=== PATIENT | female | born 1950 | race Caucasian/White ===

== ENCOUNTER → 2016-06-30 | Outpatient (CLI) | payer MEDICARE ==
[~2016-06-30] MED LIST: /ATOR40TA PO; /NITR4TASL SL; ADVA230A INH; ALBU17IN INH; ALLO10TA PO; ASPI325T PO; ASPI32ECTA PO; BUDE0.5S6 INH; BYST10TA PO; CIPR500T89 PO; COLC1TAB5 PO; DIGO0.12 PO; DILT1CAP46 PO; DRIS1CAP PO; DUONSOL INH; EFFEXOR XR PO; ENAL10TA2 PO; FLOV110A INH; FURO20TA2 PO; FURO40TA2 PO; GABA300C3 PO; HUMA100I SC; INSUH10VL SC; INSULANT SC; IPRASOL4 IN; KLOR10TA5 PO; LIPI80TA PO; NITR4TASL SL; PANT40TA2 PO; PLAVIX PO; POTA10TA16 PO; PREDPOW10 PO; PROA1AER IN; RANE1000 PO; SING5CHW PO; VENL75TA2 PO; VENL75TA3 PO; VITA1CAP2 PO; VITACAP31 PO; [UNRECOGNIZED DRUG - CODE] SC
== END ==
LOC: M LAB 10:20
PROVIDERS: ATTEND Internal Medicine Endocrinology, Diabetes & Metabolism
DX: E11.65 Type 2 diabetes mellitus with hyperglycemia (principal); Z79.4 Long term (current) use of insulin; S84.12XA Injury of peroneal nerve at lower leg level, left leg, initial encounter; G47.33 Obstructive sleep apnea (adult) (pediatric); E55.9 Vitamin D deficiency, unspecified; Z96.41 Presence of insulin pump (external) (internal); I10 Essential (primary) hypertension; X58.XXXA Exposure to other specified factors, initial encounter; Y92.9 Unspecified place or not applicable

== ENCOUNTER → 2016-10-15 | Outpatient (REF) | payer MEDICARE ==
[~2016-10-15] MED LIST changes: +GABA-282 PO; -GABA300C3 PO
[2016-10-16 14:06] LABS: FOLATE 8.9 NG/ML
[2016-10-16 14:22] LABS: PERCENT SATURATION 15.1 % (13.2-37.4)
== END ==
LOC: M LAB REF 13:19
PROVIDERS: ATTEND Internal Medicine
DX: Z51.81 Encounter for therapeutic drug level monitoring (principal); D64.9 Anemia, unspecified; Z79.899 Other long term (current) drug therapy

== ENCOUNTER → 2016-12-10 | Outpatient (CLI) | payer MEDICARE ==
--- NOTE | 2016-12-10 11:15 | REP ---
REASON: Followup pulmonary nodule. COMPARISON: 10/22/2015 which showed a 3 mm sized nodular density in the right middle lobe. The mediastinum and pulmonary glenn are unchanged showing no evidence of a mass or adenopathy. There are no pleural or pericardial effusions. The imaged upper abdomen is within normal limits. The imaged osseous structures are stable and intact. Evaluation of the lung isbell show no change in the tiny right middle lobe nodular density. There are no new abnormal nodules, masses, or opacities. IMPRESSION: Stable CT examination of the chest. According to the revised Fleischner Society criteria, yearly lung screening CT is recommended provided the patient's risk factors remain high. Signed by Hayes Chowdhury DO 12/10/2016 01:45 P
== END ==
LOC: M RAD 08:32
PROVIDERS: ATTEND Internal Medicine Pulmonary Disease
DX: R91.1 Solitary pulmonary nodule (principal)

== ENCOUNTER → 2017-02-10 | Outpatient (CLI) | payer MEDICARE ==
[~2017-02-10] MED LIST changes: +ASPI325T24 PO; -ASPI32ECTA PO; +CIPR-249 PO; -CIPR500T89 PO; +COLC1TAB14 PO; -COLC1TAB5 PO; -PROA1AER IN; +PROAAER10 IN
--- NOTE | 2017-02-10 11:50 | REP ---
LUMBAR SPINE, FIVE VIEWS: HISTORY: Sacroiliitis. COMPARISON: 06/29/2008. There is no acute fracture or subluxation. The intervertebral discs are decreased in height. Vacuum phenomenon is present at the L2-3 level. These findings are consistent with disc degeneration. Osteophytes are present throughout the lumbar spine. There is sclerosis of the end plates of the L2 and L3 vertebral bodies. There is narrowing of the L4-5 and L5-S1 facet joints with associated sclerosis. There is sclerosis adjacent to the left sacroiliac joint. IMPRESSION: Degenerative change as described above. Signed by Bijan Galo MD 02/10/2017 11:52 A
== END ==
LOC: M RAD 11:01
PROVIDERS: ATTEND Nurse Practitioner Family
DX: M46.1 Sacroiliitis, not elsewhere classified (principal); M51.24 Other intervertebral disc displacement, thoracic region; M51.34 Other intervertebral disc degeneration, thoracic region; M79.1 Myalgia; M54.12 Radiculopathy, cervical region; M47.814 Spondylosis without myelopathy or radiculopathy, thoracic region

== ENCOUNTER → 2017-02-16 | Outpatient (CLI) | payer MEDICARE ==
--- NOTE | 2017-02-16 12:39 | REP ---
DIGITAL SCREENING MAMMOGRAPHY WITH CAD: Comparison mammography February 20, 2016, February 14, 2015, and February 13, 2014. MAMMOGRAPHIC FINDINGS: Scattered fibroglandular elements are seen bilaterally. There is a somewhat ill-defined nodular neodensity, 12.5 mm, medially in the right breast at approximately 3-o'clock position, which merits further evaluation. There are scattered benign calcifications. No other soft tissue density is seen. No architectural distortion is observed. No worrisome skin change. Exam is otherwise unremarkable. IMPRESSION: BIRADS category 0 incomplete breast imaging. Nodular neodensity 3-o'clock position right breast merits further evaluation. Diagnostic right breast mammography and focused right breast sonography recommended. BI-RADS/ACR category 0 mammogram, incomplete. Additional imaging and/or prior images are needed before a final assessment can be assigned. This mammogram was interpreted with the aid of an FDA-approved computer-aided detection system. The patient states she/he had a clinical breast exam in December, The patient letter being requested is M0.
== END ==
LOC: M WHC 10:36
PROVIDERS: ATTEND Nurse Practitioner Adult Health
DX: Z12.31 Encounter for screening mammogram for malignant neoplasm of breast (principal); N63 Unspecified lump in breast

== ENCOUNTER → 2017-02-18 | Outpatient (CLI) | payer MEDICARE ==
--- NOTE | 2017-02-18 13:46 | REP ---
DIGITAL DIAGNOSTIC UNILATERAL RIGHT BREAST MAMMOGRAPHY WITH CAD AND FOCUSED RIGHT BREAST SONOGRAPHY: HISTORY: Screening mammography February 16, 2017 was BIRADS category 0 incomplete because of a nodular neodensity seen at the 3 -o'clock position. Right breast imaging was recommended. Comparison is also made with prior mammography from February 20, 2016 and February 14, 2015. MAMMOGRAPHIC FINDINGS: Magnified focal spot compression CC, MLO and true ML views of the right breast are obtained along with a true ML view without magnification. At 3-o'clock position in the right breast, these views confirm the presence of a sharply circumscribed elongate oval-shaped 10 mm lesion relatively low in radiographic attenuation in the middle third of the right breast. This is seen only with difficulty on the MLO and true ML views. There are some benign inspissated ductal secretory calcifications. No other mammographic finding. SONOGRAPHIC FINDINGS: The medial aspect of the right breast was scanned from the 12-o'clock position to the 6-o'clock position. At the 3-o'clock position, there is an elongate oval-shaped 1.3 x 0.4 x 1.2 cm hypoechoic structure without internal vascular flow. It has sharply circumscribed margins. It does not appear to show enhanced through transmission. It does not meet the criteria of a simple cyst. It may be a complex cyst. No other sonographic finding. Fairly homogeneous background echotexture. IMPRESSION: BIRADS category 4 suspicious right breast imaging. Oval-shaped hypoechoic 1.2 cm lesion at the 3-o'clock position in the right breast seen by ultrasound and corresponding to a sharply circumscribed elongate oval-shaped lesion mammographically. Ultrasound-guided aspiration needle biopsy recommended with marker clip placement and post marker clip placement mammogram views. BI-RADS/ACR category 4 mammogram. Suspicious abnormality - biopsy should be considered. Usually requires biopsy. This mammogram was interpreted with the aid of an FDA-approved computer-aided detection system. The patient states she/he had a clinical breast exam in December 2016. The patient letter being requested is M4. Signed by Demetrius Quintana MD 02/18/2017 05:02 P
== END ==
LOC: M RAD 10:32
PROVIDERS: ATTEND Internal Medicine
DX: N63 Unspecified lump in breast (principal)
CPT/HCPCS: 76642; G0206

== ENCOUNTER → 2017-03-11 | Outpatient (CLI) | payer MEDICARE ==
--- NOTE | 2017-03-12 09:29 | DEXA ---
AP SPINE L1 - L4 1.345 1.2 2.8 LT FEMUR TOTAL 0.967 -0.3 1.0 RT FEMUR TOTAL 0.973 -0.3 1.1 TOTAL BODY TOTAL OTHER DUAL FEMUR FRAX* ASSESSMENT Risk factors: Not performed. 10 year probability of fracture Major osteoporotic fracture % Hip fracture % COMMENTS: Normal bone densitometry of the spine and hips. The increased density of the spine does represent a significant change. The decreased density of the left hip does not represent a significant change. The decreased density of the right hip does represent a significant change. The density of the spine has increased 19.4% since the initial exam on 09/2003. The spine density has increased 9.8% since the most recent exam on 08/2012. The density of the left hip has increased 6.0% since the initial exam on 09/2003. The density of the left hip has decreased 1.8% since the most recent exam on 2012. The density of the right hip has increased 5.9% since the initial exam on 2003. The density of the right hip has decreased 6.8% since the most recent exam on 2012. FOLLOW-UP: Recommendation for the next bone density exam: 5 years. GRACIE
== END ==
LOC: M WHC 08:18
PROVIDERS: ATTEND Internal Medicine
DX: M85.88 Other specified disorders of bone density and structure, other site (principal); M85.851 Other specified disorders of bone density and structure, right thigh; M85.852 Other specified disorders of bone density and structure, left thigh

== ENCOUNTER 2017-03-23 07:14 | Outpatient (CLI) | payer MEDICARE ==
[~2017-03-23] VITALS: Ht 149.9 cm; Wt 76.7 kg
[2017-03-23] MEDS ORDERED: NS 1,000 ML IV ONE (07:45)
[2017-03-23] MEDS ORDERED: PROPOFOL 200 MG/20 ML VIAL As Ordered ONE ×3 (08:23→08:29)
[2017-03-23] MEDS ORDERED: LIDOCAINE 2% INJ 100 MG/5 ML SDV (FOR ANES.) As Ordered ONE (08:24)
--- NOTE | 2017-03-23 08:29 | ROOR ---
Patient Name: Aura Garland Procedure Date: 03/23/2017 8:05 AM Date of : 1950 Age: 66 Room: [facility] Gender: Female Note Status: Finalized Procedure: Upper Endoscopy + Biopsies Indications: Heartburn, Exclusion of He's esophagus Providers: Lb Millard MD Referring MD: SAUL PATTERSON JR, MD Requesting Provider: Medicines: Monitored Anesthesia Care Complications: No immediate complications. Procedure: Pre-Anesthesia Assessment: - The heart rate, respiratory rate, oxygen saturations, blood pressure, adequacy of pulmonary ventilation, and response to care were monitored throughout the procedure. The Endoscope was introduced through the mouth, and advanced to the second part of duodenum. The upper GI endoscopy was accomplished without difficulty. The patient tolerated the procedure well. Findings: The Z-line was irregular and was found 40 cm from the incisors. Multiple biopsies were obtained with cold forceps for evaluation to rule out He's Esophagus randomly at the gastroesophageal junction. A small hiatal hernia was present. Diffuse candidiasis was found in the lower third of the esophagus. Biopsies were taken with a cold forceps for histology. No other significant abnormalities were identified in a careful examination of the stomach. The exam of the duodenum was otherwise normal. Impression: - Z-line irregular, 40 cm from the incisors. - Small hiatal hernia. - Monilial esophagitis. Biopsied. - Multiple biopsies were obtained at the gastroesophageal junction. - The examination was otherwise normal. Recommendation: - Await pathology results. - Discharge patient to home. - Follow an antireflux regimen. - Continue present medications. - Await pathology results. - Telephone GI clinic for pathology results in 1 week. - Repeat upper endoscopy for surveillance based on pathology results. - Return to referring physician. - The findings and recommendations were discussed with the patient's family. Lb Millard MD Lb Millard MD 03/23/2017 8:28:54 AM This report has been signed electronically. Number of Addenda: 0 Note Initiated On: 03/23/2017 8:05 AM Estimated Blood Loss: Estimated blood loss: none.
--- NOTE | 2017-03-23 08:48 | ROOR ---
Patient Name: Aura Garland Procedure Date: 03/23/2017 8:05 AM Date of : 1950 Age: 66 Room: [facility] Gender: Female Note Status: Finalized Procedure: Total Colonoscopy to Cecum Indications: Change in bowel habits Providers: Lb Millard MD Referring MD: SAUL PATTERSON JR, MD Requesting Provider: Medicines: Monitored Anesthesia Care Complications: No immediate complications. Procedure: Pre-Anesthesia Assessment: - The heart rate, respiratory rate, oxygen saturations, blood pressure, adequacy of pulmonary ventilation, and response to care were monitored throughout the procedure. The Colonoscope was introduced through the anus and advanced to the cecum, identified by appendiceal orifice and ileocecal valve. The colonoscopy was performed without difficulty. The patient tolerated the procedure well. The quality of the bowel preparation was excellent. Findings: The perianal and digital rectal examinations were normal. Non-bleeding internal hemorrhoids were found during retroflexion. The hemorrhoids were small and Grade I (internal hemorrhoids that do not prolapse). Multiple small and large-mouthed diverticula were found in the recto-sigmoid colon, sigmoid colon and descending colon. The exam was otherwise without abnormality on direct and retroflexion views. Impression: - Non-bleeding internal hemorrhoids. - Diverticulosis in the recto-sigmoid colon, in the sigmoid colon and in the descending colon. - The examination was otherwise normal on direct and retroflexion views. - No specimens collected. - The exam was otherwise normal to the cecum. Recommendation: - Patient has a contact number available for emergencies. The signs and symptoms of potential delayed complications were discussed with the patient. Return to normal activities tomorrow. Written discharge instructions were provided to the patient. - High fiber diet. - Discharge patient to home. - Continue present medications. - Repeat colonoscopy in 10 years for screening purposes. - Return to referring physician. - The findings and recommendations were discussed with the patient's family. Lb Millard MD Lb Millard MD 03/23/2017 8:47:47 AM This report has been signed electronically. Number of Addenda: 0 Note Initiated On: 03/23/2017 8:05 AM Estimated Blood Loss: Estimated blood loss: none.
[2017-03-23 09:10] VITALS: BP 165/87
== END 2017-03-23 09:27 | disposition home or self-care (01) ==
LOC: M OPP 07:14
PROVIDERS: ATTEND Internal Medicine Gastroenterology
DX: R19.4 Change in bowel habit (principal); K64.0 First degree hemorrhoids; K57.30 Diverticulosis of large intestine without perforation or abscess without bleeding; R13.10 Dysphagia, unspecified; R12 Heartburn; K22.8 Other specified diseases of esophagus; K44.9 Diaphragmatic hernia without obstruction or gangrene; B37.81 Candidal esophagitis; I25.119 Atherosclerotic heart disease of native coronary artery with unspecified angina pectoris; I10 Essential (primary) hypertension; Z95.5 Presence of coronary angioplasty implant and graft; Z95.1 Presence of aortocoronary bypass graft; I25.2 Old myocardial infarction; E78.5 Hyperlipidemia, unspecified; E10.9 Type 1 diabetes mellitus without complications; Z96.41 Presence of insulin pump (external) (internal); M10.9 Gout, unspecified; E03.9 Hypothyroidism, unspecified; R23.3 Spontaneous ecchymoses; M19.90 Unspecified osteoarthritis, unspecified site; M54.9 Dorsalgia, unspecified; M25.60 Stiffness of unspecified joint, not elsewhere classified; G62.9 Polyneuropathy, unspecified; J45.909 Unspecified asthma, uncomplicated; G47.30 Sleep apnea, unspecified; Z88.0 Allergy status to penicillin; Z88.2 Allergy status to sulfonamides; Z79.82 Long term (current) use of aspirin; Z79.899 Other long term (current) drug therapy; Z80.1 Family history of malignant neoplasm of trachea, bronchus and lung

== ENCOUNTER → 2017-04-02 | Outpatient (CLI) | payer MEDICARE ==
--- NOTE | 2017-04-02 11:58 | REP ---
MR LUMBAR SPINE WITHOUT CONTRAST: HISTORY: Back pain. Decreased signal intensity on T2-weighted images is present in the T11-12 through L5-S1 intervertebral discs. The discs are decreased in height. These findings as consistent with disc degeneration. A diffuse disc bulge and small central disc extrusion are present at the L1-2 level. There is minimal compression of the thecal sac. There is hypertrophy of the posterior articulating facets. The L1 nerves exit the neural foramina without compression. A diffuse disc bulge is present at the L2-3 level. There is hypertrophy of the ligamenta flava and posterior articulating facets. There are 2 mm of retrolisthesis of L2 on 3. These findings produce minimal central canal stenosis. There is compression of the left L2 nerve in the neural foramen. The right L2 nerve exits the neural foramen without compression. A diffuse disc bulge is present at the L3-4 level. There is hypertrophy of the ligamenta flava and posterior articulating facets. These findings produce minimal central canal stenosis. There is compression of the right L3 nerve in the neural foramen. The left L3 nerve exits the neural foramen without compression. A diffuse disc bulge is present at the L4-5 level. There is hypertrophy of the ligamenta flava and posterior articulating facets. These findings produce mild central canal stenosis. The L4 nerves exit the neural foramina without compression. A diffuse disc bugle is present at the L5-S1 level. There is hypertrophy of the ligamenta flava and the posterior articulating facets. These findings produce minimal central canal stenosis. The L5 nerves exit the neural foramina without compression. The conus medullaris is normal in appearance terminating at the level of the L1-2 intervertebral disc. Increased signal intensity on T2-weighted images is present in the endplates of the L2 and 3 vertebral bodies. This represents degenerative change. IMPRESSION: 1. Diffuse disc bugle and small central disc extrusion at the L1-2 level with minimal thecal sac compression. 2. Minimal central canal stenosis at the L2-3 level secondary to disc bulge, ligamentous and facet hypertrophy and retrolisthesis. There is compression of the left L2 nerve in the neural foramen. 3. Minimal central canal stenosis at the L3-4 and L5-S1 levels secondary to disc bulge, ligamentous, and facet hypertrophy. There is compression of the right L3 nerve in the neural foramen. 4. Mild central canal stenosis at the L4-5 level secondary to disc bulge, ligamentous, and facet hypertrophy. Signed by Bijan Galo MD 04/02/2017 12:05 P
== END ==
LOC: M RAD 10:18
PROVIDERS: ATTEND Nurse Practitioner Family
DX: M51.37 Other intervertebral disc degeneration, lumbosacral region (principal); M47.817 Spondylosis without myelopathy or radiculopathy, lumbosacral region; M46.1 Sacroiliitis, not elsewhere classified; M51.24 Other intervertebral disc displacement, thoracic region; M51.34 Other intervertebral disc degeneration, thoracic region; M79.1 Myalgia; M47.814 Spondylosis without myelopathy or radiculopathy, thoracic region

== ENCOUNTER 2017-08-25 04:50 | Emergency (ER) | payer MEDICARE | END 2017-08-25 07:41 | disposition home or self-care (01) | LOC: M ED 04:50 | DX: T78.3XXA Angioneurotic edema, initial encounter (principal); Z79.4 Long term (current) use of insulin; Z79.51 Long term (current) use of inhaled steroids; Z79.899 Other long term (current) drug therapy; Z79.82 Long term (current) use of aspirin; Z88.0 Allergy status to penicillin; Z88.2 Allergy status to sulfonamides | CPT/HCPCS: 99283 ==

== ENCOUNTER → 2017-11-09 | Outpatient (CLI) | payer MEDICARE ==
[2017-11-09 09:05] LABS: ALT/SGPT 65 U/L (12-78); AST/SGOT 59 U/L (7-37); CHOLESTEROL LEVEL 116 MG/DL (<200); CHOLESTEROL RISK RATIO 2.974 (<5); CPK CREATINE PHOSPHOKINASE 168 U/L (26-192); HDL CHOLESTEROL 39 MG/DL (>40); LDL CHOLESTEROL 37.6 MG/DL (<100); NON-HDL-C 77 MG/DL; TRIGLYCERIDES LEVEL 197 MG/DL (<150)
== END ==
LOC: M LAB 08:07
DX: I25.10 Atherosclerotic heart disease of native coronary artery without angina pectoris (principal)
CPT/HCPCS: 84460

== ENCOUNTER → 2017-11-17 | Outpatient (CLI) | payer MEDICARE ==
[2017-11-17 10:34] LABS: BASO % 0.4 % (0.0-1.0); EOS # 0.2 10^3/uL (0.0-0.50); EOS % 3.8 % (0.0-3.0); HEMATOCRIT 35.3 % (36.0-47.0); HEMOGLOBIN 11.3 g/dl (12.0-15.5); IMMATURE GRANULOCYTE % 0.4 % (0-3.0); LYMPH # 1.6 10^3/uL (1.5-4.5); LYMPH % 35.9 % (24.0-44.0); MEAN CORPUSCULAR HEMOGLOBIN 28.6 pg (27.0-33.0); MEAN CORPUSCULAR VOLUME 89.4 fl (80.0-96.0); MONO # 0.4 10^3/uL (0.0-0.8); MONO % 9.2 % (0.0-5.0); NEUTROPHILS # 2.3 10^3/uL (1.8-7.7); NEUTROPHILS % 50.3 % (36.0-66.0); PLATELET COUNT, AUTOMATED 189 10^3/uL (150-450); RED BLOOD COUNT 3.95 10^6/uL (4.00-5.40); RED CELL DISTRIBUTION WIDTH 14.6 % (11.5-14.5); WHITE BLOOD COUNT 4.5 10^3/uL (4.0-10.0)
[2017-11-17 11:15] LABS: ANION GAP 6 MEQ/L (8-16); BLOOD UREA NITROGEN 19 MG/DL (7-18); CALCIUM LEVEL 8.7 MG/DL (8.8-10.2); CARBON DIOXIDE LEVEL 32 MEQ/L (21-32); CHLORIDE LEVEL 104 MEQ/L (98-107); GLOMERULAR FILTRATION RATE > 60.0 (>45); GLUCOSE, FASTING 304 MG/DL (70-100); POTASSIUM SERUM 3.6 MEQ/L (3.5-5.1); SODIUM LEVEL 142 MEQ/L (136-145)
== END ==
LOC: M LAB 10:00
DX: I25.10 Atherosclerotic heart disease of native coronary artery without angina pectoris (principal); R01.1 Cardiac murmur, unspecified
CPT/HCPCS: 80048

== ENCOUNTER → 2017-12-15 | Outpatient (REF) | payer MEDICARE ==
[2017-12-15 12:50] LABS: URIC ACID 5.8 MG/DL (2.6-6.0)
== END ==
LOC: M LAB REF 11:48
DX: M10.9 Gout, unspecified (principal)
CPT/HCPCS: 84550

== ENCOUNTER → 2018-02-08 | Outpatient (CLI) | payer MEDICARE ==
[2018-02-08 13:42] LABS: ANION GAP 6 MEQ/L (8-16); BLOOD UREA NITROGEN 18 MG/DL (7-18); CALCIUM LEVEL 9.3 MG/DL (8.8-10.2); CARBON DIOXIDE LEVEL 37 MEQ/L (21-32); CHLORIDE LEVEL 102 MEQ/L (98-107); CREATININE FOR GFR 0.66 MG/DL (0.55-1.30); GLOMERULAR FILTRATION RATE > 60.0 (>45); GLUCOSE, FASTING 68 MG/DL (70-100); NT-PRO BNP 250 PG/ML (<125); POTASSIUM SERUM 3.6 MEQ/L (3.5-5.1); SODIUM LEVEL 145 MEQ/L (136-145)
== END ==
LOC: M LAB 11:34
DX: I25.119 Atherosclerotic heart disease of native coronary artery with unspecified angina pectoris (principal); R60.9 Edema, unspecified; I10 Essential (primary) hypertension
CPT/HCPCS: 80048

== ENCOUNTER → 2018-02-23 | Outpatient (CLI) | payer MEDICARE ==
[2018-02-23 10:59] LABS: ANION GAP 6 MEQ/L (8-16); BLOOD UREA NITROGEN 23 MG/DL (7-18); CALCIUM LEVEL 8.6 MG/DL (8.8-10.2); CARBON DIOXIDE LEVEL 32 MEQ/L (21-32); CHLORIDE LEVEL 104 MEQ/L (98-107); CREATININE FOR GFR 0.86 MG/DL (0.55-1.30); GLOMERULAR FILTRATION RATE > 60.0 (>45); GLUCOSE, FASTING 179 MG/DL (70-100); POTASSIUM SERUM 3.5 MEQ/L (3.5-5.1); SODIUM LEVEL 142 MEQ/L (136-145)
== END ==
LOC: M LAB 09:23
DX: I10 Essential (primary) hypertension (principal)
CPT/HCPCS: 80048

== ENCOUNTER → 2018-03-25 | Outpatient (CLI) | payer MEDICARE ==
[2018-03-25 10:59] LABS: ANION GAP 7 MEQ/L (8-16); BLOOD UREA NITROGEN 25 MG/DL (7-18); CARBON DIOXIDE LEVEL 33 MEQ/L (21-32); CHLORIDE LEVEL 102 MEQ/L (98-107); CREATININE FOR GFR 0.83 MG/DL (0.55-1.30); GLOMERULAR FILTRATION RATE > 60.0 (>45); GLUCOSE, FASTING 191 MG/DL (70-100); POTASSIUM SERUM 3.5 MEQ/L (3.5-5.1); SODIUM LEVEL 142 MEQ/L (136-145)
== END ==
LOC: M LAB 10:11
DX: R60.9 Edema, unspecified (principal)
CPT/HCPCS: 80048

== ENCOUNTER → 2018-04-05 | Outpatient (CLI) | payer MEDICARE ==
[2018-04-05 10:57] LABS: ANION GAP 7 MEQ/L (8-16); BLOOD UREA NITROGEN 24 MG/DL (7-18); CALCIUM LEVEL 8.9 MG/DL (8.8-10.2); CARBON DIOXIDE LEVEL 33 MEQ/L (21-32); CHLORIDE LEVEL 101 MEQ/L (98-107); CREATININE FOR GFR 0.91 MG/DL (0.55-1.30); GLOMERULAR FILTRATION RATE > 60.0 (>45); GLUCOSE, FASTING 162 MG/DL (70-100); POTASSIUM SERUM 3.8 MEQ/L (3.5-5.1); SODIUM LEVEL 141 MEQ/L (136-145)
== END ==
LOC: M LAB 09:41
DX: R60.9 Edema, unspecified (principal); I10 Essential (primary) hypertension; I25.10 Atherosclerotic heart disease of native coronary artery without angina pectoris
CPT/HCPCS: 80048

== ENCOUNTER → 2018-04-07 | Outpatient (CLI) | payer MEDICARE ==
[2018-04-07 13:38] LABS: NT-PRO BNP 161 PG/ML (<125)
== END ==
LOC: M LAB 12:38
DX: R60.9 Edema, unspecified (principal)
CPT/HCPCS: 36415

== ENCOUNTER → 2018-05-26 | Outpatient (CLI) | payer MEDICARE ==
[2018-05-26 13:41] LABS: ANION GAP 7 MEQ/L (8-16); BLOOD UREA NITROGEN 24 MG/DL (7-18); CALCIUM LEVEL 9.3 MG/DL (8.8-10.2); CARBON DIOXIDE LEVEL 34 MEQ/L (21-32); CHLORIDE LEVEL 98 MEQ/L (98-107); CREATININE FOR GFR 0.93 MG/DL (0.55-1.30); GLOMERULAR FILTRATION RATE > 60.0 (>45); GLUCOSE, FASTING 252 MG/DL (70-100); NT-PRO BNP 131 PG/ML (<125); POTASSIUM SERUM 3.9 MEQ/L (3.5-5.1); SODIUM LEVEL 139 MEQ/L (136-145)
== END ==
LOC: M SMT 08:59
DX: I25.10 Atherosclerotic heart disease of native coronary artery without angina pectoris (principal); R60.9 Edema, unspecified
CPT/HCPCS: 80048

== ENCOUNTER → 2018-06-09 | Outpatient (CLI) | payer MEDICARE ==
[~2018-06-09] MED LIST changes: -ASPI325T24 PO; +ASPI325T25 PO; -GABA-282 PO; +GABA-843 PO; +IPRA0.00 IN; -IPRASOL4 IN; +PANT40TA3 PO
[2018-06-09 14:06] LABS: BLOOD UREA NITROGEN 16 MG/DL (7-18); CALCIUM LEVEL 8.8 MG/DL (8.8-10.2); CARBON DIOXIDE LEVEL 32 MEQ/L (21-32); CHLORIDE LEVEL 103 MEQ/L (98-107); CREATININE FOR GFR 0.87 MG/DL (0.55-1.30); GLOMERULAR FILTRATION RATE > 60.0 (>45); GLUCOSE, FASTING 222 MG/DL (70-100); POTASSIUM SERUM 4.4 MEQ/L (3.5-5.1); SODIUM LEVEL 142 MEQ/L (136-145)
== END ==
LOC: M SMT 10:06
PROVIDERS: ATTEND Internal Medicine Cardiovascular Disease
DX: I10 Essential (primary) hypertension (principal)

== ENCOUNTER → 2018-06-16 | Outpatient (CLI) | payer MEDICARE ==
[2018-06-16 13:49] LABS: CREATININE FOR GFR 0.98 MG/DL (0.55-1.30); GLOMERULAR FILTRATION RATE 59.9 (>45); POTASSIUM SERUM 4.2 MEQ/L (3.5-5.1)
== END ==
LOC: M SMT 11:15
PROVIDERS: ATTEND Internal Medicine Cardiovascular Disease
DX: I10 Essential (primary) hypertension (principal); I25.10 Atherosclerotic heart disease of native coronary artery without angina pectoris

== ENCOUNTER → 2018-07-19 | Outpatient (CLI) | payer MEDICARE ==
[2018-07-19 13:23] LABS: BLOOD UREA NITROGEN 22 MG/DL (7-18); CALCIUM LEVEL 9.1 MG/DL (8.8-10.2); CARBON DIOXIDE LEVEL 31 MEQ/L (21-32); CHLORIDE LEVEL 98 MEQ/L (98-107); CREATININE FOR GFR 0.93 MG/DL (0.55-1.30); GLOMERULAR FILTRATION RATE > 60.0 (>45); GLUCOSE, FASTING 236 MG/DL (70-100); SODIUM LEVEL 138 MEQ/L (136-145)
== END ==
LOC: M SMT 10:31
PROVIDERS: ATTEND Internal Medicine Cardiovascular Disease
DX: I35.9 Nonrheumatic aortic valve disorder, unspecified (principal); R60.9 Edema, unspecified

== ENCOUNTER 2018-08-03 20:08 | Emergency (ER) | payer MEDICARE ==
[~2018-08-03] VITALS: Ht 152.4 cm; Wt 86.4 kg
[~2018-08-03 20:08] MED LIST changes: -/ATOR40TA PO; -/NITR4TASL SL; +ASPI-255 PO; -ASPI325T25 PO; +LIPI1TAB2 PO; +NITR0.4S SL; +VENL-65 PO; -VENL75TA3 PO; +VITA-183 PO; -VITA1CAP2 PO
[2018-08-03 20:43] LABS: BASO % 0.4 % (0.0-1.0); EOS # 0.3 10^3/uL (0.0-0.50); EOS % 3.1 % (0.0-3.0); HEMATOCRIT 36.7 % (36.0-47.0); HEMOGLOBIN 12.5 g/dl (12.0-15.5); LYMPH # 2.9 10^3/uL (1.5-4.5); LYMPH % 31.2 % (24.0-44.0); MEAN CORPUSCULAR HEMOGLOBIN 30.1 pg (27.0-33.0); MEAN CORPUSCULAR HGB CONC 34.1 g/dl (32.0-36.5); MEAN CORPUSCULAR VOLUME 88.4 fl (80.0-96.0); MONO # 0.7 10^3/uL (0.0-0.8); MONO % 7.2 % (0.0-5.0); NEUTROPHILS # 5.4 10^3/uL (1.8-7.7); NEUTROPHILS % 57.6 % (36.0-66.0); PLATELET COUNT, AUTOMATED 222 10^3/uL (150-450); RED BLOOD COUNT 4.15 10^6/uL (4.00-5.40); WHITE BLOOD COUNT 9.3 10^3/uL (4.0-10.0)
[2018-08-03 20:54] LABS: INR 1.09; PROTHROMBIN TIME 14.2 SECONDS (12.1-14.4)
[2018-08-03 21:16] LABS: ALT/SGPT 33 U/L (12-78); BILIRUBIN,DIRECT < 0.1 MG/DL (0.0-0.2); BILIRUBIN,TOTAL 0.4 MG/DL (0.2-1.0); BLOOD UREA NITROGEN 19 MG/DL (7-18); CALCIUM LEVEL 9.1 MG/DL (8.8-10.2); CARBON DIOXIDE LEVEL 31 MEQ/L (21-32); CHLORIDE LEVEL 100 MEQ/L (98-107); CPK CREATINE PHOSPHOKINASE 184 U/L (26-192); CREATININE FOR GFR 1.08 MG/DL (0.55-1.30); FREE T4 0.69 NG/DL (0.76-1.46); GLOMERULAR FILTRATION RATE 53.5 (>45); GLUCOSE, FASTING 194 MG/DL (70-100); LIPASE 92 U/L (73-393); MB/CK RELATIVE INDEX 1.85 (< OR =4); POTASSIUM SERUM 3.4 MEQ/L (3.5-5.1); SODIUM LEVEL 140 MEQ/L (136-145); TOTAL PROTEIN 7.3 GM/DL (6.4-8.2); TROPONIN I < 0.02 NG/ML (< 0.10)
[2018-08-03] MEDS ORDERED: NITROGLYCERIN 2% OINT 1 GM *U/D* PKT TOP ONE (21:45)
[2018-08-03] MEDS ORDERED: MORPHINE 2 MG/ML 1ML SYRINGE (J2270) IV ONE (21:45)
[2018-08-03] MEDS ORDERED: GI COCKTAIL 50ML BTL(HYOSCYAMINE/MAALOX/LIDOCAINE VISCOUS)(1:3:1) PO ONE (23:00)
[2018-08-03 23:14] LABS: CPK CREATINE PHOSPHOKINASE 178 U/L (26-192); MB/CK RELATIVE INDEX 1.69 (< OR =4); TROPONIN I < 0.02 NG/ML (< 0.10)
[2018-08-03] MEDS ORDERED: ISOVUE-370 76% 100ML VIAL (Q9967) As Ordered ONE (23:21)
[2018-08-03] MEDS ORDERED: hydrALAZINE INJ 20 MG/ML VIAL IV STA (23:45)
[2018-08-03] MEDS ORDERED: HYDR25TA PO (23:58)
[2018-08-04] MEDS ORDERED: **hydrALAZINE HCL** 25 MG TAB PO ONE
[2018-08-04] MEDS ORDERED: NORCO 5/325MG TABLET (BULK FOR ED) PO ONE
[2018-08-04 00:02] VITALS: BP 174/77
[2018-08-04 00:30] VITALS: BP 162/74
--- NOTE | 2018-08-04 00:42 | REPVR ---
EXAM: CT Angiography Chest With Contrast EXAM DATE/TIME: 08/03/2018 11:15 PM CLINICAL HISTORY: 68 years old, female; Pain; Chest pain; Type not specified; Patient HX: Cardiac TECHNIQUE: Axial computed tomographic angiography images of the chest with intravenous contrast using CT angiography protocol. All CT scans at this facility use at least one of these dose optimization techniques: automated exposure control; mA and/or kV adjustment per patient size (includes targeted exams where dose is matched to clinical indication); or iterative reconstruction. Coronal and sagittal reformatted images were created and reviewed. MIP reconstructed images were created and reviewed. CONTRAST: 75 ml of iso administered intravenously. COMPARISON: CT ANGIO CHEST 10/22/2015 1:10 PM FINDINGS: PULMONARY ARTERIES: Enhancement within the pulmonary arteries is preserved bilaterally to the distal segmental levels, without evidence for acute pulmonary embolus. There is slight heterogeneous enhancement noted at a subsegmental origin within the anterior left base, however felt likely to be artifactual. Diameter of the main pulmonary trunk is 3 cm. HEART AND AORTA: There is mild cardiac enlargement. No pericardial effusion. There is extensive coronary artery disease. Evaluation of the proximal aorta is slightly compromised by motion artifact. No thoracic aortic aneurysm or dissection is seen otherwise. The visualized proximal great vessels within the superior mediastinum are preserved. MEDIASTINUM: No mediastinal gas. The visualized thyroid gland is homogeneous. No mediastinal hematoma. No mediastinal or hilar lymphadenopathy by size criteria. No periesophageal gas or fluid. Small hiatal hernia is noted. LUNGS: The lungs are symmetrically expanded. Bibasal atelectasis and/or pulmonary parenchymal scarring noted. No consolidation, pneumothorax or pleural effusion. No suspicious pulmonary parenchymal masses seen. Previously seen pulmonary nodule is not convincingly identified. A 4mm nodular opacity is seen in the right middle lobe (image 101, series 401) however appears planar in appearance on coronal reconstructed images and may represent scarring. No obvious central tracheobronchial abnormality. UPPER ABDOMEN: No free air or free fluid within the visualized uppermost abdomen. Small hiatal hernia. Splenic diameter is 14 cm. MSK AND BODY WALL: No axillary lymphadenopathy by size criteria. Median sternotomy changes are noted. No acute fracture. Degenerative changes of the spine are noted. IMPRESSION: No evidence for acute pulmonary emboli. Mild cardiac enlargement. Coronary artery disease. Mild atelectasis. Other findings discussed above. Electronically signed by: Steffen Sharif On 08/04/2018 00:41:48 AM
--- NOTE | 2018-08-04 07:43 | REP ---
PA and lateral chest: Comparison is 09/26/2013. There is chronic cardiomegaly, unchanged. There are sternotomy wires, unchanged. The discoid atelectasis identified in the left lung previously has resolved. The lung isbell otherwise clear. There are no pleural effusions. Coronary artery endovascular stents are suspected, seen to best advantage on the lateral view. Impression: No acute cardiopulmonary findings. Chronic stable findings as described. Electronically Signed by Cesario Mcmullen MD 08/04/2018 07:34 A
--- NOTE | 2018-08-04 17:09 | ECGEPIP ---
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
== END 2018-08-04 01:01 | disposition home or self-care (01) ==
LOC: M ED 20:08 → EDSEX 20:08 → EDBD 20:08 → M ED 08-04 01:01
DX: R07.89 Other chest pain (principal); G47.33 Obstructive sleep apnea (adult) (pediatric); I10 Essential (primary) hypertension; E78.5 Hyperlipidemia, unspecified; I25.10 Atherosclerotic heart disease of native coronary artery without angina pectoris; E11.9 Type 2 diabetes mellitus without complications
CPT/HCPCS: 71046; 71275; 80048; 80076; 82550; 82553; 83690; 84439; 84443; 84484; 85025; 85610; 85730; 93005; 93041; 94760; 96374; 99285; J2270; Q9967

== ENCOUNTER → 2018-09-07 | Outpatient (CLI) | payer MEDICARE ==
[~2018-09-07] MED LIST changes: +/ATOR40TA PO; +/NITR4TASL SL; -ASPI-255 PO; +ASPI325T25 PO; +HYDR25TA PO; -LIPI1TAB2 PO; -NITR0.4S SL; -VENL-65 PO; +VENL75TA3 PO; -VITA-183 PO; +VITA1CAP2 PO
[2018-09-07 14:15] LABS: FREE T4 0.83 NG/DL (0.76-1.46); THYROID STIMULATING HORMONE 2.3 uIU/ML (0.358-3.740)
== END ==
LOC: M SMT 10:03
PROVIDERS: ATTEND Physician Assistant
DX: R94.6 Abnormal results of thyroid function studies (principal)

== ENCOUNTER → 2018-12-09 | Outpatient (CLI) | payer MEDICARE ==
[~2018-12-09] MED LIST changes: -/ATOR40TA PO; -/NITR4TASL SL; +ASPI-255 PO; -ASPI325T25 PO; +LIPI1TAB2 PO; +NITR0.4S SL; +VENL-65 PO; -VENL75TA3 PO; +VITA-183 PO; -VITA1CAP2 PO
[2018-12-09 13:23] LABS: FREE T4 0.82 NG/DL (0.76-1.46); THYROID STIMULATING HORMONE 2.63 uIU/ML (0.358-3.740)
== END ==
LOC: M SMT 09:55
PROVIDERS: ATTEND Physician Assistant
DX: E03.8 Other specified hypothyroidism (principal); E06.3 Autoimmune thyroiditis

== ENCOUNTER → 2019-08-30 | Outpatient (CLI) | payer MEDICARE ==
[2019-08-30 10:59] LABS: ALBUMIN 4.2 GM/DL (3.2-5.2); ALT/SGPT 29 U/L (12-78); BILIRUBIN,TOTAL 0.4 MG/DL (0.2-1.0); BLOOD UREA NITROGEN 29 MG/DL (7-18); CALCIUM LEVEL 9.4 MG/DL (8.8-10.2); CARBON DIOXIDE LEVEL 35 MEQ/L (21-32); CHLORIDE LEVEL 101 MEQ/L (98-107); CHOLESTEROL LEVEL 147 MG/DL (<200); CREATININE FOR GFR 0.91 MG/DL (0.55-1.30); FREE T4 0.87 NG/DL (0.76-1.46); GLOMERULAR FILTRATION RATE > 60.0 (>39); GLUCOSE, FASTING 79 MG/DL (70-100); HDL CHOLESTEROL 62 MG/DL (>40); LDL CHOLESTEROL 63 MG/DL (<100); NON-HDL-C 85 MG/DL; POTASSIUM SERUM 4.2 MEQ/L (3.5-5.1); SODIUM LEVEL 139 MEQ/L (136-145); TOTAL PROTEIN 7.2 GM/DL (6.4-8.2); TRIGLYCERIDES LEVEL 109 MG/DL (<150)
[2019-08-30 11:00] LABS: TOTAL 25(OH) VITAMIN D 28.2 NG/ML (30.0-100.0)
== END ==
LOC: M PLALAB 07:59
PROVIDERS: ATTEND Physician Assistant
DX: E11.65 Type 2 diabetes mellitus with hyperglycemia (principal); Z79.4 Long term (current) use of insulin

== ENCOUNTER 2020-05-06 11:12 | Emergency (ER) | payer MEDICARE ==
[~2020-05-06] VITALS: Ht 149.9 cm; Wt 86.4 kg
[~2020-05-06 11:12] MED LIST changes: +ENAL-36 PO; +PANT40TA29 PO; -PANT40TA3 PO; +TORSEMIDE 10 MG TABLET PO SCH; +allopurinoL 100 MG TAB PO SCH
[2020-05-06] MEDS ORDERED: TORS20TA2 PO ×2 (11:49)
[2020-05-06 12:01] LABS: BASO % 0.5 % (0.0-1.0); EOS # 0.1 10^3/uL (0.0-0.5); EOS % 1.6 % (0.0-3.0); HEMOGLOBIN 12.1 g/dl (12.0-15.5); LYMPH # 1.8 10^3/uL (1.5-5.0); MEAN CORPUSCULAR HEMOGLOBIN 27.5 pg (27.0-33.0); MEAN CORPUSCULAR VOLUME 88.6 fl (80.0-96.0); MONO # 0.7 10^3/uL (0.0-0.8); MONO % 7.7 % (0.0-5.0); NEUTROPHILS # 6.1 10^3/uL (1.5-8.5); NEUTROPHILS % 69.5 % (36.0-66.0); PLATELET COUNT, AUTOMATED 279 10^3/uL (150-450); WHITE BLOOD COUNT 8.7 10^3/uL (4.0-10.0)
--- NOTE | 2020-05-06 12:10 | REP ---
INDICATION: CHEST PAIN. COMPARISON: 08/03/2018 FINDINGS: The technique utilized in obtaining the radiograph has magnified the cardiac silhouette and accentuated the interstitial markings. Once again, there is cardiomegaly accentuated by technique. Note is again made of previous median sternotomy. The interstitial markings are mildly chronically increased accentuated by technique. No acute patchy parenchymal opacities or pleural effusions have developed. There is no significant change in the osseous structures. IMPRESSION: Stable appearing chronic changes without evidence of acute cardiopulmonary disease. <Electronically signed by Hayes Chowdhury > 05/06/20 [id number]
[2020-05-06] MEDS ORDERED: VENLAFAXINE 37.5 MG TAB PO ONE (12:15)
[2020-05-06] MEDS ORDERED: **hydrALAZINE HCL** 25 MG TAB PO ONE (12:15)
[2020-05-06] MEDS ORDERED: POTASSIUM CHLORIDE 10 MEQ SR TABLET PO ONE (12:15)
[2020-05-06] MEDS ORDERED: GABAPENTIN 300 MG CAP PO ONE (12:15)
[2020-05-06 12:38] LABS: ALBUMIN 3.8 GM/DL (3.2-5.2); BILIRUBIN,DIRECT 0.1 MG/DL (0.0-0.2); BILIRUBIN,TOTAL 0.4 MG/DL (0.2-1.0); THYROID STIMULATING HORMONE 1.63 uIU/ML (0.358-3.740); TOTAL PROTEIN 7.2 GM/DL (6.4-8.2)
[2020-05-06] MEDS ORDERED: VENL75CA2 PO (12:52)
[2020-05-06] MEDS ORDERED: diltiaZEM **CD** 180 MG CAP PO ONE (13:00)
[2020-05-06] MEDS ORDERED: VENLAFAXINE **XR** 75MG CAPSULE PO ONE (13:00)
[2020-05-06 13:32] VITALS: BP 178/86
[2020-05-06 15:12] VITALS: BP 148/80
--- NOTE | 2020-05-07 10:15 | ECGEPIP ---
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
--- NOTE | 2020-05-07 10:17 | ECGEPIP ---
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
== END 2020-05-06 15:40 | disposition home or self-care (01) ==
LOC: M ED 11:12 → EDBD 11:12 → EDUNIT# 11:12 → M ED 15:40
DX: R07.89 Other chest pain (principal); R94.31 Abnormal electrocardiogram [ECG] [EKG]; I25.10 Atherosclerotic heart disease of native coronary artery without angina pectoris; E11.9 Type 2 diabetes mellitus without complications; E78.5 Hyperlipidemia, unspecified; I10 Essential (primary) hypertension; G47.33 Obstructive sleep apnea (adult) (pediatric); Z95.5 Presence of coronary angioplasty implant and graft; Z88.0 Allergy status to penicillin; Z88.2 Allergy status to sulfonamides; Z79.51 Long term (current) use of inhaled steroids; Z79.899 Other long term (current) drug therapy

== ENCOUNTER → 2020-05-09 | Outpatient (CLI) | payer MEDICARE ==
[~2020-05-09] MED LIST changes: +TORS20TA2 PO; -TORSEMIDE 10 MG TABLET PO SCH; +VENL75CA2 PO; -allopurinoL 100 MG TAB PO SCH
== END ==
LOC: M LABSMTC 12:37
PROVIDERS: ATTEND Anesthesiology
DX: Z01.812 Encounter for preprocedural laboratory examination (principal); Z20.828 Contact with and (suspected) exposure to other viral communicable diseases

== ENCOUNTER 2020-05-20 13:13 | Emergency (ER) | payer MEDICARE ==
[~2020-05-20 13:13] MED LIST changes: -ASPI-161 PO; -GABA600T4 PO; -HYDR-3910 PO; -INSUHUMDS SC; -ISOS30TA4 PO; -LEVO25TA5 PO; -SPIR-10 PO; -TIZA4TAB4 PO
[2020-05-20] MEDS ORDERED: ISOS30TA4 PO (13:34)
[2020-05-20 13:50] LABS: BASO # 0.1 10^3/uL (0.0-0.2); BASO % 0.3 % (0.0-1.0); EOS # 0.1 10^3/uL (0.0-0.5); EOS % 0.4 % (0.0-3.0); HEMATOCRIT 37.7 % (36.0-47.0); HEMOGLOBIN 12.1 g/dl (12.0-15.5); LYMPH # 1.3 10^3/uL (1.5-5.0); LYMPH % 9.2 % (24.0-44.0); MEAN CORPUSCULAR HEMOGLOBIN 28.5 pg (27.0-33.0); MEAN CORPUSCULAR HGB CONC 32.1 g/dl (32.0-36.5); MEAN CORPUSCULAR VOLUME 88.9 fl (80.0-96.0); MONO # 1.4 10^3/uL (0.0-0.8); MONO % 9.2 % (0.0-5.0); NEUTROPHILS # 11.8 10^3/uL (1.5-8.5); NEUTROPHILS % 80.5 % (36.0-66.0); PLATELET COUNT, AUTOMATED 262 10^3/uL (150-450); RED BLOOD COUNT 4.24 10^6/uL (4.00-5.40); WHITE BLOOD COUNT 14.6 10^3/uL (4.0-10.0)
--- NOTE | 2020-05-20 14:03 | REP ---
INDICATION: DYSPNEA/COUGH COMPARISON: 05/20/2020 at 12:12 p.m. TECHNIQUE: Portable AP view of the chest FINDINGS: Stable cardiomegaly and diffuse increased interstitial markings are again appreciated as well as right lower lobe opacity. Differential diagnosis again includes elements of CHF/interstitial edema as well as right basilar/right middle lobe infiltrate. IMPRESSION: No change from prior examination. <Electronically signed by Elton Elizalde > 05/20/20 [id number]
[2020-05-20 14:30] LABS: ALBUMIN 3.6 GM/DL (3.2-5.2); ALT/SGPT 19 U/L (12-78); BILIRUBIN,DIRECT 0.2 MG/DL (0.0-0.2); BILIRUBIN,TOTAL 0.9 MG/DL (0.2-1.0); BLOOD UREA NITROGEN 16 MG/DL (7-18); CALCIUM LEVEL 9.4 MG/DL (8.8-10.2); CARBON DIOXIDE LEVEL 29 MEQ/L (21-32); CHLORIDE LEVEL 101 MEQ/L (98-107); CK-MB VALUE MASS 4.2 NG/ML (<3.6); CPK CREATINE PHOSPHOKINASE 171 U/L (26-192); CREATININE FOR GFR 0.91 MG/DL (0.55-1.30); GLOMERULAR FILTRATION RATE > 60.0 (>39); GLUCOSE, FASTING 187 MG/DL (70-100); MB/CK RELATIVE INDEX 2.46 (< OR =4); NT-PRO BNP 1309 PG/ML (<125); POTASSIUM SERUM 4.5 MEQ/L (3.5-5.1); SODIUM LEVEL 135 MEQ/L (136-145); TOTAL PROTEIN 7.2 GM/DL (6.4-8.2); TROPONIN I 0.55 NG/ML (< 0.10)
[2020-05-20] MEDS ORDERED: LevoFLOXacin IV 750 MG in IV 1 EA IV ONE (14:45)
--- NOTE | 2020-05-20 16:00 | REP ---
INDICATION: fever/cough -covid COMPARISON: 08/03/2018 TECHNIQUE: Axial noncontrast images from the thoracic inlet to the upper abdomen with coronal and sagittal reformations. This CT examination was performed using the following dose reduction techniques: Automated exposure control, adjustment of mA and/or kv according to the patient's size, and use of iterative reconstruction technique. FINDINGS: Diffusely increased interstitial markings with pulmonary vascular congestion including significant cephalization as well as bibasilar atelectasis, small right consolidation, small right effusion, and cardiomegaly likely reflect CHF/pulmonary edema. Clinical correlation is recommended. Small scattered nodules cannot be excluded and may warrant short-term follow-up. Reactive mediastinal adenopathy is poorly evaluated due to the lack of contrast. Tracheobronchial tree is patent. Extensive atherosclerotic disease to the thoracic aorta and coronary arteries noted without aortic aneurysm. No pericardial effusion. Evidence for prior sternotomy. No acute osseous abnormality. Limited upper abdomen demonstrates normal bilateral adrenal glands. IMPRESSION: 1. Findings as described above likely represent CHF/pulmonary edema including basilar atelectasis, small right pleural effusion and right consolidation. Differential diagnosis cannot exclude an early infectious process. 2. Small scattered nodules cannot be excluded and short-term follow-up may be warranted. <Electronically signed by Elton Elizalde > 05/20/20 [id number]
[2020-05-20] MEDS ORDERED: IPRATROPIUM 0.5MG/ALBUTEROL 2.5MG INH SOL UD 3ML (DUONEB) NEB ONE (16:30)
[2020-05-20] MEDS ORDERED: ACETAMINOPHEN TAB 650MG DOSE (2X325MG) PO ONE (16:30)
[2020-05-20] MEDS ORDERED: FUROSEMIDE 20MG/2ML VIAL (J1940) IV ONE (16:30)
[2020-05-20] MEDS ORDERED: TIZA4TAB4 PO (17:02)
[2020-05-20] MEDS ORDERED: SPIR-10 PO (17:02)
[2020-05-20] MEDS ORDERED: LEVO25TA5 PO (17:02)
[2020-05-20] MEDS ORDERED: TORS20TA2 PO (17:02)
[2020-05-20] MEDS ORDERED: INSUHUMDS SC (17:02)
[2020-05-20] MEDS ORDERED: GABA600T4 PO (17:02)
[2020-05-20] MEDS ORDERED: HYDR-3910 PO (17:02)
[2020-05-20] MEDS ORDERED: ASPI-161 PO (17:02)
[2020-05-20 18:36] LABS: CK-MB VALUE MASS 3.6 NG/ML (<3.6); MB/CK RELATIVE INDEX 2.48 (< OR =4); TROPONIN I 1.1 NG/ML (< 0.10)
[2020-05-20] MEDS ORDERED: FUROSEMIDE 100MG/10ML VIAL (J1940) IV ONE (19:15)
[2020-05-20] MEDS ORDERED: CLOPIDOGREL 300 MG TAB (PLAVIX) PO STA (19:45)
[2020-05-20] MEDS ORDERED: ASPIRIN 81 MG CHEW TABLET PO ONE (19:45)
[2020-05-20] MEDS ORDERED: HEPARIN DRIP 25,000 UNITS in IV 1 EA IV SCH (19:46)
[2020-05-20] MEDS ORDERED: HEPARIN SOD (PORCINE) 5000UNITS/ML 1ML VIAL/SYRINGE IV ONE (20:00)
[2020-05-20 20:15] VITALS: BP 150/77
[2020-05-20 20:17] LABS: INR 1.29; PROTHROMBIN TIME 16.4 SECONDS (12.5-14.3)
--- NOTE | 2020-05-20 20:43 | ECGEPIP ---
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
[2020-05-20 20:53] LABS: PARTIAL THROMBOPLASTIN TIME > 240.0 SECONDS (24.2-38.5)
== END 2020-05-20 20:31 | disposition short-term general hospital (02) ==
LOC: M ED 13:13 → EDBD 13:13 → M ED 20:31
DX: I50.9 Heart failure, unspecified (principal); J18.9 Pneumonia, unspecified organism; R94.31 Abnormal electrocardiogram [ECG] [EKG]; I51.7 Cardiomegaly; R91.8 Other nonspecific abnormal finding of lung field; J45.901 Unspecified asthma with (acute) exacerbation; J06.9 Acute upper respiratory infection, unspecified; Z20.828 Contact with and (suspected) exposure to other viral communicable diseases; E11.9 Type 2 diabetes mellitus without complications; I25.10 Atherosclerotic heart disease of native coronary artery without angina pectoris; E78.5 Hyperlipidemia, unspecified; G47.33 Obstructive sleep apnea (adult) (pediatric); Z95.5 Presence of coronary angioplasty implant and graft; Z88.0 Allergy status to penicillin; Z88.2 Allergy status to sulfonamides; Z79.51 Long term (current) use of inhaled steroids; Z79.82 Long term (current) use of aspirin; Z79.899 Other long term (current) drug therapy
CPT/HCPCS: 36600; 51702; 71045; 71046; 71250; 80048; 80076; 82550; 82553; 82803; 83605; 83880; 84484; 85025; 85610; 85730; 87040; 87486; 87581; 87633; 87798; 93005; 93041; 94640; 94760; 96365; 96366; 96375; 99285; J1644; J1940; J1956

== ENCOUNTER → 2020-05-20 | Outpatient (CLI) | payer MEDICARE ==
[~2020-05-20] MED LIST changes: +ASPI-161 PO; +GABA600T4 PO; +HYDR-3910 PO; +INSUHUMDS SC; +ISOS30TA4 PO; +LEVO25TA5 PO; -PROAAER10 IN; +PROAAER10 INH; +SPIR-10 PO; +TIZA4TAB4 PO
--- NOTE | 2020-05-20 12:25 | REP ---
INDICATION: ACUTE UPPER RESPIRATORY INFECTION COMPARISON: 05/06/2020 TECHNIQUE: PA and lateral. FINDINGS: Cardiomegaly is again appreciated. Increased pulmonary vascular markings with cephalization, increased interstitial markings and small right pleural effusion suggest CHF/interstitial edema. Superimposed bilateral alveolar infiltrates (right greater than left) suggesting pneumonia cannot be excluded. IMPRESSION: Cardiomegaly with findings to suggest CHF/interstitial edema. Superimposed multifocal pneumonia cannot be excluded. <Electronically signed by Elton Elizalde > 05/20/20 1229
== END ==
LOC: M WUC 11:55
PROVIDERS: ATTEND Physician Assistant
DX: I51.7 Cardiomegaly (principal); R91.8 Other nonspecific abnormal finding of lung field; J45.901 Unspecified asthma with (acute) exacerbation; J06.9 Acute upper respiratory infection, unspecified; Z20.828 Contact with and (suspected) exposure to other viral communicable diseases

== ENCOUNTER → 2020-06-01 | Outpatient (CLI) | payer MEDICARE ==
[~2020-06-01] MED LIST changes: +ASPI-161 PO; +GABA600T4 PO; +HYDR-3910 PO; +INSUHUMDS SC; +ISOS30TA4 PO; +LEVO25TA5 PO; +SPIR-10 PO; +TIZA4TAB4 PO
== END ==
LOC: M LABSMTC 11:06
PROVIDERS: ATTEND Internal Medicine Cardiovascular Disease
DX: Z20.828 Contact with and (suspected) exposure to other viral communicable diseases (principal)

== ENCOUNTER → 2020-06-04 | Outpatient (CLI) | payer MEDICARE ==
[2020-06-04 16:23] LABS: BASO # 0.1 10^3/uL (0.0-0.2); BASO % 0.5 % (0.0-1.0); EOS # 0.2 10^3/uL (0.0-0.5); EOS % 2.1 % (0.0-3.0); HEMATOCRIT 38.1 % (36.0-47.0); LYMPH # 2.9 10^3/uL (1.5-5.0); LYMPH % 29.7 % (24.0-44.0); MEAN CORPUSCULAR HEMOGLOBIN 28.1 pg (27.0-33.0); MEAN CORPUSCULAR HGB CONC 31.5 g/dl (32.0-36.5); MEAN CORPUSCULAR VOLUME 89.2 fl (80.0-96.0); MONO # 0.7 10^3/uL (0.0-0.8); MONO % 7.2 % (0.0-5.0); NEUTROPHILS # 5.9 10^3/uL (1.5-8.5); PLATELET COUNT, AUTOMATED 350 10^3/uL (150-450); RED BLOOD COUNT 4.27 10^6/uL (4.00-5.40); WHITE BLOOD COUNT 9.9 10^3/uL (4.0-10.0)
[2020-06-04 16:37] LABS: CALCIUM LEVEL 9.7 MG/DL (8.8-10.2); CREATININE FOR GFR 1.02 MG/DL (0.55-1.30); GLOMERULAR FILTRATION RATE 56.9 (>39)
== END ==
LOC: M LAB 15:46
PROVIDERS: ATTEND Nurse Practitioner
DX: R06.02 Shortness of breath (principal)

== ENCOUNTER 2020-06-05 23:08 | Emergency (ER) | payer MEDICARE ==
[2020-06-06] MEDS ORDERED: NS 500 ML IV ONE
[2020-06-06 00:12] LABS: VENOUS BASE EXCESS 0.7 (-2.0-2.0); VENOUS HCO3 26.2 MEQ/L (23.0-27.0); VENOUS O2 SATURATION 88.9 % (60.0-80.0); VENOUS PARTIAL PRESSURE CO2 45.6 mmHg (38.0-50.0); VENOUS PARTIAL PRESSURE O2 60.2 mmHg (30.0-50.0); VENOUS PH 7.378 UNITS (7.330-7.430); VENOUS TOTAL CO2 27.6 MEQ/L (24.0-28.0)
[2020-06-06 00:22] LABS: BASO % 0.4 % (0.0-1.0); EOS # 0.1 10^3/uL (0.0-0.5); EOS % 0.8 % (0.0-3.0); HEMATOCRIT 35.6 % (36.0-47.0); HEMOGLOBIN 11.2 g/dl (12.0-15.5); LYMPH # 2.1 10^3/uL (1.5-5.0); LYMPH % 19.9 % (24.0-44.0); MEAN CORPUSCULAR HEMOGLOBIN 27.3 pg (27.0-33.0); MEAN CORPUSCULAR HGB CONC 31.5 g/dl (32.0-36.5); MEAN CORPUSCULAR VOLUME 86.8 fl (80.0-96.0); MONO % 9.1 % (0.0-5.0); NEUTROPHILS # 7.3 10^3/uL (1.5-8.5); NEUTROPHILS % 68.9 % (36.0-66.0); PLATELET COUNT, AUTOMATED 331 10^3/uL (150-450); WHITE BLOOD COUNT 10.5 10^3/uL (4.0-10.0)
[2020-06-06 00:41] LABS: ACETONE/KETONE 0.82 MG/DL (<2.81); CALCIUM LEVEL 9.7 MG/DL (8.8-10.2); CREATININE FOR GFR 1.41 MG/DL (0.55-1.30); GLOMERULAR FILTRATION RATE 39.1 (>39); POTASSIUM SERUM 4.6 MEQ/L (3.5-5.1)
[2020-06-06 01:27] LABS: APPEARANCE, URINE CLEAR (CLEAR); BACTERIA, URINE AUTO NEGATIVE (NEGATIVE); BILIRUBIN, URINE AUTO NEGATIVE (NEGATIVE); BLOOD, URINE BLOOD NEGATIVE (NEGATIVE); COLOR, URINE STRAW (YELLOW); GLUCOSE, URINE (UA) AUTO 3+ mg/dL (NEGATIVE); KETONE, URINE AUTO NEGATIVE (NEGATIVE); LEUKOCYTE ESTERASE, URINE AUTO NEGATIVE (NEGATIVE); NITRITE, URINE AUTO NEGATIVE (NEGATIVE); PROTEIN, URINE AUTO NEGATIVE (NEGATIVE); RBC, URINE AUTO 0 /HPF (0-3); SPECIFIC GRAVITY URINE AUTO 1.005 (1.002-1.035); SQUAMOUS EPITHELIAL CELL UR AU 0 /HPF (0-6); UROBILINOGEN, URINE AUTO 0.2 mg/dL (0.0-2.0); WBC, URINE AUTO 0 /HPF (0-3)
[2020-06-06 01:41] VITALS: BP 172/77
== END 2020-06-06 01:45 | disposition home or self-care (01) ==
LOC: M ED 23:08
DX: E11.65 Type 2 diabetes mellitus with hyperglycemia (principal); Z79.82 Long term (current) use of aspirin; Z79.4 Long term (current) use of insulin; Z79.51 Long term (current) use of inhaled steroids; Z79.899 Other long term (current) drug therapy; Z88.1 Allergy status to other antibiotic agents; Z88.2 Allergy status to sulfonamides

== ENCOUNTER → 2020-06-25 | Outpatient (CLI) | payer MEDICARE | LOC: M LABSMTC 10:36 | PROVIDERS: ATTEND Internal Medicine Cardiovascular Disease | DX: Z20.828 Contact with and (suspected) exposure to other viral communicable diseases (principal) ==

== ENCOUNTER → 2020-07-03 | Outpatient (CLI) | payer MEDICARE ==
[~2020-07-03] MED LIST changes: +GABA-282 PO; -GABA-843 PO
[2020-07-03 15:12] LABS: CREATININE FOR GFR 0.86 MG/DL (0.55-1.30); GLOMERULAR FILTRATION RATE > 60.0 (>39)
== END ==
LOC: M LAB 11:41
PROVIDERS: ATTEND Internal Medicine Cardiovascular Disease
DX: I10 Essential (primary) hypertension (principal)

== ENCOUNTER → 2020-08-03 | Outpatient (REF) | payer MEDICARE ==
[~2020-08-03] MED LIST changes: +ISOS1TAB35 PO; -ISOS30TA4 PO
[2020-08-03 18:12] LABS: APPEARANCE, URINE CLEAR (CLEAR); BACTERIA, URINE AUTO NEGATIVE (NEGATIVE); BILIRUBIN, URINE AUTO NEGATIVE (NEGATIVE); BLOOD, URINE BLOOD NEGATIVE (NEGATIVE); COLOR, URINE STRAW (YELLOW); GLUCOSE, URINE (UA) AUTO NEGATIVE (NEGATIVE); KETONE, URINE AUTO NEGATIVE (NEGATIVE); LEUKOCYTE ESTERASE, URINE AUTO NEGATIVE (NEGATIVE); NITRITE, URINE AUTO NEGATIVE (NEGATIVE); PROTEIN, URINE AUTO NEGATIVE (NEGATIVE); RBC, URINE AUTO 1 /HPF (0-3); SPECIFIC GRAVITY URINE AUTO 1.008 (1.002-1.035); SQUAMOUS EPITHELIAL CELL UR AU 0 /HPF (0-6); UROBILINOGEN, URINE AUTO 0.2 mg/dL (0.0-2.0); WBC, URINE AUTO 0 /HPF (0-3)
== END ==
LOC: M LAB REF 16:19
PROVIDERS: ATTEND Internal Medicine
DX: D64.9 Anemia, unspecified (principal); E11.8 Type 2 diabetes mellitus with unspecified complications

== ENCOUNTER → 2020-08-09 | Outpatient (CLI) | payer MEDICARE ==
[~2020-08-09] MED LIST changes: +BUME1TAB3 PO; +CARV3.12 PO
[2020-08-09 14:04] LABS: CHOLESTEROL RISK RATIO 3.358 (<5)
== END ==
LOC: M LAB 12:15
PROVIDERS: ATTEND Nurse Practitioner
DX: Z01.812 Encounter for preprocedural laboratory examination (principal); Z20.822 Contact with and (suspected) exposure to COVID-19; Z98.61 Coronary angioplasty status; Z79.899 Other long term (current) drug therapy
CPT/HCPCS: 36415; 80061; 82550; 84450; 84460; U0003

== ENCOUNTER → 2020-08-09 | Outpatient (CLI) | payer MEDICARE | LOC: M LABSMTC 11:59 | PROVIDERS: ATTEND Anesthesiology | DX: Z01.812 Encounter for preprocedural laboratory examination (principal); Z20.822 Contact with and (suspected) exposure to COVID-19 ==

== ENCOUNTER 2020-08-14 13:45 | Day surgery (SDC) | payer MEDICARE ==
[~2020-08-14] VITALS: Ht 149.9 cm; Wt 86.8 kg
[~2020-08-14 13:45] MED LIST changes: +CLINDAMYCIN 600 MG in IV 1 EA IV ONE; +LR 1,000 ML IV ONE
--- OUTSIDE RECORDS SUMMARY | 2020-08-14 13:52 | CCD | Continuity of Care Document ---
Author Author Aura Martinez MD Organization Unknown Address [address] [address] Phone [phone] Care Team Providers Care Receiving Lead Name Role Phone [facility] AUT[facility] [phone] Gray Fermin MD AUTM [phone] Acosta Martinez JR, MD AUTM Unavailable Sherry Cai MD AUTM [phone] Meet Patel MD AUTM [phone] Ravi Sahu MD AUTM [phone] Problems Active Problems Provider Date Disorder of eye due to type 2 diabetes mellitus Deb ToddO. Onset: 09/03/1998 Coronary arteriosclerosis Acosta Martinez MD Onset: 02/08 Asthma without status asthmaticus Acosta Martinez MD Onse t: 02/08/2011 Benign essential hypertension Acosta Martinez MD Onset: 0 02/08/2011 Disorder of eye due to type 2 diabetes mellitus Acosta neves MD Onset: 02/08/2011 Nonproliferative retinopathy due to diabetes mellitus Toy ector Martinez MD Onset: 02/08/2011 Pure hypercholesterolemia Acosta Martinez MD Onset: 02/08 Obstructive sleep apnea syndrome Acosta Martinez MD Onset : 02/08/2011 Pure hyperglyceridemia Aocsta Martinez MD Onset: 02/09/20 11 Vitamin D deficiency Acosta Martinez MD Onset: 02/08/2011 Type 2 diabetes mellitus PALOMO Hunter Onset: 10/21/19 14 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 Acosta Martinez MD Onset: 03/16/2015 Essential hypertension Acosta Martinez MD Onset: 03/16/20 15 Atherosclerotic heart disease of [place] coronary arter y without angina pectoris Acosta Martinez MD Onset: 03/16/2015 Social History Type Date Description Comments Sex Unknown ETOH Use Denies alcohol use Tobacco Use Start: Unknown Patient has never smoked Allergies, Adverse Reactions, Alerts Active Allergies Reaction Severity Comments Date Penicillin shock - coma 01/17/2015 Sulfa rash 01/17/2015 Seldane chest pain 01/17/2015 Enalapril Severe angioedema 08/26/2017 Medications Active Medications SIG Qnty Indications Ordering Provide r Date Aspirin 81 Low Dose 81mg Chewtabs 1 by mouth every day Acosta Martinez MD 08/03/2020 Carvedilol 3.125mg Tablets Take 1 Tablet By Mouth Twice Daily 180tabs Acosta Martinez MD 05/23 Bumetanide 1mg Tablets take 1 tablet by mouth two times daily 30tabs Acosta Martinez MD 05/23 Diltiazem HCL ER Coated Beads 360mg Tablets ER 24HR Take 1 Tablet By Mouth Every Day 90tabs Acosta Martinez MD 03/05/2020 Pantoprazole Sodium 40mg Tablets D R Take 1 Tablet By Mouth Daily In The Morning 90tabs Acosta Martinez MD 02/17/2020 Potassium Chloride Nena ER 10Meq Tablets ER Take 1 Tablet By Mouth Once Daily 60tabs Acosta Martinez MD 08/29/2019 Levothyroxine Sodium 25mcg Tablets 1 by mouth every day 90tabs Acosta Martinez MD 08/10/2018 Hydralazine HCL 25mg Tablets Take 1 Tablet By Mouth Twice Daily 180tabs Beth Man DO 08/09/2018 Isosorbide Mononitrate ER 30mg Tablets ER 24HR 1 by mouth every day 90tabs Zaid Thomason 12/16/2017 Gabapentin 600mg Tablets 1 by mouth three a day 270tabs Acosta Martinez MD 03/06/2017 Nystatin [id number]/ML Suspension 5cc swish and swallow five times a day x 10 days 1course Antonio ert J Pickeral JR, PA 11/21/2014 Allopurinol 100mg Tablets Take 2 Tablets By Mouth Daily 180tabs M10.9 Acosta Martinez MD 10/20/2013 Atorvastatin Calcium 80mg Tablets 1 by mouth every day 7tabs Acosta Martinez MD 08/25/2013 Venlafaxine HCL ER 75mg Caps ER 24 HR Take 1 Capsule By Mouth Every Day 90caps Acosta Martinez MD 03/30/2012 Vitamin D 2000Unit Tablets 2 po qd 180tabs Acosta Martinez MD 11/07/2010 Nebulizer Misc use as direct ed 1units Acosta Martinez MD 03/22/2010 Nebulizer Kit Misc us e as directed 1unsavi Martinez MD 03/22/2010 Duoneb Inh Solution Ampules 1 ampule via nebulizer qid 360units Acosta Martinez MD 04/23/2007 Glucagon 1mg Kit inject im p rn 1units AMANDA [place] 12/10/2006 Nova Fine [place] 30 Ga. use qid prn 360unsavi Martinez MD 01/31/2004 Advair HFA 230-21mcg/Act Aerosol 2 puffs bid Unknown Medications Administered in Office Medication SIG Qnty Indications Ordering Provider Date Administration Of Flu Vaccine Inj renetta Martinez MD 03/24/2019 Administration Of Flu Vaccine Inj renetta Martinez MD 04/02/2018 Administration Of Flu Vaccine Inj renetta Martinez MD 03/26/2017 Administration Of Flu Vaccine Inj renetta Martinez MD 03/20/2016 Administration Of Flu Vaccine Inj renetta Martinez MD 03/22/2015 Administration Of Flu Vaccine Inj renetta Martinez MD 04/02/2004 Administration Of Flu Vaccine Inj renetta Martinez MD 04/24/2003 Administration Of Flu Vaccine Inj renetta Martinez MD 05/04/2001 Immunizations CPT Code Status Date Vaccine Lot # 53900 Given 03/24/2019 Influenza Vaccin e Quadrivalent Preser/Antibiotic Free Im Use [id number] U-Flu Given 07/08/2018 Influenza,Unspecified [id number] 13253 Given 07/08/2018 Shingrix Zoster Vaccine (HZV), Recombinant, Subunit, Adjuvanted 61768 Given 04/13/2018 Shingrix Zoster Vaccine (HZV), Recombinant, Subunit, Adjuvanted 90315 Given 04/02/2018 Influenza Virus Vaccine, Quadrivalent (Cciiv4), Derived From Cell [id number] U-DtapHi Given 10/19/2017 DTap,Hib,IPV,Unspecified 84185 Given 03/26/2017 Influenza Vaccin e Quadrivalent Preser/Antibiotic Free Im Use [id number] Q2037 Given 03/20/2016 Fluvirin Virus Vaccine 26224 01 86060 Given 01/23/2016 Pneumovax 23 Q2037 Given 03/22/2015 Fluvirin Virus Vaccine 56864 01 15214 Given 08/02/2014 Prevnar 13 [id number] Q2037 Given 03/27/2014 Fluvirin Virus Vaccine 56421 21 Q2037 Given 04/07/2013 Fluvirin Virus Vaccine 76420 01 Q2037 Given 04/02/2012 Fluvirin Virus Vaccine 03928 01 35130 Given 02/25/2012 Zoster Vaccine Q2037 Given 03/31/2011 Fluvirin Virus Vaccine 85152 Given 03/20/2010 Influenza Virus Vaccine 60107 Given 04/12/2009 Influenza Virus Vaccine 50868 Given 04/03/2008 Influenza Virus Vaccine 10112 Given 03/22/2007 Influenza Virus Vaccine 09788 Given 04/02/2006 Influenza Virus Vaccine 14476 Given 03/25/2005 Influenza Virus Vaccine 20644 Given 04/24/2004 Pneumovax 23 61277 Given 04/02/2004 Influenza Virus Vaccine 39303 Given 04/24/2003 Influenza Virus Vaccine 34155 Given 04/11/2002 Influenza Virus Vaccine 56187 Given 05/04/2001 Influenza Virus Vaccine 77003 Given 06/05/2000 Pneumovax 23 73563 Given 06/05/2000 Influenza Virus Vaccine Vital Signs Date Vital Result Comment 08/03/2020 1:15pm BP Systolic 128 mmHg BP Diastolic 78 mmHg Heart Rate 76 /min Height 59 inches 4'11" Weight 194.00 lb BMI (Body Mass Index) 39.2 kg/m2 2020 11:03am BP Systolic 130 mmHg BP Diastolic 70 mmHg Heart Rate 88 /min Height 59 inches 4'11" Weight 189.00 lb O2 % BldC Oximetry 98 % BMI (Body Mass Index) 38.2 kg/m2 Results Test Acquired Date Facility Test Result H/L Range Note Laboratory test finding 08/03/2020 [facility] [address], [place] [id number] [phone] Vitamin B12 Level 461 pg/mL Normal 247-911 1 Ua Routine 08/03/2020 [facility] nter [address] [place] [address] [phone] Appearance, Urine CLEAR Normal Clear Color, Urine STRAW Normal Yellow PH,Urine 7.0 units Normal 5.0-9.0 Specific [place] Urine Auto 1.008 Normal 1.002-1.035 Protein, Urine Auto NEGATIVE mg/dL Normal Negative Glucose, Urine (Ua) Auto NEGATIVE mg/dL Normal Negative Ketone, Urine Auto NEGATIVE mg/dL Normal Negative Urobilinogen, Urine Auto 0.2 mg/dL Normal 0.0-2.0 Bilirubin, Urine Auto NEGATIVE Normal Negative Nitrite, Urine Auto NEGATIVE Normal Negative Leukocyte Esterase, Urine Auto NEGATIVE Normal Negative Blood, Urine Blood NEGATIVE Normal Negative WBC, Urine Auto 0 /HPF Normal 0-3 RBC, Urine Auto 1 /HPF Normal 0-3 Bacteria, Urine Auto NEGATIVE Normal Negative Squamous Epithelial Cell Ur AU 0 /HPF Normal 0-6 Hyaline Cast, Urine Auto 0 /LPF Normal 0-1 Complete Blood Count 08/03/2020 [facility] Ballet Dancer: [place] [address] [phone] WBC 8.7 x10*3/UL 4.1 - 10.9 RBC 4.27 x10*6/UL 4.20 - 6.30 Hemoglobin 12.4 g/dL 12.0 - 18.0 Hematocrit 36.3 % Low 37.0 - 51.0 MCV 85.0 fL 80.0 - 97.0 MCH 29.1 pg 26.0 - 32.0 MCHC 34.3 g/dL 31.0 - 38.0 RDW 14.4 % High 11.6 - 13.7 PLT 345 x10*3/UL 140 - 440 MPV 7.9 FL 7.8 - 11.0 Lymph % 26.4 % 10.0 - 58.5 Mid % 6.0 % 1.7 - 9.3 Neut % 67.6 % 37.0 - 92.0 Lymph # 2.3 x10*3/UL 0.6 - 4.1 Mid # 0.5 x10*3/UL 0.1 - 0.6 Neut # 5.9 x10*3/UL 2.0 - 7.8 A1c 08/03/2020 [facility] , Ballet Dancer: [place] [address] [phone] Hba1c 8.4 % High <5.7 2 Est Avg Glucose 194 mg/dL High 60 - 110 Comprehensive Chem Profile 08/03/2020 [facility], Ballet Dancer: [place] [address] [phone] Glucose 142 mg/dL High 74 - 99 3 BUN 17 mg/dL 7 - 18 Creatinine 0.8 mg/dL 0.6 - 1.3 Sodium 142 mEq/L 136 - 145 Potassium 4.2 mEq/L 3.5 - 5.1 Chloride 102 mEq/L 98 - 107 Carbon Dioxide 30 mEq/L 21 - 32 Calcium 9.0 mg/dL 8.5 - 10.1 Alk. Phosphatase 119 mg/dL High 46 - 116 Total Bilirubin 0.4 mg/dL 0.2 - 1.0 Ast (Sgot) 14 U/L Low 15 - 37 Alt (SGPT) 20 U/L 12 - 78 Albumin 3.8 g/dL 3.4 - 5.0 Total Protein 7.2 g/dL 6.4 - 8.2 A/G Ratio 1.12 CALC 1.00 - 1.90 GFR >= 60 mL/min >60 GFR >= 60 mL/min >60 4 Lipid Profile 08/03/2020 [facility] , Ballet Dancer: [place] [address] [phone] Cholesterol 130 mg/dL Low 131 - 200 Triglycerides 184 mg/dL High 30 - 150 HDL Cholesterol 45 mg/dL 35 - 60 LDL (Calculated) 48 CALC Low 50 - 159 Laboratory test finding 08/03/2020 [facility], Ballet Dancer: Dr Shane [place] [id number] [phone] Thyroid Stimulating Hormone 1.85 uIU/mL 0.3 6 - 3.74 Microalbumin/Creatinine Urine 08/03/2020 [facility] Ballet Dancer: [place] [address] [phone] Microalbumin Urine 34.9 mg/L High 1.3 - 20.0 Urine Creatinine 21.5 mg/dL Low 30.0 - 125.0 Microalb/Creat Ratio 162.3 ug/mg High 0.0 - 30.0 Laboratory test finding 08/03/2020 [facility] Ballet Dancer: [place] [address] [phone] Vitamin D 25-Hydroxy <pending> Creatinine With GFR 07/03/2020 [facility] nter [address] [place] [address] [phone] Creatinine For GFR 0.86 mg/dL Normal 0.55-1.30 Glomerular Filtration Rate > 60.0 Normal >39 5 CBC With Differential 06/04/2020 [facility] [address] [place] [address] [phone] White Blood Count 9.9 10 Normal 4.0-10.0 Red Blood Count 4.27 10 Normal 4.00-5.40 Hemoglobin 12.0 g/dL Normal 12.0-15.5 Hematocrit 38.1 % Normal 36.0-47.0 Mean Corpuscular Volume 89.2 fl Normal 80.0-96.0 Mean Corpuscular Hemoglobin 28.1 pg Normal 27.0-33.0 Mean Corpuscular HGB Conc 31.5 g/dL Low 32.0-36.5 Red Cell Distribution Width 16.3 % High 11.5-14.5 Platelet Count, Automated 350 10 Normal 150-450 Neutrophils % 60.0 % Normal 36.0-66.0 Lymph % 29.7 % Normal 24.0-44.0 [place] % 7.2 % High 0.0-5.0 Eos % 2.1 % Normal 0.0-3.0 Baso % 0.5 % Normal 0.0-1.0 Immature Granulocyte % 0.5 % Normal 0-3.0 Nucleated Red Blood Cell % 0.0 % Normal 0-0 Neutrophils # 5.9 10 Normal 1.5-8.5 Lymph # 2.9 10 Normal 1.5-5.0 [place] # 0.7 10 Normal 0.0-0.8 Eos # 0.2 10 Normal 0.0-0.5 Baso # 0.1 10 Normal 0.0-0.2 Basic Metabolic Profile 06/04/[address] [id number] [phone] Glucose, Fasting 237 mg/dL High 70-100 Blood Urea Nitrogen 30 mg/dL High 7-18 Creatinine For GFR 1.02 mg/dL Normal 0.55-1.30 Glomerular Filtration Rate 56.9 Normal >39 6 Sodium Level 138 mEq/L Normal 136-145 Potassium Serum 4.0 mEq/L Normal 3.5-5.1 Chloride Level 101 mEq/L Normal 98-107 Carbon Dioxide Level 34 mEq/L High 21-32 Anion Gap 3 mEq/L Low 8-16 Calcium Level 9.7 mg/dL Normal 8.8-10.2 Coronavirus 2019 Nasopharygeal 06/01/[address] [id number] [phone] Coronavirus 2019 Nasopharygeal This nucleic aci <SEE N OTE> 7 Laboratory test finding 05/20/[address] [address] [phone] NT-Pro BNP 1309 pg/mL High <125 Blood Culture No growth after <SEE NOTE> 8 Basic Metabolic Profile 05/20/[address] 2105100 [phone] Glucose, Fasting 187 mg/dL High 70-100 Blood Urea Nitrogen 16 mg/dL Normal 7-18 Creatinine For GFR 0.91 mg/dL Normal 0.55-1.30 Glomerular Filtration Rate > 60.0 Normal >39 9 Sodium Level 135 mEq/L Low 136-145 Potassium Serum 4.5 mEq/L Normal 3.5-5.1 10 Chloride Level 101 mEq/L Normal 98-107 Carbon Dioxide Level 29 mEq/L Normal 21-32 Anion Gap 5 mEq/L Low 8-16 Calcium Level 9.4 mg/dL Normal 8.8-10.2 Liver Profile 05/20/2020 [facility] nter [address] [place] [address] [phone] Ast/Sgot 34 U/L Normal 7-37 Alt/SGPT 19 U/L Normal 12-78 Alkaline Phosphatase 106 U/L Normal 45-117 Bilirubin,Total 0.9 mg/dL Normal 0.2-1.0 Bilirubin,Direct 0.2 mg/dL Normal 0.0-0.2 Total Protein 7.2 GM/DL Normal 6.4-8.2 Albumin 3.6 GM/DL Normal 3.2-5.2 Albumin/Globulin Ratio 1.0 Low 1.2-2.2 Cardiac Marker Panel 05/20/2020 [facility] [address] [place] [address] [phone] CPK Creatine Phosphokinase 171 U/L Normal 26-19 2 CK-MB Value Mass 4.2 NG/ML High <3.6 MB/CK Relative Index 2.46 Normal < Or =4 11 Troponin I 0.55 NG/ML High < 0.10 12 Laboratory test finding 05/20/2020 [facility] [address] [place] [address] [phone] Lactic Acid Sepsis Protocol 1.3 mmol/L Normal 0.4- 2.0 13 CBC With Differential 05/20/2020 [place] [address] [place] [address] [phone] White Blood Count 14.6 10 High 4.0-10.0 Red Blood Count 4.24 10 Normal 4.00-5.40 Hemoglobin 12.1 g/dL Normal 12.0-15.5 Hematocrit 37.7 % Normal 36.0-47.0 Mean Corpuscular Volume 88.9 fl Normal 80.0-96.0 Mean Corpuscular Hemoglobin 28.5 pg Normal 27.0-33.0 Mean Corpuscular HGB Conc 32.1 g/dL Normal 32.0-36.5 Red Cell Distribution Width 16.6 % High 11.5-14.5 Platelet Count, Automated 262 10 Normal 150-450 Neutrophils % 80.5 % High 36.0-66.0 Lymph % 9.2 % Low 24.0-44.0 [place] % 9.2 % High 0.0-5.0 Eos % 0.4 % Normal 0.0-3.0 Baso % 0.3 % Normal 0.0-1.0 Immature Granulocyte % 0.4 % Normal 0-3.0 Nucleated Red Blood Cell % 0.0 % Normal 0-0 Neutrophils # 11.8 10 High 1.5-8.5 Lymph # 1.3 10 Low 1.5-5.0 [place] # 1.4 10 High 0.0-0.8 Eos # 0.1 10 Normal 0.0-0.5 Baso # 0.1 10 Normal 0.0-0.2 Respiratory Panel 05/20/2020 [place] [address] [phone] Respiratory Panel This respiratory <SEE NOTE> 14 Cardiac Marker Panel 05/20/[address] [address] [phone] CPK Creatine Phosphokinase 145 U/L Normal 26-19 2 CK-MB Value Mass 3.6 NG/ML Normal <3.6 MB/CK Relative Index 2.48 Normal < Or =4 15 Troponin I 1.10 NG/ML < 0.10 16 Istat ABG 05/20/2020 [place] [address] [phone] iSTAT pH 7.475 units High 7.350-7.450 iSTAT pCO2 35.2 MMHG Normal 35.0-45.0 iSTAT pO2 82.0 MMHG Normal 80-105 iSTAT Tco2 27.0 mmol/L Normal 23.0-27.0 iSTAT Hco3 25.9 mmol/L Normal 22.0-26.0 iSTAT Base Excess 2.0 mmol/L Normal -2.0-3.0 iSTAT sO2 97 % Normal 95-98 PT & Aptt 05/20/[address] [address] [phone] Prothrombin Time 16.4 seconds High 12.5-14.3 Inr 1.29 Normal 17 Partial Thromboplastin Time > 240.0 seconds Critical high 24.2-38.5 Laboratory test finding 05/06/2020 [facility] [address] [place] [address] [phone] iSTAT Troponin 0.07 NG/ML Normal 0.00-0.08 Istat Chem8+ Panel 05/06/2020 [facility] nter [address] [place] [address] [phone] iSTAT HCT 38.0 % Normal 38.0-51.0 iSTAT Glucose 182 mg/dL High 70-105 iSTAT Sodium 139 mEq/L Normal 136-145 iSTAT Potassium 4.0 mEq/L Normal 3.5-5.1 iSTAT CA++ 4.7 mg/dL Normal 4.5-5.3 iSTAT Chloride 100 mEq/L Normal 98-109 iSTAT Co2 33.0 MM/L High 23.0-27.0 iSTAT BUN 16 mg/dL Normal 8-26 iSTAT Creatinine 0.8 mg/dL Normal 0.6-1.3 Laboratory test finding 05/06/2020 [facility] [address] [place] [address] [phone] iSTAT Troponin 0.02 NG/ML Normal 0.00-0.08 CBC With Differential 05/06/[address] [address] [phone] White Blood Count 8.7 10 Normal 4.0-10.0 Red Blood Count 4.40 10 Normal 4.00-5.40 Hemoglobin 12.1 g/dL Normal 12.0-15.5 Hematocrit 39.0 % Normal 36.0-47.0 Mean Corpuscular Volume 88.6 fl Normal 80.0-96.0 Mean Corpuscular Hemoglobin 27.5 pg Normal 27.0-33.0 Mean Corpuscular HGB Conc 31.0 g/dL Low 32.0-36.5 Red Cell Distribution Width 15.9 % High 11.5-14.5 Platelet Count, Automated 279 10 Normal 150-450 Neutrophils % 69.5 % High 36.0-66.0 Lymph % 20.0 % Low 24.0-44.0 [place] % 7.7 % High 0.0-5.0 Eos % 1.6 % Normal 0.0-3.0 Baso % 0.5 % Normal 0.0-1.0 Immature Granulocyte % 0.7 % Normal 0-3.0 Nucleated Red Blood Cell % 0.0 % Normal 0-0 Neutrophils # 6.1 10 Normal 1.5-8.5 Lymph # 1.8 10 Normal 1.5-5.0 [place] # 0.7 10 Normal 0.0-0.8 Eos # 0.1 10 Normal 0.0-0.5 Baso # 0.0 10 Normal 0.0-0.2 Liver Profile 05/06/2020 [facility] nter [address] [place] [address] [phone] Ast/Sgot 20 U/L Normal 7-37 Alt/SGPT 23 U/L Normal 12-78 Alkaline Phosphatase 127 U/L High 45-117 Bilirubin,Total 0.4 mg/dL Normal 0.2-1.0 Bilirubin,Direct 0.1 mg/dL Normal 0.0-0.2 Total Protein 7.2 GM/DL Normal 6.4-8.2 Albumin 3.8 GM/DL Normal 3.2-5.2 Albumin/Globulin Ratio 1.1 Low 1.2-2.2 Laboratory test finding 05/06/2020 [facility] [address] [place] [address] [phone] NT-Pro BNP 598 pg/mL High <125 Lipase 70 U/L Low 73-393 Thyroid Stimulating Hormone 1.630 uIU/ML Normal 0.358-3.740 1 VITAMIN B12 NORMAL RANGE NORMAL 247 - 911 PG/ML INDETERMINATE 211 - 246 PG/ML DEFICIENT LESS THAN 211 PG/ML 2 Lab Result Notes: Pre-Diabetes 5.7 - 6.4 % Diabetes = or > 6.5% 3 100-125 mg/dL PRE-DIABET ES/FASTING >126 mg/dL DIABETES/FASTING 4 CHRONIC KIDNEY DISEASE STAGI NG PER NKF STAGE I & II GFR >= 60 NORMAL TO MILDLY DECREASED STAGE III GFR 30-59 MODERATELY DECREASED STAGE IV GFR 15-29 SEVERELY DECREASED STAGE V GFR <15 VERY LITTLE GFR LEFT ESRD GFR <15 ON PEDIATRIC DENTAL HYGIENIST 5 Units are mL/min/1.73 m2 Chronic Kidney Disease Staging per NKF: Stage I & II GFR >=60 Normal to Mildly Decreased Stage III GFR 30-59 Moderately Decreased Stage IV GFR 15-29 Severely Decreased Stage V GFR <15 Very Little GFR Left ESRD GFR <15 on PEDIATRIC DENTAL HYGIENIST 6 Units are mL/min/1.73 m2 Chronic Kidney Disease Staging per NKF: Stage I & II GFR >=60 Normal to Mildly Decreased Stage III GFR 30-59 Moderately Decreased Stage IV GFR 15-29 Severely Decreased Stage V GFR <15 Very Little GFR Left ESRD GFR <15 on PEDIATRIC DENTAL HYGIENIST 7 This nucleic acid amplificat ion test was developed and its performance characteristics determined by [employer]. Nucleic acid amplification tests include PCR and TMA. This test has not been FDA cleared or approved. This test has been authorized by FDA under an Emergency Use Authorization (EUA). This test is only authorized for the duration of time the declaration that circumstances exist justifying the authorization of the emergency use of in vitro diagnostic tests for detection of SARS-CoV-2 virus and/or diagnosis of COVID-19 infection under section 564(b)(1) of the Act, 21 U.S.C. 360bbb-3 (b) (1), unless the authorization is terminated or revoked sooner. When diagnostic testing is negative, the possibility of a false negative result should be considered in the context of a patient's recent exposures and the presence of clinical signs and symptoms consistent with COVID-19. An individual without symptoms of COVID-19 and who is not shedding SARS-CoV-2 virus would expect to have a negative (not detected) result in this assay. Performed at: [facility] [address] [facility], [place] [address] [id number] Ballet Dancer: Savannah Borja PhD, Phone: [phone] Not Detected 8 No growth after 72 hours . A ll specimens observed for 5 days. Results final at that time. No growth after 48 hours . All specimens observed for 5 days. Results final at that time. No growth after 24 hours . All specimens observed for 5 days. Results final at that time. NO GROWTH AFTER 5 DAYS 9 Units are mL/min/1.73 m2 Chronic Kidney Disease Staging per NKF: Stage I & II GFR >=60 Normal to Mildly Decreased Stage III GFR 30-59 Moderately Decreased Stage IV GFR 15-29 Severely Decreased Stage V GFR <15 Very Little GFR Left ESRD GFR <15 on PEDIATRIC DENTAL HYGIENIST 10 Testing was performed on a S LIGHTLY hemolyzed specimen. Suggest recollection of specimen for more accurate test results. 11 DIAGNOSIS CRITERIA MMB ng/ml Relative Index (RI) NON-AMI < or = 5 N/A PIRES ZONE > 5 < or = 4 AMI > 5 > 4 12 Troponin I Reference Interva l for [employer]: 99th Percentile= 0.00-0.045 ng/ml Risk Stratification: <= 0.10 ng/ml Decreased Risk for Adverse Clinical Events. 0.10-1.50 ng/ml Increased Risk for Adv erse Clinical Events. Evaluation of additional criterion and/or repeat testing in 2-6 hours is suggested to rule out myocardial damage. >= 1.50 ng/ml Indicative of Myocardial Injury. 13 Y/N query for Sepsis Lactate Rule: Y 14 This respiratory PCR panel d etects Influenza A H1, H3 and 2009 H1 viruses, Influenza B virus, Resp iratory Syncytial Virus, Human metapneumovirus, Parainfluenza virus 1, 2, 3 and 4, Adenovirus, Rhinovirus/Enterovirus, Coronavirus HKU1, NL63, OC43, 229E and SARS-CoV-2 (COVID 19), Bordetella pertussis, Bordetella parapertussis, Mycoplasma pneumoniae and Chlamydia pneumoniae. NEGATIVE by MULTIPLEXED NUCLEIC ACID PCR SARS-CoV-2 (COVID 19) NEGATIVE - SARS-CoV-2 (COVID19) 15 DIAGNOSIS CRITERIA MMB ng/ml Relative Index (RI) NON-AMI < or = 5 N/A PIRES ZONE > 5 < or = 4 AMI > 5 > 4 16 Troponin I Reference Interva l for [employer]: 99th Percentile= 0.00-0.045 ng/ml Risk Stratification: <= 0.10 ng/ml Decreased Risk for Adverse Clinical Events. 0.10-1.50 ng/ml Increased Risk for Adv erse Clinical Events. Evaluation of additional criterion and/or repeat testing in 2-6 hours is suggested to rule out myocardial damage. >= 1.50 ng/ml Indicative of Myocardial Injury. 17 THERAPUTIC HUMAN INR VALUES INDICATIONS NORMAL RANGES PROPHYLAXIS/TREATMENT OF: VENOUS THROMBOSIS 2.0-3.0 PULMONARY EMBOLISM 2.0-3.0 PREVENTION OF SYSTEMIC EMBOLISM FROM: TISSUE HEART VALVES 2.0-3.0 ACUTE MYOCARDIAL INFARCTION 2.0-3.0 VALVULAR HEART DISEASE 2.0-3.0 ATRIAL FIBRILLATION 2.0-3.0 MECHANICAL VALVES(HIGH RISK) 2.5-3.5 RECURRENT MYOCARDIAL INFARCTION 2.5-3.5 Procedures Date Code Description Status 07/03/2020 [id number] Diabetic Retinal Eye Exam Comple [facility] 03/11/2020 [id number] Mammogram Completed 01/10/2020 [id number] Diabetic Retinal Eye Exam Comple [facility] 03/11/2019 [id number] Mammogram Completed 01/04/2019 [id number] Diabetic Retinal Eye Exam Comple [facility] 07/06/2018 [id number] Diabetic Retinal Eye Exam Comple [facility] 01/06/2018 [id number] Diabetic Retinal Eye Exam Comple [facility] 10/20/2017 [id number] Mammogram Completed 05/20/2017 [id number] Diabetic Retinal Eye Exam Comple [facility] 03/23/2017 [id number] Colonoscopy Completed 03/11/2017 [id number] Bone Mineral Density Test Comple [facility] 02/18/2017 [id number] Mammogram Completed 02/16/2017 [id number] Mammogram Completed 10/23/2016 [id number] Diabetic Retinal Eye Exam Comple [facility] 04/22/2016 [id number] Diabetic Retinal Eye Exam Comple [facility] 04/07/2016 [id number] Diabetic Foot Exam Completed 02/20/2016 [id number] Mammogram Completed 04/12/2015 [id number] Diabetic Retinal Eye Exam Comple [facility] 02/14/2015 [id number] Mammogram Completed 04/04/2014 [id number] Diabetic Retinal Eye Exam Comple [facility] 02/13/2014 [id number] Mammogram Completed 01/21/2013 [id number] Mammogram Completed 12/07/2012 [id number] Diabetic Retinal Eye Exam Comple [facility] 01/21/2012 [id number] Colonoscopy Completed 01/19/2012 [id number] Mammogram Completed 02/13/2011 [id number] Diabetic Retinal Eye Exam Comple [facility] 01/13/2011 [id number] Mammogram Completed 01/10/2010 [id number] Mammogram Completed 07/10/2009 [id number] Diabetic Retinal Eye Exam Comple [facility] 06/22/2008 [id number] Diabetic Retinal Eye Exam Comple [facility] 12/18/2005 [id number] Bone Mineral Density Test Comple [facility] 09/01/2003 [id number] Colonoscopy Completed Medical Devices Description No Information Available Encounters Type Date Location Provider Dx Diagnosis Office Visit 2020 11:00a [facility] 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 I35.0 Nonrheumatic aortic (valve) stenosis J45.20 Mild intermittent asthma, un complicated E11.3293 Type 2 diab with mild nonp r tnop without macular edema, bi E11.65 Type 2 diabetes mellitus wit h hyperglycemia E11.42 Type 2 diabetes mellitus wit h diabetic polyneuropathy Z79.4 intermediate frame tender (current) use of i nsulin G47.33 Obstructive sleep apnea (ruchi lt) (pediatric) E03.9 Hypothyroidism, unspecified Assessments Date Code Description Provider 08/03/2020 Z01.810 Encounter for preprocedural card iovascular examination Acosta Martinez MD 08/03/2020 M25.561 Pain in right knee Acosta olivares MD 08/03/2020 I25.10 Atherosclerotic heart disease of [place] coronary artery with Acosta Martinez MD 08/03/2020 Z95.1 Presence of aortocoronary bypass graft Acosta Martinez MD 08/03/2020 I35.0 Nonrheumatic aortic (valve) sten osis Acosta Martinez MD 08/03/2020 J45.20 Mild intermittent asthma, uncomp licated Acosta Martinez MD 08/03/2020 G47.33 Obstructive sleep apnea (adult) (pediatric) Acosta Martinez MD 08/03/2020 E03.9 Hypothyroidism, unspecified Oma kareem Martinez MD 08/03/2020 E78.00 Pure hypercholesterolemia, unspe cified Acosta Martinez MD 2020 Z01.810 Encounter for preprocedural card iovascular examination Acosta Martinez MD 2020 M23.611 Other spontaneous di sruption of anterior cruciate ligament of right knee Acosta Martinez MD 2020 R07.89 Other chest pain Acosta hope MD 2020 I25.10 Atherosclerotic heart disease of [place] coronary artery with Acosta Martinez MD 2020 Z95.1 Presence of aortocoronary bypass graft Acosta Martinez MD 2020 I35.0 Nonrheumatic aortic (valve) sten osis Acosta Martinez MD 2020 J45.20 Mild intermittent asthma, uncomp licated Acosta Martinez MD 2020 E11.3293 Type 2 diabetes danuta itus with mild nonproliferative diabetic Acosta Martinez MD 2020 E11.65 Type 2 diabetes mellitus with hy perglycemia Acosta Martinez MD 2020 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 * 09/18/2020 2:45 pm - Acosta Martinez MD at [facility] 08/03/2020 - Acosta Martinez MD* Z01.810 Encounter for preprocedural cardiovascular examination * M25.561 Pain in right knee * I25.10 Atherosclerotic heart disease of [place] coronary artery with * Z95.1 Presence of aortocoronary bypass graft * I35.0 Nonrheumatic aortic (valve) stenosis * J45.20 Mild intermittent asthma, uncomplicated * G47.33 Obstructive sleep apnea (adult) (pediatric) * E03.9 Hypothyroidism, unspecified * E78.00 Pure hypercholesterolemia, unspecified * All * New Medication:* Aspirin 81 Low Dose 81 mg - 1 by mouth every day Functional Status Description No Information Available Mental Status Description No Information Available Referrals Description No Information Available
--- OUTSIDE RECORDS SUMMARY | 2020-08-14 13:52 | CCD | Continuity of Care Document ---
Author Author Aura [facility] Organization Unknown Address [address] [place] [address] [address] [place] [address] Phone [phone] Care Team Providers Care Automatic Tire Tester Name Role Phone Acosta Martinez MD AUTM [phone] [facility] AUTM [phone] Direct, [facility] AUTM Unavailable Problems Active Problems Provider Date Angina pectoris Treva Steel NP Onset: 10/22/2011 Coronary arteriosclerosis Treva Steel NP Onset: 2011 Pure hypercholesterolemia Treva Steel NP Onset: 2011 Type 2 diabetes mellitus Treva Steel NP Onset: 012 Cardiovascular symptoms Leticia D Onset: 2 Chest pain Micky Onset: 03/15/2013 Patient post percutaneous transluminal coronary angioplasty Micky Onset: 03/15/2013 Atherosclerotic heart disease of [place] coronary arter y without angina pectoris Fabian Whaley MD Onset: 06/12/2015 History of coronary artery bypass grafting Sherry Cai MD Onset: 05/05/2017 Essential hypertension Nav Anaya PA Onset: 12/08/2017 Carotid artery occlusion Nav Anaya PA Onset: 12/09/19 18 Edema Pat Onset: 05/28/2018 Aortic valve disorder Pat Onset: 05/28/2018 Mitral leaflet abnormality Pat Onset: 2017 Heart murmur Nav Anaya PA Onset: 12/07/2018 Mitral valve disorder Leticia D Onset: 02/07/2020 Dyspnea PALOMO Barnes Onset: 05/31/2020 Abnormal results of cardiovascular function studies PALOMO Barnes Onset: 05/31/2020 Arteriosclerosis of coronary artery bypass graft Reese de luna [employer] SYSTEM[employer] A[employer]LYST Onset: 07/13/2020 Mixed hyperlipidemia Reese Baxter, [employer] SYSTEM[employer] ANALYST Onset: 1 Social History Type Date Description Comments Sex Unknown ETOH Use Denies alcohol use Tobacco Use Start: Unknown Patient has never smoked Smoking Status Reviewed: 07/12/20 Patient has never smoked Allergies, Adverse Reactions, Alerts Active Allergies Reaction Severity Comments Date Penicillin 11/22/2009 Sulfadrugs 11/22/2009 Enalapril 12/08/2017 Medications Active Medications SIG Qnty Indications Ordering Provide r Date Diltiazem HCL ER Beads 360mg Caps ER 24HR 1 by mouth every day 90capSherry Rob MD 020 Asa 81mg Tablets 1 by mouth e very day Sherry Cai MD 02/09/2020 Spironolactone 25mg Tablets take 1 tablet by mouth every day 90Sherry Galvan MD 8 Medical Compression Stockings/Female/15- 20MMHG/Knee/LG/Short Misc On in the morning and off in the evening 2units Sherry Cai MD 04/15/2018 Isosorbide Mononitrate ER 30mg Tablets ER 24HR 1 by mouth every day 90Sherry Galvan MD 12/08/2017 Calcium 1200mg Fabian Whaley MD 06/12/2015 Allopurinol 100mg Tablets 2 by mouth every day Fabian Whaley MD 12/09/2013 Klor-Con 10 10Meq Tablets ER 1 tablet by mouth once daily please keep on file, pt does not need refill at this time Please keep on file, Rx is not needed at this time 90Sherry Galvan MD 10/11/2013 Vitamin D-3 1000Unit Tablets 2t po qd Fabian Whaley MD 08/22/2013 Duoneb 0.5-2.5(3)mg/3ML Solution prn Fabian Whaley MD 08/12/2010 Budesonide 0.5mg/2ML Suspension nebulizer bid Fabian Whaley MD 08/12/2010 Effexor XR 75mg Caps ER 24HR 1 po qd Fabian Whaley MD 11/22/[address] 1 po qd 90tabs Fabian Whaley MD 11/22/2009 Nitrostat 0.4mg Tablets Sub 1 tab under tongue, repeat q5 mins x2, as needed for chest pain 25tabs Sherry Cai MD 11/22/2009 Advair HFA 115-21mcg/Act Aerosol 1 puff daily Fabian Whaley MD 11/22/2009 Albuterol Mdi 2 puffs q 4 hrs prn Fabian Whaley MD 11/22/2009 Gabapentin 600mg Tablets 1 by mouth three times a day Unknown Hydralazine HCL 25mg Tablets 2 by mouth every day Unknown Levothyroxine Sodium 25mcg Tablets 1 by mouth every day Unknown Humalog 100Unit/ML Solution Cartri dge as directed for insulin pump Unknown Carvedilol 3.125mg Tablets 1 by mouth twice a day Unknown Bumetanide 1mg Tablets take 2 tablets by mouth every morning Unknown Atorvastatin Calcium 80mg Tablets 1 by mouth every day Unknown History Medications Clopidogrel Bisulfate 75mg Tablets 1 tablet 06/27/20 until day of procedure 3tabs Sherry Cai MD 06/01/2020 - 07/13/2020 Medications Administered in Office Medication SIG Qnty Indications Ordering Provider Date Regadenoson, 0.1 MG Injection Micky 05/28/2020 Regadenoson, 0.1 MG Injection Micky 11/02/2017 Regadenoson, 0.1 MG Injection Micky 03/15/2013 Regadenoson, 0.1 MG Injection Micky 10/14/2011 Immunizations CPT Code Status Date Vaccine Lot # U-[id number] Given 03/22/2020 Influenza,Unspecified U-Flu Given 03/24/2019 Influenza,Unspecified U-Flu Given 03/22/2018 Influenza,Unspecified [id number] Given 06/12/2015 Pneumococcal Immunization Vital Signs Date Vital Result Comment 07/13/2020 1:43pm BP Systolic Right Arm 110 mmHg BP Diastolic Right Arm 60 mmHg Heart Rate 72 /min Weight 191.00 lb Height 59 inches 4'11" BMI (Body Mass Index) 38.6 kg/m2 O2 % BldC Oximetry 97 % BSA (Body Surface Area) 1.81 m2 05/31/2020 1:36pm BP Systolic Left Arm 118 mmHg BP Diastolic Left Arm 60 mmHg Heart Rate 60 /min Weight 189.00 lb Height 59 inches 4'11" BMI (Body Mass Index) 38.2 kg/m2 O2 % BldC Oximetry 95 % BSA (Body Surface Area) 1.80 m2 Results Test Acquired Date Facility Test Result H/L Range Note Lipid Panel 08/09/2020 [facility] Triglycerides Level 204 mg/dL High <150 Cholesterol Level 131 mg/dL Normal <200 HDL Cholesterol 39 mg/dL Low >40 LDL Cholesterol 51 mg/dL Normal <100 Non-HDL-C 92 mg/dL Normal Cholesterol Risk Ratio 3.358 Normal <5 Laboratory test finding 08/09/2020 [facility] Ast/Sgot 12 U/L Normal 7-37 Alt/SGPT 21 U/L Normal 12-78 CPK Creatine Phosphokinase 112 U/L Normal 26-192 Complete Blood Count 08/03/2020 N2N/CCD Import WBC 8.7 x10*3/UL 4.1-10.9 RBC 4.27 x10*6/UL 4.20-6.30 Hemoglobin 12.4 g/dL 12.0-18.0 Hematocrit 36.3 % Low 37.0-51.0 MCV 85.0 fL 80.0-97.0 MCH 29.1 pg 26.0-32.0 MCHC 34.3 g/dL 31.0-38.0 RDW 14.4 % High 11.6-13.7 PLT 345 x10*3/UL 140-440 MPV 7.9 FL 7.8-11.0 Lymph % 26.4 % 10.0-58.5 Mid % 6.0 % 1.7-9.3 Neut % 67.6 % 37.0-92.0 Lymph # 2.3 x10*3/UL 0.6-4.1 Mid # 0.5 x10*3/UL 0.1-0.6 Neut # 5.9 x10*3/UL 2.0-7.8 A1c 08/03/2020 N2N/CCD Import Hba1c 8.4 % High 1 Est Avg Glucose 194 mg/dL High 60-110 Comprehensive Chem Profile 08/03/2020 N2N/CCD Impor t Glucose 142 mg/dL High 74-99 2 BUN 17 mg/dL 7-18 Creatinine 0.8 mg/dL 0.6-1.3 Sodium 142 mEq/L 136-145 Potassium 4.2 mEq/L 3.5-5.1 Chloride 102 mEq/L 98-107 Carbon Dioxide 30 mEq/L 21-32 Calcium 9.0 mg/dL 8.5-10.1 Alk. Phosphatase 119 mg/dL High 46-116 Total Bilirubin 0.4 mg/dL 0.2-1.0 Ast (Sgot) 14 U/L Low 15-37 Alt (SGPT) 20 U/L 12-78 Albumin 3.8 g/dL 3.4-5.0 Total Protein 7.2 g/dL 6.4-8.2 A/G Ratio 1.12 CALC 1.00-1.90 GFR >= 60 mL/min GFR >= 60 mL/min 3 Lipid Profile 08/03/2020 N2N/CCD Import Cholesterol 130 mg/dL Low 131-200 Triglycerides 184 mg/dL High 30-150 HDL Cholesterol 45 mg/dL 35-60 LDL (Calculated) 48 CALC Low 50-159 Laboratory test finding 08/03/2020 N2N/CCD Import Thyroid Stimulating Hormone 1.85 uIU/mL 0.36-3.74 Microalbumin/Creatinine Urine 08/03/2020 N2N/CCD Im port Microalbumin Urine 34.9 mg/L High 1.3-20.0 Urine Creatinine 21.5 mg/dL Low 30.0-125.0 Microalb/Creat Ratio 162.3 ug/mg High 0.0-30.0 Creatinine With GFR 07/03/2020 [facility] Creatinine For GFR 0.86 mg/dL Normal 0.55-1.30 Glomerular Filtration Rate > 60.0 Normal >39 4 Coronavirus 2019 Nasopharygeal 06/25/2020 [facility] Coronavirus 2019 Nasopharygeal This nucleic aci <SEE NOTE> 5 CBC With Differential 06/04/2020 [facility] White Blood Count 9.9 10 Normal 4.0-10.0 [...] 36.0-66.0 Lymph % 29.7 % Normal 24.0-44.0 [place] % 7.2 % High 0.0-5.0 Eos % 2.1 % Normal 0.0-3.0 Baso % 0.5 % Normal 0.0-1.0 Immature Granulocyte % 0.5 % Normal 0-3.0 Nucleated Red Blood Cell % 0.0 % Normal 0-0 Neutrophils # 5.9 10 Normal 1.5-8.5 Lymph # 2.9 10 Normal 1.5-5.0 [place] # 0.7 10 Normal 0.0-0.8 Eos # 0.2 10 Normal 0.0-0.5 Baso # 0.1 10 Normal 0.0-0.2 Basic Metabolic Profile [facility] Glucose, Fasting 237 mg/dL High 70-100 Blood [...] mg/dL Normal 8.8-10.2 Coronavirus 2019 Nasopharygeal 06/01/2020 [facility] Coronavirus 2019 Nasopharygeal This nucleic aci <SEE NOTE> 7 1 Lab Result Notes: Pre-Diabetes 5.7 - 6.4 % Diabetes = or > 6.5% 2 100-125 mg/dL PRE-DIABET ES/FASTING >126 mg/dL DIABETES/FASTING 3 CHRONIC KIDNEY DISEASE STAGI NG PER NKF STAGE I & II GFR >= 60 NORMAL TO MILDLY DECREASED STAGE III GFR 30-59 MODERATELY DECREASED STAGE IV GFR 15-29 SEVERELY DECREASED STAGE V GFR <15 VERY LITTLE GFR LEFT ESRD GFR <15 ON TELEVISION PRODUCTION ASSISTANT 4 Units are mL/min/1.73 m2 Chronic Kidney Disease Staging per NKF: Stage I & II GFR >=60 Normal to Mildly Decreased Stage III GFR 30-59 Moderately Decreased Stage IV GFR 15-29 Severely Decreased Stage V GFR <15 Very Little GFR Left ESRD GFR <15 on TELEVISION PRODUCTION ASSISTANT 5 This nucleic acid amplificat ion test was developed and its performance characteristics determined by [employer]. Nucleic acid amplification tests include PCR and [...] detected) result in this assay. Performed at: [facility] [id number] [facility] [address], [place] [address] [id number] [employer] Lock[employer]ch: Savannah Borja PhD, Phone: [phone] Not Detected 6 Units are mL/min/1.73 m2 Chronic Kidney Disease Staging per NKF: Stage I & II GFR >=60 Normal to Mildly Decreased Stage III GFR 30-59 Moderately Decreased Stage IV GFR 15-29 Severely Decreased Stage V GFR <15 Very Little GFR Left ESRD GFR <15 on TELEVISION PRODUCTION ASSISTANT 7 This nucleic acid amplificat ion test was developed and its performance characteristics determined by [employer]. Nucleic acid amplification tests include PCR and [...] detected) result in this assay. Performed at: [facility] [id number] [facility], [place], [place] [id number] [employer] El[employer] Operator Lockstitch: Savannah Borja PhD, Phone: [phone] Not Detected Procedures Date Code Description Status 06/29/2020 04572 Left Heart Cath W/Wo LV,Coronary & Bypass Grafts SVG And Or Dipti Completed 05/28/2020 04508 Cardiovascular Stress Test W/Int erpretation & Report Completed 05/28/2020 89819 Spect Image, Multiple,W/Ejection Fraction And Wall Motion Completed Medical Devices Description No Information Available Encounters Type Date Location Provider Dx Diagnosis [facility] Atherosclerosis of CABG w/o angina pecto ris I35.0 Nonrheumatic aortic (valve) stenosis I10 Essential (primary) hyperten mary Z95.1 Presence of aortocoronary by pass graft E78.2 Mixed hyperlipidemia Office [facility] R[facility]02 Shortness of breath I35.0 Nonrheumatic aortic (valve) stenosis I10 Essential (primary) hyperten mary Z98.61 Coronary angioplasty status I50.30 Unspecified diastolic (conge stive) heart failure I25.119 Athscl heart disease of [place] cor art w unsp ang pctrs R94.39 Abnormal result of other car diovascular function study Office Visit 02/09/2020 3:00[facility] Sherry Cai MD I35.0 Nonrheumatic aortic (valve) stenosis I25.10 Athscl heart disease of [place] coronary artery w/o ang pctrs I10 Essential (primary) hyperten mary Z98.61 Coronary angioplasty status Assessments Date Code Description Provider 07/13/2020 I25.810 Atherosclerosis of c oronary artery bypass graft(s) without angina pectoris Reese Baxter [facility] 07/13/2020 I35.0 Nonrheumatic aortic (valve) sten osis Reese Baxter, [facility] 07/13/2020 I10 Essential (primary) hypertension Reese Baxter, [facility] 07/13/2020 Z95.1 Presence of aortocoronary bypass graft Reese Baxter [facility] 07/13/2020 E78.2 Mixed hyperlipidemia Reese de luna [facility] 06/29/2020 I25.810 Atherosclerosis of c oronary artery bypass graft(s) without angina pectoris Sherry Cai MD 06/29/2020 R94.39 Abnormal result of other cardiov ascular function study Sherry Cai MD 06/29/2020 R06.02 Shortness of breath Virgie Cai MD 05/31/2020 R06.02 Shortness of breath Reese clayton [facility] 05/31/2020 I35.0 Nonrheumatic aortic (valve) sten osis Reese Baxter, [facility] 05/31/2020 I10 Essential (primary) hypertension Reese Baxter [facility] 05/31/2020 Z98.61 Coronary angioplasty status Mariusz pantoja Joann [facility] 05/31/2020 I50.30 Unspecified diastolic (congestiv e) heart failure Reese Baxter [facility] 05/31/2020 I25.119 Atherosclerotic hear t disease of [place] coronary artery with unspecified angina pectoris Reese Baxter [facility] 05/31/2020 R94.39 Abnormal result of other cardiov ascular function study Reese Baxter [facility] 05/28/2020 R06.02 Shortness of breath Di Pierce MD 05/28/2020 R06.02 Shortness of breath Micky 05/28/2020 I25.10 Atherosclerotic hear t disease of [place] coronary artery without angina pectoris Brenda Pierce MD 05/28/2020 I25.10 Atherosclerotic hear t disease of [place] coronary artery without angina pectoris Micky 02/09/2020 I35.0 Nonrheumatic aortic (valve) sten osis Sherry Cai MD 02/09/2020 I25.10 Atherosclerotic hear t disease of [place] coronary artery without angina pectoris Sherry Cai MD 02/09/2020 I10 Essential (primary) hypertension Sherry Cai MD 02/09/2020 Z98.61 Coronary angioplasty status Sherry Esposito MD Plan of Treatment Future Appointment(s):* 02/05/2021 11:30 am - Leticia Bowers at [facility] * 02/05/2021 2:00 pm - Sherry Cai MD at [facility] Functional Status Description No Information Available Mental Status Description No Information Available Referrals Description No Information Available
--- OUTSIDE RECORDS SUMMARY | 2020-08-14 13:52 | CCD | Continuity of Care Document ---
Author Organization Unknown Address Unknown Phone Unavailable Care Team Providers Care Rotary Furnace Operator Name Role Phone [facility] AUT[facility] [phone] Gray Fermin MD AUTM [phone] Acosta Martinez JR, MD [facility] Unavailable Sherry Cai MD AUTM [phone] Meet Patel MD AUTM [phone] Problems Active Problems Provider Date Disorder of eye due to type 2 diabetes mellitus Violeta Thayer D.O. Onset: 09/03/1998 Coronary arteriosclerosis Acosta Martinez MD Onset: 02/08 Asthma without status asthmaticus Acosta Martinez MD Onse t: 02/08/2011 Benign essential hypertension Acosta Martinez MD Onset: 0 02/08/2011 Disorder of eye due to type 2 diabetes mellitus Acosta neves MD Onset: 02/08/2011 Nonproliferative retinopathy due to diabetes mellitus Oty ector Martinez MD Onset: 02/08/2011 Pure hypercholesterolemia Acosta Martinez MD Onset: 02/08 Obstructive sleep apnea syndrome Acosta Martinez MD Onset : 02/08/2011 Pure hyperglyceridemia Acosta Martinez MD Onset: 02/09/20 11 Vitamin D deficiency Acosta Martinez MD Onset: 02/08/2011 Type 2 diabetes mellitus PALOMO Hunter Onset: 10/21/19 14 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 Acosta Martinez MD Onset: 03/16/2015 Essential hypertension Acosat Martinez MD Onset: 03/16/20 15 Atherosclerotic heart disease of [place] coronary arter y without angina pectoris Acosta [...] day 270tabs Acosta Martinez MD 03/06/2017 Nystatin [id number]/ML Suspension 5cc swish and swallow five times a day x 10 days 1course VINI Gomez JR 11/21/2014 Allopurinol 100mg Tablets Take 2 Tablets [...] 1units Acosta Martinez MD 03/22/2010 Nebulizer Kit Mis us e as directed 1units Acosta Martinez MD 03/22/2010 Duoneb Inh Solution Ampules 1 ampule via nebulizer qid 360units Acosta Martinez MD 04/23/2007 Glucagon 1mg Kit inject im p rn 1units AMANDA [place] 12/10/2006 Nova Fine [place] 30 Ga. use qid prn 360unsavi Martinez [...] CPT Code Status Date Vaccine Lot # [id number] Given 03/24/2019 Influenza Vaccin e Quadrivalent Preser/Antibiotic Free Im Use [id number] U-Flu Given 07/08/2018 Influenza,Unspecified [id number] 72068 Given 07/08/2018 Shingrix Zoster Vaccine (HZV), Recombinant, Subunit, Adjuvanted 15991 Given 04/13/2018 Shingrix Zoster Vaccine (HZV), Recombinant, Subunit, Adjuvanted 97025 Given 04/02/2018 Influenza Virus Vaccine, Quadrivalent (Cciiv4), Derived From Cell 301995 U-DtapHi Given 10/19/2017 DTap,Hib,IPV,Unspecified 39099 Given 03/26/2017 Influenza Vaccin e Quadrivalent Preser/Antibiotic Free Im Use [id number] Q2037 Given 03/20/2016 Fluvirin Virus Vaccine 12328 01 04204 Given 01/23/2016 Pneumovax 23 Q2037 Given 03/22/2015 Fluvirin Virus Vaccine 74929 01 43089 Given 08/02/2014 Prevnar 13 [id number] Q2037 Given 03/27/2014 Fluvirin Virus Vaccine 91798 21 Q2037 Given 04/07/2013 Fluvirin Virus Vaccine 10757 01 Q2037 Given 04/02/2012 Fluvirin Virus Vaccine 14032 01 03751 Given 02/25/2012 Zoster Vaccine Q2037 Given 03/31/2011 Fluvirin Virus Vaccine 23626 Given 03/20/2010 Influenza Virus Vaccine 48573 Given 04/12/2009 Influenza Virus Vaccine 61158 Given 04/03/2008 Influenza Virus Vaccine 31057 Given 03/22/2007 Influenza Virus Vaccine 25989 Given 04/02/2006 Influenza Virus Vaccine 37362 Given 03/25/2005 Influenza Virus Vaccine 38974 Given 04/24/2004 Pneumovax 23 02360 Given 04/02/2004 Influenza Virus Vaccine 25123 Given 04/24/2003 Influenza Virus Vaccine 97557 Given 04/11/2002 Influenza Virus Vaccine 27902 Given 05/04/2001 Influenza Virus Vaccine 67871 Given 06/05/2000 Pneumovax 23 96540 Given 06/05/2000 Influenza Virus Vaccine Vital Signs [...] H/L Range Note Laboratory test finding 08/03/2020 [facility] [address] [place] [address] [phone] Vitamin B12 Level 461 pg/mL Normal 247-911 1 Ua Routine 08/03/2020 [facility]ter [address] [place], [place] [id number] [phone] Appearance, Urine CLEAR Normal Clear Color, Urine STRAW Normal Yellow PH,Urine 7.0 units Normal 5.0-9.0 Specific [place] Urine Auto 1.008 Normal 1.002-1.035 Protein, Urine [...] /LPF Normal 0-1 Complete Blood Count 08/03/2020 [facility] Junior Mechanical Engineer: [place] [address] [phone] WBC 8.7 x10*3/UL 4.1 - 10.9 RBC [...] 5.9 x10*3/UL 2.0 - 7.8 A1c 08/03/2020 [facility] , Junior Mechanical Engineer: [place] [address] [phone] Hba1c 8.4 % High <5.7 2 Est Avg Glucose 194 mg/dL High 60 - 110 Comprehensive Chem Profile 08/03/2020 [facility] Junior Mechanical Engineer: [place] [address] [phone] Glucose 142 mg/dL High 74 - 99 [...] 60 mL/min >60 4 Lipid Profile 08/03/2020 [facility] , Junior Mechanical Engineer: [place] [address] [phone] Cholesterol 130 mg/dL Low 131 - 200 Triglycerides 184 mg/dL High 30 - 150 HDL Cholesterol 45 mg/dL 35 - 60 LDL (Calculated) 48 CALC Low 50 - 159 Laboratory test finding 08/03/2020 [facility], Junior Mechanical Engineer: [place] [address] [phone] Thyroid Stimulating Hormone 1.85 uIU/mL 0.3 6 - 3.74 Microalbumin/Creatinine Urine 08/03/2020 [facility] Junior Mechanical Engineer: [place] [address] [phone] Microalbumin Urine 34.9 mg/L High 1.3 - 20.0 Urine Creatinine 21.5 mg/dL Low 30.0 - 125.0 Microalb/Creat Ratio 162.3 ug/mg High 0.0 - 30.0 Laboratory test finding 08/03/2020 [facility] Junior Mechanical Engineer: [place] [address] [phone] Vitamin D 25-Hydroxy <pending> Creatinine With GFR 07/03/2020 [facility] [address] [place] [address] [phone] Creatinine For GFR 0.86 mg/dL Normal 0.55-1.30 Glomerular Filtration Rate > 60.0 Normal >39 5 CBC With Differential 06/04/2020 [facility] [address] [place] [address] [phone] White Blood Count 9.9 10 Normal 4.0-10.0 [...] 36.0-66.0 Lymph % 29.7 % Normal 24.0-44.0 Dolores % 7.2 % High 0.0-5.0 Eos % 2.1 % Normal 0.0-3.0 Baso % 0.5 % Normal 0.0-1.0 Immature Granulocyte % 0.5 % Normal 0-3.0 Nucleated Red Blood Cell % 0.0 % Normal 0-0 Neutrophils # 5.9 10 Normal 1.5-8.5 Lymph # 2.9 10 Normal 1.5-5.0 Dolores # 0.7 10 Normal 0.0-0.8 Eos # 0.2 10 Normal 0.0-0.5 Baso # 0.1 10 Normal 0.0-0.2 Basic Metabolic Profile 06/04/[address] [address] [phone] Glucose, Fasting 237 mg/dL High 70-100 Blood [...] mg/dL Normal 8.8-10.2 Coronavirus 2019 Nasopharygeal 06/01/[address] [address] [phone] Coronavirus 2019 Nasopharygeal This nucleic aci <SEE N OTE> 7 Laboratory test finding 05/20/[address] [address] [phone] NT-Pro BNP 1309 pg/mL High <125 Blood Culture No growth after <SEE NOTE> 8 Basic Metabolic Profile 05/20/[address] [address] [phone] Glucose, Fasting 187 mg/dL High 70-100 Blood [...] 9.4 mg/dL Normal 8.8-10.2 Liver Profile 05/20/2020 [facility] nter [address] [place] [address] [phone] Ast/Sgot 34 U/L Normal 7-37 Alt/SGPT 19 U/L Normal 12-78 Alkaline Phosphatase 106 U/L Normal 45-117 Bilirubin,Total 0.9 mg/dL Normal 0.2-1.0 Bilirubin,Direct 0.2 mg/dL Normal 0.0-0.2 Total Protein 7.2 GM/DL Normal 6.4-8.2 Albumin 3.6 GM/DL Normal 3.2-5.2 Albumin/Globulin Ratio 1.0 Low 1.2-2.2 Cardiac Marker Panel 05/20/2020 [facility] enter [address] [place] [address] [phone] CPK Creatine Phosphokinase 171 U/L Normal 26-19 2 CK-MB Value Mass 4.2 NG/ML High <3.6 MB/CK Relative Index 2.46 Normal < Or =4 11 Troponin I 0.55 NG/ML High < 0.10 12 Laboratory test finding 05/20/2020 [facility] [address] [place] [address] [phone] Lactic Acid Sepsis Protocol 1.3 mmol/L Normal 0.4- 2.0 13 CBC With Differential 05/20/[address] [address] [phone] White Blood Count 14.6 10 High 4.0-10.0 [...] 36.0-66.0 Lymph % 9.2 % Low 24.0-44.0 Dolores % 9.2 % High 0.0-5.0 Eos % 0.4 % Normal 0.0-3.0 Baso % 0.3 % Normal 0.0-1.0 Immature Granulocyte % 0.4 % Normal 0-3.0 Nucleated Red Blood Cell % 0.0 % Normal 0-0 Neutrophils # 11.8 10 High 1.5-8.5 Lymph # 1.3 10 Low 1.5-5.0 Dolores # 1.4 10 High 0.0-0.8 Eos # 0.1 10 Normal 0.0-0.5 Baso # 0.1 10 Normal 0.0-0.2 Respiratory Panel 05/20/2020 [facility] nter [address] [place] [address] [phone] Respiratory Panel This respiratory <SEE NOTE> 14 Cardiac Marker Panel 05/20/2020 [facility] enter [address] [place] [address] [phone] CPK Creatine Phosphokinase 145 U/L Normal 26-19 2 CK-MB Value Mass 3.6 NG/ML Normal <3.6 MB/CK Relative Index 2.48 Normal < Or =4 15 Troponin I 1.10 NG/ML < 0.10 16 Istat ABG 05/20/2020 [facility] [address] [place] [address] [phone] iSTAT pH 7.475 units High 7.350-7.450 iSTAT pCO2 35.2 MMHG Normal 35.0-45.0 iSTAT pO2 82.0 MMHG Normal 80-105 iSTAT Tco2 27.0 mmol/L Normal 23.0-27.0 iSTAT Hco3 25.9 mmol/L Normal 22.0-26.0 iSTAT Base Excess 2.0 mmol/L Normal -2.0-3.0 iSTAT sO2 97 % Normal 95-98 PT & Aptt 05/20/[address] [address] [phone] Prothrombin Time 16.4 seconds High 12.5-14.3 Inr 1.29 Normal 17 Partial Thromboplastin Time > 240.0 seconds Critical high 24.2-38.5 Laboratory test finding 05/06/2020 [facility] [address] [place] [address] [phone] iSTAT Troponin 0.07 NG/ML Normal 0.00-0.08 Istat Chem8+ Panel 05/06/2020 [facility] n[facility] [address] [place] [address] [phone] iSTAT HCT 38.0 % Normal 38.0-51.0 iSTAT Glucose 182 mg/dL High 70-105 iSTAT Sodium 139 mEq/L Normal 136-145 iSTAT Potassium 4.0 mEq/L Normal 3.5-5.1 iSTAT CA++ 4.7 mg/dL Normal 4.5-5.3 iSTAT Chloride 100 mEq/L Normal 98-109 iSTAT Co2 33.0 MM/L High 23.0-27.0 iSTAT BUN 16 mg/dL Normal 8-26 iSTAT Creatinine 0.8 mg/dL Normal 0.6-1.3 Laboratory test finding 05/06/2020 [place] [address] [place] [address] [phone] iSTAT Troponin 0.02 NG/ML Normal 0.00-0.08 CBC With Differential 05/06/[address] [address] [phone] White Blood Count 8.7 10 Normal 4.0-10.0 [...] 36.0-66.0 Lymph % 20.0 % Low 24.0-44.0 Dolores % 7.7 % High 0.0-5.0 Eos % 1.6 % Normal 0.0-3.0 Baso % 0.5 % Normal 0.0-1.0 Immature Granulocyte % 0.7 % Normal 0-3.0 Nucleated Red Blood Cell % 0.0 % Normal 0-0 Neutrophils # 6.1 10 Normal 1.5-8.5 Lymph # 1.8 10 Normal 1.5-5.0 Dolores # 0.7 10 Normal 0.0-0.8 Eos # 0.1 10 Normal 0.0-0.5 Baso # 0.0 10 Normal 0.0-0.2 Liver Profile 05/06/2020 [facility] n[facility] [address] [place], [place] [address] [phone] Ast/Sgot 20 U/L Normal 7-37 Alt/SGPT 23 U/L Normal 12-78 Alkaline Phosphatase 127 U/L High 45-117 Bilirubin,Total 0.4 mg/dL Normal 0.2-1.0 Bilirubin,Direct 0.1 mg/dL Normal 0.0-0.2 Total Protein 7.2 GM/DL Normal 6.4-8.2 Albumin 3.8 GM/DL Normal 3.2-5.2 Albumin/Globulin Ratio 1.1 Low 1.2-2.2 Laboratory test finding 05/06/2020 [facility] [address] [place] [address] [phone] NT-Pro BNP 598 pg/mL High <125 Lipase [...] LITTLE GFR LEFT ESRD GFR <15 ON SHOE PLANNER 5 Units are mL/min/1.73 m2 Chronic Kidney Disease Staging per NKF: Stage I & II GFR >=60 Normal to Mildly Decreased Stage III GFR 30-59 Moderately Decreased Stage IV GFR 15-29 Severely Decreased Stage V GFR <15 Very Little GFR Left ESRD GFR <15 on SHOE PLANNER 6 Units are mL/min/1.73 m2 Chronic Kidney Disease Staging per NKF: Stage I & II GFR >=60 Normal to Mildly Decreased Stage III GFR 30-59 Moderately Decreased Stage IV GFR 15-29 Severely Decreased Stage V GFR <15 Very Little GFR Left ESRD GFR <15 on SHOE PLANNER 7 This nucleic acid amplificat ion test was developed and its performance characteristics determined by [employer]. Nucleic acid amplification tests include PCR and [...] detected) result in this assay. Performed at: [facility] [address] [facility], [place] [id number] Junior Mechanical Engineer: Savannah Borja PhD, Phone: [phone] Not Detected 8 No growth after 72 [...] Little GFR Left ESRD GFR <15 on SHOE PLANNER 10 Testing was performed on a S LIGHTLY hemolyzed specimen. Suggest recollection of specimen for more accurate test results. 11 DIAGNOSIS CRITERIA MMB ng/ml Relative Index (RI) NON-AMI < or = 5 N/A PIRES ZONE > 5 < or = 4 AMI > 5 > 4 12 Troponin I Reference Interva l for [place]: 99th Percentile= 0.00-0.045 ng/ml Risk Stratification: <= [...] d etects Influenza A H1, H3 and 2008 H1 viruses, Influenza B virus, Resp iratory [...] 16 Troponin I Reference Interva l for [employer]: 99th Percentile= 0.00-0.045 ng/ml Risk Stratification: <= [...] 2.5-3.5 Procedures Date Code Description Status 07/03/2020 [id number] Diabetic Retinal Eye Exam Comple michele 03/11/2020 [id number] Mammogram Completed 01/10/2020 [id number] Diabetic Retinal Eye Exam Comple michele 03/11/2019 [id number] Mammogram Completed 01/04/2019 [id number] Diabetic Retinal Eye Exam Comple michele 07/06/2018 [id number] Diabetic Retinal Eye Exam Comple michele 01/06/2018 [id number] Diabetic Retinal Eye Exam Comple michele 10/20/2017 [id number] Mammogram Completed 05/20/2017 [id number] Diabetic Retinal Eye Exam Comple michele 03/23/2017 [id number] Colonoscopy Completed 03/11/2017 [id number] Bone Mineral Density Test Comple michele 02/18/2017 [id number] Mammogram Completed 02/16/2017 [id number] Mammogram Completed 10/23/2016 [id number] Diabetic Retinal Eye Exam Comple michele 04/22/2016 [id number] Diabetic Retinal [facility] Exam [facility]ple [facility] 04/07/2016 776526174 Diabetic Foot Exam Completed 02/20/2016 [id number] Mammogram Completed 04/12/2015 [id number] Diabetic Retinal Eye Exam Comple michele 02/14/2015 [id number] Mammogram Completed 04/04/2014 [id number] Diabetic Retinal Eye Exam Comple michele 02/13/2014 [id number] Mammogram Completed 01/21/2013 [id number] Mammogram Completed 12/07/2012 [id number] Diabetic Retinal Eye Exam Comple michele 01/21/2012 [id number] Colonoscopy Completed 01/19/2012 [id number] Mammogram Completed 02/13/2011 [id number] Diabetic Retinal Eye Exam Comple michele 01/13/2011 [id number] Mammogram Completed 01/10/2010 [id number] Mammogram Completed 07/10/2009 [id number] Diabetic Retinal Eye Exam Comple michele 06/22/2008 [id number] Diabetic Retinal Eye Exam Comple michele 12/18/2005 761494555 Bone Mineral Density Test Comple michele 09/01/2003 [id number] Colonoscopy Completed Medical Devices Description No Information Available Encounters Type Date Location Provider Dx Diagnosis [facility] Z01.810 Encounter for preprocedural cardiovascul [...] diabetes mellitus wit h diabetic polyneuropathy 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 G47.33 Obstructive sleep apnea (ruchi lt) (pediatric) E03.9 Hypothyroidism, unspecified Assessments Date Code Description Provider 08/03/2020 Z01.810 Encounter for preprocedural card iovascular examination Acosta Martinez MD 08/03/2020 M25.561 Pain in right knee Acosta olivares MD 08/03/2020 I25.10 Atherosclerotic heart disease of [place] coronary artery with Acosta Martinez MD 08/03/2020 [...] MD 2020 I25.10 Atherosclerotic heart disease of [place] coronary artery with Acosta Martinez MD 2020 [...] abetic polyneuropathy Acosta Martinez MD 2020 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 * 09/18/2020 2:45 pm - Acosta Martinez MD at [facility] 08/03/2020 - Acosta Martinez MD* Z01.810 Encounter for preprocedural cardiovascular examination * M25.561 Pain in right knee * I25.10 Atherosclerotic heart disease of [place] coronary artery with * Z95.1 Presence of [...]
--- OUTSIDE RECORDS SUMMARY | 2020-08-14 13:53 | CCD | Continuity of Care Document ---
Author Author Aura BAXTER [facility] Organization Unknown Address [address] [place] [address] [address] [place] [address] Phone [phone] Care Team Providers Care Cordwainer Name Role Phone Acosta Martinez MD AUTM [phone] [facility] AUTM [phone] Direct, [facility] AUTM Unavailable Problems Active Problems Provider Date Angina pectoris Treva Steel NP Onset: 10/22/2011 Coronary arteriosclerosis Treva Steel NP Onset: 2011 Pure hypercholesterolemia Treva Steel NP Onset: 2011 Type 2 diabetes mellitus Treva Steel NP Onset: 012 Cardiovascular symptoms Leticia D Onset: 2 Chest pain Micky Onset: 03/15/2013 Patient post percutaneous transluminal coronary angioplasty Micky Onset: 03/15/2013 Atherosclerotic heart disease of [place] coronary arter y without angina pectoris Fabian [...] valve disorder Leticia D Onset: 02/07/2020 Dyspnea Reese Baxter FNP Onset: 0 Abnormal results of cardiovascular function studies Reese Mckeon FNP Onset: 05/31/2020 Arteriosclerosis of coronary artery bypass graft Reese Baxter FNP Onset: 07/13/2020 Mixed hyperlipidemia Reese Baxter FNP Onset: 07/13/19 Social History Type Date Description Comments Sex [...] ER 24HR 1 by mouth every day 90caps Sherry Cai MD 020 Asa 81mg Tablets 1 by [...] Given 03/24/2019 Influenza,Unspecified U-Flu Given 03/22/2018 Influenza,Unspecified 34116 Given 06/12/2015 Pneumococcal Immunization Vital Signs Date [...] Date Facility Test Result H/L Range Note Creatinine With GFR 07/03/2020 [facility] Creatinine For GFR 0.86 mg/dL Normal 0.55-1.30 Glomerular Filtration Rate > 60.0 Normal >39 1 Coronavirus 2019 Nasopharygeal 06/25/2020 [facility] Coronavirus 2019 Nasopharygeal This nucleic aci <SEE NOTE> 2 CBC With Differential 06/04/2020 [facility] White Blood Count 9.9 10 Normal [...] 36.0-66.0 Lymph % 29.7 % Normal 24.0-44.0 [place] % 7.2 % High 0.0-5.0 Eos % 2.1 % Normal 0.0-3.0 Baso % 0.5 % Normal 0.0-1.0 Immature Granulocyte % 0.5 % Normal 0-3.0 Nucleated Red Blood Cell % 0.0 % Normal 0-0 Neutrophils # 5.9 10 Normal 1.5-8.5 Lymph # 2.9 10 Normal 1.5-5.0 [place] # 0.7 10 Normal 0.0-0.8 Eos # 0.2 10 Normal 0.0-0.5 Baso # 0.1 10 Normal 0.0-0.2 Basic Metabolic Profile 06/04/2020 [facility] Glucose, Fasting 237 mg/dL High 70-100 Blood Urea Nitrogen 30 mg/dL High 7-18 Creatinine For GFR 1.02 mg/dL Normal 0.55-1.30 Glomerular Filtration Rate 56.9 Normal >39 3 Sodium Level 138 mEq/L Normal 136-145 Potassium Serum 4.0 mEq/L Normal 3.5-5.1 Chloride Level 101 mEq/L Normal 98-107 Carbon Dioxide Level 34 mEq/L High 21-32 Anion Gap 3 mEq/L Low 8-16 Calcium Level 9.7 mg/dL Normal 8.8-10.2 Coronavirus 2019 Nasopharygeal 06/01/2020 [facility] Coronavirus 2019 Nasopharygeal This nucleic aci <SEE NOTE> 4 1 Units are mL/min/1.73 m2 Chronic Kidney Disease Staging per NKF: Stage I & II GFR >=60 Normal to Mildly Decreased Stage III GFR 30-59 Moderately Decreased Stage IV GFR 15-29 Severely Decreased Stage V GFR <15 Very Little GFR Left ESRD GFR <15 on SENIOR FINANCIAL REPORTING ANALYST 2 This nucleic acid amplificat ion test was developed and its performance characteristics determined by [employer]. Nucleic acid amplification tests include PCR and [...] detected) result in this assay. Performed at: [facility] [address] [facility], [place] [address] [id number] Efficiency Miner: Savannah Borja PhD, Phone: [phone] Not Detected 3 Units are mL/min/1.73 m2 Chronic Kidney Disease Staging per NKF: Stage I & II GFR >=60 Normal to Mildly Decreased Stage III GFR 30-59 Moderately Decreased Stage IV GFR 15-29 Severely Decreased Stage V GFR <15 Very Little GFR Left ESRD GFR <15 on SENIOR FINANCIAL REPORTING ANALYST 4 This nucleic acid amplificat ion test was developed and its performance characteristics determined by [employer]. Nucleic acid amplification tests include PCR and [...] detected) result in this assay. Performed at: [facility] [address] [facility], [place], [place] [address] [id number] Efficiency Miner: Savannah Borja PhD, Phone: [phone] Not Detected Procedures Date Code Description Status 06/29/2020 36758 Left Heart Cath W/Wo LV,Coronary & Bypass Grafts SVG And Or Dipti Completed 05/28/2020 79994 Cardiovascular Stress Test W/Int erpretation & Report Completed 05/28/2020 32854 Spect Image, Multiple,W/Ejection Fraction And Wall Motion Completed 02/07/2020 87690 Complete ECHO Completed Medical Devices Description No Information Available Encounters Type Date Location Provider Dx Diagnosis Office Visit 07/13/2020 1:30p [facility] Reese Briceno, [place] I25.810 Atherosclerosis of CABG w/o angina pectoris I35.0 Nonrheumatic aortic (valve) stenosis I10 Essential (primary) hyperten mary Z95.1 Presence of aortocoronary by pass graft E78.2 Mixed hyperlipidemia [facility] R06.02 Shortness of breath I35.0 Nonrheumatic aortic (valve) stenosis I10 Essential (primary) hyperten mary Z98.61 Coronary angioplasty status I50.30 Unspecified diastolic (conge stive) heart failure I25.119 Athscl heart disease of evelin ve cor art w unsp ang pctrs R94.39 Abnormal result of other car diovascular function study Office Visit 02/09[facility]2020 [facility] I35.0 Nonrheumatic aortic (valve) stenosis I25.10 Athscl heart disease of evelin ve coronary artery w/o ang pctrs I10 Essential (primary) hyperten mary Z98.61 Coronary angioplasty status Assessments Date Code Description Provider 07/13/2020 I25.810 Atherosclerosis of c oronary artery bypass graft(s) without angina pectoris Reese Baxter [facility] 07/13/2020 I35.0 Nonrheumatic aortic (valve) sten osis Reese Baxter [facility] 07/13/2020 I10 Essential (primary) hypertension Reese Baxter [facility] 07/13/2020 Z95.1 Presence of aortocoronary bypass graft Reese Baxter FNP 07/13/2020 E78.2 Mixed hyperlipidemia Reese Baxter [facility] 06/29/2020 I25.810 Atherosclerosis of c oronary artery bypass graft(s) without angina pectoris Sherry Cai MD 06/29/2020 R94.39 Abnormal result of other cardiov ascular function study Sherry Cai MD 06/29/2020 R06.02 Shortness of breath Virgie Cai MD 05/31/2020 R06.02 Shortness of breath Zaid Baxter [facility] 05/31/2020 I35.0 Nonrheumatic aortic (valve) sten osis Reese Baxter [facility] 05/31/2020 I10 Essential (primary) hypertension Reese Baxter [facility] 05/31/2020 Z98.61 Coronary angioplasty status Reese Briceno [facility] 05/31/2020 I50.30 Unspecified diastolic (congestiv e) heart failure Reese Baxter [facility] 05/31/2020 I25.119 Atherosclerotic hear t disease of [place] coronary artery with unspecified angina pectoris Reese Baxter [facility] 05/31/2020 R94.39 Abnormal result of other cardiov ascular function study Reese Baxter [facility] 05/28/2020 R06.02 Shortness of breath Di Pierce MD 05/28/2020 R06.02 Shortness of breath Micky 05/28/2020 I25.10 Atherosclerotic hear t disease of [place] coronary artery without angina pectoris Brenda Pierce MD 05/28/2020 I25.10 Atherosclerotic hear t disease of [place] coronary artery without angina pectoris Micky 02/09/2020 I35.0 Nonrheumatic aortic (valve) sten osis Sherry Cai MD 02/09/2020 I25.10 Atherosclerotic hear t disease of [place] coronary artery without angina pectoris Sherry Cai MD 02/09/2020 I10 Essential (primary) hypertension Sherry Cai MD 02/09/2020 Z98.61 Coronary angioplasty status Sherry Esposito MD 02/07/2020 I35.0 Nonrheumatic aortic (valve) sten osis Muniraomi, Efrain 02/07/2020 I35.0 Nonrheumatic aortic (valve) sten osis Leticia D 02/07/2020 I34.0 Nonrheumatic mitral (valve) insu fficiency Chinaan-Bethomi, Efrain 02/07/2020 I34.0 Nonrheumatic mitral (valve) insu fficiency Leticia D 02/07/2020 I25.10 Atherosclerotic hear t disease of [place] coronary artery without angina pectoris Natan, Efrain 02/07/2020 I25.10 Atherosclerotic hear t disease of [place] coronary artery without angina pectoris Leticia D Plan of Treatment Future Appointment(s):* 02/05/2021 11:30 am - Leticia Bowers at [facility] * 02/05/2021 2:00 pm - Sherry Cai MD at [facility] Functional Status Description No Information Available Mental Status Description No Information Available Referrals Description No Information Available
--- OUTSIDE RECORDS SUMMARY | 2020-08-14 13:53 | CCD | Continuity of Care Document ---
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 Name Role Phone Acosta Martinez MD AUTM [phone] [facility] AUTM [phone] Direct, [facility] AUTM Unavailable Problems Active Problems Provider Date Angina pectoris Treva Steel NP Onset: 10/22/2011 Coronary arteriosclerosis Treva Steel NP Onset: 2011 Pure hypercholesterolemia Treva Steel NP Onset: 2011 Type 2 diabetes mellitus Treva Steel NP Onset: 012 Cardiovascular symptoms Leticia D Onset: 2 Chest pain Micky Onset: 03/15/2013 Patient post percutaneous transluminal coronary angioplasty Micky Onset: 03/15/2013 Atherosclerotic heart disease of [place] coronary arter y without angina pectoris Fabian [...] disorder Leticia D Onset: 02/07/2020 Dyspnea Reese David FNP Onset: 0 Abnormal results of cardiovascular function studies Reese Mckeon FNP Onset: 05/31/2020 Social History Type Date Description Comments Sex Unknown ETOH Use Denies alcohol use Tobacco Use Start: Unknown Patient has never smoked Smoking Status Reviewed: 05/30/20 Patient has never smoked Allergies, Adverse Reactions, Alerts Active Allergies Reaction Severity Comments Date Penicillin 11/22/2009 Sulfadrugs 11/22/2009 Enalapril 12/08/2017 Medications Active Medications SIG Qnty Indications Ordering Provide r Date Clopidogrel Bisulfate 75mg Tablets 1 tablet 06/27/20 until day of procedure 3tabs Sherry Cai MD 06/01/2020 Diltiazem HCL ER Beads 360mg Caps ER [...] 1 puff daily Fabian Whaley MD 11/22/2009 Lipitor 40mg Tablets 2 po qd 90tabs Fabian Whaley MD 11/22/2009 Albuterol Mdi 2 [...] 2 tablets by mouth every morning Unknown Medications Administered in Office Medication SIG Qnty Indications Ordering Provider Date Regadenoson, 0.1 MG Injection Micky 05/28/2020 Regadenoson, 0.1 MG Injection Micky 11/02/2017 Regadenoson, 0.1 MG Injection Micky 03/15/2013 Regadenoson, 0.1 MG Injection Micky 10/14/2011 Immunizations CPT Code Status Date Vaccine Lot # U-Flu Given 03/22/2020 Influenza,Unspecified U-Flu Given 03/24/2019 Influenza,Unspecified U-Flu Given 03/22/2018 Influenza,Unspecified 21977 Given 06/12/2015 Pneumococcal Immunization Vital Signs Date Vital Result Comment 05/31/2020 1:36pm BP Systolic Left Arm 118 mmHg BP Diastolic Left Arm 60 mmHg Heart Rate 60 /min Weight 189.00 lb Height 59 inches 4'11" BMI (Body Mass Index) 38.2 kg/m2 O2 % BldC Oximetry 95 % BSA (Body Surface Area) 1.80 m2 02/09/2020 2:57pm BP Systolic Left Arm 122 mmHg BP Diastolic Left Arm 60 mmHg Heart Rate 77 /min Weight 194.00 lb Height 59 inches 4'11" BMI (Body Mass Index) 39.2 kg/m2 High Density Lipid 63 Low Density Lipid 54 Triglycerides 114 Total Cholesterol 140 O2 % BldC Oximetry 94 % BSA (Body Surface Area) 1.82 m2 Results Test Acquired Date Facility Test Result H/L Range Note Creatinine With GFR 07/03/2020 [facility] Creatinine For GFR 0.86 mg/dL Normal 0.55-1.30 Glomerular Filtration Rate > 60.0 Normal >39 1 Coronavirus 2019 Nasopharygeal 06/25/2020 [facility] Coronavirus 2019 Nasopharygeal This nucleic aci <SEE NOTE> 2 CBC With Differential 06/04/2020 [facility] White Blood Count 9.9 10 Normal [...] 36.0-66.0 Lymph % 29.7 % Normal 24.0-44.0 [place] % 7.2 % High 0.0-5.0 Eos % 2.1 % Normal 0.0-3.0 Baso % 0.5 % Normal 0.0-1.0 Immature Granulocyte % 0.5 % Normal 0-3.0 Nucleated Red Blood Cell % 0.0 % Normal 0-0 Neutrophils # 5.9 10 Normal 1.5-8.5 Lymph # 2.9 10 Normal 1.5-5.0 [place] # 0.7 10 Normal 0.0-0.8 Eos # 0.2 10 Normal 0.0-0.5 Baso # 0.1 10 Normal 0.0-0.2 Basic Metabolic Profile 06/04/2020 [facility] Glucose, Fasting 237 mg/dL High 70-100 [...] mg/dL Normal 8.8-10.2 Coronavirus 2019 Nasopharygeal 06/01/2020 [facility] Coronavirus 2019 Nasopharygeal This nucleic aci <SEE NOTE> 4 1 Units are mL/min/1.73 m2 Chronic Kidney Disease Staging per NKF: Stage I & II GFR >=60 Normal to Mildly Decreased Stage III GFR 30-59 Moderately Decreased Stage IV GFR 15-29 Severely Decreased Stage V GFR <15 Very Little GFR Left ESRD GFR <15 on LINE ASSIGNER 2 This nucleic acid amplificat ion test was developed and its performance characteristics determined by [employer]. Nucleic acid amplification tests include PCR and [...] detected) result in this assay. Performed at: [facility] [address] [facility], [place], [place] [address] [id number] Nurses' Aide: Savannah Borja PhD, Phone: [phone] Not Detected 3 Units are mL/min/1.73 m2 Chronic Kidney Disease Staging per NKF: Stage I & II GFR >=60 Normal to Mildly Decreased Stage III GFR 30-59 Moderately Decreased Stage IV GFR 15-29 Severely Decreased Stage V GFR <15 Very Little GFR Left ESRD GFR <15 on LINE ASSIGNER 4 This nucleic acid amplificat ion test was developed and its performance characteristics determined by [employer]. Nucleic acid amplification tests include PCR and [...] detected) result in this assay. Performed at: [facility] [address] [facility], [place] [address] [id number] Nurses' Aide: Savannah Borja PhD, Phone: [phone] Not Detected Procedures Date Code Description Status 05/28/2020 45466 Cardiovascular Stress Test W/Int erpretation & Report Completed 05/28/2020 16467 Spect Image, Multiple,W/Ejection Fraction And Wall Motion Completed 02/07/2020 20900 Complete ECHO Completed Medical Devices Description No Information Available Encounters Type Date Location Provider Dx Diagnosis Office Visit 05/31/2020 1:30p [facility] Reese Briceno FNP R06.02 Shortness of breath I35.0 Nonrheumatic aortic (valve) stenosis I10 Essential (primary) hyperten mary Z98.61 Coronary angioplasty status I50.30 Unspecified diastolic (conge stive) heart failure I25.119 Athscl heart disease of evelin ve cor art w unsp ang pctrs R94.39 Abnormal result of other car diovascular function study Office Visit 02/09/2020 3:00p [facility] Sherry Cai MD I35.0 Nonrheumatic aortic (valve) stenosis I25.10 Athscl heart disease of evelin ve coronary artery w/o ang pctrs I10 Essential (primary) hyperten mary Z98.61 Coronary angioplasty status Assessments Date Code Description Provider 05/31/2020 R06.02 Shortness of breath Zaid David [facility] 05/31/2020 I35.0 Nonrheumatic aortic (valve) sten osis Reese David [facility] 05/31/2020 I10 Essential (primary) hypertension Reese David [facility] 05/31/2020 Z98.61 Coronary angioplasty status Reese Briceno [facility] 05/31/2020 I50.30 Unspecified diastolic (congestiv e) heart failure Reese David [facility] 05/31/2020 I25.119 Atherosclerotic hear t disease of [place] coronary artery with unspecified angina pectoris Reese David [facility] 05/31/2020 R94.39 Abnormal result of other cardiov ascular function study Reese David [facility] 05/28/2020 R06.02 Shortness of breath Di Pierce MD 05/28/2020 R06.02 Shortness of breath Micky 05/28/2020 I25.10 Atherosclerotic hear t disease of [place] coronary artery without angina pectoris Brenda Pierce MD 05/28/2020 I25.10 Atherosclerotic hear t disease of [place] coronary artery without angina pectoris Micky 02/09/2020 I35.0 Nonrheumatic aortic (valve) sten nareshis Sherry Cai MD 02/09/2020 I25.10 Atherosclerotic hear t disease of [place] coronary artery without angina pectoris Sherry Cai MD 02/09/2020 I10 Essential (primary) hypertension Sherry Cai MD 02/09/2020 Z98.61 Coronary angioplasty status Sherry Esposito MD 02/07/2020 I35.0 Nonrheumatic aortic (valve) sten nareshis Efrain Gama 02/07/2020 I35.0 Nonrheumatic aortic (valve) sten osis Leticia D 02/07/2020 I34.0 Nonrheumatic mitral (valve) insu fficiency Efrain Gama 02/07/2020 I34.0 Nonrheumatic mitral (valve) insu fficiency Leitcia D 02/07/2020 I25.10 Atherosclerotic hear t disease of [place] coronary artery without angina pectoris Efrain Gama 02/07/2020 I25.10 Atherosclerotic hear t disease of [place] coronary artery without angina pectoris Leticia D Plan of Treatment Future Appointment(s):* 07/13/2020 1:30 pm - Reese David FNP at [facility] * 02/05/2021 2:00 pm - Sherry Cai MD at [facility] * 02/04/2021 10:00 am - Leticia Bowers at [facility] Functional Status Description No Information Available Mental Status Description No Information Available Referrals Description No Information Available
--- OUTSIDE RECORDS SUMMARY | 2020-08-14 13:53 | CCD | Continuity of Care Document ---
Author Author Aura Martinez MD Organization Unknown Address [address] [address] Phone [phone] Care Team Providers Care Automatic Winder Operator Name Role Phone [facility] AUTM [phone] Gray Fermin MD AUTM [phone] Acosta Martinez JR, MD AUTM Unavailable Sherry Cai MD AUTM [phone] Meet Patel MD AUTM [phone] Problems Active Problems Provider Date Disorder of [...] Onset: 03/16/20 15 Atherosclerotic heart disease of [place] coronary arter y without angina pectoris Acosta [...] day 270tabs Acosta Martinez MD 03/06/2017 Nystatin [id number] Suspension 5cc swish and swallow five times [...] Nebulizer Kit Misc us e as directed 1units Acosta Martinez MD 03/22/2010 Duoneb Inh Solution Ampules 1 ampule via nebulizer qid 360units Acosta Martinez MD 04/23/2007 Glucagon 1mg Kit inject im p rn 1units AMANDA [place] 12/10/2006 Nova Fine [place] 30 Ga. use qid prn 360unsavi Martinez [...] CPT Code Status Date Vaccine Lot # 11228 Given 03/24/2019 Influenza Vaccin e Quadrivalent Preser/Antibiotic Free Im Use [id number] U-Flu Given 07/08/2018 Influenza,Unspecified [id number] 76886 Given 07/08/2018 Shingrix Zoster Vaccine (HZV), Recombinant, Subunit, Adjuvanted 08080 Given 04/13/2018 Shingrix Zoster Vaccine (HZV), Recombinant, Subunit, Adjuvanted 76402 Given 04/02/2018 Influenza Virus Vaccine, Quadrivalent (Cciiv4), Derived From Cell [id number] U-DtapHi Given 10/19/2017 DTap,Hib,IPV,Unspecified 05457 Given 03/26/2017 Influenza Vaccin e Quadrivalent Preser/Antibiotic Free Im Use 327166 Q2037 Given 03/20/2016 Fluvirin Virus Vaccine 41928 01 66883 Given 01/23/2016 Pneumovax 23 Q2037 Given 03/22/2015 Fluvirin Virus Vaccine 89505 01 79880 Given 08/02/2014 Prevnar 13 [id number] Q2037 Given 03/27/2014 Fluvirin Virus Vaccine 42461 21 Q2037 Given 04/07/2013 Fluvirin Virus Vaccine 79883 01 Q2037 Given 04/02/2012 Fluvirin Virus Vaccine 80153 01 81031 Given 02/25/2012 Zoster Vaccine Q2037 Given 03/31/2011 Fluvirin Virus Vaccine 08081 Given 03/20/2010 Influenza Virus Vaccine 32408 Given 04/12/2009 Influenza Virus Vaccine 00928 Given 04/03/2008 Influenza Virus Vaccine 26642 Given 03/22/2007 Influenza Virus Vaccine 28944 Given 04/02/2006 Influenza Virus Vaccine 87305 Given 03/25/2005 Influenza Virus Vaccine 65544 Given 04/24/2004 Pneumovax 23 88693 Given 04/02/2004 Influenza Virus Vaccine 09288 Given 04/24/2003 Influenza Virus Vaccine 62540 Given 04/11/2002 Influenza Virus Vaccine 04260 Given 05/04/2001 Influenza Virus Vaccine 66094 Given 06/05/2000 Pneumovax 23 77858 Given 06/05/2000 Influenza Virus Vaccine Vital Signs [...] H/L Range Note Laboratory test finding 08/03/2020 [facility] [address] [place] [address] [phone] Vitamin B12 Level 461 pg/mL Normal 247-911 1 Ua Routine 08/03/2020 [facility] [address] [place] [address] [phone] Appearance, Urine CLEAR Normal Clear Color, Urine STRAW Normal Yellow PH,Urine 7.0 units Normal 5.0-9.0 Specific [place] Urine Auto 1.008 Normal 1.002-1.035 Protein, Urine [...] /LPF Normal 0-1 Complete Blood Count 08/03/2020 [facility] Clinical Informaticist: [place] [address] [phone] WBC 8.7 x10*3/UL 4.1 - 10.9 RBC [...] 5.9 x10*3/UL 2.0 - 7.8 A1c 08/03/2020 [facility] , Clinical Informaticist: [place] [address] [phone] Hba1c 8.4 % High <5.7 2 Est Avg Glucose 194 mg/dL High 60 - 110 Comprehensive Chem Profile 08/03/2020 [facility], Clinical Informaticist: [place] [address] [phone] Glucose 142 mg/dL High 74 - 99 [...] 60 mL/min >60 4 Lipid Profile 08/03/2020 [facility] , Clinical Informaticist: [place] [address] [phone] Cholesterol 130 mg/dL Low 131 - 200 Triglycerides 184 mg/dL High 30 - 150 HDL Cholesterol 45 mg/dL 35 - 60 LDL (Calculated) 48 CALC Low 50 - 159 Laboratory test finding 08/03/2020 [facility], Clinical Informaticist: [place] [address] [phone] Thyroid Stimulating Hormone 1.85 uIU/mL 0.3 6 - 3.74 Microalbumin/Creatinine Urine 08/03/2020 [facility] Clinical Informaticist: [place] [address] [phone] Microalbumin Urine 34.9 mg/L High 1.3 - 20.0 Urine Creatinine 21.5 mg/dL Low 30.0 - 125.0 Microalb/Creat Ratio 162.3 ug/mg High 0.0 - 30.0 Laboratory test finding 08/03/2020 [facility] Clinical Informaticist: [place] [address] [phone] Vitamin D 25-Hydroxy <pending> Creatinine With GFR 07/03/2020 [facility] [address] [place] [address] [phone] Creatinine For GFR 0.86 mg/dL Normal 0.55-1.30 Glomerular Filtration Rate > 60.0 Normal >39 5 CBC With Differential 06/04/2020 [facility] [address] [place] [address] [phone] White Blood Count 9.9 10 Normal 4.0-10.0 [...] 36.0-66.0 Lymph % 29.7 % Normal 24.0-44.0 Perkins % 7.2 % High 0.0-5.0 Eos % 2.1 % Normal 0.0-3.0 Baso % 0.5 % Normal 0.0-1.0 Immature Granulocyte % 0.5 % Normal 0-3.0 Nucleated Red Blood Cell % 0.0 % Normal 0-0 Neutrophils # 5.9 10 Normal 1.5-8.5 Lymph # 2.9 10 Normal 1.5-5.0 Perkins # 0.7 10 Normal 0.0-0.8 Eos # 0.2 10 Normal 0.0-0.5 Baso # 0.1 10 Normal 0.0-0.2 Basic Metabolic Profile 06/04/[address] [address] [phone] Glucose, Fasting 237 mg/dL High 70-100 Blood [...] mg/dL Normal 8.8-10.2 Coronavirus 2019 Nasopharygeal 06/01/[address] [id number] [phone] Coronavirus 2019 Nasopharygeal This nucleic aci <SEE N OTE> 7 Laboratory test finding 05/20/[address] [address] [phone] NT-Pro BNP 1309 pg/mL High <125 Blood Culture No growth after <SEE NOTE> 8 Basic Metabolic Profile 05/20/[address] [address] [phone] Glucose, Fasting 187 mg/dL High 70-100 Blood [...] 9.4 mg/dL Normal 8.8-10.2 Liver Profile 05/20/2020 [facility] [address] [place] [address] [phone] Ast/Sgot 34 U/L Normal 7-37 Alt/SGPT 19 U/L Normal 12-78 Alkaline Phosphatase 106 U/L Normal 45-117 Bilirubin,Total 0.9 mg/dL Normal 0.2-1.0 Bilirubin,Direct 0.2 mg/dL Normal 0.0-0.2 Total Protein 7.2 GM/DL Normal 6.4-8.2 Albumin 3.6 GM/DL Normal 3.2-5.2 Albumin/Globulin Ratio 1.0 Low 1.2-2.2 Cardiac Marker Panel 05/20/2020 [facility] [address] [place] [address] [phone] CPK Creatine Phosphokinase 171 U/L Normal 26-19 2 CK-MB Value Mass 4.2 NG/ML High <3.6 MB/CK Relative Index 2.46 Normal < Or =4 11 Troponin I 0.55 NG/ML High < 0.10 12 Laboratory test finding 05/20/2020 [facility] [address] [place] [address] [phone] Lactic Acid Sepsis Protocol 1.3 mmol/L Normal 0.4- 2.0 13 CBC With Differential 05/20/2020 [place] [address] [place] [address] [phone] White Blood Count 14.6 10 High 4.0-10.0 [...] 36.0-66.0 Lymph % 9.2 % Low 24.0-44.0 Perkins % 9.2 % High 0.0-5.0 Eos % 0.4 % Normal 0.0-3.0 Baso % 0.3 % Normal 0.0-1.0 Immature Granulocyte % 0.4 % Normal 0-3.0 Nucleated Red Blood Cell % 0.0 % Normal 0-0 Neutrophils # 11.8 10 High 1.5-8.5 Lymph # 1.3 10 Low 1.5-5.0 Perkins # 1.4 10 High 0.0-0.8 Eos # 0.1 10 Normal 0.0-0.5 Baso # 0.1 10 Normal 0.0-0.2 Respiratory Panel 05/20/2020 [facility] n[facility] [address] [place] [address] [phone] Respiratory Panel This respiratory <SEE NOTE> 14 Cardiac Marker Panel 05/20/2020 [facility] enter [address] [place] [address] [phone] CPK Creatine Phosphokinase 145 U/L Normal 26-19 2 CK-MB Value Mass 3.6 NG/ML Normal <3.6 MB/CK Relative Index 2.48 Normal < Or =4 15 Troponin I 1.10 NG/ML < 0.10 16 Istat ABG 05/20/[address] [address] [phone] iSTAT pH 7.475 units High 7.350-7.450 iSTAT pCO2 35.2 MMHG Normal 35.0-45.0 iSTAT pO2 82.0 MMHG Normal 80-105 iSTAT Tco2 27.0 mmol/L Normal 23.0-27.0 iSTAT Hco3 25.9 mmol/L Normal 22.0-26.0 iSTAT Base Excess 2.0 mmol/L Normal -2.0-3.0 iSTAT sO2 97 % Normal 95-98 PT & Aptt [facility]20[facility] [address] [place] [address] [phone] Prothrombin Time 16.4 seconds High 12.5-14.3 Inr 1.29 Normal 17 Partial Thromboplastin Time > 240.0 seconds Critical high 24.2-38.5 Laboratory test finding 05/06/2020 [facility] [address] [place] [address] [phone] iSTAT Troponin 0.07 NG/ML Normal 0.00-0.08 Istat Chem8+ Panel 05/06/2020 [facility] [address] [place], [place] [address] [phone] iSTAT HCT 38.0 % Normal 38.0-51.0 iSTAT Glucose 182 mg/dL High 70-105 iSTAT Sodium 139 mEq/L Normal 136-145 iSTAT Potassium 4.0 mEq/L Normal 3.5-5.1 iSTAT CA++ 4.7 mg/dL Normal 4.5-5.3 iSTAT Chloride 100 mEq/L Normal 98-109 iSTAT Co2 33.0 MM/L High 23.0-27.0 iSTAT BUN 16 mg/dL Normal 8-26 iSTAT Creatinine 0.8 mg/dL Normal 0.6-1.3 Laboratory test finding 05/06/2020 [facility] [address] [place] [address] [phone] iSTAT Troponin 0.02 NG/ML Normal 0.00-0.08 CBC With Differential 05/06/[address] [address] [phone] White Blood Count 8.7 10 Normal 4.0-10.0 [...] 36.0-66.0 Lymph % 20.0 % Low 24.0-44.0 Perkins % 7.7 % High 0.0-5.0 Eos % 1.6 % Normal 0.0-3.0 Baso % 0.5 % Normal 0.0-1.0 Immature Granulocyte % 0.7 % Normal 0-3.0 Nucleated Red Blood Cell % 0.0 % Normal 0-0 Neutrophils # 6.1 10 Normal 1.5-8.5 Lymph # 1.8 10 Normal 1.5-5.0 Perkins # 0.7 10 Normal 0.0-0.8 Eos # 0.1 10 Normal 0.0-0.5 Baso # 0.0 10 Normal 0.0-0.2 Liver Profile 05/06/2020 [facility] [address] [place] [address] [phone] Ast/Sgot 20 U/L Normal 7-37 Alt/SGPT 23 U/L Normal 12-78 Alkaline Phosphatase 127 U/L High 45-117 Bilirubin,Total 0.4 mg/dL Normal 0.2-1.0 Bilirubin,Direct 0.1 mg/dL Normal 0.0-0.2 Total Protein 7.2 GM/DL Normal 6.4-8.2 Albumin 3.8 GM/DL Normal 3.2-5.2 Albumin/Globulin Ratio 1.1 Low 1.2-2.2 Laboratory test finding 05/06/2020 [facility] [address] [place] [address] [phone] NT-Pro BNP 598 pg/mL High <125 Lipase [...] LITTLE GFR LEFT ESRD GFR <15 ON ASSISTANT PURCHASING MANAGER 5 Units are mL/min/1.73 m2 Chronic Kidney Disease Staging per NKF: Stage I & II GFR >=60 Normal to Mildly Decreased Stage III GFR 30-59 Moderately Decreased Stage IV GFR 15-29 Severely Decreased Stage V GFR <15 Very Little GFR Left ESRD GFR <15 on ASSISTANT PURCHASING MANAGER 6 Units are mL/min/1.73 m2 Chronic Kidney Disease Staging per NKF: Stage I & II GFR >=60 Normal to Mildly Decreased Stage III GFR 30-59 Moderately Decreased Stage IV GFR 15-29 Severely Decreased Stage V GFR <15 Very Little GFR Left ESRD GFR <15 on ASSISTANT PURCHASING MANAGER 7 This nucleic acid amplificat ion test was developed and its performance characteristics determined by [employer]. Nucleic acid amplification tests include PCR and [...] detected) result in this assay. Performed at: [facility] [address] [facility], [place], [place] [id number] Clinical Informaticist: Savannah Borja PhD, Phone: [phone] Not Detected 8 No growth after 72 [...] Little GFR Left ESRD GFR <15 on ASSISTANT PURCHASING MANAGER 10 Testing was performed on a S LIGHTLY hemolyzed specimen. Suggest recollection of specimen for more accurate test results. 11 DIAGNOSIS CRITERIA MMB ng/ml Relative Index (RI) NON-AMI < or = 5 N/A PIRES ZONE > 5 < or = 4 AMI > 5 > 4 12 Troponin I Reference Interva l for [place]: 99th Percentile= 0.00-0.045 ng/ml Risk Stratification: <= [...] 16 Troponin I Reference Interva l for [place]: 99th Percentile= 0.00-0.045 ng/ml Risk Stratification: <= [...] 2.5-3.5 Procedures Date Code Description Status 07/03/2020 [id number] Diabetic Retinal Eye Exam Comple [facility] 03/11/2020 [id number] Mammogram Completed 01/10/2020 [id number] Diabetic Retinal Eye Exam Comple [facility] 03/11/2019 [id number] Mammogram Completed 01/04/2019 [id number] Diabetic Retinal Eye Exam Comple [facility] 07/06/2018 [id number] Diabetic Retinal Eye Exam Comple [facility] 01/06/2018 [id number] Diabetic Retinal Eye Exam Comple [facility] 10/20/2017 [id number] Mammogram Completed 05/20/2017 [id number] Diabetic Retinal Eye Exam Comple [facility] 03/23/2017 [id number] Colonoscopy Completed 03/11/2017 [id number] Bone Mineral Density Test Comple [facility] 02/18/2017 [id number] Mammogram Completed 02/16/2017 [id number] Mammogram Completed 10/23/2016 [id number] Diabetic Retinal Eye Exam Comple [facility] 04/22/2016 [id number] Diabetic Retinal Eye Exam Comple [facility] 04/07/2016 [id number] Diabetic Foot Exam Completed 02/20/2016 [id number] Mammogram Completed 04/12/2015 [id number] Diabetic Retinal Eye Exam Comple [facility] 02/14/2015 [id number] Mammogram Completed 04/04/2014 [id number] Diabetic Retinal Eye Exam Comple [facility] 02/13/2014 [id number] Mammogram Completed 01/21/2013 [id number] Mammogram Completed 12/07/2012 [id number] Diabetic Retinal Eye Exam Comple [facility] 01/21/2012 [id number] Colonoscopy Completed 01/19/2012 [id number] Mammogram Completed 02/13/2011 [id number] Diabetic Retinal Eye Exam Comple [facility] 01/13/2011 [id number] Mammogram Completed 01/10/2010 [id number] Mammogram Completed 07/10/2009 [id number] Diabetic Retinal Eye Exam Comple [facility] 06/22/2008 [id number] Diabetic Retinal Eye Exam Comple [facility] 12/18/2005 [id number] Bone Mineral Density Test Comple [facility] 09/01/2003 [id number] Colonoscopy Completed Medical Devices Description No Information Available Encounters Type Date Location Provider Dx Diagnosis Office Visit 2020 11:00a [facility] PJared Martinez MD Z01.810 Encounter for preprocedural cardiovascul [...] diabetes mellitus wit h diabetic polyneuropathy Z79.4 USP (current) use of i nsulin G47.33 Obstructive sleep apnea (ruchi lt) (pediatric) E03.9 Hypothyroidism, unspecified Assessments Date Code Description Provider 08/03/2020 Z01.810 Encounter for preprocedural card iovascular examination Acosta Martinez MD 08/03/2020 M25.561 Pain in right knee Acosta olivares MD 08/03/2020 I25.10 Atherosclerotic heart disease of [place] coronary artery with Acosta Martinez MD 08/03/2020 [...] MD 2020 I25.10 Atherosclerotic heart disease of [place] coronary artery with Acosta Martinez MD 2020 [...] abetic polyneuropathy Acosta Martinez MD 2020 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 * 09/18/2020 2:45 pm - Acosta Martinez MD at [facility] 08/03/2020 - Acosta Martinez MD* Z01.810 Encounter for preprocedural cardiovascular examination * M25.561 Pain in right knee * I25.10 Atherosclerotic heart disease of [place] coronary artery with * Z95.1 Presence of [...]
--- OUTSIDE RECORDS SUMMARY | 2020-08-14 13:53 | CCD | Summary of Care ---
Author Author [facility] Address Unknown Phone Unavailable Care Team Providers Care Foil Spinner Name Role Phone Acosta Martinez MD PCP Reason for Visit * Reason Comments Follow-up Encounter Details Care Team Description Date Type Department Arina Mosher MD [address], [place] [id number] Vitamin D deficiency (Primary Dx); Insulin pump status; Insulin long-term use; Diabetes mellitus type 2, uncontrolled, with complications; Type 2 diabetes mellitus with hyperglycemia, with long-term current use of insulin; S/P CABG x 3 07/24/2020 Telemedicine [facility] DIABET[facility] [address] [place] [address] Allergies Comments Active Allergy Reactions Severity Noted Date Tongue swelling Enalapril Swelling 09/18/2017 Exenatide Nausea And High 06/03/2012 Vomiting Penicillins Heart attack symptoms Terfenadine Other (See High 06/03/2012 Comments) Sulfa Drugs Cross Reactors Pramlintide Acetate Nausea And High 06/03/2012 Vomiting documented as of this encounter (statuses as of 07/24/2020) Medications End Date Status Medication Sig Dispensed Refills Start Date Active aspirin EC 325 MG EC Take 325 mg 0 tablet by mouth daily. Active ALBUTEROL IN Inhale 17 g 0 into the lungs as needed. Active fluticasone-salmeterol Inhale 2 0 (ADVAIR HFA) 230-21 puffs into MCG/ACT inhaler the lungs 2 (two) times daily. Active budesonide (PULMICORT) Take 0.5 mg 0 0.5 MG/2ML nebulizer by solution nebulization as needed Active pantoprazole (PROTONIX) Take 40 mg by 0 40 MG tablet mouth daily. Active venlafaxine (EFFEXOR-XR) Take 75 mg by 0 75 MG 24 hr capsule mouth daily. Active potassium chloride SA Take 10 mEq 0 (K-DUR,KLOR-CON) 10 MEQ by mouth tablet daily Active gabapentin (NEURONTIN) Take 600 mg 0 300 MG capsule by mouth Three times daily. Active ALLOPURINOL PO Take 200 mg 0 by mouth daily Active diltiazem (DILTIAZEM HCL Take 360 mg 0 CD) 360 MG 24 hr capsule by mouth daily. Active insulin glargine (LANTUS) Inject up to 150 mL 1 100 UNIT/ML 80 units 4 injectionIndications: DM every morning type 2 (diabetes and 80 units mellitus, type 2) every evening. Total daily dose 160 units Active acetone, urine, test Use as 25 each 07/20 strip directed as 5 needed up to 10 times a day. DX 250.00 Active atorvastatin (LIPITOR) 80 Take 80 mg by 0 MG tablet mouth daily. Active nitroGLYCERIN (NITROSTAT) Place 0.4 mg 0 0.4 MG SL tablet under the tongue every 5 (five) minutes as needed for Chest pain. Active Insulin Infusion Pump Use as 50 each 3 10/20 Supplies (JUAN J INFUSION directed. 8 SET 32" 6MM) [facility] Change site every 2 days. DX E11.65 Active isosorbide mononitrate Take 30 mg by 0 (IMDUR) 30 MG 24 hr mouth daily tablet Active spironolactone Take 25 mg by 0 (ALDACTONE) 25 MG tablet mouth daily Active ipratropium (ATROVENT) Take 0.5 mg 0 0.02 % nebulizer solution by nebulization Four times daily Active Hwhexax-Fioeszfsx-Hkhedbg Take by mouth 0 D (CALCIUM 1200+D3 PO) daily Active hydrALAZINE (APRESOLINE) Take 25 mg by 0 25 MG tablet mouth Three times daily Active glucagon (GLUCAGON Use as 1 each 3 EMERGENCY) 1 MG injection directed as 9 needed to treat severe low blood sugar. DX 250.00 Active MICROLET LANCETS Use as 700 each MISCIndications: directed. Use 9 Uncontrolled type 2 7 per day. diabetes mellitus with DX E11.65 hyperglycemia, with long-term current use of insulin Active Insulin Infusion Pump 1 each by 90 each 3 Supplies (MINIMED Does not 9 RESERVOIR 3ML) apply route MISCIndications: daily Change Uncontrolled type 2 reservoir diabetes mellitus with every day due hyperglycemia, with to daily long-term current use of insulin insulin requirements. DX E11.65 Active Ketoconazole 2 % External ketoconazole 0 Cream (NIZORAL) 2 % topical cream Active Nystatin 260910 UNIT/ML SWISH 1 0 Mouth/Throat Suspension TEASPOONFUL 0 (MYCOSTATIN) 5 ML IN MOUTH THE SWALLOW FIVE TIMES DAILY FOR 10 DAYS Active tiZANidine HCl 4 MG Oral Take 4 mg by 0 06/16 Tablet (ZANAFLEX) mouth nightly 9 Active Insulin Syringe 31G X Use as 50 each 3 01/20" 1 MLIndications: directed. Use 0 Type 2 diabetes mellitus as directed 4 with hyperglycemia, with per day in long-term current use of event of pump insulin failure. DX E11.65 Active AutoSoft XC Infusion Set by Does not 0 apply route Change every day. 2021 Active Levothyroxine Sodium 25 Take 1 tablet 90 tablet 1 MCG Oral Tablet by mouth 0 (SYNTHROID)Indications: Daily Abnormal thyroid function test Active Insulin Lispro 100 Subq 150 mL 1 02 UNIT/ML Subcutaneous continual 0 Solution infusion via (HumaLOG)Indications: insulin pump. 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 Insulin Pump Record (Advanced) Aura Garland : 1950 06/05/2020 VINI Carroll Insulin Type: Humalog Insulin Pump Model: TSlim with BIQ Bolus Increment: 0.05 Infusion Set: A utosoft XC Time of Day: Insulin to Carbohydrate Ra nancy Sensitivity Factor (Correction) Blood Glucose Target Activ e Insulin #1 Midnight 1:4 1:18 Mn- 150 4 hours #2 1400 1:3 0600-120 #3 1700 1:2.9 #4 2030 1:3.6 2030-150 #5 #6 Basal Increment for Pump Model: 0.025 Unit/hr Basal Insulin Basal Rate Starting Time Basal Rate S tarting Time Basal #1 4.9 unit/hr 12mn Basal #6 unit/hr Basal #2 4.50 unit/hr 0200 Basal #7 unit/hr Basal #3 4.60 unit/hr 0830 Basal #8 unit/hr Basal #4 5.1 unit/hr 1730 Basal #9 unit/hr Basal #5 unit/hr Basal #10 unit/hr S/P cataract surgery 11/15/2014 Overview: Both eyes 2015 Type 2 diabetes mellitus with hyperglycemia, with rolan g-term current use of 04/26/2014 insulin Overview: Numb on bottom of feet Neuropathy 09/07/2013 S/P CABG x 3 06/24/2013 Overview: Stress test positive per pt 2019,then h ad cath 06/2020 and was ok- [facility] display card writer Dr Crystal clark Carotid artery bruit 03/09/2013 Overview: I heard in 2010, pt had doppler done by Dr Whaley in the past, left side L ast Assessment & Plan: Had doppler in past- not sure when, no symptoms- will talk with Dr Whaley about when she needs another and ask hi m to send me the report. Takes an aspirin daily Obstructive sleep apnea 08/24/2012 Overview: Using cpap nightly since 2009 L ast Assessment & Plan: Wears mask all night Asthma 08/24/2012 Type 2 diabetes mellitus with diabetic nephropathy 0 08/24/2012 Overview: On PENNY inh, urine microalb normal 2012, creat nl 2012, 11/2013 Dr Martinez normal urine microalb:creat L ast Assessment & Plan: On vasotec Coronary heart disease 06/22/2003 Overview: 2020 stress test , had procedure done n o blockage, heart is fine per pt Stents 2004 Stents every year until 2009 Dr Perea and Patti Stress test 2012 per pt ok CABG x3 2014 L ast Assessment & Plan: Stable- follows with Dr Whaley Vitamin D deficiency Last Assessment & Plan: Taking 2000 units a day also takes 5000 0 units weekly of ergocalciferol from Dr Martinez., last level 02/2012 was 23.7, will follow with Dr Martinez for the vitamin d replacement so it is easier for the patient. 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 Overview: Dr Patel- NPDR, pump 07/2014 medtronic s tarted L ast Assessment & Plan: Increase lantus from 80 bid to 90 bid aspart scale pre meals 10-48 am 10 -40 lunch 24-70 supper Hyperlipidemia Last Assessment & Plan: Per patient levels were good with Dr Bar olivares in 06/02 documented as of this encounter (statuses as of 07/24/2020) Resolved Problems Problem Noted Date Resolved Date Diabetes mellitus type 2, uncontrolled, with complications 06/22/1992 07/24/2020 Overview: 1992, Found out she had diabetes when s he had a skin infection, is very insulin resistant, took U500 for a few years, Seen mail teller, seen cde Knows what she needs to do,, does much better when she doesn't bake L ast Assessment & Plan: Formatting of this note might be differ ent from the original. Insulin Pump Record (Advanced) Aura Garland Insulin Type: Novolog Insulin Pump Model: MiniMed 723 Bolus Increment: 0.05 Infusion Set: M io Time of Day: Carbohydrate to Insulin Ra nancy Sensitivity Factor Blood Glucose Target Active Insulin If blood glucose is below target goal t hen, subtract unit(s) of insulin, required for a meal or snack #1 Breakfast 4:1 20:1 120 4 hours #2 Mid- Morning snack #3 Lunch 4:1 20:1 120 #4 Afternoon snack #5 Supper 6:30 3:1 20:1 120 #6 Evening snack (8:30) 4:1 150 (10 PM ) Basal Increment for Pump Model: 0.05 U nit/hr Basal Insulin Basal Rate Starting Time Basal Rate S tarting Time Basal #1 3.9 unit/hr 12mn Basal #6 uni t/hr Basal #2 3.3 unit/hr 8 am Basal #7 uni t/hr Basal #3 3.8 unit/hr 5 pm Basal #8 uni t/hr Basal #4 3.9 unit/hr 10 pm Basal #9 u nit/hr Basal #5 unit/hr Basal #10 unit/hr Orders per Dr. Mosher Limit carb to 60 grams per meal documented as of this encounter (statuses as of 07/24/2020) Social History Date Tobacco Use Types Packs/Day Years Used Never Smoker Smokeless Tobacco: Never Used Drinks/Week oz/Week Comments Alcohol Use 0 Standard drinks or equivalent 0.0 No Sex Assigned at Date Recorded Not on file documented as of this encounter Last Filed Vital Signs Not on filedocumented in this encounter Progress Notes * Arina Mosher MD - 07/24/2020 1:00 PM EST [facility] Endocrinology, Diabetes and Metabolism [address] [place] [address] This is a tele-medical visit. The patient was informed of the risks including se curity breach, technological failure, inability to perform a comprehensive physi ramez exam which could delay or prevent an accurate diagnosis, and potential compl ications from treatment decisions rendered over a telemedical platform. The rancho ent understands and consented to the use of tele-health services. The service was provided by means of an audio/video telecommunication. Aura Garland is a 70 y.o. female seen today for evaluation and management of type 2 diabetes mellitus diagnosed in 1992, pump 2014 Using tandem and dexcom and doing well. Concerns today: supplies and hypoglycemia DIABETES RELATED REVIEW OF SYSTEMS: Acute diabetes complications over the past 12 months:no Symptoms of hypoglycemia no times/week Neuropathic symptoms no change in feet Macrovascular disease symptoms: Chest pain /shortness of breath: had cardiac cath, then went to [facility] or possible stents but per pt did not need anything done, will call for records Intermittent claudication: no TIA: no Glucose meter downloaded and values reviewed. See in media section Testing dexcom times daily Mean glucose value: 224 mg/dL +/- 81 mg/dL Diet: reviewed. Physical activity: home in pandemic Need for diabetes education assessed. Sick day management reviewed. 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 Pertinent conditions are indicated above. Physical Exam: There were no vitals taken for this visit. BP Readings from Last 3 Encounters: 02/03/20 120/80 08/05/19 130/76 01/27/19 120/68 Wt Readings from Last 3 Encounters: 02/03/20 86.2 kg (190 lb) 08/05/19 86.5 kg (190 lb 9.6 oz) 01/27/19 89.9 kg (198 lb 3.2 oz) WDWN on video screen , in no acute distress Normocephalic, atraumatic Eyes: anicteric Neck/thyroid: thyroid no obvious goiter when swallows Insulin injection sites:- acceptable Psychiatric: affect normal Neuro: no tremor ASSESSMENT and PLAN 1. Vitamin D deficiency Vitamin B12 Daysi D 25 Hydroxy Total Urinalysis with microscopic TSH T4, free Microalbumin, Urine Lipid panel CBC Comprehensive Metabolic Panel Hemoglobin A1c 2. Insulin pump status Vitamin B12 Daysi D 25 Hydroxy Total Urinalysis with microscopic TSH T4, free Microalbumin, Urine Lipid panel CBC Comprehensive Metabolic Panel Hemoglobin A1c 3. Insulin long-term use Vitamin B12 Daysi D 25 Hydroxy Total Urinalysis with microscopic TSH T4, free Microalbumin, Urine Lipid panel CBC Comprehensive Metabolic Panel Hemoglobin A1c 4. Diabetes mellitus type 2, uncontrolled, with complications Vitamin B12 Daysi D 25 Hydroxy Total Urinalysis with microscopic TSH T4, free Microalbumin, Urine Lipid panel CBC Comprehensive Metabolic Panel Hemoglobin A1c 5. Type 2 diabetes mellitus with hyperglycemia, with long-term current use of in sulin 6. S/P CABG x 3 - Doing really well with tandem and dexcom Some fluctuation in readings and average is high, she said she has alarms at ni t that she is hypoglycemic and has juice Not sure why that is happening- will ask CDE to see if she can go Into control IQ mode where it might make her overnight more stable Said she saw eye doctor and was told her retina look great Said her feet numbness is unchanged and that the neurontin helps Sees PCP regularly and said he is very thorough and will order her labs, I will send lab orders to her to bring to her PCP appt Changes cartridge daily, using 111 units basal, 49 units bolus, Eating differently since last year, said she is stable and t rying to stay strong Said has issues with [employer] not sending enough supplies and she might run out- will ask cde to try to help pt with orders Other diabetes-related issues discussed today: 1. Lifestyle issues, including diet, weight management and physical activity dis cussed. Self-management issues reviewed in detail, including ways of avoiding hy poglycemia and hyperglycemia. 2. Recommend self monitoring of blood glucose levels as per glucose sensor 3. Proper administration of medications reviewed. 4. Recommend annual dilated eye examinations. Return in about 3 months (around 10/21/2020). Per [facility] policy AMB J-19, the Hailey RN story analyst CDE may provide my patient with insulin adjustments and all diabetes management guidelines per approved policies AMB J-01 through AMB J-18. My patient may receive diabetes self-management edu cation for any nursing, nutrition, or physical therapy needs which arise and req uire the expertise of a Hailey educator. I have spent a total of 40 minutes on the day of this visit with a combination o f both patient medical chart review and time with patient Arina Mosher MD black off worker * Stephanie Miller, TELECOM COORDINATOR - 07/24/2020 1:00 PM EST Patient reported below information. Verified Pharmacy: yes (yes/no) Meds reviewed: yes (yes/no) Refills: no (yes/no) Allergies reviewed:yes (yes/no) Recent Falls:no (yes/no) Any outside Blood work:no (yes/no.. Date of labs drawn) BP:unable to provide Site:n/a (Left/Right Arm) Position:n/a(Standing, Sitting, L aying) Height:4; 10.86" Weight:190 lbs Pain:0 (0-10) BG log/device download in chart: yes (yes/no) Type of telemed visit today:webex (phone/video) documented in this encounter Plan of Treatment Care Team Description Date Type Specialty Arina Mosher MD [address] [place] [address] [phone] 11/07/2020 Telemedicine Endocrinology Order Schedule Name Type Priority Associated Diag noses 1 Occurrences starting 07/24/2020 until 01/21/2021 Vitamin B12 Lab Routine Vitamin D defic iency Insulin pump status Insulin long-term use Diabetes mellitus type 2, uncontrolled, with complications 1 Occurrences starting 07/24/2020 until 01/21/2021 Daysi D 25 Hydroxy Total Lab Routine Vitami n D deficiency Insulin pump status Insulin long-term use Diabetes mellitus type 2, uncontrolled, with complications 1 Occurrences starting 07/24/2020 until 01/21/2021 Urinalysis with Lab Routine Vitamin D defi ciency microscopic Insulin pump status Insulin long-term use Diabetes mellitus type 2, uncontrolled, with complications 1 Occurrences starting 07/24/2020 until 01/21/2021 TSH Lab Routine Vitamin D defic iency Insulin pump status Insulin long-term use Diabetes mellitus type 2, uncontrolled, with complications 1 Occurrences starting 07/24/2020 until 01/21/2021 T4, free Lab Routine Vitamin D defic iency Insulin pump status Insulin long-term use Diabetes mellitus type 2, uncontrolled, with complications 1 Occurrences starting 07/24/2020 until 01/21/2021 Microalbumin, Urine Lab Routine Vitamin D deficiency Insulin pump status Insulin long-term use Diabetes mellitus type 2, uncontrolled, with complications 1 Occurrences starting 07/24/2020 until 01/21/2021 Lipid panel Lab Routine Vitamin D defic iency Insulin pump status Insulin long-term use Diabetes mellitus type 2, uncontrolled, with complications 1 Occurrences starting 07/24/2020 until 01/21/2021 CBC Lab Routine Vitamin D defic iency Insulin pump status Insulin long-term use Diabetes mellitus type 2, uncontrolled, with complications 1 Occurrences starting 07/24/2020 until 01/21/2021 Comprehensive Metabolic Lab Routine Vitami n D deficiency Panel Insulin pump status Insulin long-term use Diabetes mellitus type 2, uncontrolled, with complications 1 Occurrences starting 07/24/2020 until 01/21/2021 Hemoglobin A1c Lab Routine Vitamin D defic iency Insulin pump status Insulin long-term use Diabetes mellitus type 2, uncontrolled, with complications Health Maintenance Due Date Last Done Comments Hepatitis C Screening (B. 1950 [id number]) MMR Vaccines (1 of 1 - 1951 Standard series) Dilated Retinal Exam 1967 Hepatitis B Vaccines (1 1968 of 3 - Risk 3-dose series) Breast Cancer Screening 2 1999 years Colon Cancer Screening 10 1999 yrs Osteoporosis Screening 2 2014 yr Pneumococcal Vaccine: 65+ 2014 Years (1 of 1 - PPSV23) DTaP,Tdap,and Td Vaccines 11/16/2017 10/19/2017 (2 - Tdap) Varicella Vaccines (1 of 09/02/2018 07/08/2018, 2 - 2-dose childhood 04/13/2018 series) Lipid Disorder Screening 10/22/2019 10/21/2018, 10/21/2018, 08/03/2018, Additional history exists Hemoglobin A1c 02/03/2020 08/05/2019, 01/27/2019, 10/21/2018, Additional history exists Influenza Vaccine 03/22/2020 03/24/2019, 07/08/2018, 04/02/2018, Additional history exists Diabetic Foot Exam 08/05/2020 08/05/2019 Urine Microalbumin 08/05/2020 08/05/2019, 08/03/2018, 11/13/2015, Additional history exists HIB Vaccines Aged Out 10/19/2017 No longer eligi ble based on patient's age to complete this topic IPV Vaccines Aged Out 10/19/2017 No longer eligi ble based on patient's age to complete this topic Zoster Vaccines Completed 07/08/2018, 04/13/2018 Hepatitis A Vaccines Aged Out No longer eligibl e based on patient's age to complete this topic Pneumococcal Vaccine: Aged Out No longer eligib le based on patient's age to Pediatrics (0 to 5 Years) complete this topic and At-Risk Patients (6 to 64 Years) documented as of this encounter Goals Goal Patient Associated Recent Progress Patient-Stat Aut hor Goal Type Problems ed? Blood Pressure < 130/80 Blood 120/80 (02/03/2020 No Celsastein, Pressure 10:55 AM EDT) MD Arina HEMOGLOBIN A1C < 7.8 Result 7.6 (08/05/2019 No F euerstein, Component 10:51 AM EST) MD Arina LDL CALC,LDL Result 57 (08/03/2018 11:10 No Abhilash rstein, CHOLESTEROL,LDLCHOLESTEROL,LDL Component AM EST) MD Arina DIRECT,LDLCHOLESTEROL,DIRECT < 100 documented as of this encounter Results Not on filedocumented in this encounter Visit Diagnoses Diagnosis Vitamin D deficiency - Primary Unspecified vitamin D deficiency Insulin pump status Insulin long-term use Encounter for long-term (current) use o f insulin Diabetes mellitus type 2, uncontrolled, with complications Type 2 diabetes mellitus with hyperglyc emia, with long-term current use of insulin S/P CABG x 3 Postsurgical aortocoronary bypass statu s documented in this encounter
--- OUTSIDE RECORDS SUMMARY | 2020-08-14 13:53 | CCD | Continuity of Care Document ---
Author Author Aura Martinez MD Organization Unknown Address [address] [address] Phone [phone] Care Team Providers Care Photoengraving Proofer Name Role Phone [facility] AUT[facility] [phone] Gray Fermin MD AUTM [phone] Acosta Martinez JR, MD AUTM Unavailable Sherry Cai MD AUTM [phone] Meet Patel MD AUTM [phone] Problems Active Problems Provider Date Disorder of [...] Onset: 03/16/20 15 Atherosclerotic heart disease of [place] coronary arter y without angina pectoris Acosta [...] SIG Qnty Indications Ordering Provide r Date Carvedilol 3.125mg Tablets Take 1 Tablet By [...] Tablets ER Take 1 Tablet By Mouth Two Times Daily 60tabs C anmol Martinez MD 08/29/2019 Levothyroxine Sodium 25mcg Tablets [...] day 270tabs Acosta Martinez MD 03/06/2017 Nystatin 923016Hhrb/ML Suspension 5cc swish and swallow five times a day x 10 days 1course VINI Gomez JR 11/21/2014 Aspirin 325mg Tablets 1 by mouth every day 100tabs Acosta Martinez MD 09/26/2014 Allopurinol 100mg Tablets Take 2 Tablets By [...] rn 1units AMANDA North 12/10/2006 Nova Fine [place] 30 Ga. use qid prn 360unsavi Martinez [...] CPT Code Status Date Vaccine Lot # 62049 Given 03/24/2019 Influenza Vaccin e Quadrivalent Preser/Antibiotic Free Im Use [id number] U-Flu Given 07/08/2018 Influenza,Unspecified [id number] 11030 Given 07/08/2018 Shingrix Zoster Vaccine (HZV), Recombinant, Subunit, Adjuvanted 42480 Given 04/13/2018 Shingrix Zoster Vaccine (HZV), Recombinant, Subunit, Adjuvanted 69727 Given 04/02/2018 Influenza Virus Vaccine, Quadrivalent (Cciiv4), Derived From Cell [id number] U-DtapHi Given 10/19/2017 DTap,Hib,IPV,Unspecified 91374 Given 03/26/2017 Influenza Vaccin e Quadrivalent Preser/Antibiotic Free Im Use 384362 Q2037 Given 03/20/2016 Fluvirin Virus Vaccine 43051 01 44451 Given 01/23/2016 Pneumovax 23 Q2037 Given 03/22/2015 Fluvirin Virus Vaccine 80929 01 88179 Given 08/02/2014 Prevnar 13 [id number] Q2037 Given 03/27/2014 Fluvirin Virus Vaccine 44288 21 Q2037 Given 04/07/2013 Fluvirin Virus Vaccine 35548 01 Q2037 Given 04/02/2012 Fluvirin Virus Vaccine 20351 01 34569 Given 02/25/2012 Zoster Vaccine Q2037 Given 03/31/2011 Fluvirin Virus Vaccine 20243 Given 03/20/2010 Influenza Virus Vaccine 07669 Given 04/12/2009 Influenza Virus Vaccine 93586 Given 04/03/2008 Influenza Virus Vaccine 83333 Given 03/22/2007 Influenza Virus Vaccine 17461 Given 04/02/2006 Influenza Virus Vaccine 45943 Given 03/25/2005 Influenza Virus Vaccine 11091 Given 04/24/2004 Pneumovax 23 08759 Given 04/02/2004 Influenza Virus Vaccine 19688 Given 04/24/2003 Influenza Virus Vaccine 66693 Given 04/11/2002 Influenza Virus Vaccine 18343 Given 05/04/2001 Influenza Virus Vaccine 56037 Given 06/05/2000 Pneumovax 23 30489 Given 06/05/2000 Influenza Virus Vaccine Vital Signs [...] H/L Range Note Creatinine With GFR 07/03/2020 [facility] [address]ter [address] [place] [address] [phone] Creatinine For GFR 0.86 mg/dL Normal 0.55-1.30 Glomerular Filtration Rate > 60.0 Normal >39 1 CBC With Differential 06/04/2020 [place] [address] [place] [address] [phone] White Blood Count 9.9 10 Normal 4.0-10.0 [...] 36.0-66.0 Lymph % 29.7 % Normal 24.0-44.0 Gates % 7.2 % High 0.0-5.0 Eos % 2.1 % Normal 0.0-3.0 Baso % 0.5 % Normal 0.0-1.0 Immature Granulocyte % 0.5 % Normal 0-3.0 Nucleated Red Blood Cell % 0.0 % Normal 0-0 Neutrophils # 5.9 10 Normal 1.5-8.5 Lymph # 2.9 10 Normal 1.5-5.0 Gates # 0.7 10 Normal 0.0-0.8 Eos # 0.2 10 Normal 0.0-0.5 Baso # 0.1 10 Normal 0.0-0.2 Basic Metabolic Profile 06/04/2020 [facility] [address] [place] [address] [phone] Glucose, Fasting 237 mg/dL High 70-100 Blood Urea Nitrogen 30 mg/dL High 7-18 Creatinine For GFR 1.02 mg/dL Normal 0.55-1.30 Glomerular Filtration Rate 56.9 Normal >39 2 Sodium Level 138 mEq/L Normal 136-145 Potassium Serum 4.0 mEq/L Normal 3.5-5.1 Chloride Level 101 mEq/L Normal 98-107 Carbon Dioxide Level 34 mEq/L High 21-32 Anion Gap 3 mEq/L Low 8-16 Calcium Level 9.7 mg/dL Normal 8.8-10.2 Coronavirus 2019 Nasopharygeal 06/01/2020 [place] [id number] [phone] Coronavirus 2019 Nasopharygeal This nucleic aci <SEE N OTE> 3 Laboratory test finding 05/20/[address] [address] [phone] NT-Pro BNP 1309 pg/mL High <125 Blood Culture No growth after <SEE NOTE> 4 Basic Metabolic Profile 05/20/[address] [address] [phone] Glucose, Fasting 187 mg/dL High 70-100 Blood Urea Nitrogen 16 mg/dL Normal 7-18 Creatinine For GFR 0.91 mg/dL Normal 0.55-1.30 Glomerular Filtration Rate > 60.0 Normal >39 5 Sodium Level 135 mEq/L Low 136-145 Potassium Serum 4.5 mEq/L Normal 3.5-5.1 6 Chloride Level 101 mEq/L Normal 98-107 Carbon Dioxide Level 29 mEq/L Normal 21-32 Anion Gap 5 mEq/L Low 8-16 Calcium Level 9.4 mg/dL Normal 8.8-10.2 Liver Profile 05/20/2020 [facility] nter [address] [place] [address] [phone] Ast/Sgot 34 U/L Normal 7-37 Alt/SGPT 19 U/L Normal 12-78 Alkaline Phosphatase 106 U/L Normal 45-117 Bilirubin,Total 0.9 mg/dL Normal 0.2-1.0 Bilirubin,Direct 0.2 mg/dL Normal 0.0-0.2 Total Protein 7.2 GM/DL Normal 6.4-8.2 Albumin 3.6 GM/DL Normal 3.2-5.2 Albumin/Globulin Ratio 1.0 Low 1.2-2.2 Cardiac Marker Panel 05/20/2020 [facility] C enter [address] [place] [address] [phone] CPK Creatine Phosphokinase 171 U/L Normal 26-19 2 CK-MB Value Mass 4.2 NG/ML High <3.6 MB/CK Relative Index 2.46 Normal < Or =4 7 Troponin I 0.55 NG/ML High < 0.10 8 Laboratory test finding 05/20/2020 [facility] [address] [place] [address] [phone] Lactic Acid Sepsis Protocol 1.3 mmol/L Normal 0.4- 2.0 9 CBC With Differential 05/20/2020 [facility] [address] [place] [address] [phone] White Blood Count 14.6 10 High 4.0-10.0 [...] 36.0-66.0 Lymph % 9.2 % Low 24.0-44.0 Gates % 9.2 % High 0.0-5.0 Eos % 0.4 % Normal 0.0-3.0 Baso % 0.3 % Normal 0.0-1.0 Immature Granulocyte % 0.4 % Normal 0-3.0 Nucleated Red Blood Cell % 0.0 % Normal 0-0 Neutrophils # 11.8 10 High 1.5-8.5 Lymph # 1.3 10 Low 1.5-5.0 Gates # 1.4 10 High 0.0-0.8 Eos # 0.1 10 Normal 0.0-0.5 Baso # 0.1 10 Normal 0.0-0.2 Respiratory Panel 05/20/2020 [facility] nter [address] [place] [address] [phone] Respiratory Panel This respiratory <SEE NOTE> 10 Cardiac Marker Panel 05/20/2020 [facility] C enter [address] [place] [address] [phone] CPK Creatine Phosphokinase 145 U/L Normal 26-19 2 CK-MB Value Mass 3.6 NG/ML Normal <3.6 MB/CK Relative Index 2.48 Normal < Or =4 11 Troponin I 1.10 NG/ML < 0.10 12 Istat ABG 05/20/2020 [facility] [address] [place] [address] [phone] iSTAT pH 7.475 units High 7.350-7.450 iSTAT pCO2 35.2 MMHG Normal 35.0-45.0 iSTAT pO2 82.0 MMHG Normal 80-105 iSTAT Tco2 27.0 mmol/L Normal 23.0-27.0 iSTAT Hco3 25.9 mmol/L Normal 22.0-26.0 iSTAT Base Excess 2.0 mmol/L Normal -2.0-3.0 iSTAT sO2 97 % Normal 95-98 PT & Aptt 05/20/2020 [facility] [address] [place] [address] [phone] Prothrombin Time 16.4 seconds High 12.5-14.3 Inr 1.29 Normal 13 Partial Thromboplastin Time > 240.0 seconds Critical high 24.2-38.5 Laboratory test finding 05/06/2020 [facility] [address] [place] [address] [phone] iSTAT Troponin 0.07 NG/ML Normal 0.00-0.08 Istat Chem8+ Panel 05/06/2020 [facility] [address] [place] [address] [phone] iSTAT HCT 38.0 % Normal 38.0-51.0 iSTAT Glucose 182 mg/dL High 70-105 iSTAT Sodium 139 mEq/L Normal 136-145 iSTAT Potassium 4.0 mEq/L Normal 3.5-5.1 iSTAT CA++ 4.7 mg/dL Normal 4.5-5.3 iSTAT Chloride 100 mEq/L Normal 98-109 iSTAT Co2 33.0 MM/L High 23.0-27.0 iSTAT BUN 16 mg/dL Normal 8-26 iSTAT Creatinine 0.8 mg/dL Normal 0.6-1.3 Laboratory test finding 05/06/2020 [place] [address] [place] [address] [phone] iSTAT Troponin 0.02 NG/ML Normal 0.00-0.08 CBC With Differential 05/06/[address] [address] [phone] White Blood Count 8.7 10 Normal 4.0-10.0 [...] 36.0-66.0 Lymph % 20.0 % Low 24.0-44.0 Gates % 7.7 % High 0.0-5.0 Eos % 1.6 % Normal 0.0-3.0 Baso % 0.5 % Normal 0.0-1.0 Immature Granulocyte % 0.7 % Normal 0-3.0 Nucleated Red Blood Cell % 0.0 % Normal 0-0 Neutrophils # 6.1 10 Normal 1.5-8.5 Lymph # 1.8 10 Normal 1.5-5.0 Gates # 0.7 10 Normal 0.0-0.8 Eos # 0.1 10 Normal 0.0-0.5 Baso # 0.0 10 Normal 0.0-0.2 Liver Profile 05/06/2020 [facility] [address] [address] [place] [address] [phone] Ast/Sgot 20 U/L Normal 7-37 Alt/SGPT 23 U/L Normal 12-78 Alkaline Phosphatase 127 U/L High 45-117 Bilirubin,Total 0.4 mg/dL Normal 0.2-1.0 Bilirubin,Direct 0.1 mg/dL Normal 0.0-0.2 Total Protein 7.2 GM/DL Normal 6.4-8.2 Albumin 3.8 GM/DL Normal 3.2-5.2 Albumin/Globulin Ratio 1.1 Low 1.2-2.2 Laboratory test finding 05/06/2020 [facility] [address] [place], [place] [address] [phone] NT-Pro BNP 598 pg/mL High <125 Lipase 70 U/L Low 73-393 Thyroid Stimulating Hormone 1.630 uIU/ML Normal 0.358-3.740 1 Units are mL/min/1.73 m2 Chronic Kidney Disease Staging per NKF: Stage I & II GFR >=60 Normal to Mildly Decreased Stage III GFR 30-59 Moderately Decreased Stage IV GFR 15-29 Severely Decreased Stage V GFR <15 Very Little GFR Left ESRD GFR <15 on MARKETING PERFORMANCE ANALYST 2 Units are mL/min/1.73 m2 Chronic Kidney Disease Staging per NKF: Stage I & II GFR >=60 Normal to Mildly Decreased Stage III GFR 30-59 Moderately Decreased Stage IV GFR 15-29 Severely Decreased Stage V GFR <15 Very Little GFR Left ESRD GFR <15 on MARKETING PERFORMANCE ANALYST 3 This nucleic acid amplificat ion test was developed and its performance characteristics determined by [facility]. Nucleic acid amplification tests include PCR and [...] detected) result in this assay. Performed at: [facility] [address], [place], [place] [id number] Extermination Inspector: Savannah Borja PhD, Phone: [phone] Not Detected 4 No growth after 72 hours . A ll specimens observed for 5 days. Results final at that time. No growth after 48 hours . All specimens observed for 5 days. Results final at that time. No growth after 24 hours . All specimens observed for 5 days. Results final at that time. NO GROWTH AFTER 5 DAYS 5 Units are mL/min/1.73 m2 Chronic Kidney Disease Staging per NKF: Stage I & II GFR >=60 Normal to Mildly Decreased Stage III GFR 30-59 Moderately Decreased Stage IV GFR 15-29 Severely Decreased Stage V GFR <15 Very Little GFR Left ESRD GFR <15 on MARKETING PERFORMANCE ANALYST 6 Testing was performed on a S LIGHTLY hemolyzed specimen. Suggest recollection of specimen for more accurate test results. 7 DIAGNOSIS CRITERIA MMB ng/ml Relative Index (RI) NON-AMI < or = 5 N/A PIRES ZONE > 5 < or = 4 AMI > 5 > 4 8 Troponin I Reference Interva l for [employer] [place] LOCI: 99th Percentile= 0.00-0.045 ng/ml Risk Stratification: <= 0.10 ng/ml Decreased Risk for Adverse Clinical Events. 0.10-1.50 ng/ml Increased Risk for Adv erse Clinical Events. Evaluation of additional criterion and/or repeat testing in 2-6 hours is suggested to rule out myocardial damage. >= 1.50 ng/ml Indicative of Myocardial Injury. 9 Y/N query for Sepsis Lactate Rule: Y 10 This respiratory PCR panel d etects Influenza A H1, H3 and 2009 H1 viruses, Influenza B virus, Resp iratory Syncytial Virus, Human metapneumovirus, Parainfluenza virus 1, 2, 3 and 4, Adenovirus, Rhinovirus/Enterovirus, Coronavirus HKU1, NL63, OC43, 229E and SARS-CoV-2 (COVID 19), Bordetella pertussis, Bordetella parapertussis, Mycoplasma pneumoniae and Chlamydia pneumoniae. NEGATIVE by MULTIPLEXED NUCLEIC ACID PCR SARS-CoV-2 (COVID 19) NEGATIVE - SARS-CoV-2 (COVID19) 11 DIAGNOSIS CRITERIA MMB ng/ml Relative Index (RI) NON-AMI < or = 5 N/A PIRES ZONE > 5 < or = 4 AMI > 5 > 4 12 Troponin I Reference Interva l for [employer] [place] LOCI: 99th Percentile= 0.00-0.045 ng/ml Risk Stratification: <= 0.10 ng/ml Decreased Risk for Adverse Clinical Events. 0.10-1.50 ng/ml Increased Risk for Adv erse Clinical Events. Evaluation of additional criterion and/or repeat testing in 2-6 hours is suggested to rule out myocardial damage. >= 1.50 ng/ml Indicative of Myocardial Injury. 13 THERAPUTIC HUMAN INR VALUES INDICATIONS NORMAL RANGES PROPHYLAXIS/TREATMENT OF: VENOUS THROMBOSIS 2.0-3.0 PULMONARY EMBOLISM 2.0-3.0 PREVENTION OF SYSTEMIC EMBOLISM FROM: TISSUE HEART VALVES 2.0-3.0 ACUTE MYOCARDIAL INFARCTION 2.0-3.0 VALVULAR HEART DISEASE 2.0-3.0 ATRIAL FIBRILLATION 2.0-3.0 MECHANICAL VALVES(HIGH RISK) 2.5-3.5 RECURRENT MYOCARDIAL INFARCTION 2.5-3.5 Procedures Date Code Description Status 07/03/2020 [id number] Diabetic Retinal Eye Exam Comple michele 03/11/2020 [id number] Mammogram Completed 01/10/2020 [id number] Diabetic Retinal Eye Exam Comple michele 03/11/2019 [id number] Mammogram Completed 01/04/2019 [id number] Diabetic Retinal Eye Exam Comple michele 07/06/2018 [id number] Diabetic Retinal Eye Exam Comple michele 01/06/2018 [id number] Diabetic Retinal Eye Exam Comple [facility] 10/20/2017 [id number] Mammogram Completed 05/20/2017 [id number] Diabetic Retinal Eye Exam Comple [facility] 03/23/2017 [id number] Colonoscopy Completed 03/11/2017 [id number] Bone Mineral Density Test Comple michele 02/18/2017 [id number] Mammogram Completed 02/16/2017 [id number] Mammogram Completed 10/23/2016 [id number] Diabetic Retinal Eye Exam Comple [facility] 04/22/2016 [id number] Diabetic Retinal Eye Exam Comple [facility] 04/07/2016 [id number] Diabetic Foot Exam Completed 02/20/2016 [id number] Mammogram Completed 04/12/2015 [id number] Diabetic Retinal Eye Exam Comple michele 02/14/2015 [id number] Mammogram Completed 04/04/2014 [id number] Diabetic Retinal Eye Exam Comple michele 02/13/2014 [id number] Mammogram Completed 01/21/2013 [id number] Mammogram Completed 12/07/2012 [id number] Diabetic Retinal Eye Exam Comple michele 01/21/2012 [id number] Colonoscopy Completed 01/19/2012 [id number] Mammogram Completed 02/13/2011 [id number] Diabetic Retinal Eye Exam Comple michele 01/13/2011 [id number] Mammogram Completed 01/10/2010 [id number] Mammogram Completed 07/10/2009 [id number] Diabetic Retinal Eye Exam Comple michele 06/22/2008 718977020 Diabetic Retinal Eye Exam Comple michele 12/18/2005 [id number] Bone Mineral Density Test Comple michele 09/01/2003 [id number] Colonoscopy Completed Medical Devices Description No Information Available Encounters Type Date Location Provider Dx Diagnosis Office Visit 2020 11:00a [facility] Acosta Martinez MD Z01.810 Encounter [...] diabetes mellitus wit h diabetic polyneuropathy Z79.4 assisted (current) use of i nsulin G47.33 Obstructive sleep apnea (ruchi lt) (pediatric) E03.9 Hypothyroidism, unspecified Assessments Date Code Description Provider 2020 Z01.810 Encounter for preprocedural card iovascular examination Acosta Martinez MD 2020 M23.611 Other spontaneous di sruption of anterior cruciate ligament of right knee Acosta Martinez MD 2020 R07.89 Other chest pain Acosta hope MD 2020 I25.10 Atherosclerotic heart disease of [place] coronary artery with Acosta Martinez MD 2020 Z95.1 Presence of aortocoronary bypass graft Acosta Martinez MD 2020 I35.0 Nonrheumatic aortic (valve) sten osis Acosta Martienz MD 2020 J45.20 Mild intermittent asthma, uncomp licated Acosta Martinez MD 2020 E11.3293 Type 2 diabetes danuta itus with mild nonproliferative diabetic Acosta Martinez MD 2020 E11.65 Type 2 diabetes mellitus with hy perglycemia Acosta Martinez MD 2020 E11.42 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 * 09/18/2020 2:45 pm - Acosta Martinez MD at [facility] Functional Status Description No Information Available Mental Status Description No Information Available Referrals Description No Information Available
--- OUTSIDE RECORDS SUMMARY | 2020-08-14 13:56 | CCD ---
Author Author [facility] Organization [facility] Address Unknown Phone Unavailable Care Team Providers Care Car Tester Name Role Phone Zaid JOSEPH Unavailable Unavailable Zaid Stover Unavailable Unavailable Zaid Stover PA Unavailable Unavailable Zaid Stover PA Unavailable Unavailable Zaid Stover PA Unavailable Unavailable Zaid Stover PA Unavailable Unavailable Zaid Stover PA Unavailable Unavailable Zaid Stover PA Unavailable Unavailable Zaid Stover PA Unavailable Unavailable Zaid Stover PA Unavailable Unavailable Zaid Stover PA Unavailable Unavailable Zaid Stover PA Unavailable Unavailable Zaid Stover PA Unavailable Unavailable Zaid Stover PA Unavailable Unavailable Zaid Stover PA Unavailable Unavailable Zaid Stover PA Unavailable Unavailable Zaid Stover PA Unavailable Unavailable Zaid Stover PA Unavailable Unavailable Zaid Stover PA Unavailable Unavailable Zaid Stover PA Unavailable Unavailable Zaid Stover PA Unavailable Unavailable Zaid Stover PA Unavailable Unavailable Zaid Stover PA Unavailable Unavailable Zaid Stover PA Unavailable Unavailable Zaid Stover PA Unavailable Unavailable Zaid Stover PA Unavailable Unavailable Zaid Stover Unavailable Unavailable Zaid Stover Unavailable Unavailable Grazyna Martinez MD Unavailable Unavailable DilleGrazyna MD Unavailable Unavailable MichelleGrazyna MD Unavailable Unavailable MichelleGrazyna MD Unavailable Unavailable MichelleGrazyna MD Unavailable Unavailable MichelleGrazyna MD Unavailable Unavailable MichelleGrazyna MD Unavailable Unavailable DilleGrazyna MD Unavailable Unavailable DilleGrazyna MD Unavailable Unavailable DilleGrazyna MD Unavailable Unavailable MichelleGrazyna MD Unavailable Unavailable MichelleGrazyna MD Unavailable Unavailable MichelleGrazyna MD Unavailable Unavailable DilleGrazyna MD Unavailable Unavailable MichelleGrazyna MD Unavailable Unavailable MichelleGrazyna MD Unavailable Unavailable DilleGrazyna MD Unavailable Unavailable MichelleGrazyna MD Unavailable Unavailable DilleGrazyna MD Unavailable Unavailable MichelleGrazyna MD Unavailable Unavailable MichelleGrazyna MD Unavailable Unavailable MichelleGrazyna MD Unavailable Unavailable DilleGrazyna MD Unavailable Unavailable MichelleGrazyna MD Unavailable Unavailable DilleGrazyna MD Unavailable Unavailable MichelleGrazyna MD Unavailable Unavailable MichelleGrazyna MD Unavailable Unavailable MichelleGrazyna MD Unavailable Unavailable MichelleGrazyna MD Unavailable Unavailable DilleGrazyna MD Unavailable Unavailable DilleGrazyna MD Unavailable Unavailable MichelleGrazyna MD Unavailable Unavailable MichelleGrazyna MD Unavailable Unavailable DilleGrazyna MD Unavailable Unavailable DilleGrazyna MD Unavailable Unavailable DilleGrazyna MD Unavailable Unavailable DilleGrazyna meek MD Unavailable Unavailable MichelleGrazyna MD Unavailable Unavailable DilleGrazyna MD Unavailable Unavailable DilleGrazyna MD Unavailable Unavailable MichelleGrazyna MD Unavailable Unavailable DilleGrazyna MD Unavailable Unavailable MichelleGrazyna MD Unavailable Unavailable DilleGrazyna MD Unavailable Unavailable MichelleGrazyna MD Unavailable Unavailable MichelleGrazyna MD Unavailable Unavailable MichelleGrazyna MD Unavailable Unavailable MichelleGrazyna MD Unavailable Unavailable DilleGrazyna MD Unavailable Unavailable DilleGrazyna MD Unavailable Unavailable MichelleGrazyna MD Unavailable Unavailable MichelleGrazyna MD Unavailable Unavailable MichelleGrazyna MD Unavailable Unavailable DilleGrazyna MD Unavailable Unavailable DilleGrazyna MD Unavailable Unavailable MichelleGrazyna MD Unavailable Unavailable MichelleGrazyna MD Unavailable Unavailable MichelleGrazyna meek MD Unavailable Unavailable DilleGrazyna meek MD Unavailable Unavailable DilleGrazyna meek MD Unavailable Unavailable DilleGrazyna meek MD Unavailable Unavailable MichelleGrazyna meek MD Unavailable Unavailable MichelleGrazyna meek MD Unavailable Unavailable MichelleGrazyna meek MD Unavailable Unavailable DilleGrazyna meek MD Unavailable Unavailable DilleGrazyna meek MD Unavailable Unavailable MichelleGrazyna meek MD Unavailable Unavailable DilleGrazyna meek MD Unavailable Unavailable DilleGrazyna meek MD Unavailable Unavailable DilleGrazyna meek MD Unavailable Unavailable MichelleGrazyna MD Unavailable Unavailable DilleGrazyna meek MD Unavailable Unavailable MichelleGrazyna meek MD Unavailable Unavailable MichelleGrazyna meek MD Unavailable Unavailable MichelleGrazyna meek MD Unavailable Unavailable DilleGrazyna meek MD Unavailable Unavailable MichelleGrazyna meek MD Unavailable Unavailable DilleGrazyna meek MD Unavailable Unavailable MichelleGrazyna meek MD Unavailable Unavailable MichelleGrazyna meek MD Unavailable Unavailable DilleGrazyna meek MD Unavailable Unavailable DilleGrazyna meek MD Unavailable Unavailable MichelleGrazyna meek MD Unavailable Unavailable MichelleGrazyna meek MD Unavailable Unavailable DilleGrazyna meek MD Unavailable Unavailable DilleGrazyna meek MD Unavailable Unavailable DilleGrazyna MD Unavailable Unavailable Metter, Yessi PA Unavailable Unavailable Micheline, Yessi PA Unavailable Unavailable Micheline, Yessi PA Unavailable Unavailable Metter, Yessi PA Unavailable Unavailable Micheline, Yessi PA Unavailable Unavailable Micheline, Yessi PA Unavailable Unavailable Micheline, Yessi PA Unavailable Unavailable Metter, Yessi PA Unavailable Unavailable Micheline, Yessi PA Unavailable Unavailable Metter, Yessi PA Unavailable Unavailable Metter, Yessi PA Unavailable Unavailable Metter, Yessi PA Unavailable Unavailable Micheline, Yessi PA Unavailable Unavailable Metter, Yessi PA Unavailable Unavailable Micheline, Yessi PA Unavailable Unavailable Metter, Yessi PA Unavailable Unavailable Metter, Yessi PA Unavailable Unavailable Micheline, Yessi PA Unavailable Unavailable Micheline, Yessi PA Unavailable Unavailable Micheline, Yessi PA Unavailable Unavailable Metter, Yessi PA Unavailable Unavailable Metter, Yessi PA Unavailable Unavailable Metter, Yessi PA Unavailable Unavailable Micheline, Yessi PA Unavailable Unavailable Micheline, Yessi PA Unavailable Unavailable Micheline, Yessi PA Unavailable Unavailable Metter, Yessi PA Unavailable Unavailable Micheline, Yessi PA Unavailable Unavailable Micheline, Yessi PA Unavailable Unavailable Micheline, Yessi PA Unavailable Unavailable Micheline, Yessi PA Unavailable Unavailable Micheline, Yessi PA Unavailable Unavailable Micheline, Yessi PA Unavailable Unavailable Micheline, Yessi PA Unavailable Unavailable Robinson Sahu MD Unavailable Unavailable Vaneensarah bethamRobinson MD Unavailable Unavailable VanRobinson murray MD Unavailable Unavailable VanRobinson murray MD Unavailable Unavailable VanRobinson murray MD Unavailable Unavailable VanRobinson murray MD Unavailable Unavailable VanRobinson murray MD Unavailable Unavailable Robinson Sahu MD Unavailable Unavailable Robinson Sahu MD Unavailable Unavailable Robinson Sahu MD Unavailable Unavailable Robinson Sahu MD Unavailable Unavailable Robinson Shau MD Unavailable Unavailable Robinson Sahu MD Unavailable Unavailable Robinson Sahu MD Unavailable Unavailable Robinson Sahu MD Unavailable Unavailable Robinson Sahu MD Unavailable Unavailable Robinson Sahu MD Unavailable Unavailable Robinson Sahu MD Unavailable Unavailable Robinson Sahu MD Unavailable Unavailable Robinson Sahu MD Unavailable Unavailable Robinson Sahu MD Unavailable Unavailable Robinson Sahu MD Unavailable Unavailable Robinson Sahu MD Unavailable Unavailable Robinson Sahu MD Unavailable Unavailable Robinson Sahu MD Unavailable Unavailable Robinson Sahu MD Unavailable Unavailable Robinson Sahu MD Unavailable Unavailable Robinson Sahu MD Unavailable Unavailable Robinson Sahu MD Unavailable Unavailable Robinson Sahu MD Unavailable Unavailable Robinson Sahu MD Unavailable Unavailable Robinson Sahu MD Unavailable Unavailable Robinson Sahu MD Unavailable Unavailable Robinson Sahu MD Unavailable Unavailable Robinson Sahu MD Unavailable Unavailable Robinson Sahu MD Unavailable Unavailable Robinson Sahu MD Unavailable Unavailable VanRobinson murray MD Unavailable Unavailable VanRobinson murray MD Unavailable Unavailable Robinson Sahu MD Unavailable Unavailable Robinson Sahu MD Unavailable Unavailable Robinson Sahu MD Unavailable Unavailable KAUSHIK S SHERRY MD Unavailable Unavailable KAUSHIK S AYLANNY MD Unavailable Unavailable KAUSHIK, S AYMAN MD Unavailable Unavailable KAUSHIK, S AYMAN MD Unavailable Unavailable KAUSHIK, S AYMAN MD Unavailable Unavailable KAUSHIK, S AYMAN MD Unavailable Unavailable KAUSHIK, S AYMAN MD Unavailable Unavailable KAUSHIK, S AYMAN MD Unavailable Unavailable KAUSHIK, S AYMAN MD Unavailable Unavailable KAUSHIK, S AYMAN MD Unavailable Unavailable KAUSHIK, S AYMAN MD Unavailable Unavailable KAUSHIK, S AYMAN MD Unavailable Unavailable KAUSHIK, S AYMAN MD Unavailable Unavailable KAUSHIK, S AYMAN MD Unavailable Unavailable KAUSHIK, S AYMAN MD Unavailable Unavailable KAUSHIK, S AYMAN MD Unavailable Unavailable KAUSHIK, S AYLANNY MD Unavailable Unavailable KAUSHIK, S AYMAN MD Unavailable Unavailable KAUSHIK, S AYMAN MD Unavailable Unavailable KAUSHIK, S AYMAN MD Unavailable Unavailable KAUSHIK, S AYMAN MD Unavailable Unavailable KAUSHIK, S AYLANNY MD Unavailable Unavailable KAUSHIK S AYLANNY MD Unavailable Unavailable KAUSHIK S AYLANNY MD Unavailable Unavailable KAUSHIK S AYMAN MD Unavailable Unavailable KAUSHIK, S AYMAN MD Unavailable Unavailable KAUSHIK, S AYMAN MD Unavailable Unavailable KAUSHIK S AYLANNY MD Unavailable Unavailable KAUSHIK S AYLANNY MD Unavailable Unavailable KAUSHIK S AYLANNY MD Unavailable Unavailable KAUSHIK S AYMAN MD Unavailable Unavailable KAUSHIK, S AYMAN MD Unavailable Unavailable KAUSHIK, S AYMAN MD Unavailable Unavailable KAUSHIK S AYMAN MD Unavailable Unavailable KAUSHIK S AYMAN MD Unavailable Unavailable KAUSHIK S AYMAN MD Unavailable Unavailable KAUSHIK, S AYMAN MD Unavailable Unavailable KAUSHIK, S AYMAN MD Unavailable Unavailable KAUSHIK, S AYMAN MD Unavailable Unavailable KAUSHIK, S AYMAN MD Unavailable Unavailable KAUSHIK S AYMAN MD Unavailable Unavailable KAUSHIK, S AYMAN MD Unavailable Unavailable KAUSHIK, S AYMAN MD Unavailable Unavailable KAUSHIK, S AYMAN MD Unavailable Unavailable KAUSHIK, S AYMAN MD Unavailable Unavailable KAUSHIK S AYMAN MD Unavailable Unavailable KAUSHIK, S AYMAN MD Unavailable Unavailable KAUSHIK, S AYMAN MD Unavailable Unavailable KAUSHIK, S AYMAN MD Unavailable Unavailable KAUSHIK, S AYMAN MD Unavailable Unavailable KAUSHIK, S AYMAN MD Unavailable Unavailable KAUSHIK, S AYMAN MD Unavailable Unavailable KAUSHIK, S AYMAN MD Unavailable Unavailable KAUSHIK, S AYMAN MD Unavailable Unavailable KAUSHIK, S AYMAN MD Unavailable Unavailable KAUSHIK, S AYMAN MD Unavailable Unavailable KAUSHIK, S AYMAN MD Unavailable Unavailable KAUSHIK, S AYMAN MD Unavailable Unavailable KAUSHIK, S AYMAN MD Unavailable Unavailable KAUSHIK S AYMAN MD Unavailable Unavailable KAUSHIK, S AYMAN MD Unavailable Unavailable KAUSHIK, S AYMAN MD Unavailable Unavailable KAUSHIK, S AYMAN MD Unavailable Unavailable KAUSHIK, S AYMAN MD Unavailable Unavailable KAUSHIK S AYMAN MD Unavailable Unavailable KAUSHIK S AYMAN MD Unavailable Unavailable KAUSHIK S AYMAN MD Unavailable Unavailable KAUSHIK, S AYMAN MD Unavailable Unavailable KAUSHIK S AYMAN MD Unavailable Unavailable KAUSHIK S AYMAN MD Unavailable Unavailable KAUSHIK S AYMAN MD Unavailable Unavailable KAUSHIK S AYMAN MD Unavailable Unavailable KAUSHIK, S AYMAN MD Unavailable Unavailable KAUSHIK, S AYMAN MD Unavailable Unavailable KAUSHIK, S AYMAN MD Unavailable Unavailable KAUSHIK S AYMAN MD Unavailable Unavailable KAUSHIK S AYMAN MD Unavailable Unavailable KAUSHIK S AYMAN MD Unavailable Unavailable KAUSHIK, S AYMAN MD Unavailable Unavailable KAUSHIK, S AYMAN MD Unavailable Unavailable KAUSHIK, S AYMAN MD Unavailable Unavailable KAUSHIK, S AYMAN MD Unavailable Unavailable Elan MADISON Unavailable Unavailable LETTIERE, A DEEPAK PA Unavailable Unavailable LETTIERE, A DEEPAK PA Unavailable Unavailable LETTIERE, A DEEPAK PA Unavailable Unavailable LETTIERE, A DEEPAK PA Unavailable Unavailable LETTIERE, A DEEPAK PA Unavailable Unavailable LETTIERE, A DEEPAK PA Unavailable Unavailable LETTIERE, A DEEPAK PA Unavailable Unavailable LETTIERE, A DEEPAK PA Unavailable Unavailable LETTIERE, A DEEPAK PA Unavailable Unavailable LETTIERE, A DEEPAK PA Unavailable Unavailable LETTIERE, A DEEPAK PA Unavailable Unavailable LETTIERE, A DEEPAK PA Unavailable Unavailable LETTIERE, A DEEPAK PA Unavailable Unavailable LETTIERE, A DEEPAK PA Unavailable Unavailable LETTIERE, A DEEPAK PA Unavailable Unavailable LETTIERE, A DEEPAK PA Unavailable Unavailable LETTIERE, A DEEPAK PA Unavailable Unavailable LETTIERE, A DEEPAK PA Unavailable Unavailable LETTIERE, A DEEPAK PA Unavailable Unavailable LETTIERE, A DEEPAK PA Unavailable Unavailable LETTIERE, A DEEPAK PA Unavailable Unavailable LETTIERE, A DEEPAK PA Unavailable Unavailable LETTIERE, A DEEPAK PA Unavailable Unavailable LETTIERE, A DEEPAK PA Unavailable Unavailable LETTIERE, A DEEPAK PA Unavailable Unavailable LETTIERE, A DEEPAK PA Unavailable Unavailable LETTIERE, A DEEPAK PA Unavailable Unavailable LETTIERE, A DEEPAK PA Unavailable Unavailable LETTIERE, A DEEPAK PA Unavailable Unavailable DilleGrazyna meek MD Unavailable Unavailable MichelleGrazyna MD Unavailable Unavailable MichelleGrazyna MD Unavailable Unavailable DilleGrazyna MD Unavailable Unavailable DilleGrazyna MD Unavailable Unavailable DilleGrazyna MD Unavailable Unavailable DilleGrazyna MD Unavailable Unavailable MichelleGrazyna MD Unavailable Unavailable MichelleGrazyna MD Unavailable Unavailable DilleGrazyna MD Unavailable Unavailable MichelleGrazyna MD Unavailable Unavailable MichelleGrazyna meek MD Unavailable Unavailable DilleGrazyna meek MD Unavailable Unavailable MichelleGrazyna MD Unavailable Unavailable DilleGrazyna MD Unavailable Unavailable MichelleGrazyna meek MD Unavailable Unavailable MichelleGrazyna MD Unavailable Unavailable MichelleGrazyna MD Unavailable Unavailable DilleGrazyna MD Unavailable Unavailable DilleGrazyna MD Unavailable Unavailable MichelleGrazyna MD Unavailable Unavailable DilleGrazyna MD Unavailable Unavailable DilleGrazyna MD Unavailable Unavailable DilleGrazyna MD Unavailable Unavailable DilleGrazyna MD Unavailable Unavailable MichelleGrazyna MD Unavailable Unavailable DilleGrazyna MD Unavailable Unavailable MichelleGrazyna MD Unavailable Unavailable DilleGrazyna MD Unavailable Unavailable MichelleGrazyna MD Unavailable Unavailable DilleGrazyna MD Unavailable Unavailable MichelleGrazyna MD Unavailable Unavailable MichelleGrazyna MD Unavailable Unavailable DilleGrazyna MD Unavailable Unavailable MichelleGrazyna MD Unavailable Unavailable MichelleGrazyna MD Unavailable Unavailable MichelleGrazyna MD Unavailable Unavailable MichelleGrazyna MD Unavailable Unavailable MichelleGrazyna MD Unavailable Unavailable MichelleGrazyna MD Unavailable Unavailable DilleGrazyna MD Unavailable Unavailable MichelleGrazyna MD Unavailable Unavailable DilleGrazyna MD Unavailable Unavailable MichelleGrazyna MD Unavailable Unavailable DilleGrazyna MD Unavailable Unavailable MichelleGrazyna MD Unavailable Unavailable DilleGrazyna MD Unavailable Unavailable MichelleGrazyna MD Unavailable Unavailable DilleGrazyna MD Unavailable Unavailable MichelleGrazyna MD Unavailable Unavailable DilleGrazyna MD Unavailable Unavailable MichelleGrazyna MD Unavailable Unavailable MichelleGrazyna MD Unavailable Unavailable DilleGrazyna MD Unavailable Unavailable DilleGrazyna MD Unavailable Unavailable MichelleGrazyna MD Unavailable Unavailable MichelleGrazyna MD Unavailable Unavailable DilleGrazyna MD Unavailable Unavailable DilleGrazyna MD Unavailable Unavailable MichelleGrazyna MD Unavailable Unavailable DilleGrazyna MD Unavailable Unavailable DilleGrazyna MD Unavailable Unavailable DilleGrazyna MD Unavailable Unavailable DilleGrazyna MD Unavailable Unavailable MichelleGrazyna MD Unavailable Unavailable MichelleGrazyna MD Unavailable Unavailable DilleGrazyna MD Unavailable Unavailable MichelleGrazyna meek MD Unavailable Unavailable DilleGrazyna meek MD Unavailable Unavailable MichelleGrazyna MD Unavailable Unavailable MichelleGrazyna meek MD Unavailable Unavailable MichelleGrazyna MD Unavailable Unavailable MichelleGrazyna MD Unavailable Unavailable MichelleGrazyna meek MD Unavailable Unavailable MichelleGrazyna meek MD Unavailable Unavailable DilleGrazyna meek MD Unavailable Unavailable DilleGrazyna MD Unavailable Unavailable MichelleGrazyna MD Unavailable Unavailable MichelleGrazyna MD Unavailable Unavailable DilleGrazyna MD Unavailable Unavailable DilleGrazyna MD Unavailable Unavailable MichelleGrazyna MD Unavailable Unavailable DilleGrazyna MD Unavailable Unavailable MichelleGrazyna MD Unavailable Unavailable MichelleGrazyna MD Unavailable Unavailable MichelleGrazyna MD Unavailable Unavailable MichelleGrazyna MD Unavailable Unavailable Jumalon, M Lala SALES COACH Unavailable Unavailable Jumalon, M Lala SALES COACH Unavailable Unavailable Jumalon, M Lala SALES COACH Unavailable Unavailable Jumalon, M Lala SALES COACH Unavailable Unavailable Jumalon, M Lala SALES COACH Unavailable Unavailable Jumalon, M Lala SALES COACH Unavailable Unavailable Jumalon, M Lala SALES COACH Unavailable Unavailable Jumalon, M Lala SALES COACH Unavailable Unavailable Jumalon, M Lala SALES COACH Unavailable Unavailable Jumalon, M Lala SALES COACH Unavailable Unavailable Jumalon, M Lala SALES COACH Unavailable Unavailable Jumalon, M Lala SALES COACH Unavailable Unavailable Jumalon, M Lala SALES COACH Unavailable Unavailable Jumalon, M Lala SALES COACH Unavailable Unavailable Jumalon, M Lala SALES COACH Unavailable Unavailable Jumalon, M Lala SALES COACH Unavailable Unavailable Jumalon, M Lala SALES COACH Unavailable Unavailable Jumalon, M Lala SALES COACH Unavailable Unavailable Jumalon, M Lala SALES COACH Unavailable Unavailable Jumalon, M Lala SALES COACH Unavailable Unavailable Jumalon, M Lala SALES COACH Unavailable Unavailable Jumalon, M Lala SALES COACH Unavailable Unavailable Jumalon, M Lala SALES COACH Unavailable Unavailable Jumalon, M Lala SALES COACH Unavailable Unavailable Jumalon, M Lala SALES COACH Unavailable Unavailable Jumalon, M Lala SALES COACH Unavailable Unavailable Jumalon, M Lala SALES COACH Unavailable Unavailable Jumalon, M Lala SALES COACH Unavailable Unavailable Crystal CAI MD Unavailable Unavailable Crystal CAI MD Unavailable Unavailable Crystal CAI MD Unavailable Unavailable Crystal CAI MD Unavailable Unavailable Crystal CAI MD Unavailable Unavailable Crystal CAI MD Unavailable Unavailable Crystal CAI MD Unavailable Unavailable Crystal CAI MD Unavailable Unavailable Crystal CAI MD Unavailable Unavailable Crystal CAI MD Unavailable Unavailable Crystal CAI MD Unavailable Unavailable Crystal CAI MD Unavailable Unavailable Crystal CAI MD Unavailable Unavailable Crystal CAI MD Unavailable Unavailable Crystal CAI MD Unavailable Unavailable KAUSHIK, S AYMAN MD Unavailable Unavailable KAUSHIK, S AYMAN MD Unavailable Unavailable KAUSHIK, S AYMAN MD Unavailable Unavailable KAUSHIK, S AYMAN MD Unavailable Unavailable KAUSHIK, S AYMAN MD Unavailable Unavailable KAUSHIK, S AYMAN MD Unavailable Unavailable KAUSHIK, S AYMAN MD Unavailable Unavailable KAUSHIK, S AYMAN MD Unavailable Unavailable KAUSHIK, S AYMAN MD Unavailable Unavailable KAUSHIK, S AYMAN MD Unavailable Unavailable KAUSHIK, S AYMAN MD Unavailable Unavailable KAUSHIK, S AYMAN MD Unavailable Unavailable KAUSHIK, S AYMAN MD Unavailable Unavailable KAUSHIK, S AYMAN MD Unavailable Unavailable KAUSHIK, S AYMAN MD Unavailable Unavailable KAUSHIK, S AYMAN MD Unavailable Unavailable KAUSHIK, S AYMAN MD Unavailable Unavailable KAUSHIK, S AYMAN MD Unavailable Unavailable KAUSHIK, S AYMAN MD Unavailable Unavailable KAUSHIK, S AYMAN MD Unavailable Unavailable KAUSHIK, S AYMAN MD Unavailable Unavailable KAUSHIK, S AYMAN MD Unavailable Unavailable KAUSHIK, S AYMAN MD Unavailable Unavailable KAUSHIK, S AYMAN MD Unavailable Unavailable KAUSHIK, S AYMAN MD Unavailable Unavailable KAUSHIK, S AYMAN MD Unavailable Unavailable KAUSHIK, S AYMAN MD Unavailable Unavailable KAUSHIK, S AYMAN MD Unavailable Unavailable KAUSHIK, S AYMAN MD Unavailable Unavailable KAUSHIK, S AYMAN MD Unavailable Unavailable KAUSHIK, S AYMAN MD Unavailable Unavailable KAUSHIK, S AYMAN MD Unavailable Unavailable KAUSHIK, S AYMAN MD Unavailable Unavailable KAUSHIK, S AYMAN MD Unavailable Unavailable KAUSHIK, S AYMAN MD Unavailable Unavailable KAUSHIK, S AYMAN MD Unavailable Unavailable KAUSHIK, S AYMAN MD Unavailable Unavailable KAUSHIK, S AYMAN MD Unavailable Unavailable KAUSHIK, S AYMAN MD Unavailable Unavailable KAUSHIK, S AYMAN MD Unavailable Unavailable KAUSHIK, S AYMAN MD Unavailable Unavailable KAUSHIK, S AYMAN MD Unavailable Unavailable KAUSHIK, S AYMAN MD Unavailable Unavailable KAUSHIK, S AYMAN MD Unavailable Unavailable KAUSHIK, S AYMAN MD Unavailable Unavailable KAUSHIK, S AYMAN MD Unavailable Unavailable KAUSHIK, S AYMAN MD Unavailable Unavailable Crystal CAI MD Unavailable Unavailable Crystal CAI MD Unavailable Unavailable Crystal CAI MD Unavailable Unavailable Crystal CAI MD Unavailable Unavailable Crystal CAI MD Unavailable Unavailable Crystal CAI MD Unavailable Unavailable Crystal CAI MD Unavailable Unavailable Crystal CAI MD Unavailable Unavailable Crystal CAI MD Unavailable Unavailable Crystal CAI MD Unavailable Unavailable Crystal CAI MD Unavailable Unavailable Crystal CAI MD Unavailable Unavailable Crystal CAI MD Unavailable Unavailable Crystal CAI MD Unavailable Unavailable Crystal CAI MD Unavailable Unavailable Crystal CAI MD Unavailable Unavailable Crystal CAI MD Unavailable Unavailable Crystal CAI MD Unavailable Unavailable Crystal CAI MD Unavailable Unavailable Crystal CAI MD Unavailable Unavailable MichelleGrazyna meek MD Unavailable Unavailable MichelleGrazyna meek MD Unavailable Unavailable MichelleGrazyna meek MD Unavailable Unavailable MichelleGrazyna meek MD Unavailable Unavailable MichelleGrazyna meek MD Unavailable Unavailable MichelleGrazyna meek MD Unavailable Unavailable MichelleGrazyna meek MD Unavailable Unavailable DilleGrazyna meek MD Unavailable Unavailable DilleGrazyna meek MD Unavailable Unavailable MichelleGrazyna meek MD Unavailable Unavailable DilleGrazyna meek MD Unavailable Unavailable DilleGrazyna meek MD Unavailable Unavailable DilleGrazyna meek MD Unavailable Unavailable DilleGrazyna meek MD Unavailable Unavailable DilleGrazyna meek MD Unavailable Unavailable MichelleGrazyna meek MD Unavailable Unavailable MichelleGrazyna meek MD Unavailable Unavailable DilleGrazyna meek MD Unavailable Unavailable MichelleGrazyna meek MD Unavailable Unavailable MichelleGrazyna MD Unavailable Unavailable DilleGrazyna MD Unavailable Unavailable MichelleGrazyna MD Unavailable Unavailable MichelleGrazyna MD Unavailable Unavailable DilleGrazyna meek MD Unavailable Unavailable MichelleGrazyna MD Unavailable Unavailable DilleGrazyna meek MD Unavailable Unavailable DilleGrazyna MD Unavailable Unavailable DilleGrazyna meek MD Unavailable Unavailable MichelleGrazyna MD Unavailable Unavailable DilleGrazyna MD Unavailable Unavailable MichelleGrazyna MD Unavailable Unavailable MichelleGrazyna MD Unavailable Unavailable DilleGrazyna MD Unavailable Unavailable DilleGrazyna MD Unavailable Unavailable MichelleGrazyna MD Unavailable Unavailable MichelleGrazyna MD Unavailable Unavailable DilleGrazyna MD Unavailable Unavailable DilleGrazyna MD Unavailable Unavailable DilleGrazyna MD Unavailable Unavailable MichelleGrazyna MD Unavailable Unavailable DilleGrazyna MD Unavailable Unavailable MichelleGrazyna MD Unavailable Unavailable MichelleGrazyna MD Unavailable Unavailable DilleGrazyna MD Unavailable Unavailable MichelleGrazyna MD Unavailable Unavailable MichelleGrazyna MD Unavailable Unavailable DilleGrazyna MD Unavailable Unavailable MichelleGrazyna MD Unavailable Unavailable DilleGrazyna MD Unavailable Unavailable DilleGrazyna MD Unavailable Unavailable MichelleGrazyna MD Unavailable Unavailable MichelleGrazyna MD Unavailable Unavailable DilleGrazyna MD Unavailable Unavailable MichelleGrazyna MD Unavailable Unavailable DilleGrazyna MD Unavailable Unavailable MichelleGrazyna MD Unavailable Unavailable DilleGrazyna MD Unavailable Unavailable DilleGrazyna MD Unavailable Unavailable MichelleGrazyna MD Unavailable Unavailable DilleGrazyna MD Unavailable Unavailable DilleGrazyna MD Unavailable Unavailable DilleGrazyna MD Unavailable Unavailable MichelleGrazyna MD Unavailable Unavailable DilleGrazyna MD Unavailable Unavailable DilleGrazyna MD Unavailable Unavailable DilleGrazyna MD Unavailable Unavailable DilleGrazyna MD Unavailable Unavailable DilleGrazyna MD Unavailable Unavailable DilleGrazyna MD Unavailable Unavailable MichelleGrazyna MD Unavailable Unavailable DilleGrazyna MD Unavailable Unavailable MichelleGrazyna MD Unavailable Unavailable DilleGrazyna MD Unavailable Unavailable MichelleGrazyna MD Unavailable Unavailable DilleGrazyna MD Unavailable Unavailable DilleGrazyna MD Unavailable Unavailable MichelleGrazyna MD Unavailable Unavailable DilleGrazyna MD Unavailable Unavailable DilleGrazyna MD Unavailable Unavailable MichelleGrazyna MD Unavailable Unavailable DilleGrazyna MD Unavailable Unavailable DilleGrazyna MD Unavailable Unavailable DilleGrazyna MD Unavailable Unavailable DilleGrazyna MD Unavailable Unavailable DilleGrazyna MD Unavailable Unavailable DilleGrazyna MD Unavailable Unavailable Dille, F Shane MD Unavailable Unavailable SCIARRINO, DEEPAK SALES COACH Unavailable Unavailable SCIARRINO, DEEPAK SALES COACH Unavailable Unavailable SCIARRINO, DEEPAK SALES COACH Unavailable Unavailable SCIARRINO, DEEPAK SALES COACH Unavailable Unavailable SCIARRINO, DEEPAK SALES COACH Unavailable Unavailable SCIARRINO, DEEPAK SALES COACH Unavailable Unavailable SCIARRINO, DEEPAK SALES COACH Unavailable Unavailable SCIARRINO, DEEPAK SALES COACH Unavailable Unavailable SCIARRINO, DEEPAK SALES COACH Unavailable Unavailable SCIARRINO, DEEPAK SALES COACH Unavailable Unavailable SCIARRINO, DEEPAK SALES COACH Unavailable Unavailable SCIARRINO, DEEPAK SALES COACH Unavailable Unavailable SCIARRINO, DEEPAK SALES COACH Unavailable Unavailable SCIARRINO, DEEPAK SALES COACH Unavailable Unavailable SCIARRINO, DEEPAK SALES COACH Unavailable Unavailable SCIARRINO, DEEPAK SALES COACH Unavailable Unavailable SCIARRINO, DEEPAK SALES COACH Unavailable Unavailable SCIARRINO, DEEPAK SALES COACH Unavailable Unavailable SCIARRINO, DEEPAK SALES COACH Unavailable Unavailable SCIARRINO, DEEPAK SALES COACH Unavailable Unavailable SCIARRINO, DEEPAK SALES COACH Unavailable Unavailable SCIARRINO, DEEPAK SALES COACH Unavailable Unavailable FEUERSTEIN, William GOMEZ MD Unavailable Unavailable FEUERSTEIN, William GOMEZ MD Unavailable Unavailable FEUERSTEIN, William GOMEZ MD Unavailable Unavailable FEUERSTEIN, William GOMEZ MD Unavailable Unavailable FEUERSTEIN, William GOMEZ MD Unavailable Unavailable FEUERSTEIN, William GOMEZ MD Unavailable Unavailable FEUERSTEIN, William GOMEZ MD Unavailable Unavailable FEUERSTEIN, William GOMEZ MD Unavailable Unavailable FEUERSTEIN, William GOMEZ MD Unavailable Unavailable FEUERSTEIN, William GOMEZ MD Unavailable Unavailable FEUERSTEIN, William GOMEZ MD Unavailable Unavailable FEUERSTEIN, William GOMEZ MD Unavailable Unavailable FEUERSTEIN, William GOMEZ MD Unavailable Unavailable FEUERSTEINWilliam MD Unavailable Unavailable FEUERSTEINWilliam MD Unavailable Unavailable FEUERSTEINWilliam MD Unavailable Unavailable FEUERSTEINWilliam MD Unavailable Unavailable FEUERSTEINWilliam MD Unavailable Unavailable FEUERSTEINWilliam MD Unavailable Unavailable FEUERSTEINWilliam MD Unavailable Unavailable FEUERSTEINWilliam MD Unavailable Unavailable FEUERSTEIN, William GOMEZ MD Unavailable Unavailable FEUERSTEINWilliam MD Unavailable Unavailable FEUERSTEINWillaim MD Unavailable Unavailable FEUERSTEINWilliam MD Unavailable Unavailable FEUERSTEINWilliam MD Unavailable Unavailable FEUERSTEIN, William GOMEZ MD Unavailable Unavailable FEUERSTEINWilliam MD Unavailable Unavailable FEUERSTEIN, William GOMEZ MD Unavailable Unavailable FEUERSTEIN, William GOMEZ MD Unavailable Unavailable FEUERSTEIN, William GOMEZ MD Unavailable Unavailable FEUERSTEIN, William GOMEZ MD Unavailable Unavailable FEUERSTEIN, William GOMEZ MD Unavailable Unavailable FEUERSTEIN, William GOMEZ MD Unavailable Unavailable FEUERSTEIN, William GOMEZ MD Unavailable Unavailable FEUERSTEIN, William GOMEZ MD Unavailable Unavailable FEUERSTEIN, William GOMEZ MD Unavailable Unavailable FEUERSTEIN, William GOMEZ MD Unavailable Unavailable FEUERSTEIN, William GOMEZ MD Unavailable Unavailable FEUERSTEIN, William GOMEZ MD Unavailable Unavailable FEUERSTEIN, William GOMEZ MD Unavailable Unavailable FEUERSTEIN, William GOMEZ MD Unavailable Unavailable FEUERSTEIN, William GOMEZ MD Unavailable Unavailable FEUERSTEIN, William GOMEZ MD Unavailable Unavailable FEUERSTEIN, William GOMEZ MD Unavailable Unavailable FEUERSTEIN, William GOMEZ MD Unavailable Unavailable FEUERSTEIN, William GOMEZ MD Unavailable Unavailable FEUERSTEIN, William GOMEZ MD Unavailable Unavailable FEUERSTEIN, William GOMEZ MD Unavailable Unavailable FEUERSTEIN, William GOMEZ MD Unavailable Unavailable FEUERSTEIN, William GOMEZ MD Unavailable Unavailable FEUERSTEIN, William GOMEZ MD Unavailable Unavailable FEUERSTEIN, William GOMEZ MD Unavailable Unavailable FEUERSTEIN, William GOMEZ MD Unavailable Unavailable FEUERSTEIN, William GOMEZ MD Unavailable Unavailable FEUERSTEIN, William GOMEZ MD Unavailable Unavailable FEUERSTEIN, William GOMEZ MD Unavailable Unavailable FEUERSTEIN, William GOMEZ MD Unavailable Unavailable FEUERSTEIN, William GOMEZ MD Unavailable Unavailable FEUERSTEIN, William GOMEZ MD Unavailable Unavailable FEUERSTEIN, William GOMEZ MD Unavailable Unavailable FEUERSTEIN, William GOMEZ MD Unavailable Unavailable FEUERSTEIN, William GOMEZ MD Unavailable Unavailable FEUERSTEIN, William GOMEZ MD Unavailable Unavailable FEUERSTEIN, William GOMEZ MD Unavailable Unavailable FEUERSTEIN, William GOMEZ MD Unavailable Unavailable FEUERSTEIN, William GOMEZ MD Unavailable Unavailable FEUERSTEIN, William GOMEZ MD Unavailable Unavailable FEUERSTEIN, William GOMEZ MD Unavailable Unavailable FEUERSTEIN, William GOMEZ MD Unavailable Unavailable FEUERSTEIN, L PATRICIA MARROQUIN Unavailable Unavailable FEUERSTEIN, L PATRICIA MARROQUIN Unavailable Unavailable De La Torre, D Mine MILITARY ANALYST Unavailable Unavailable De La Torre, D Mine MILITARY ANALYST Unavailable Unavailable De La Torre, D Mine MILITARY ANALYST Unavailable Unavailable De La Torre, D Mine MILITARY ANALYST Unavailable Unavailable De La Torre, D Mine MILITARY ANALYST Unavailable Unavailable De La Torre, D Mine MILITARY ANALYST Unavailable Unavailable De La Torre, D Mine MILITARY ANALYST Unavailable Unavailable De La Torre, D Mine MILITARY ANALYST Unavailable Unavailable De La Torre, D Mine MILITARY ANALYST Unavailable Unavailable De La Torre, D Mine MILITARY ANALYST Unavailable Unavailable De La Torre, D Mine MILITARY ANALYST Unavailable Unavailable De La Torre, D Mine MILITARY ANALYST Unavailable Unavailable De La Torre, D Mine MILITARY ANALYST Unavailable Unavailable De La Torre, D Mine MILITARY ANALYST Unavailable Unavailable De La Torre, D Mine MILITARY ANALYST Unavailable Unavailable De La Torre, D Mine MILITARY ANALYST Unavailable Unavailable De La Torre, D Mine MILITARY ANALYST Unavailable Unavailable De La Torre, D Mine MILITARY ANALYST Unavailable Unavailable De La Torre, D Mine MILITARY ANALYST Unavailable Unavailable De La Torre, D Mine MILITARY ANALYST Unavailable Unavailable De La Torre, D Mine MILITARY ANALYST Unavailable Unavailable De La Torre, D Mine MILITARY ANALYST Unavailable Unavailable De La Torre, D Mine MILITARY ANALYST Unavailable Unavailable De La Torre, D Mine MILITARY ANALYST Unavailable Unavailable De La Torre, D Mine MILITARY ANALYST Unavailable Unavailable De La Torre, D Mine MILITARY ANALYST Unavailable Unavailable De La Torre, D Mine MILITARY ANALYST Unavailable Unavailable De La Torre, D Mine MILITARY ANALYST Unavailable Unavailable De La Torre, D Mine MILITARY ANALYST Unavailable Unavailable De La Torre, D Mine MILITARY ANALYST Unavailable Unavailable De La Torre, D Mine MILITARY ANALYST Unavailable Unavailable De La Torre, D Mine MILITARY ANALYST Unavailable Unavailable De La Torre, D Mine MILITARY ANALYST Unavailable Unavailable De La Torre, D Mine MILITARY ANALYST Unavailable Unavailable De La Torre, D Mine MILITARY ANALYST Unavailable Unavailable De La Torre, D Mine MILITARY ANALYST Unavailable Unavailable De La Torre, D Mine MILITARY ANALYST Unavailable Unavailable De La Torre, D Mine MILITARY ANALYST Unavailable Unavailable De La Torre, D Mine MILITARY ANALYST Unavailable Unavailable De La Torre, D Mine MILITARY ANALYST Unavailable Unavailable De La Torre, D Mine MILITARY ANALYST Unavailable Unavailable De La Torre, D Mine MILITARY ANALYST Unavailable Unavailable De La Torre, D Mine MILITARY ANALYST Unavailable Unavailable De La Torre, D Mine MILITARY ANALYST Unavailable Unavailable De La Torre, D Mine MILITARY ANALYST Unavailable Unavailable De La Torre, D Mine MILITARY ANALYST Unavailable Unavailable De La Torre, D Mine MILITARY ANALYST Unavailable Unavailable De La Torre, D Mine MILITARY ANALYST Unavailable Unavailable De La Torre, D Mine MILITARY ANALYST Unavailable Unavailable De La Torre, D Mine MILITARY ANALYST Unavailable Unavailable De La Torre, D Mine MILITARY ANALYST Unavailable Unavailable Héctor, W Ross PA Unavailable Unavailable Héctor, W Ross PA Unavailable Unavailable Héctor, W Ross PA Unavailable Unavailable Héctor, W Ross PA Unavailable Unavailable Héctor, W Ross PA Unavailable Unavailable Héctor, W Ross PA Unavailable Unavailable Héctor, W Ross PA Unavailable Unavailable Héctor, W Ross PA Unavailable Unavailable Héctor, W Ross PA Unavailable Unavailable Héctor, W Ross PA Unavailable Unavailable Héctor, W Ross PA Unavailable Unavailable Héctor, W Ross PA Unavailable Unavailable Héctor, W Ross PA Unavailable Unavailable Héctor, W Ross PA Unavailable Unavailable Héctor, W Ross PA Unavailable Unavailable Héctor, W Ross PA Unavailable Unavailable Héctor, W Ross PA Unavailable Unavailable Héctor, W Ross PA Unavailable Unavailable Héctor, W Ross PA Unavailable Unavailable Héctor, W Ross PA Unavailable Unavailable Héctor, W Ross PA Unavailable Unavailable Héctor, W Ross PA Unavailable Unavailable Héctor, W Ross PA Unavailable Unavailable Héctor, W Ross PA Unavailable Unavailable Héctor, W Ross PA Unavailable Unavailable Héctor, W Ross PA Unavailable Unavailable Héctor, W Ross PA Unavailable Unavailable Héctor, W Ross PA Unavailable Unavailable Héctor, W Ross PA Unavailable Unavailable Héctor, W Ross PA Unavailable Unavailable Héctor, W Ross PA Unavailable Unavailable Héctor, W Ross PA Unavailable Unavailable Héctor, W Ross PA Unavailable Unavailable Héctor, W Ross PA Unavailable Unavailable Héctor, W Ross PA Unavailable Unavailable Héctor, W Ross PA Unavailable Unavailable Héctor, W Ross PA Unavailable Unavailable Héctor, W Ross PA Unavailable Unavailable Héctor, W Ross PA Unavailable Unavailable Héctor, W Ross PA Unavailable Unavailable Héctor, W Ross PA Unavailable Unavailable Héctor, W Ross PA Unavailable Unavailable Héctor, W Ross PA Unavailable Unavailable Héctor, W Ross PA Unavailable Unavailable Héctor, W Ross PA Unavailable Unavailable Héctor, W Ross PA Unavailable Unavailable BolCrystal ugarte MD Unavailable Unavailable Boltorito, S Jimy MD Unavailable Unavailable BolCrystal ugarteJimy MD Unavailable Unavailable BolCrystal ugarteJimy MD Unavailable Unavailable BolCrystal ugarte MD Unavailable Unavailable BollaCrystalJimy MD Unavailable Unavailable BolCrystal ugarteJimy MD Unavailable Unavailable Boltorito S Jimy MD Unavailable Unavailable BolCrystal ugarte MD Unavailable Unavailable Boltorito S Jimy MD Unavailable Unavailable Boltorito S Jimy MD Unavailable Unavailable Bolla S Jimy MD Unavailable Unavailable Bolla S Jimy MD Unavailable Unavailable Bolla S Jimy MD Unavailable Unavailable Bolla S Jimy MD Unavailable Unavailable Boltorito S Jimy MD Unavailable Unavailable Bolla S Jimy MD Unavailable Unavailable Bolla S Jimy MD Unavailable Unavailable Bolla S Jimy MD Unavailable Unavailable Bolla, S Jimy MD Unavailable Unavailable Bolla, S Jimy MD Unavailable Unavailable Bolla, S Jimy MD Unavailable Unavailable Bolla S Jimy MD Unavailable Unavailable Bolla, S Jimy MD Unavailable Unavailable Bolla, S Jimy MD Unavailable Unavailable BolCrystal ugarte MD Unavailable Unavailable BolCrystal ugarte MD Unavailable Unavailable BolCrystal ugarte MD Unavailable Unavailable Bolla, Crystal Ahn MD Unavailable Unavailable Boltorito, Crystal Ahn MD Unavailable Unavailable Bolla, Crystal Ahn MD Unavailable Unavailable BolCrystal ugarte MD Unavailable Unavailable Boltorito, Crystal Ahn MD Unavailable Unavailable BollaCrystal MD Unavailable Unavailable Bolla, Crystal Ahn MD Unavailable Unavailable Bolla, Crystal Ahn MD Unavailable Unavailable Bolla, Crystal Ahn MD Unavailable Unavailable BollaCrystal MD Unavailable Unavailable Bolla, Crystal Ahn MD Unavailable Unavailable Bolla, Crystal Ahn MD Unavailable Unavailable Boltorito, Crystal Ahn MD Unavailable Unavailable Bolla, Crystal Ahn MD Unavailable Unavailable Boltorito, Crystal Ahn MD Unavailable Unavailable BolCrystal ugarte MD Unavailable Unavailable Crystal Daugherty MD Unavailable Unavailable BolCrystal ugarte MD Unavailable Unavailable Crystal Daugherty MD Unavailable Unavailable BolCrystal ugarte MD Unavailable Unavailable BolCrystal ugarte MD Unavailable Unavailable Ariel Fermin MD Unavailable Unavailable Ariel Fermin MD Unavailable Unavailable Ariel Fermin MD Unavailable Unavailable Ariel Fermin MD Unavailable Unavailable Ariel Fermin MD Unavailable Unavailable Ariel Fermin MD Unavailable Unavailable Ariel Fermin MD Unavailable Unavailable Ariel Fermin MD Unavailable Unavailable Ariel Fermin MD Unavailable Unavailable Ariel Fermin MD Unavailable Unavailable Ariel Fermin MD Unavailable Unavailable Ariel Fermin MD Unavailable Unavailable Ariel Fermin MD Unavailable Unavailable Ariel Fermin MD Unavailable Unavailable Ariel Fermin MD Unavailable Unavailable Ariel Fermin MD Unavailable Unavailable Ariel Fermin MD Unavailable Unavailable Ariel Fermin MD Unavailable Unavailable Ariel Fermin MD Unavailable Unavailable Ariel Fermin MD Unavailable Unavailable Ariel Fermin MD Unavailable Unavailable Ariel Fermin MD Unavailable Unavailable Ariel Fermin MD Unavailable Unavailable Ariel Fermin MD Unavailable Unavailable Ariel Fermin MD Unavailable Unavailable Ariel Fermin MD Unavailable Unavailable Ariel Fermin MD Unavailable Unavailable Ariel Fermin MD Unavailable Unavailable Ariel Fermin MD Unavailable Unavailable Ariel Fermin MD Unavailable Unavailable Ariel Fermin MD Unavailable Unavailable Ariel Fermin MD Unavailable Unavailable Ariel Fermin MD Unavailable Unavailable Ariel Fermin MD Unavailable Unavailable Ariel Fermin MD Unavailable Unavailable Ariel Fermin MD Unavailable Unavailable Ariel Fermin MD Unavailable Unavailable Ariel Fermin MD Unavailable Unavailable Ariel Fermin MD Unavailable Unavailable Ariel Fermin MD Unavailable Unavailable Ariel Fermin MD Unavailable Unavailable Ariel Fermin MD Unavailable Unavailable Ariel Fermin MD Unavailable Unavailable Ariel Fermin MD Unavailable Unavailable Ariel Fermin MD Unavailable Unavailable Zander, Ariel Castellano MD Unavailable Unavailable Ariel Fermin MD Unavailable Unavailable Ariel Fermin MD Unavailable Unavailable Zander, Ariel Castellano MD Unavailable Unavailable Ariel Fermin MD Unavailable Unavailable Fermin, Ariel Castellano MD Unavailable Unavailable Reyes, Kasia Janina PA Unavailable Unavailable Reyes, Kasia Janina PA Unavailable Unavailable Reyes, Kasia Janina PA Unavailable Unavailable Reyes, Kasia Janina PA Unavailable Unavailable Reyes, Kasai Janina PA Unavailable Unavailable Reyes, Kasia Janina PA Unavailable Unavailable Reyes, Kasia Janina PA Unavailable Unavailable Reyes, Kasia Janina PA Unavailable Unavailable Reyes, Kasia Janina PA Unavailable Unavailable Reyes, Kasia Janina PA Unavailable Unavailable De La Torre, D Mine MILITARY ANALYST Unavailable Unavailable De La Torre, D Mine MILITARY ANALYST Unavailable Unavailable De La Torre, D Mine MILITARY ANALYST Unavailable Unavailable De La Torre, D Mine MILITARY ANALYST Unavailable Unavailable De La Torre, D Mine MILITARY ANALYST Unavailable Unavailable De La Torre, D Mine MILITARY ANALYST Unavailable Unavailable De La Torre, D Mine MILITARY ANALYST Unavailable Unavailable De La Torre, D Mine MILITARY ANALYST Unavailable Unavailable De La Torre, D Mine MILITARY ANALYST Unavailable Unavailable De La Torre, D Mine MILITARY ANALYST Unavailable Unavailable De La Torre, D Mine MILITARY ANALYST Unavailable Unavailable De La Torre, D Mine MILITARY ANALYST Unavailable Unavailable De La Torre, D Mine MILITARY ANALYST Unavailable Unavailable De La Torre, D Mine MILITARY ANALYST Unavailable Unavailable De La Torre, D Mine MILITARY ANALYST Unavailable Unavailable De La Torre, D Mine MILITARY ANALYST Unavailable Unavailable De La Torre, D Mine MILITARY ANALYST Unavailable Unavailable Ed La Torre, D Mine MILITARY ANALYST Unavailable Unavailable De La Torre, D Mine MILITARY ANALYST Unavailable Unavailable De La Torre, D Mine MILITARY ANALYST Unavailable Unavailable De La Torre, D Mine MILITARY ANALYST Unavailable Unavailable De La Torre, D Mine MILITARY ANALYST Unavailable Unavailable De La Torre, D Mine MILITARY ANALYST Unavailable Unavailable De La Torre, D Mine MILITARY ANALYST Unavailable Unavailable De La Torre, D Mine MILITARY ANALYST Unavailable Unavailable De La Torre, D Mine MILITARY ANALYST Unavailable Unavailable De La Torre, D Mine MILITARY ANALYST Unavailable Unavailable De La Torre, D Mine MILITARY ANALYST Unavailable Unavailable De La Torre, D Mine MILITARY ANALYST Unavailable Unavailable De La Torre, D Mine MILITARY ANALYST Unavailable Unavailable De La Torre, D Mine MILITARY ANALYST Unavailable Unavailable De La Torre, D Mine MILITARY ANALYST Unavailable Unavailable De La Torre, D Mine MILITARY ANALYST Unavailable Unavailable De La Torre, D Mine MILITARY ANALYST Unavailable Unavailable De La Torre, D Mine MILITARY ANALYST Unavailable Unavailable De La Torre, D Mine MILITARY ANALYST Unavailable Unavailable De La Torre, D Mine MILITARY ANALYST Unavailable Unavailable De La Torre, D Mine MILITARY ANALYST Unavailable Unavailable De La Torre, D Mine MILITARY ANALYST Unavailable Unavailable De La Torre, D Mine MILITARY ANALYST Unavailable Unavailable De La Torre, D Mine MILITARY ANALYST Unavailable Unavailable De La Torre, D Mine MILITARY ANALYST Unavailable Unavailable De La Torre, D Mine MILITARY ANALYST Unavailable Unavailable De La Torre, D Mine MILITARY ANALYST Unavailable Unavailable De La Torre, D Mine MILITARY ANALYST Unavailable Unavailable De La Torre, D Mine MILITARY ANALYST Unavailable Unavailable De La Torre, D Mine MILITARY ANALYST Unavailable Unavailable De La Torre, D Mine MILITARY ANALYST Unavailable Unavailable De La Torre, D Mine MILITARY ANALYST Unavailable Unavailable De La Torre, D Mine MILITARY ANALYST Unavailable Unavailable De La Torre, D Mine MILITARY ANALYST Unavailable Unavailable Re-disclosure Warning The records that you are about to access may contain information from federally-assisted alcohol or drug abuse programs. If such information is present, then the following federally mandated warning applies: This information has been disclosed to you from records protected by federal confidentiality rules (42 CFR part 2). The federal rules prohibit you from making any further disclosure of this information unless further disclosure is expressly permitted by the written consent of the person to whom it pertains or as otherwise permitted by 42 CFR part 2. A general authorization for the release of medical or other information is NOT sufficient for this purpose. The Federal rules restrict any use of the information to criminally investigate or prosecute any alcohol or drug abuse patient.The records that you are about to access may contain highly sensitive health information, the redisclosure of which is protected by Article 27-F of the [facility] Public Health law. If you continue you may have access to information: Regarding HIV / AIDS; Provided by facilities licensed or operated by the [facility] Office of Mental Health; or Provided by the [facility] Office for People With Developmental Disabilities. If such information is present, then the following [facility] mandated warning applies: This information has been disclosed to you from confidential records which are protected by state law. State law prohibits you from making any further disclosure of this information without the specific written consent of the person to whom it pertains, or as otherwise permitted by law. Any unauthorized further disclosure in violation of state law may result in a fine or longterm sentence or both. A general authorization for the release of medical or other information is NOT sufficient authorization for further disc losure. Family History Family Member Name Family Member Gender Family Member Status Date o f Status Description Data Source(s) Unknown Unknown Problem [facility] ([facility]) Unknown Male Problem [facility] ([facility] () Unknown Male Problem MEDENT ([facility]) Unknown Female Problem MED[facility] ([facility] ) Encounters Encounter Providers Location Date Indications Data Source(s ) Outpatient Attender: PATRICIA BOLAND MD 02/07/2021 12:0 0:00 AM [facility] Outpatient Attender: PATRICIA BOLAND MD 11/07/2020 12:0 0:00 AM [facility] Outpatient 10/29/2020 12:00:00 AM [facility] Outpatient 10/29/2020 12:00:00 AM [facility] Outpatient 10/29/2020 12:00:00 AM [facility] Outpatient Attender: PATRICIA BOLAND MD [id number] 07/24/2020 12:00:00 AM EST - 07/24/2020 02:14:14 PM EST Vitamin D deficiency, unspecified [facility] Vitamin D deficiency, unspecified Outpatient Attender: DEEPAK BAXTER SALES COACH [facility] Cardiology A ociates 07/13/2020 12:30:00 PM EST [facility] ([facility]) Outpatient Attender: SHERRY CAI MDAdmitter: SHERRY SAHU MD [id number] 06/29/2020 10:18:00 AM EST - 06/29/2020 04:45:00 PM EST [facility] Patient discharged. Outpatient Attender: DEEPAK CULVER [facility] Cardiology A ssociates 05/31/2020 12:30:00 PM EST [facility] ([facility] Outpatient [id number] 05/20/2020 07:18:00 PM EST [facility] NSTEDE Outpatient Attender: Janina cook 05/20/2020 08:35:00 AM EST [facility] ([facility]) Outpatient Attender: Acosta Beck 1 07/10/2019 10:00:00 AM EST [facility] ([facility] ) Outpatient Attender: MATT JOSEPHReferrer: FAUSTO BOLAND MD [id number]/30/2020 12:00:00 AM EST - 04/30/2020 01:17:24 PM [facility] Outpatient Attender: Robinson Sahu MD Physical Therap y 04/16/2020 10:30:00 AM EDT [facility] ([facility]) Outpatient Referrer: Mine De La Torre NP 03/13/2020 10:56:09 AM EDT [facility] Outpatient Attender: Mine De La Torre NP [id number] 03/13 09:10:16 AM EDT - 03/13/2020 10:57:25 AM EDT [facility] Lala Correa, MILITARY ANALYST: [id number], [address], [place] [address], Ph. Attender: Lala Correa [facility] - [facility] - Main Office 02/21/2020 12:00:00 AM EDT ATHCesar NA ([facility]) Outpatient Attender: SHERRY CAI MD [facility] 02/09/2020 03:00:00 PM EDT MEDENT ([facility]) Outpatient Attender: MELANIE MADISONReferrer: PATRICIA BOLAND MD XXEGELVIRA02/08/2020 12:00:00 AM EDT - 02/08/2020 04:53:22 PM EDT Education [facility] Education Outpatient Attender: Yessi MARTINI XXEGELVIRA 12:00:00 AM EDT [facility] Outpatient Attender: Kimberly MARTINI Physical Therapy 03:45:00 PM EDT MEDENT ([facility]) Outpatient Attender: Robinson Sahu MD Physical Therap y 12/21/2019 09:00:00 AM EDT MEDENT ([facility]) Lala Correa, MILITARY ANALYST: [address], [address], [place] [address], Ph. Attender: Lala Correa [facility] - [facility] 12/21/2019 12:00:00 AM EDT PIYUSH BRAXTON ([facility]) Lala Correa, MILITARY ANALYST: [address], [address], [place] [address], Ph. Attender: Lala Correa [facility] - [facility] 12/21/2019 12:00:00 AM EDT ATHCesar NA ([facility]) Jimy Daugherty MD: [address], [place] [address], Ph. Attender: Jimy Daugherty [place] - [facility] 12/07/2019 12:00:00 AM EDT TABITHA ([facility]) Jimy Daugherty MD: [address], [place] [address], Ph. Attender: Jimy ONOFRE - [facility] 12/07/2019 12:00:00 AM EDT TABITHA ([facility]) Jimy Daugherty MD: [address], [address], [place] [address], Ph. Attender: Jimy Daugherty MD [place] - [facility] 12/07/2019 12:00:00 AM EDT TABITHA ([facility]) Jimy Daugherty MD: [address], [place] [address], Ph. [phone] Attender: Jimy Daugherty MD [place] - [facility] 12/05/2019 12:00:00 AM EDT TABITHA ([facility]) Jimy Daugherty MD: [address], [place] [address], Ph. [phone] Attender: Jimy Daugherty MD [place] - [facility] Office 12/05/2019 12:00:00 AM EDT TABITHA ([facility]) Jimy Daugherty MD: [address], [address], [place] [address], Ph. [phone] Attender: Jimy Daugherty MD [place] - [facility] Office 12/05/2019 12:00:00 AM EDT TABITHA ([facility]) Jimy Daugherty MD: [address], [place] [address], Ph. [phone] Attender: Jimy Daugherty MD [place] - [facility] Office 12/05/2019 12:00:00 AM EDT TABITHA ([facility]) Outpatient Attender: Robinson Sahu MD Physical Therap y 11/16/2019 08:45:00 AM EDT MEDENT ([facility]) Outpatient Attender: Acosta Beck 0 11/09/2019 10:20:00 AM EDT MEDJULIAN ([facility] ) Outpatient Attender: MATT JOSEPH [id number] 11/06 12:00:00 AM EDT - 11/07/2019 07:49:25 AM EDT [facility] Outpatient Referrer: Acosta Martinez MD 10/03/2019 10:26:0 0 AM EDT [facility] Jimy Daugherty MD: [address], [place] [address], Ph. Attender: Jimy ONOFRE - [facility] Office 08/26/2019 12:00:00 AM EST TABITHA ([facility]) Jimy Daugherty MD: [address], [address], [place] [address], Ph. Attender: Jimy Daugherty MD [place] - [facility] 08/26/2019 12:00:00 AM EST TABITHA ([facility]) Jimy Daugherty MD: [address], [address], [place] [address], Ph. Attender: Jimy Daugherty MD [place] - [facility] 08/26/2019 12:00:00 AM EST TABITHA ([facility]) Jimy Daugherty MD: [address], [address], [place] [address], Ph. Attender: Jimy Daugherty MD [place] - [facility] 08/26/2019 12:00:00 AM EST TABITHA ([facility]) Jimy Daugherty MD: [address], [address], [place] [address], Ph. Attender: Jimy Daugherty MD [place] - [facility] 08/26/2019 12:00:00 AM EST TABITHA ([facility]) Outpatient Attender: aNv MARTINI [facility] Business [employer] Manager s 08/23/2019 08:00:00 AM EST MEDENT ([facility]) Outpatient Attender: DEEPAK cook 08/16/2019 11:15:00 AM EST MEDENT ([facility] Jimy Daugherty MD: [address], [address], [place] [address], Ph. Attender: Jimy Daugherty MD [place] - [facility] 08/12/2019 12:00:00 AM EST TABITHA ([facility]) Jimy Daugherty MD: [address], [address], [place] [address], Ph. Attender: Jimy Daugherty MD [place] - [facility] Office 08/12/2019 12:00:00 AM EST TABITHA ([facility]) Jimy Daugherty MD: [address], [place] [address], Ph. Attender: Jimy Daugherty MD [place] - [facility] Office 08/12/2019 12:00:00 AM EST TABITHA ([facility]) Jimy Daugherty MD: [address], [place] [address], Ph. Attender: Jimy Daugherty MD [place] - [facility] 08/12/2019 12:00:00 AM EST TABITHA ([facility]) Jimy Daugherty MD: [address], [address] [place], [place] [address], Ph. Attender: Jimy Daugherty MD [place] - [facility] 08/12/2019 12:00:00 AM EST TABITHA ([facility]) Jimy Daugherty MD: [address], [place] [address], Ph. Attender: Jimy Daugherty MD [place] - [facility] Office 08/12/2019 12:00:00 AM EST TABITHA ([facility]) Outpatient Attender: PATRICIA BOLAND MD 08/11/2019 12:0 0:00 AM [facility] Outpatient Attender: Yessi Allener: Keenan Martinez MD [id number] 08/05/2019 12:00:00 AM EST - 08/05/2019 12:35:01 PM ES T Type 2 diabetes mellitus with hyperglycemia [facility] Type 2 diabetes mellitus with hyperglyce isis Outpatient Attender: Robinson Sahu MD Physical Therap y 08/03/2019 08:00:00 AM EST MEDENT ([facility]) Outpatient Attender: Gray Guerra/Phillip/Atul/Yumiko cordova 07/20/2019 08:30:00 AM EST MEDENT ([facility]) OFFICE OUTPATIENT NEW 30 MINUTES Attender: Robinson Mehta am, MD Physical Therapy 07/01/2019 02:15:00 PM EST MEDENT ([facility]) Outpatient Referrer: Mine De La Torre NP 03/11/2019 10:44:15 AM EDT [facility] Immunizations Vaccine Date Status Description Data Source(s) This CVX code allows reporting of a vacc ination when formulation is unknown (for example, when recording a Influenza vaccination when noted on a vaccination card) 03/22/2020 01:35:00 PM EDT completed MEDEN T ([facility]) Medications Medication Brand Name Start Date Product Form Dose Route Admi nistrative Instructions Pharmacy Instructions Status Indications Reaction Description Data Source(s) 0.4 mg 08/10/2020 12:00:00 AM EST tablet, sublingual 25 PLACE ONE TABLET UNDER THE TONGUE REPEAT EVERY 5 MINUTES FOR UP TO 2 TIMES NEEDED FOR CHEST PAIN PLACE ONE TABLET UNDER THE TONGUE REPEAT EVERY 5 MINUTES FOR UP TO 2 TIMES NEEDED FOR CHEST PAIN SOLD: 08/10/2020 [facility] 50 mcg (2,000 unit) 08/09/2020 12:00:00 AM EST tablet 90 TAKE ONE TABLET BY MOUTH EVERY DAY TAKE ONE TABLET BY MOUTH EVERY DAY SOLD: 08/09/2020 [facility] Aspirin 81 MG Chewable Tablet Aspirin 81 Low Dose 08/03/2020 12:00: 00 AM EST ORAL active MEDENT ([facility]) sodium chloride 0.9% (NS) infusion 2089-9946-64 06/29/2020 02:00:00 PM EST 75 mL/h Intravenous active at 75 mL /hr, 75 mL/hr, Intravenous, Continuous, Starting Thu06/29/20 at 1400, For 4 hours, Post-op [facility] Medication administered onsite normal saline flush 0.9 % injection 3 mL 69705-733-88 06/29/2020 02:00:00 PM EST 3 mL Intravenous active 3 mL , Intravenous, Every 8 hours (scheduled), First dose on Thu06/29/20 at 1400, Pre-op
Rapid push positive pressure flushing shall be performed with a 10 cc normal saline syringe to check the PATENCY of a PIV site prior to any infusion therapy initiation unless resistance is met.
[facility] Medication administered onsite normal saline flush 0.9 % injection 3 mL 88867-357-88 06/29/2020 02:00:00 PM EST 3 mL Intravenous active 3 mL , Intravenous, PROTOCOL, First dose on Thu06/29/20 at 1400, Pre-op
flush per protocol, D/C Main IV fluid if appropriate
[facility] Medication administered onsite iopamidol (ISOVUE-370) 76 % [id number] 06/29/2020 12:26:26 PM EST active As needed, Starting Thu06/29/20 at 1226, Intra-Procedur e [facility] Medication administered onsite heparin (porcine) injection 35815-493-55 06/29/2020 12:11:19 PM EST active As needed, Starting Thu06/29/20 a t 1211, Intra-Procedure [facility] Medication administered onsite lidocaine 1 % injection 2601-6462-05 06/29/2020 11:52:50 AM EST active As needed, Starting Thu06/29/20 a t 1152, Intra-Procedure [facility] Medication administered onsite fentaNYL Citrate (PF) (SUBLIMAZE) injection 6711-8817-35 06/29/2020 11:50:58 AM EST active As neede d, Starting Thu06/29/20 at 1150, Intra-Procedure [facility] Medication administered onsite 2 ML Midazolam 1 MG/ML Injection midazolam (VERSED) in jection midazolam (VERSED) injection 06/29/2020 11:50:37 AM EST active As needed, Starting Thu06/29/20 at 1150, Intra-Procedure [facility] Medication administered onsite sodium chloride 0.9% (NS) infusion 0336-8750-68 06/29/2020 11:00:00 AM EST 100 mL/h Intravenous active at 100 m L/hr, 100 mL/hr, Intravenous, Continuous, Starting Thu06/29/20 at 1100, Pre-op
Start two hours prior to scheduled start time
[facility] Medication administered onsite Acetaminophen 325 MG Oral Tablet acetaminophen (TYLENO L) 325 MG tablet 650 mg acetaminophen (TYLENOL) 325 MG tablet 650 mg 06/29/2020 10:34:12 AM EST 650 mg Oral active 650 mg, Or al, Every 4 hours PRN, headaches, and non cardiac pain, Starting Thu06/29/20 at 1034, Pre-op
"Maximum dose of acetaminophen is 4,000 mg from all sources in 24 hours."
[facility] Medication administered onsite Bumetanide 1 MG Oral Tablet Bumetanide 1 MG Oral Table t (BUMEX) Bumetanide 1 MG Oral Tablet (BUMEX) 06/24/2020 12:00:00 AM EST 1 mg Oral active Take 1 mg by mouth Two Times Daily [facility] carvedilol 3.125 MG Oral Tablet Carvedilol 3.125 MG Or al Tablet (COREG) Carvedilol 3.125 MG Oral Tablet (COREG) 06/24/2020 12:00:00 AM EST 3.125 mg Oral active Take 3.125 mg by karla th Two Times Daily [facility] 75 mg 06/20/2020 12:00:00 AM EST tablet 3 TAKE 1 TABLET BY MOUTH ON 06/27/2020 AND DAILY UNTIL DAY OF PROCEDURE TAKE 1 TABLET BY MOUTH ON 06/27/2020 AND D AILY UNTIL DAY OF PROCEDURE SOLD: 06/21/2020 [facility] 80 mg 06/11/2020 12:00:00 AM EST tablet 7 TAKE ONE TABLET BY MOUTH EVERY DAY TAKE ONE TABLET BY MOUTH EVERY DAY SOLD: 06/11/2020 [facility] carvedilol 3.125 MG Oral Tablet Carvedilol 06/11/2020 12:00:00 AM EST active [facility] Bumetanide 1 MG Oral Tablet Bumetanide 06/11/2020 12:00:00 AM EST ORAL active [facility] clopidogrel 75 MG Oral Tablet Clopidogrel Bisulfate 06/01/2020 1 2:00:00 AM EST completed MEDENT ([facility]) 75 mg 06/01/2020 12:00:00 AM EST tablet 5 TAKE 2 TABLETS BY MOUTH ON 06/04/2020 FOLLOWED BY 1 TABLET BY MOUTH EVERY MORNING UNTIL PROCEDURE TAKE 2 TABLETS BY MOUTH ON 06/04/2020 FOLLOWED BY 1 TABLET BY MOUTH EVERY MORNING UNTIL PROCEDURE SOLD: 06/02/2020 [facility] Insulin Lispro 100 UNT/ML Injectable Mulu ution Insulin Lispro 100 UNIT/ML Subcutaneous Solution (HumaLOG) Insulin Lispro 100 UNIT/ML Subcutaneous Solution (HumaLOG) 05/31/2020 12:00:00 AM EST act kendrick Uncontrolled type 2 diabetes mellitus with hyperglycemia, with long-term current use of insulin Subq continual infusion via insulin pump. MDD 165 units with priming and titration [facility] Uncontrolled type 2 diabetes mellitus wi th hyperglycemia, with long-term current use of insulin Regadenoson, 0.1 MG 05/28/2020 12:00:00 AM EST completed MEDENT ([facility]) Medication administered onsite 25 mcg 05/12/2020 12:00:00 AM EST tablet 90 TAKE ONE TABLET BY MOUTH EVERY DAY TAKE ONE TABLET BY MOUTH EVERY DAY SOLD: 05/12/2020 [facility] Levothyroxine Sodium 0.025 MG Oral Table t Levothyroxine Sodium 25 MCG Oral Tablet (SYNTHROID) Levothyroxine Sodium 25 MCG Oral Tablet (SYNTHROID) 05/11/2020 12:00:00 AM EST 25 ug Oral act kendrick Abnormal thyroid function test Take 1 tablet by mouth Daily [facility] Abnormal thyroid function test 2 % 03/28/2020 12:00:00 AM EDT cream 60 APPLY TO UNDER BREASTS AND ABDOMINAL FOLD SPARINGLY TWO TIMES A DAY APPLY TO UNDER BREASTS AND ABDOMINAL FOL D SPARINGLY TWO TIMES A DAY SOLD: 03/30/2020 [facility] 24 HR Diltiazem Hydrochloride 360 MG Extended Release Oral Tablet Diltiazem HCL ER Coated Beads 03/05/2020 12:00:00 AM EDT active MEDENT ([facility]) Insulin Lispro 100 UNT/ML Injectable Mulu ution Insulin Lispro 100 UNIT/ML Subcutaneous Solution (HumaLOG) Insulin Lispro 100 UNIT/ML Subcutaneous Solution (HumaLOG) 02/29/2020 12:00:00 AM EDT abo rted Uncontrolled type 2 diabetes mellitus with hyperglycemia, with long-term current use of insulin Use as directed via insulin pump. Maximum daily dose 250 units. Dx E11.65 [facility] Uncontrolled type 2 diabetes mellitus wi th hyperglycemia, with long-term current use of insulin 4 mg 02/21/2020 12:00:00 AM EDT tablet 90 TAKE ONE TABLET BY MOUTH AT BEDTIME NEEDED TAKE ONE TABLET BY MOUTH AT BEDTIME NEEDED SOLD: [facility] pantoprazole 40 MG Delayed Release Oral Tablet Pantoprazole Sodium 02/17/2020 12:00:00 AM EDT active M EDENT ([facility]) 100,000 unit/mL 02/16/2020 12:00:00 AM EDT suspension 250 SWISH AND SWALLOW 5 MLS BY MOUTH FIVE TIMES A DAY FOR 10 DAYS SWISH AND SWALLOW 5 MLS BY MOUTH FIVE TIMES A DAY FOR 10 DAYS SOLD: 02/17/2020 [facility] Asa 02/09/2020 12:00:00 AM EDT ORAL active MEDENT ([facility]) 24 HR Diltiazem Hydrochloride 360 MG Extended Release Oral Capsule Diltiazem HCL ER Beads 02/09/2020 12:00:00 AM EDT ORAL active MEDENT ([facility]) 1 mL 31 gauge x 5/16 02/03/2020 12:00:00 AM EDT syringe 50 USE FOUR TIMES A DAY DIRECTED IN EVENT OF PUMP FAILURE USE FOUR TIMES A DAY DIRECTED IN EVENT OF PUMP FAILURE SOLD: 02/03/2020 [facility] Insulin Syringe 31G X 5/16" 1 [place] [id number] 02/01/2020 12:00:00 AM EDT active Type 2 diabetes mellitus wit h hyperglycemia, with long-term current use of insulin Use as directed. Use as dire cted 4 per day in event of pump failure. DX E11.65 [facility] Type 2 diabetes mellitus with hyperglyce isis, with long-term current use of insulin 4 mg 11/17/2019 12:00:00 AM EDT tablet 90 TAKE ONE TABLET BY MOUTH AT BEDTIME NEEDED TAKE ONE TABLET BY MOUTH AT BEDTIME NEEDED SOLD: [facility] 600 mg 09/28/2019 12:00:00 AM EDT tablet 90 TAKE ONE TABLET BY MOUTH THREE TIMES A DAY TAKE ONE TABLET BY MOUTH THREE TIMES A DAY SOLD: 12/02/2019 [facility] 600 mg 09/28/2019 12:00:00 AM EDT tablet 9 TAKE ONE TABLET BY MOUTH THREE TIMES A DAY TAKE ONE TABLET BY MOUTH THREE TIMES A DAY SOLD: 09/28/2019 [facility] Potassium Chloride 10 MEQ Extended Release Oral Tablet Potassium Chloride Nena ER 08/29/2019 12:00:00 AM EDT active MEDENT ([facility]) 2 ML Sodium Hyaluronate 10 MG/ML Prefilled Syringe [Euflexxa ] Euflexxa 08/17/2019 12:00:00 AM EST active MEDENT ([facility]) 25 mcg 08/05/2019 12:00:00 AM EST tablet 90 TAKE ONE TABLET BY MOUTH EVERY DAY TAKE ONE TABLET BY MOUTH EVERY DAY SOLD: 11/30/2019 [facility] Levothyroxine Sodium 0.025 MG Oral Table t Levothyroxine Sodium 25 MCG Oral Tablet (SYNTHROID, LEVOTHROID) Levothyroxine Sodium 25 MCG Oral Tablet (SYNTHROID, LEVOTHROID) 08/05/2019 12:00:00 AM EST 25 ug Oral aborted Abnormal thyroid function test Take 1 tablet by mouth Daily [facility] Abnormal thyroid function test 25 mcg 08/05/2019 12:00:00 AM EST tablet 90 TAKE ONE TABLET BY MOUTH EVERY DAY TAKE ONE TABLET BY MOUTH EVERY DAY SOLD: 08/06/2019 [facility] 500 mg 07/20/2019 12:00:00 AM EST tablet 7 TAKE ONE TABLET BY MOUTH EVERY DAY FOR 7 DAYS TAKE ONE TABLET BY MOUTH EVERY DAY FOR 7 DAYS SOLD: 07/20/2019 [facility] Levofloxacin 500 MG Oral Tablet [Levaquin] Levaquin 07/20 12:00:00 AM EST ORAL completed MEDENT ([facility]) 100,000 unit/mL 07/18/2019 12:00:00 AM EST suspension 250 SWISH 1 TEASPOONFUL (5 ML) IN MOUTH THE SWALLOW FIVE TIMES DAILY FOR 10 DAYS SWISH 1 TEASPOONFUL (5 ML) IN MOUTH THE SWALLOW FIVE TIMES DAILY FOR 10 DAYS SOLD: 07/19/2019 [facility] Nystatin 265088 UNT/ML Oral Suspension N ystatin 713028 UNIT/ML Mouth/Throat Suspension (MYCOSTATIN) Nystatin 706456 UNIT/ML Mouth/Throat Kallie pension (MYCOSTATIN) 07/18/2019 12:00:00 AM EST activ e SWISH 1 TEASPOONFUL 5 ML IN MOUTH THE SWALLOW FIVE TIMES DAILY FOR 10 DAYS [facility] gabapentin 600 MG Oral Tablet Gabapentin 600 MG Oral T ablet (NEURONTIN) Gabapentin 600 MG Oral Tablet (NEURONTIN) 06/29/2019 12:00:00 AM EST aborted [facility] 4 mg 06/16/2019 12:00:00 AM EST tablet 90 TAKE ONE TABLET BY MOUTH AT BEDTIME TAKE ONE TABLET BY MOUTH AT BEDTIME SOLD: 06/17/2019 [facility] 4 mg 06/16/2019 12:00:00 AM EST tablet 90 TAKE ONE TABLET BY MOUTH AT BEDTIME TAKE ONE TABLET BY MOUTH AT BEDTIME SOLD: 09/18/2019 [facility] tizanidine 4 MG Oral Tablet tiZANidine HCl 4 MG Oral T ablet (ZANAFLEX) tiZANidine HCl 4 MG Oral Tablet (ZANAFLEX) 06/16/2019 12:00:00 AM EST 4 mg Oral active Take 4 mg by mouth n ightly [facility] Glucose Blood In Vitro Strip (CONTOUR NEXT TEST) [id number] 05/31/2019 12:00:00 AM EST completed Type 2 lizzie betes mellitus with hyperglycemia, with long- term current use of insulin Use as instructed 7 times per da y. DX E11.65 [facility] Type 2 diabetes mellitus with hyperglyce isis, with long-term current use of insulin 0.4 mg 05/30/2019 12:00:00 AM EST tablet, sublingual 25 PLACE ONE TABLET UNDER THE TONGUE EVERY 5 MINUTES FOR UP TO 3 DOSES NEEDED FOR CHEST PAIN. IF CHEST PAIN STILL PERSISTS CONTACT [address] ONE TABLET UNDER THE TONGUE EVERY 5 MINUTES FOR UP TO 3 DOSES NEEDED FOR CHEST PAIN. IF CHEST PAIN STILL PERSISTS CONTACT 911 SOLD: 05/03/2020 [facility] 0.4 mg 05/30/2019 12:00:00 AM EST tablet, sublingual 25 [address]ACE ONE TABLET UNDER THE TONGUE EVERY 5 MINUTES FOR UP TO 3 DOSES NEEDED FOR CHEST PAIN. IF CHEST PAIN STILL PERSISTS CONTACT [address] ONE TABLET UNDER THE TONGUE EVERY 5 MINUTES FOR UP TO 3 DOSES NEEDED FOR CHEST PAIN. IF CHEST PAIN STILL PERSISTS CONTACT 911 SOLD: 02/21/2020 [facility] 0.4 mg 05/30/2019 12:00:00 AM EST tablet, sublingual 25 [address]ACE ONE TABLET UNDER THE TONGUE EVERY 5 MINUTES FOR UP TO 3 DOSES NEEDED FOR CHEST PAIN. IF CHEST PAIN STILL PERSISTS CONTACT [address] ONE TABLET UNDER THE TONGUE EVERY 5 MINUTES FOR UP TO 3 DOSES NEEDED FOR CHEST PAIN. IF CHEST PAIN STILL PERSISTS CONTACT 911 SOLD: 12/08/2019 [facility] Insulin Lispro 100 UNT/ML Injectable Mulu ution insulin lispro (HUMALOG) 100 UNIT/ML vial insulin lispro (HUMALOG) 100 UNIT/ML vial 03/30/2019 1 2:00:00 AM EDT active Uncontroll ed type 2 diabetes mellitus with hyperglycemia, with long-term current use of insulin Use as directed via insulin pump. Maximum daily dose 250 units. Dx E11.65 [facility] Uncontrolled type 2 diabetes mellitus wi th hyperglycemia, with long-term current use of insulin Levothyroxine Sodium 0.025 MG Oral Table t levothyroxine (SYNTHROID, LEVOTHROID) 25 MCG tablet levothyroxine (SYNTHROID, LEVOTHROID) 25 MCG tablet 12:00:00 AM EDT 25 ug Oral aborted Take 1 tablet by mouth Daily [facility] Insulin, Aspart, Human 100 UNT/ML Inject able Solution insulin aspart (NOVOLOG FLEXPEN) 100 UNIT/ML vial insulin aspart (NOVOLOG FLEXPEN) 100 UNIT/ML vial 01/27/2019 12:00:00 AM EDT aborted Use as directed up to 4 times daily, mdd 192 units inclusive of priming. Incase of pump failure [facility] Insulin, Aspart, Human 100 UNT/ML Inject able Solution insulin aspart (NOVOLOG) 100 UNIT/ML vial insulin aspart (NOVOLOG) 100 UNIT/ML vial 11/08/2018 1 2:00:00 AM EDT aborted Uncontroll ed type 2 diabetes mellitus with complication, with long-term current use of insulin Torres bq continual infusion via insulin pump. Maximum Daily Dose 250 units. Diagnosis code: E11.65 [facility] Uncontrolled type 2 diabetes mellitus wi th complication, with long-term current use of insulin Insulin Pen Needle (NOVOFINE) 30G X 8 MM [facility] [address] 12:00:00 AM EDT aborted Use as directed. Use 4 per day as directed. (In event of pump failure) DX E11.65 [facility] torsemide 100 MG Oral Tablet torsemide (DEMADEX) 100 M G tablet torsemide (DEMADEX) 100 MG tablet 100 mg Oral aborted Take 100 mg by mouth daily [facility] Digoxin 0.125 MG Oral Tablet digoxin (LANOXIN) 0.125 M G tablet digoxin (LANOXIN) 0.125 MG tablet 125 ug Oral aborted Take 1 25 mcg by mouth daily. [facility] Insurance Providers Payer name Policy type / Coverage type Policy ID Covered alliance party ID Covered alliance party's relationship to olguin Policy Olguin Plan Information MEDICARE [id number] SP [id number] [facility] HEALTH CARE OPTIONS [id number] SP [id number] MEDICARE A [id number] Self [id number] [id number] AAR U [id number] Self [id number] [facility] [id number] MEDICARE [id number] MEDICARE [id number] Avril [id number] J42 [facility] [id number] Avril [id number] MEDICARE C [id number] S [id number] [id number] AAR O [id number] S [id number] Aar Medigap Part B [id number] Self [id number] [place] Medicare Primary [id number] Self [id number] [facility] Medigap Part B [id number] Family Dependent [id number] [facility] Organization (HMO) [id number] Self [id number] [facility] Healthcare Opt Medigap Part B [id number] Self [id number] Medicare Natl Govt Servic Medicare Primary [id number] Self [id number] [place] [employer] Medigap Part B [id number] Family Depen dent [id number] [facility] Trad/[place] Medigap Part B [id number] Self [id number] [facility] Healthcare Opt Medigap Part B [id number] 12 Self [id number] 12 Medicare [place] Govt Servic Medicare Primary [id number] Self [id number] [facility] Healthcare Opt Medigap Part B [id number] 12 Self [id number] Medicare [place] Govt Serv[employer] Medicare Primary [id number] Self [id number] [employer] Medigap Part B [id number] Self 02 [id number] [place] Primary [id number] Self [id number] MEDICARE [id number] SP [id number] A [facility] Options Medigap Part B [id number] Self [id number] Medicare [place] Gov't Servi Medicare Primary [id number] Self [id number] MEDICARE [id number] Avril [id number] A MEDICARE A [id number] Self [id number] A [facility] Medigap Part B [id number] Self [id number] [place] Primary [id number] Self [id number] MEDICARE PI PI [facility] PI PI [facility] Opt Medigap Part B [id number] 12 Self [id number] 12 Medicare [place] Govt Servic Medicare Primary [id number] Self [id number] [facility] Opt Medigap Part B [id number] 12 Self [id number] 12 Medicare [place] Govt Servic Medicare Primary [id number] Self [id number] [facility] Medigap Part B [id number] Self [id number] Medicare [place] Gov't Servi Medicare Primary [id number] Self [id number] [facility] Opt Medigap Part B [id number] 12 Self [id number] 12 Medicare [place] Govt Servic Medicare Primary [id number] Self [id number] [facility] OPTIONS [id number] SP [id number] [facility] Opt Medigap Part B [id number] 12 Self [id number] 12 Medicare [place] Govt Servic Medicare Primary [id number] Self [id number] [facility] Opt Medigap Part B [id number] 12 Self [id number] 12 Medicare [place] Govt Servic Medicare Primary [id number] Self [id number] [facility] Options Medigap Part B [id number] Self [id number] Medicare - NGS Medicare Primary [id number] Self [id number] United Healthcare Medigap Part B [id number] Family Dependent [id number] BCBS Ppo Commercial [id number] Self [id number] [facility] Opt Medigap Part B [id number] 12 Self [id number] 12 Medicare [place] Govt Servic Medicare Primary [id number] Self [id number] [facility] Opt Medigap Part B [id number] 12 Self [id number] 12 Medicare [place] Govt Servic Medicare Primary [id number] Self [id number] [facility] Medigap Part B [id number] Self [id number] Medicare [place] Gov't Servi Medicare Primary [id number] Self [id number] [facility] OPTIONS [id number] SP [id number] [facility] OPTIONS [id number] SP [id number] [facility] Medigap Part B [id number] Self [id number] [place] Primary [id number] Self [id number] [facility] Opt Medigap Part B [id number] 12 Self [id number] 12 Medicare [place] Govt Servic Medicare Primary [id number] Self [id number] [facility] Opt Medigap Part B [id number] 12 Self [id number] 12 Medicare [place] Govt Servic Medicare Primary [id number] Self [id number] [facility] Medigap Part B Self Medicare [place] Gov't Servi Medicare Primary Self [facility] OPTIONS [id number] SP [id number] MEDICARE [id number] SP [id number] A United Hcare/Multiplan Medigap Part B Family Depen dent BS [place] Trad/MX Commercial Self [facility] Opt Medigap Part B Plan F Self Plan F Medicare [place]l Govt Servic Medicare Primary Self EXCELLUS BCBS B [id number] S [id number] MEDICARE C [id number] S [id number] A [facility] Options Medigap Part B Self [place] Primary Self Medicare Dme Supplies Medigap Part B Self BS [place] Medigap Part B Family Dependent BS [place] Medigap Part B Family Dependent [facility] C[facility] OPTIONS [id number] SP [id number] [facility] Options Medigap Part B Self [place] Primary Self EXCELLUS C [id number] Self [id number] [place] 121/621 UNAVAILABLE SP UNAVAILABLE [place] 121/621 [id number] SP [id number] BCBS GENERIC C [id number] Self [id number] BC [place] O [id number] S [id number] BLUE CARD 1 [id number] SELF PAY 2 UNAVAILABLE 1 UNAVAILA BLE BC EXC PLANS 1 [id number] [facility] 2 [id number] 2 [id number] Problems, Conditions, and Diagnoses Code Display Name Description Problem Type Effective Dates Data Source(s) 648075560 Mixed hyperlipidemia Mixed hyperlipidemia Problem 07/13/2020 12:00:00 AM EST MED[facility] ([facility]) [id number] Arteriosclerosis of coronary artery bypa ss 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 Problem 07/13/2020 12:00:00 AM EST MEDE NT ([facility]) [id number] Abnormal results of cardiovascular funct ion studies Abnormal results of cardiovascular function studies Problem 05/31/2020 12:00:00 AM ES T MED[facility] ([facility]) [id number] Dyspnea Dyspnea Problem 05/31/2020 12:00:00 AM ES T [facility] ([facility]) [id number] Mitral valve disorder Mitral valve disorder Problem 02/07/2020 12:00:00 AM EDT [facility] ([facility] Cardiac Catheterization [facility]) Z95.1 Presence of aortocoronary bypass graft P resence of aortocoronary bypass graft Diagnosis 07/24/2020 01:41:59 PM [facility] E11.65 Type 2 diabetes mellitus with hyperglyce isis Type 2 diabetes mellitus with hyperglycemia Diagnosis 07/24/2020 01:40:53 PM [facility] E11.8 Type 2 diabetes mellitus with unspecifie d complications Type 2 diabetes mellitus with unspecified complications Diagnosis 07/24/2020 01:40:53 PM [facility] R06.02 Shortness of breath Shortness of breath Diagnosis 0 06/29/2020 10:18:00 AM [facility] I35.0 Nonrheumatic aortic (valve) stenosis Nonrheumati c aortic (valve) stenosis Diagnosis 06/29/2020 10:18:00 AM [facility] R94.39 Abnormal result of other cardiovascular function study Abnormal result of other cardiovascular Diagnosis 06/29/2020 10:18:00 AM EST [facility] NSTEMI NSTEMI Diagnosis 05/20/2020 07:18:00 PM ES 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 E03.9 Hypothyroidism, unspecified Hypothyroidism, unspecifie d Diagnosis 08/05/2019 12:48:40 PM [facility] R94.6 Abnormal results of thyroid function ese dies Abnormal results of thyroid function studies Diagnosis 08/05/2019 10:30:38 AM [facility] Surgeries/Procedures Procedure Description Date Indications Data Source(s) Diabetic Retinal Eye Exam 07/03/2020 12:00:00 AM EST [facility] ([facility]) CARDIAC CATHETERIZATION CARDIAC CATHETERIZATION Routine 06/29/2020 12:28 PM EST Abnormal result of other cardiovascular function study Aortic stenosis Shortness of breath 06/29/2020 05:28:09 PM EST Shortness of breathAortic stenosisAbnormal result of other cardiovascular function study [facility] Shortness of breath Aortic stenosis Abnormal result of other cardiovascular function study GLUC BLD GLUC MNTR DEV CLEARED FDA SPEC HOME USE POCT GLUCOSE Routine 06/29/2020 11:17 AM EST 06/29/2020 04:17:00 PM EST [facility] ECG ROUTINE ECG W/LEAST 12 LDS TRCG ONLY W/O I&R ECG 12-LEAD Routine 06/29/2020 10:40 AM EST 06/29/2020 03:40:39 PM EST [facility] Left Heart Cath W/Wo LV,Coronary & Bypass Grafts SVG And Or Dipti 06/29/2020 12:00:00 AM EST [facility] ([facility]) Spect Image, Multiple,W/Ejection Fraction And Wall Motion 05/28/2020 12:00:00 AM EST [facility] ([facility]) Cardiovascular Stress Test W/Interpretation & Report 05/28/2020 12:00:00 AM EST [facility] ([facility]) ARTHROCENTESIS ASPIR&/INJECTION MAJOR JT/BURSA 12:00:00 AM EDT [facility] ([facility] ) Mammogram 03/11/2020 12:00:00 AM EDT M EDENT ([facility]) Complete ECHO 02/07/2020 12:00:00 AM EDT [facility] ([facility]) Diabetic Retinal Eye Exam 01/10/2020 12:00:00 AM EDT [facility] ([facility]) RADIOLOGIC EXAMINATION KNEE 3 VIEWS 01/05/2020 12:00:0 0 AM EDT [facility] ([facility] ) RADEX FOOT COMPLETE MINIMUM 3 VIEWS 01/05/2020 12:00:0 0 AM EDT [facility] ([facility] ) RADIOLOGIC EXAM KNEE COMPLETE 4/MORE VIEWS 12/29/2019 12:00:00 AM EDT [facility] ([facility] ) FX Patella W/O Manipulation 12/29/2019 12:00:00 AM EDT [facility] ([facility]) ARTHROCENTESIS ASPIR&/INJECTION MAJOR JT/BURSA 12:00:00 AM EDT [facility] ([facility]) Electrocardiogram Complete 08/23/2019 12:00:00 AM EST [facility] ([facility]) ARTHROCENTESIS ASPIR&/INJECTION MAJOR JT/BURSA 12:00:00 AM EST [facility] ([facility] ) ARTHROCENTESIS ASPIR&/INJECTION MAJOR JT/BURSA 12:00:00 AM EST [facility] ([facility] ) MRI Lower Extremity Any Joint 08/10/2019 12:00:[address] [facility] ([facility] ) MRI Lower Extremity Any Joint 08/10/2019 12:00:[address] [facility] ([facility] ) POCT GLUCOSE, DOCKED POCT GLUCOSE, DOCKED Routine 08/05/2019 11:02 AM EST 08/05/2019 04:02:00 PM EST [facility] POCT HEMOGLOBIN A1C, DOCKED POCT HEMOGLOBIN A1C, DOCKED Routine 08/05/2019 10:51 AM EST 08/05/2019 03:51:00 PM EST [facility] ARTHROCENTESIS ASPIR&/INJECTION MAJOR JT/BURSA 020 12:00:00 AM EST [facility] ([facility]) Spirometry 07/20/2019 12:00:00 AM EST Zaid DANIELSONENT ([facility] ) ARTHROCENTESIS ASPIR&/INJECTION MAJOR JT/BURSA 020 12:00:00 AM EST [facility] ([facility]) RADIOLOGIC EXAMINATION KNEE 3 VIEWS 07/01/2019 12:00:0 0 AM EST [facility] ([facility]) Results ID Date Data Source [id number] 08/09/2020 12:35:00 PM EST [facility] ([facility]) Name Value Range Interpretation Code Description Data Lilliana rce(s) Supporting Document(s) Alanine aminotransferase [Enzymatic activity/volume] in Seru m or Plasma 21 U/L 12-78 Normal (applies to non-numeric results) [facility] ([facility]) Aspartate aminotransferase [Enzymatic activity/volume] in Serum or Plasma 12 U/L 7-37 Normal (applies to non-numeric results) [facility] ([facility]) Creatine kinase [Enzymatic activity/volume] in Serum or Plasma 1 12 U/L 26-192 Normal (applies to non-numeric results) [facility] ([facility]) ID Date Data Source [id number] 08/09/2020 12:35:00 PM EST [facility] ([facility]) Name Value Range Interpretation Code Description Data Lilliana rce(s) Supporting Document(s) Triglycerides Level 204 mg/dL Above high normal [facility] HDL Cholesterol 39 mg/dL Below low normal [facility] ([facility]) Cholesterol Level 131 mg/dL Normal (applies to non-numeri c results) [facility] ([facility]) LDL Cholesterol 51 mg/dL Normal (applies to non-numeric results) [facility] ([facility]) Cholesterol Risk Ratio 3.358 Normal (applies to non-n umeric results) [facility] ([facility]) Non-HDL-C 92 mg/dL Normal (applies to non-numeric resul ts) [facility] ([facility]) ID Date Data Source [id number] 08/09/2020 11:00:00 AM EST [facility] Name Value Range Interpretation Code Description Data Lilliana rce(s) Supporting Document(s) SARS coronavirus [address] [facility] This lab was ordered by [facility] and reported by [facility]. ID Date Data Source [id number] 08/03/2020 02:00:00 PM EST [facility] ([facility]) Name Value Range Interpretation Code Description Data Lilliana rce(s) Supporting Document(s) Appearance, Urine Laboratory test result [facility] ([facility]) Color, Urine Laboratory test result MEDE NT ([facility]) PH,Urine 7.0 units 5.0-9.0 [facility]) Specific [place] Urine Auto 1.008 1.002-1.035 [facility] ([facility]) Ketone, Urine Auto Laboratory test result [facility] ([facility]) Protein, Urine Auto Laboratory test result [facility] ([facility]) Glucose, Urine (Ua) Auto Laboratory test result [facility] ([facility]) Bilirubin, Urine Auto Laboratory test result [facility] Urobilinogen, Urine Auto 0.2 mg/dL 0.0-2.0 MEDEN T ([facility]) Nitrite, Urine Auto Laboratory test result [facility] ([facility]) Leukocyte Esterase, Urine Auto Laboratory test result [facility] ([facility]) RBC, Urine Auto 1 /HPF 0-3 [facility] ([facility]) WBC, Urine Auto 0 /HPF 0-3 [facility] ([facility]) Blood, Urine Blood Laboratory test result [facility] ([facility]) Bacteria, Urine Auto Laboratory test result [facility] ([facility]) Squamous Epithelial Cell Ur AU 0 /HPF 0-6 [facility] ([facility]) Hyaline Cast, Urine Auto 0 /LPF 0-1 MEDEN T ([facility]) ID Date Data Source [id number] 08/03/2020 02:00:00 PM EST [facility] ([facility]) Name Value Range Interpretation Code Description Data Lilliana rce(s) Supporting Document(s) Cobalamin (Vitamin B12) [Mass/volume] in Serum or Plasma 461 pg/mL 2 47-911 [facility] ([facility]) VITAMIN B12 NORMAL RANGE NORMAL 247 - 911 PG/ML INDETERMINATE 211 - 246 PG/ML DEFICIENT LESS THAN 211 PG/ML ID Date Data Source [id number] 08/03/2020 01:58:00 PM EST [facility] ([facility]) Name Value Range Interpretation Code Description Data Lilliana rce(s) Supporting Document(s) Laboratory test finding (navigational concept) 34.9 mg/L 1 .3-20.0 Above high normal [facility] ([facility]) Laboratory test finding (navigational concept) 162.3 ug/mg 0 .0-30.0 Above high normal [facility] ([facility]) Urine Creatinine 21.5 mg/dL 30.0-125.0 Below low normal [facility] ([facility]) ID Date Data Source [id number] 08/03/2020 01:58:00 PM EST [facility] ([facility]) Name Value Range Interpretation Code Description Data Lilliana rce(s) Supporting Document(s) Thyrotropin [Units/volume] in Serum or Plasma by Detec tion limit <= 0.05 mIU/L 1.85 uIU/mL 0.36-3.74 [facility] ([facility]) ID Date Data Source [id number] 08/03/2020 01:58:00 PM EST [facility] ([facility]) Name Value Range Interpretation Code Description Data Lilliana rce(s) Supporting Document(s) Triglyceride [Mass/volume] in Serum or Plasma 184 mg/dL 30 -150 Above high normal [facility] ([facility]) Cholesterol [Mass/volume] in Serum or Plasma 130 mg/dL 131-200 Below low normal [facility] ([facility]) Cholesterol in HDL [Mass/volume] in Serum or Plasma 45 mg/dL 35-60 [facility] ([facility]) Cholesterol in LDL [Mass/volume] in Serum or Plasma by calcu lation 48 CALC 50-159 Below low normal [facility] ([facility]) ID Date Data Source [id number] 08/03/2020 01:58:00 PM EST [facility] ([facility]) Name Value Range Interpretation Code Description Data Lilliana rce(s) Supporting Document(s) Glucose [Mass/volume] in Serum or Plasma 142 mg/dL 74-99 Above high normal [facility] ([facility]) 100-125 mg/dL PRE-DIABETES/FASTING >126 mg/dL DIABETES/FASTING Potassium [Moles/volume] in Serum or Plasma 4.2 meq/L 3.5-5.1 [facility] ([facility]) Urea nitrogen [Mass/volume] in Serum or Plasma 17 mg/dL 7-18 [facility] ([facility]) Sodium [Moles/volume] in Serum or Plasma 142 meq/L 136-145 [facility] ([facility]) Creatinine [Mass/volume] in Serum or Plasma 0.8 mg/dL 0.6-1.3 [facility] ([facility]) Calcium [Mass/volume] in Serum or Plasma 9.0 mg/dL 8.5-10.1 [facility] ([facility]) Chloride [Moles/volume] in Serum or Plasma 102 meq/L 98-107 [facility] ([facility]) Carbon dioxide, total [Moles/volume] in Serum or Plasma 30 meq/L 21 -32 [facility] ([facility]) Aspartate aminotransferase [Enzymatic activity/volume] in Serum or Plasma 14 U/L 15-37 Below low normal [facility] ([facility]) Alkaline phosphatase isoenzyme [Units/volume] in Serum or Pl asma 119 mg/dL 46-116 Above high normal [facility] ([facility]) Total Bilirubin 0.4 mg/dL 0.2-1.0 [facility] ([facility]) Proteinase 3 Ab [Units/volume] in Serum 7.2 g/dL 6.4-8.2 [facility] ([facility]) Albumin [Mass/volume] in Serum or Plasma 3.8 g/dL 3.4-5.0 [facility] ([facility]) Alanine aminotransferase [Enzymatic activity/volume] in Seru m or Plasma 20 U/L 12-78 [facility] ([facility]) Albumin/Globulin [Mass Ratio] in Serum or Plasma 1.12 CALC 1.00-1.90 [facility] ([facility]) Glomerular filtration rate/1.73 sq M pre dicted among non-blacks [Volume Rate/Area] in Serum or Plasma by Creatinine-based formula (MDRD) Laboratory test result [facility] ([facility]) Glomerular filtration rate/1.73 sq M pre dicted among blacks [Volume Rate/Area] in Serum or Plasma by Creatinine-based formula (MDRD) Laboratory test result [facility] ([facility]) <content>CHRONIC KIDNEY DISEASE STAGING PER NKF</content>
<content></content>
<content>STAGE I & II GFR >= 60 NORMAL TO MILDLY DECREASED</content>
<content>STAGE III GFR 30-59 MODERATELY DECREASED</content>
<content>STAGE IV GFR 15-29 SEVERELY DECREASED</content>
<content>STAGE V GFR <15 VERY LITTLE GFR LEFT</content>
<content>ESRD GFR <15 ON ANNEALING OPERATOR</content>
<content></content>
<content></content> ID Date Data Source [id number] 08/03/2020 01:58:00 PM EST [facility] ([facility] Name Value Range Interpretation Code Description Data Lilliana rce(s) Supporting Document(s) Hemoglobin A1c/Hemoglobin.total in Blood 8.4 % Above high normal [facility] ([facility]) Lab Result Notes: Pre-Diabetes 5.7 - 6.4 % Diabetes = or > 6.5% Glucose mean value [Mass/volume] in Blood Estimated fr om glycated hemoglobin 194 mg/dL 60-110 Above high normal [facility] ([facility]) ID Date Data Source [id number] 08/03/2020 01:58:00 PM EST [facility] ([facility] Name Value Range Interpretation Code Description Data Lilliana rce(s) Supporting Document(s) Leukocytes [#/volume] in Blood by Automated count 8.7 x10*3/UL 4.1-10 .9 [facility] ([facility]) Hemoglobin [Mass/volume] in Blood 12.4 g/dL 12.0-18.0 [facility] ([facility]) Hematocrit [Volume Fraction] of Blood by Automated count 36.3 % 37.0-51.0 Below low normal [facility] ([facility]) Erythrocytes [#/volume] in Blood by Automated count 4.27 x10*6/UL 4.2 0-6.30 [facility] ([facility] Cardiac [facility]athe[facility]) MCHC 34.3 g/dL 31.0-38.0 [facility] ([facility] Cardiac [facility]) MCH 29.1 pg 26.0-32.0 [facility] ([facility]) MCV 85.0 fL 80.0-97.0 [facility] ([facility]) Platelets [#/volume] in Blood by Automated count 345 x10*3/UL 140-440 [facility] ([facility] Catheterization [facility]) Erythrocyte distribution width [Ratio] by Automated count 14.4 % 11.6-13.7 Above high normal [facility] ([facility] Cardiac Catheterization [facility]) Platelet mean volume [Entitic volume] in Blood by Ga-Blaze 7.9 FL 7.8-11.0 [facility] ([facility] Cardiac Catheter[facility]) Lymphocytes/100 leukocytes in Blood by Automated count 26.4 % 10. 0-58.5 [facility] ([facility]) Laboratory test finding (navigational concept) 6.0 % 1.7-9.3 [facility] ([facility]) Neut % 67.6 % 37.0-92.0 [facility] ([facility]) Lymph # 2.3 x10*3/UL 0.6-4.1 [facility] ([facility]) Laboratory test finding (navigational concept) 0.5 x10*3/UL 0.1-0.6 [facility] ([facility]) Neutrophils [#/volume] in [place] by Manual count 5.9 x10*3/UL 2.0-7.8 [facility] ([facility]atheter[facility]) ID Date Data Source [id number] 08/03/2020 01:58:00 PM EST [facility] ([facility]) Name Value Range Interpretation Code Description Data Lilliana rce(s) Supporting Document(s) Calcidiol [Mass/volume] in Serum or Plasma Laboratory test result [facility] ([facility]) ID Date Data Source [id number] 08/03/2020 01:58:00 PM EST [facility] ([facility]) Name Value Range Interpretation Code Description Data Lilliana rce(s) Supporting Document(s) Microalb/Creat Ratio 162.3 ug/mg 0.0-30.0 [facility] ([facility]) Microalbumin Urine 34.9 mg/L 1.3-20.0 [facility] ([facility]) Urine Creatinine 21.5 mg/dL 30.0-125.0 [facility] ([facility]) ID Date Data Source [id number] 08/03/2020 01:58:00 PM EST [facility] ([facility]) Name Value Range Interpretation Code Description Data Lilliana rce(s) Supporting Document(s) Thyrotropin [Units/volume] in Serum or Plasma by Detec tion limit <= 0.05 mIU/L 1.85 uIU/mL 0.36-3.74 [facility] ID Date Data Source [id number] 08/03/2020 01:58:00 PM EST [facility] ([facility] [facility]) Name Value Range Interpretation Code Description Data Lilliana rce(s) Supporting Document(s) Cholesterol [Mass/volume] in Serum or Plasma 130 mg/dL 131-200 [facility] ([facility]) Triglyceride [Mass/volume] in Serum or Plasma 184 mg/dL 30-150 [facility] ([facility]) Cholesterol in HDL [Mass/volume] in Serum or Plasma 45 mg/dL 35-60 [facility] ([facility]) Cholesterol in LDL [Mass/volume] in Serum or Plasma by calcu lation 48 CALC 50-159 [facility] ([facility]) ID Date Data Source [id number] 08/03/2020 01:58:00 PM EST [facility] ([facility]) Name Value Range Interpretation Code Description Data Lilliana rce(s) Supporting Document(s) Urea nitrogen [Mass/volume] in Serum or Plasma 17 mg/dL 7-18 [facility] ([facility]) Glucose [Mass/volume] in Serum or Plasma 142 mg/dL 74-99 [facility] ([facility]) 100-125 mg/dL PRE-DIABETES/FASTING >126 mg/dL DIABETES/FASTING Creatinine 0.8 mg/dL 0.6-1.3 [facility] ([facility]) Sodium [Moles/volume] in Serum or Plasma 142 meq/L 136-145 [facility] ([facility]) Potassium [Moles/volume] in Serum or Plasma 4.2 meq/L 3.5-5.1 [facility] ([facility]) Chloride [Moles/volume] in Serum or Plasma 102 meq/L 98-107 [facility] ([facility]) Calcium [Mass/volume] in Serum or Plasma 9.0 mg/dL 8.5-10.1 [facility] ([facility]) Carbon dioxide, total [Moles/volume] in Serum or Plasma 30 meq/L 21 -32 [facility] ([facility]) Alkaline phosphatase isoenzyme [Units/volume] in Serum or Pl asma 119 mg/dL 46-116 [facility] ([facility]) Aspartate aminotransferase [Enzymatic activity/volume] in Serum or Plasma 14 U/L 15-37 [facility] ([facility] ) Total Bilirubin 0.4 mg/dL 0.2-1.0 [facility] ([facility]) Albumin [Mass/volume] in Serum or Plasma 3.8 g/dL 3.4-5.0 [facility] ([facility]) Alanine aminotransferase [Enzymatic activity/volume] in Seru m or Plasma 20 U/L 12-78 [facility] ([facility]) Proteinase 3 Ab [Units/volume] in Serum 7.2 g/dL 6.4-8.2 [facility] ([facility]) Glomerular filtration rate/1.73 sq M pre dicted among non-blacks [Volume Rate/Area] in Serum or Plasma by Creatinine-based formula (MDRD) Laboratory test result [facility] ([facility] ) A/G Ratio 1.12 CALC 1.00-1.90 [facility] ([facility]) Glomerular filtration rate/1.73 sq M pre dicted among blacks [Volume Rate/Area] in Serum or Plasma by Creatinine-based formula (MDRD) Laboratory test result [facility] ([facility]) <content>CHRONIC KIDNEY DISEASE STAGING PER NKF</content>
<content></content>
<content>STAGE I & II GFR >= 60 NORMAL TO MILDLY DECREASED</content>
<content>STAGE III GFR 30-59 MODERATELY DECREASED</content>
<content>STAGE IV GFR 15-29 SEVERELY DECREASED</content>
<content>STAGE V GFR <15 VERY LITTLE GFR LEFT</content>
<content>ESRD GFR <15 ON ANNEALING OPERATOR</content>
<content></content> ID Date Data Source [id number] 08/03/2020 01:58:00 PM EST [facility] ([facility]) Name Value Range Interpretation Code Description Data Lilliana rce(s) Supporting Document(s) Hemoglobin A1c/Hemoglobin.total in Blood 8.4 % [facility] ([facility]) Lab Result Notes: Pre-Diabetes 5.7 - 6.4 % Diabetes = or > 6.5% Glucose mean value [Mass/volume] in Blood Estimated fr om glycated hemoglobin 194 mg/dL 60-110 [facility] ([facility] ) ID Date Data Source [id number] 08/03/2020 01:58:00 PM EST [facility] ([facility]) Name Value Range Interpretation Code Description Data Lilliana rce(s) Supporting Document(s) Leukocytes [#/volume] in Blood by Automated count 8.7 x10*3/UL 4.1-10 .9 [facility] Erythrocytes [#/volume] in Blood by Automated count 4.27 x10*6/UL 4.2 0-6.30 [facility]) Hemoglobin [Mass/volume] in Blood 12.4 g/dL 12.0-18.0 [facility] ([facility]) MCV 85.0 fL 80.0-97.0 [facility] Hematocrit [Volume Fraction] of Blood by Automated count 36.3 % 3 7.0-51.0 [facility] ([facility]) MCH 29.1 pg 26.0-32.0 [facility] [facility] Erythrocyte distribution width [Ratio] by Automated count 14.4 % 11.6-13.7 [facility] ([facility]) MCHC 34.3 g/dL 31.0-38.0 [facility]) Platelets [#/volume] in Blood by Automated count 345 x10*3/UL 140-440 [facility] ([facility]) MPV 7.9 FL 7.8-11.0 [facility] Neut % 67.6 % 37.0-92.0 [facility] Lymph % 26.4 % 10.0-58.5 [facility]) Mid % 6.0 % 1.7-9.3 [facility]) Mid # 0.5 x10*3/UL 0.1-0.6 [facility] ([facility]) Lymph # 2.3 x10*3/UL 0.6-4.1 [facility] ([facility]) Neut # 5.9 x10*3/UL 2.0-7.8 [facility] ([facility]) ID Date Data Source [id number] 07/24/2020 05:30:06 PM [facility] Name Value Range Interpretation Code Description Data Lilliana rce(s) Supporting Document(s) Progress Note [facility] KPPYHr7tKmNBGkUr65/MVEufUPZgf8YiRSrtLJf1DRgbYKWcY8RuSCX9lD2eKYP4JWbBOuBbEpYrLqSq lbm [file] AgICAgICAgICAgICAgICAgICAgICAgICAgICAgICAg ICAgICAgICAgICAgICAgICAgICANCiAgICAgICAgICAgICAgICAgICAgICAgICAgICAgICAgICAgICAg ICAgICAgICAgICAgICAgICAgICAgICAgICAgICAgICAgICAgICAgICAgICAgICAgICAgICAgICAgICAg ICANCiAgICAgICAgICAgICAgICAgICAgICAgICAgIC AgICAgICAgICAgICAgICAgICAgICAgICAgICAgICAgICAgICAgICAgICAgICAgICAgICAgICAgICAgIC AgICAgICAgICAgICANCiAgICAgICAgICAgICAgICAgICAgICAgICAgICAgICAgICAgICAgICAgICAgIC AgICAgICAgICAgICAgICAgICAgICAgICAgICAgICAg ICAgICAgICAgICAgICAgICAgICAgICANCiAgICAgICAgICAgICAgICAgICAgICAgICAgICAgICAgICAg ICAgICAgICAgICAgICAgICAgICAgICAgICAgICAgICAgICAgICAgICAgICAgICAgICAgICAgICAgICAg ICAgICANCiAgICAgICAgICAgICAgICAgICAgICAgIC AgICAgICAgICAgICAgICAgICAgICAgICAgICAgICAgICAgICAgICAgICAgICAgICAgICAgICAgICAgIC AgICAgICAgICAgICAgICANCiAgICAgICAgICAgICAgICAgICAgICAgICAgICAgICAgICAgICAgICAgIC AgICAgICAgICAgICAgICAgICAgICAgICAgICAgICAg ICAgICAgICAgICAgICAgICAgICAgICAgICANCiAgICAgICAgICAgICAgICAgICAgICAgICAgICAgICAg ICAgICAgICAgICAgICAgICAgICAgICAgICAgICAgICAgICAgICAgICAgICAgICAgICAgICAgICAgICAg ICAgICAgICANCiAgICAgICAgICAgICAgICAgICAgIC AgICAgICAgICAgICAgICAgICAgICAgICAgICAgICAgICAgICAgICAgICAgICAgICAgICAgICAgICAgIC AgICAgICAgICAgICAgICAgICANCiAgICAgICAgICAgICAgICAgICAgICAgICAgICAgICAgICAgICAgIC AgICAgICAgICAgICAgICAgICAgICAgICAgICAgICAg ICAgICAgICAgICAgICAgICAgICAgICAgICAgICANCjw/eCAlB9llsVTbwpT4C2csHx7KVm0YOP7hl4Qf LBEpMBriacZmVzwBQsZnBYGgFptUTku2WMygFA9IvGEyO3ZhC1KcATggOK8MEZXaASLoyNHdDYFwXIUz DnJ8GHIgWUmjCO9MtIYuQJymOYJzPGFyJyJlYXUyQR LuZJMzKPLxPQAPJL4CExScC5OybY01MQUDNa3+WDbnboNxVljHLpX5NEHwv2TcOOr4ZM9PXRZqAeeer6 ImWxnzRNIDEHgiBC7WVGZ6WSE1MWCvRh6YSMUvK333pvTwIA2VVu9KQxBoZB8nyg8HTtjwFFVwTpwVAu v0NUudTK6YdOPtSPkRts1ohxEtwiRBh6EygaWjnNSR QLAyCGRhRYBwfRMvn8PsqO3eJS9NBCY1QCDsWh5cWKMlEEOePyAmULQOYV8YTULxXBUkyWPwZGGvXGBS FP5PNYshGJI7LCMipiNyoJMdDLuoKQ1MOBXsviRmJkxjMBZPJZa+Hi9SVN7qe3FnFHgaCDWiPH5cww9I FPmKLqMxK8L1sGXyO6X9WHxoJl0TTFLdNBKmImIfKA UXTPfwLU8ODD5datT0UG7NoPBdKEYpVSKnuZLgAOr7U96ksTCdDHwcUG8BCVG+Renee+Qj9LWFZkNPVeVV WfMiBuEILERwRjU8LhO8CLh4AsQ5WeAT45fJbqboDtVExiVQ7NSI1eFCRoQSSPQF9RdJDfzP8rlqSzTO HgWPVJMiLnY68laVZwGBMnVCV8DUAeRi1RRWSqK5No qhJimJgrieAeVPCuLDHVZC6OXBwlubLvpONtoMbePT37hQdjHO4UAk7SKgMzGU4hae6AhTXmYo3SSBVz EP0FFLHkTAViAYUyCJC1JCNaSkIgUChhVCRvYCKwWNR9AEWxSHHtRR7XOwTxPPTlQjilNvKdRHQpYSPc jc9NCMQoBZBnPYj8GHFjVFCjKNUeDJtoWUKaTYFvTA U4DRZhUTVgNI9DSbErDEZdESIeGhRfIQBeCRJgdj5KIAJqCPEfHmGkRNCpSJShCZJuLRagXKGtVCD3PB XeOGHpPRLnJZ1OCbWeFJKpULQfQeBkZHGuSAKncx5WJIRvDDHlENL7VMRlPLIyDKDvKChlYTYkEBV4WL g2KMMwZYKnLT7YNgSlFMBqIHT8LsjzSZAuPFRata6G JTSgSQRwSJa0VnAyBXJfCTWrWSynGUTlVAQcQzYjJCObZWUgHF2FWtPbMAMwQYU1GIKuBWViEMEalu6H JOMxUXZdJcC3YeDiWCBwNLXdBTcjTTZhDUXgDXLdIIHxQJCbWT3RRsGjOGMkDKVtHCNsKRIqFKHqum6E CDAeQQEeYhIhJeJqZCLoVYYvICivLMTnSRC7KWFzMA TgGOPsYY5NFrQlXIZaDsFsPFxhLFAdZFCyup2RTEWkXWEvNPO7TkLmQRXaGGRkCDpkFRYrYQS7FyG6NT MtTZThQF5FIdTuSCRjIhS0STVzPHGaVMNith7ALGJbWVPxGmjpHSTkPAWcRNGbNGlpSWZjGQP3QTDpZL NpAHMcLR1MMnJnPKFhEbcwIVDoNVVrSUAtcg6QDBLd AEVkEbQfAWUqEXXmZHQgBLloGJFeHBL8BLw0XFGzNNKeGW5GGgUtVBTkUywiFLLiZMAeWMBksb6JREGm QWSgVYN9VNAiLUDrYDEkZZv6adEnbQEiRBs8KG3ZD8QakxVrZoDTQc7La867DVBrOYLdYe9XZ3jnCl1r IIXiYFREFc2YCIg8COAgWYHkGuMwGtF5HWF4OzR3WI XuEHV6JVyzUHToFVF+CXgdGXJ5KDOuQYPmMPCqNadsUdMbYOR3KcPdV3F2VRKrXU1kMXYDAs6+DQpzdG AqzJytFXSZWbO2WJXxHKxmBFJXHb3D ID Date Data Source [id number] 07/24/2020 05:29:56 PM [facility] Name Value Range Interpretation Code Description Data Lilliana rce(s) Supporting Document(s) Progress Note [facility] BXPAEq1sGkBSRwKv49/ZXTsuFQFnv3YiQTagATl1YBurGOZyN6EdKYK4pL0bTJL2CJrGLjOgYqSuHzQl lbm [file] ID Date Data Source [id number] 07/03/2020 12:39:00 PM EST [facility] ([facility] Name Value Range Interpretation Code Description Data Lilliana rce(s) Supporting Document(s) Creatinine For GFR 0.86 mg/dL 0.55-1.30 Normal (applies to non -numeric results) [facility] ([facility] Glomerular Filtration Rate Laboratory test result Normal (applies to non- numeric results) [facility] ([facility]) <content>Units are mL/min/1.73 m2</content>
<content></content>
<content>Chronic Kidney Disease Staging per NKF:</content>
<content></content>
<content>Stage I & II GFR >=60 Normal to Mildly Decreased</content>
<content>Stage III GFR 30- 59 Moderately Decreased</content>
<content>Stage IV GFR 15-29 Severely Decreased</content>
<content>Stage V GFR <15 Very Little GFR Left</content>
<content>ESRD GFR <15 on ANNEALING OPERATOR</content>
<content></content> ID Date Data Source [id number] 07/03/2020 12:39:00 PM EST [facility] ([facility]) Name Value Range Interpretation Code Description Data Lilliana rce(s) Supporting Document(s) Glomerular Filtration Rate Laboratory test result [facility] ([facility]) <content>Units are mL/min/1.73 m2</content>
<content></content>
<content>Chronic Kidney Disease Staging per NKF:</content>
<content></content>
<content>Stage I & II GFR >=60 Normal to Mildly Decreased</content>
<content>Stage III GFR 30- 59 Moderately Decreased</content>
<content>Stage IV GFR 15-29 Severely Decreased</content>
<content>Stage V GFR <15 Very Little GFR Left</content>
<content>ESRD GFR <15 on ANNEALING OPERATOR</content>
<content></content> Creatinine For GFR 0.86 mg/dL 0.55-1.30 [facility] ([facility]) ID Date Data Source [id number] 06/29/2020 12:44:01 PM EST [facility] Name Value Range Interpretation Code Description Data Lilliana rce(s) Supporting Document(s) &PDF [facility] KDCBOf1kTgRIJaQm97/OJHexOVJyw3HqGUxpECf9QAbwESDqC5QkuFueRNPDY2VLRT2jI8QTGY3gIYGm oRX [file] YFG4oPQ/5xsqQm6QIhQ/s44g365Es59vv2h4c7081B maria alejandra/aDKS8TuQX6yOaw5119bJc6pb/seuOXGvwee8yUTCJCtm6NfJEh+MkPeE5feLQ+tyLvBuAxnX56RT [file] oYZHj5w4Xd4KpRG6noYVLpYGGsVr4LcI1nev4h9PI9ea3ZwTfu2NifGmsCsSN4iWxSUGzNt0T6jA+[employer] v1zzn4bOP1cPM8zzMHB2xtfhO/qbrNNG7Uy/Wzwwx15DtkFE8o75Cv8VaioYyuSDTPnZlyRmn5fMGFG9 fOrbsF4vI7Sc/Lara+78x71r3qRsIqIREt9A1eG4ofj [file] ogICAgICAgICAgICAgICAgICAgICAgICAgICAgICAgICAgICAgICAgICAgICAgICAgICAgICAgICAgIC AgICAgICAgICAgICAgICAgICAgICAgICAgICAgICAg ICAgICAgICAgDQogICAgICAgICAgICAgICAgICAgICAgICAgICAgICAgICAgICAgICAgICAgICAgICAg ICAgICAgICAgICAgICAgICAgICAgICAgICAgICAgICAgICAgICAgICAgICAgICAgICAgDQogICAgICAg ICAgICAgICAgICAgICAgICAgICAgICAgICAgICAgIC AgICAgICAgICAgICAgICAgICAgICAgICAgICAgICAgICAgICAgICAgICAgICAgICAgICAgICAgICAgIC AgDQogICAgICAgICAgICAgICAgICAgICAgICAgICAgICAgICAgICAgICAgICAgICAgICAgICAgICAgIC AgICAgICAgICAgICAgICAgICAgICAgICAgICAgICAg ICAgICAgICAgICAgDQogICAgICAgICAgICAgICAgICAgICAgICAgICAgICAgICAgICAgICAgICAgICAg ICAgICAgICAgICAgICAgICAgICAgICAgICAgICAgICAgICAgICAgICAgICAgICAgICAgICAgDQogICAg ICAgICAgICAgICAgICAgICAgICAgICAgICAgICAgIC AgICAgICAgICAgICAgICAgICAgICAgICAgICAgICAgICAgICAgICAgICAgICAgICAgICAgICAgICAgIC AgICAgDQogICAgICAgICAgICAgICAgICAgICAgICAgICAgICAgICAgICAgICAgICAgICAgICAgICAgIC AgICAgICAgICAgICAgICAgICAgICAgICAgICAgICAg ICAgICAgICAgICAgICAgDQogICAgICAgICAgICAgICAgICAgICAgICAgICAgICAgICAgICAgICAgICAg ICAgICAgICAgICAgICAgICAgICAgICAgICAgICAgICAgICAgICAgICAgICAgICAgICAgICAgICAgDQog ICAgICAgICAgICAgICAgICAgICAgICAgICAgICAgIC AgICAgICAgICAgICAgICAgICAgICAgICAgICAgICAgICAgICAgICAgICAgICAgICAgICAgICAgICAgIC AgICAgICAgDQogICAgICAgICAgICAgICAgICAgICAgICAgICAgICAgICAgICAgICAgICAgICAgICAgIC AgICAgICAgICAgICAgICAgICAgICAgICAgICAgICAg LPCcLWEoENLcCASsCHIbFQIiJZw3V3siDCYzVTMfWW4bSZx6Kz0+XFwYZbOlJOF3lgXxqK4XJC2xw4Ca RMoqOWGzr6FmDWs5EU3SBWRtBYddAX8YPQseln8RSHOxPVPhyKWVl9ilKfWoAAP2WGBzEbaqSW2DBVWn A8opfaEyKSQhQAXTQLckXEGBAWhaJZBADQZwHCNrMk DgBdPaIONjAF2JTMJhZ413exEyRJ3ZIo8DNoWmJX2cuv1DPwNyNEGgCunNWus9IQekLM1SzLWpjMHmHT HdUPAUGfQyC1ebk4KcVbSxABOTZNfaGD2Ay6LitBXxLRh+Nd8CZP2el9PeHBdoGQSjRR4hrg0SVHxQDe TbE0QjzBrcHNttkTvbceMsNR4EIEDfQVOpgRDwRVsp XOKWGK2DLEzcJXO8BvWoyoNipWIrEQucGS7CZAVmrgIzDcBeCBFKYBo+Ig5YUR2jw0JwDCmaHPNiLK2h rn7KFKzAKlJzD3P5cMCvW6E0ICszKn3VSJUjXEMlIpFjVNDSNMroNG4TAU9qmbN0PO9FtYJgKHIkZNAc dWPeRYo7C99ewMFyPSepHY5ZBRP+Renee+Bv4ADSBaFT FoQLLgXcGcJHWPUfYtI9QaM4VVi0XmE9QaMY82tMjzatLcRIpwOF7TAY1zVWNzFQUVMQ1PuHIhzI8wow JkFeRpTIEDFeCzQ16ujYIsAKOwMPRgOFWkRo5FCYBuC9OsefJgsMttjnNxKEQpJSZLLG2CAQictlBlkC DnuHonAK99gZqvJH0HNq2HDsAfIY8hsh7LfRJpVj7A ONYwXc5SSPPsYDPbLMSqZCH5RBXaZfFjFUoqBRRjLAOhSSO9HWIzVSYnDJ4WCqWfPBXsLxifYPBzCYUi WHRejr0IOLNcEME5CKn6HuUfDBJxJCMsOGwqTXXlDHZkHYevBUGxXDReGV5UCaHgSQJsNINvPvGrNVWk RIWsop6BZBZuOKUzBhB1OcRmMZZePFJpJYjrCFBpZQ K3KldnHLYiWQTfJO4RKpHfKMKvHII3IBMdTILfYBDcpn3ZHDAmFXAhCwD7RCLcWZXcIVSgDPnoWFHwUE P4KwRsGCEzBYUeWX5HHdLxYOKlFVupRQMoEPLjEEExcj2ZLUCrBWXmLEL2YnJhJTTxHHLvIRlnFUWrKM DoHcT1EPReYWNyXW5RCzKeBRXpUQZ1MOLzHDBsELAc yb9ZLCEfZNAcBKhgBVRhIUDfJYOaSOmpCSTaYDCtUCQ9HPPhXDHmDM5PMwZjJYTkWBIgVKWmBNUkJZTy ev0VWWOdPRTtCnO2KWMmWJCaDYZkGJsrPEAwOOHqRCPwPHQrFKYdTP5IElVrTQKmPIE3SgidCEDsQCGx mc7QAUKnTXDvFAV6RESzQUHqRMVcVClxSWUzAVF0CM WtFYFbKLHmWA6BWeIhXTBhQRruXjZsHFAeQKVvdx5OWUQoPMJqMBB8IGZiRHZrFDUmJSbzYJVhGMD5AV RoBIOpTKLjIS9PQeMzGRBmVwBvCTGlNPXbKDLzoh3RPMKkQEUsXFFpADLhPZXvRKFhAEobEVHuQFDsKH Z8PNJnSJGjVH3KFoGrQYInHoPiACktHZZrONSovk3J JWXtFSH0ILR7LcHsDUHwXJQxSNrrCELpBLu3MWCuJWLrNAGnPV8PCjYpLZRkWjb4KlBsDYXcGEXxjn8G QRBdUCT2MNW2YuKwGFVkPQWeXQmeXXHmDSgwNKM1NXBfRNJwFF0MQlXlAPNuUILbCHcnRCSxCAFkod4F iOHpaNajox5DBDiWEh1FvVuzSER2WDcpAc0kbTPtBP CtYBUBXf3IhpAkJAQjZGJQUScjCHKuHXzoWMIcSVZgWOHiJ4LpSrEfFVw9T1H8ANLcRQAmIQNiDsX5MY S9D6OgASAdVTUkA6G9CMZbEIV3OZn5RyL5NKSjHDQ+DV3rNPr+Tl7Ps5FwgfG3mjKwBGh3UADpWJ5VMM JKD9IOPe== ID Date Data Source [id number] 06/29/2020 11:25:42 AM EST [facility] Name Value Range Interpretation Code Description Data Lilliana rce(s) Supporting Document(s) POC NOVA GLU 261 mg/dL (70-99) H [facility] CLINICAL STAFF ID Date Data Source [id number] 06/29/2020 11:05:53 AM EST [facility]FORMATION[facility] Name Date of Age Gend*PT [id number] Aura Garcia 1950 70 years F HOPPT Location Admission Date/Time Visit ID Attending [id number] 06/29/20 1018 --- Sherry Cai MD([id number]) EPI ID CSN Admitting Provider [id number] Sherry Cai MD([id number])Updated H&PPlease see the scanned/dictated outpatient note.I have reviewed the note, clinical history and physical exam findings. Therehave been no significant changes.Plan as outlined in the outpatient note.Risk/benifit/alternative of cardiac catheterization was discussed withpatient/family. Risks included, but not limited to; DE, CVA, , renalimpairment, vascular complication, and need for emergency surgery were discussedand accepted by patient.Sherry Cai MD, [facility] ADAAIInterventional Attorney General Name Value Range Interpretation Code Description Data Lilliana rce(s) Supporting Document(s) ID Date Data Source [id number] 06/29/2020 11:02:42 AM EST [facility] Name Value Range Interpretation Code Description Data Lilliana rce(s) Supporting Document(s) EKG [facility] ISTJSo7nLkDIXrJzw5TvYwQmGGTjXE4ubek5E8F9qTBcH9ShoYGyh4yzJ4SwB3YmIBRgGKMOPV0ImVBx jb2 [file] track sweeper/FHoQ+9hLe0DFhHLR2wGS49hE+XjfdgBkwSo0DXKx0eq+58GR6lGMQUvNkLFHCtcgDUV261Iu4sX5w [file] MDAwMDAgbiAKMDAwMDAwMTczNCAwMDAwMCBuIAowMD RbFFWkSCV5PRTsEVSeZN2bWsOwFSLwVPTxLLCbEnS5DsKkTyGZkVNsmFdtaqz8UFkoI1k2PTWnPUehYG 2wffHbPYOtAsfjIu9jnWA8GHBdJhlRFo3Xe3PkczO9iyGaJpB7EJjjRaXqUP7W ID Date Data Source [id number] 06/25/2020 10:30:00 AM EST [facility] ([facility] Name Value Range Interpretation Code Description Data Lilliana rce(s) Supporting Document(s) Laboratory test finding (navigational concept) Laboratory test result [facility] ([facility]) This nucleic acid amplification test was developed and its performance characteristics determined by [employer]. Nucleic acid amplification tests include PCR and [...] detected) result in this assay. Performed at: [address], [place], [place] [id number] [employer] Grade Teacher: Savannah Borja PhD, Phone: [phone] Not Detected ID Date Data Source [id number] 06/25/2020 10:30:00 AM EST [facility] Name Value Range Interpretation Code Description Data Lilliana rce(s) Supporting Document(s) SARS coronavirus [address] [facility] This lab was ordered by [facility] and reported by [facility]. ID Date Data Source [id number] 06/08/2020 09:15:[address] [facility] Name Value Range Interpretation Code Description Data Lilliana rce(s) Supporting Document(s) Progress Note [facility] VTSYAm8zOxLJTjDf06/QOYdjWNVju3AkISlzPPs4NEtpDFToA9OtRZT2vF5oPSC9HHaLRcNkInOvRdP0 [facility] [file] GoOgNYs4AyS+LE3wUCx+Dn9Xb1UucfF9egKhTJf4TPR1AV5GBIXSA9OUDs== ID Date Data Source [id number] 06/04/2020 04:00:00 PM EST [facility] ([facility] Name Value Range Interpretation Code Description Data Lilliana rce(s) Supporting Document(s) Glucose, Fasting 237 mg/dL 70-100 Above high normal [facility] ([facility]) Blood Urea Nitrogen 30 mg/dL 7-18 Above high normal [facility] ([facility]) Glomerular Filtration Rate 56.9 Normal (applies to n on-numeric results) [facility] ([facility]) <content>Units are mL/min/1.73 m2</content>
<content></content>
<content>Chronic Kidney Disease Staging per NKF:</content>
<content></content>
<content>Stage I & II GFR >=60 Normal to Mildly Decreased</content>
<content>Stage III GFR 30- 59 Moderately Decreased</content>
<content>Stage IV GFR 15-29 Severely Decreased</content>
<content>Stage V GFR <15 Very Little GFR Left</content>
<content>ESRD GFR <15 on ANNEALING OPERATOR</content>
<content></content> Creatinine For GFR 1.02 mg/dL 0.55-1.30 Normal (applies to non -numeric results) [facility] ([facility]) Sodium Level 138 meq/L 136-145 Normal (applies to non-numeric res ults) [facility] ([facility]) Potassium Serum 4.0 meq/L 3.5-5.1 Normal (applies to non-numeric results) [facility] ([facility]) Carbon Dioxide Level 34 meq/L 21-32 Above high normal [facility]) Chloride Level 101 meq/L 98-107 Normal (applies to non-numeric r esults) [facility] ([facility]) Anion Gap 3 meq/L 8-16 Below low normal [facility]) Calcium Level 9.7 mg/dL 8.8-10.2 Normal (applies to non-numeric re sults) [facility] ([facility]) ID Date Data Source [id number] 06/04/2020 04:00:00 PM EST [facility] ([facility]) Name Value Range Interpretation Code Description Data Lilliana rce(s) Supporting Document(s) White Blood Count 9.9 10 4.0-10.0 Normal (applies to non-numeri c results) [facility] ([facility]) Hemoglobin 12.0 g/dL 12.0-15.5 Normal (applies to non-numeric resul ts) [facility] ([facility]) Hematocrit 38.1 % 36.0-47.0 Normal (applies to non-numeric resul ts) [facility] ([facility]) Red Blood Count 4.27 10 4.00-5.40 Normal (applies to non-numeric results) [facility] ([facility]) Mean Corpuscular Volume 89.2 fl 80.0-96.0 Normal ( applies to non-numeric results) [facility] Mean Corpuscular HGB Conc 31.5 g/dL 32.0-36.5 Below low normal [facility] ([facility]) Mean Corpuscular Hemoglobin 28.1 pg 27.0-33.0 Norm al (applies to non-numeric results) [facility] ([facility] Neutrophils % 60.0 % 36.0-66.0 Normal (applies to non-numeric re sults) [facility] ([facility]) Red Cell Distribution Width 16.3 % 11.5-14.5 Above high normal [facility] ([facility]) Platelet Count, Automated 350 10 150-450 Normal (applies to non-numeric results) [facility] ([facility] Eos % 2.1 % 0.0-3.0 Normal (applies to non-numeric resul ts) [facility] ([facility]) [place] % 7.2 % 0.0-5.0 Above high normal [facility] ([facility]) Lymph % 29.7 % 24.0-44.0 Normal (applies to non-numeric resul ts) [facility] ([facility]) Baso % 0.5 % 0.0-1.0 Normal (applies to non-numeric resul ts) [facility] ([facility]) Immature Granulocyte % 0.5 % 0-3.0 Normal (applies to non-n umeric results) [facility] ([facility]) Neutrophils # 5.9 10 1.5-8.5 Normal (applies to non-numeric re sults) [facility] ([facility]) Lymph # 2.9 10 1.5-5.0 Normal (applies to non-numeric resul ts) [facility] ([facility]) Nucleated Red Blood Cell % 0.0 % 0-0 Normal (applies to n on-numeric results) [facility] ([facility]) Eos # 0.2 10 0.0-0.5 Normal (applies to non-numeric resul ts) [facility] ([facility]) Baso # 0.1 10 0.0-0.2 Normal (applies to non-numeric resul ts) [facility] ([facility]) [place] # 0.7 10 0.0-0.8 Normal (applies to non-numeric resul ts) [facility] ([facility]) ID Date Data Source [id number] 06/04/2020 04:00:00 PM EST [facility] ([facility]) Name Value Range Interpretation Code Description Data Lilliana rce(s) Supporting Document(s) Blood Urea Nitrogen 30 mg/dL 7-18 [facility] ([facility]) Glucose, Fasting 237 mg/dL 70-100 [facility] ([facility]) Sodium Level 138 meq/L 136-145 [facility] ([facility]) Glomerular Filtration Rate 56.9 [facility] ([facility]) <content>Units are mL/min/1.73 m2</content>
<content></content>
<content>Chronic Kidney Disease Staging per NKF:</content>
<content></content>
<content>Stage I & II GFR >=60 Normal to Mildly Decreased</content>
<content>Stage III GFR 30- 59 Moderately Decreased</content>
<content>Stage IV GFR 15-29 Severely Decreased</content>
<content>Stage V GFR <15 Very Little GFR Left</content>
<content>ESRD GFR <15 on ANNEALING OPERATOR</content>
<content></content> Creatinine For GFR 1.02 mg/dL 0.55-1.30 [facility] ([facility]) Carbon Dioxide Level 34 meq/L 21-32 [facility] ([facility] Potassium Serum 4.0 meq/L 3.5-5.1 [facility] ([facility]) Chloride Level 101 meq/L 98-107 [facility] ([facility]) Calcium Level 9.7 mg/dL 8.8-10.2 [facility] ([facility]) Anion Gap 3 meq/L 8-16 [facility] ([facility]) ID Date Data Source [id number] 06/04/2020 04:00:00 PM EST [facility] ([facility]) Name Value Range Interpretation Code Description Data Lilliana rce(s) Supporting Document(s) Hemoglobin 12.0 g/dL 12.0-15.5 [facility] ([facility]) White Blood Count 9.9 10 4.0-10.0 [facility] ([facility]) Red Blood Count 4.27 10 4.00-5.40 [facility] ([facility]) Hematocrit 38.1 % 36.0-47.0 [facility] ([place] [facility]) Mean Corpuscular Volume 89.2 fl 80.0-96.0 [facility] ([facility]) Mean Corpuscular Hemoglobin 28.1 pg 27.0-33.0 [facility] ([facility]) Red Cell Distribution Width 16.3 % 11.5-14.5 [facility] ([facility]) Platelet Count, Automated 350 10 150-450 [facility] NT ([facility]) Mean Corpuscular HGB Conc 31.5 g/dL 32.0-36.5 [facility] NT ([facility]) Neutrophils % 60.0 % 36.0-66.0 [facility] ([facility]) Lymph % 29.7 % 24.0-44.0 [facility] ([place] [facility]) Baso % 0.5 % 0.0-1.0 [facility] ([place] [facility]) Eos % 2.1 % 0.0-3.0 [facility] ([place] [facility]) [place] % 7.2 % 0.0-5.0 [facility] ([place] [facility]) Nucleated Red Blood Cell % 0.0 % 0-0 [facility] ([facility]) Neutrophils # 5.9 10 1.5-8.5 [facility] ([facility]) Immature Granulocyte % 0.5 % 0-3.0 [facility] ([facility]) [place] # 0.7 10 0.0-0.8 [facility] ([place] [facility]) Eos # 0.2 10 0.0-0.5 [facility] ([facility] [facility]) Lymph # 2.9 10 1.5-5.0 [facility] ([facility] [facility]) Baso # 0.1 10 0.0-0.2 [facility] ([place] [facility]) ID Date Data Source [id number] 06/01/2020 09:50:00 AM EST [facility] ([facility]) Name Value Range Interpretation Code Description Data Lilliana rce(s) Supporting Document(s) Laboratory test finding (navigational concept) Laboratory test result [facility] ([facility]) This nucleic acid amplification test was developed and its performance characteristics determined by [employer]. Nucleic acid amplification tests include PCR and [...] detected) result in this assay. Performed at: [facility] [address] [place], [place] [id number] [employer] Grade Teacher: Savannah Borja PhD, Phone: [phone] Not Detected ID Date Data Source [id number] 06/01/2020 09:50:00 AM EST [facility] ([facility]) Name Value Range Interpretation Code Description Data Lilliana rce(s) Supporting Document(s) Coronavirus 2019 Nasopharygeal Laboratory test result [facility] ([facility]) This nucleic acid amplification test was developed and its performance characteristics determined by [facility]. Nucleic acid amplification tests include PCR and [...] detected) result in this assay. Performed at: [facility] [address], [place], [place] [id number] Fourth Grade Teacher: Savannah Borja PhD, Phone: [phone] Not Detected ID Date Data Source [id number] 06/01/2020 09:50:00 AM EST [facility] Name Value Range Interpretation Code Description Data Lilliana rce(s) Supporting Document(s) SARS coronavirus 2 RNA [facility] This lab was ordered by [facility] and reported by [facility]. ID Date Data Source [id number] 05/21/2020 04:05:00 PM EST [facility] Name Value Range Interpretation Code Description Data Lilliana rce(s) Supporting Document(s) Microorganism or agent identified in Unspecified specimen [facility] This lab was ordered by [facility] and reported by Department of Pathology and Laboratory Medicine at [facility]. ID Date Data Source [id number] 05/20/2020 08:25:40 PM [facility] Name Value Range Interpretation Code Description Data Lilliana rce(s) Supporting Document(s) Progress Note [facility] [id number] [facility] [file] AgICAgICAgICAgICAgICAgICAgICAgICAgICAgICAg ESYdAZIcFIHeMQEmMUAzIJCxBAGeSKUdZIOyDZTuGGCqIUKvIZPiRWEzTREpBWYqMGEeLLOzUK7MCRIl ICAgICAgICAgICAgICAgICAgICAgICAgICAgICAgICAgICAgICAgICAgICAgICAgICAgICAgICAgICAg ICAgICAgICAgICAgICAgICAgICAgICAgICAgICAgIC TnSCErYD1HIFVeKEIhVKGoPUJbNMFgNRSkXWBbSTHtJKFcAIDfBEVgSYCgNFOqRNRrCHTxCTBaDWKhFC WvYIErKKLiZTXxUUVoINKsYROaPPKmBIViBJOhNXDbGUFkREMuNQYxUDXpGBFrPO1GEMHrURJjDLVwCM AgICAgICAgICAgICAgICAgICAgICAgICAgICAgICAg NVNeDSFbKLHvVZSrIVRvOBVtLWJqTUSzMTBiOEEuODAiGLJoKWClYZLnBRTjRVUkMYBdBZPuAHZiFY0I ICAgICAgICAgICAgICAgICAgICAgICAgICAgICAgICAgICAgICAgICAgICAgICAgICAgICAgICAgICAg ICAgICAgICAgICAgICAgICAgICAgICAgICAgICAgIC GcZBXnDMZeUQ1JXXRaVJUfTTYaDGHyIDOzPGPeJHWsZCQlVDMdFNLrHMDrUJRrDZSdLOIxZCJxBNNmVY EgNWIgELJsDZRgCJDrTTCrLGQxIYArGANeUZLjEICeRVMtZMDvGIPiESFiDNQrXKCjKD1LNSZqITVuBK AgICAgICAgICAgICAgICAgICAgICAgICAgICAgICAg ICAgICAgICAgICAgICAgICAgICAgICAgICAgICAgICAgICAgICAgICAgICAgICAgICAgICAgICAgICAg MO1EFNMsEKEaYJZaYTNmUYTiPYFlRUXeBKAvOZLoWBYzUEPzYERhLYGyXYYgSRZlVPMlKLDxILChTXVp ICAgICAgICAgICAgICAgICAgICAgICAgICAgICAgIC SgSXFwVVFmFTWbZR2LNSDuOOKoCWWvWIHoJRYzEPCzLKTaVUTvCXTyGVYdRAMpKODgVLOyOGYiPLJmQM PjDDHvSWIzHNRdURDhTEMaNQSsDYUzXSSaGNImTPCbNWHyACUwRKCyFCGgREZoJPGtQNNjCR5UDJ89vQ Lvq1X5IVKwYR2fvpl/Mb1QTPvkkmNpuMWsWW5INcLt SO0ask9LGgDqAB9kew8XEVsMWpDjD9G7zXSiJAZsLKJXBpNuT42vDXrmKe60WAjdBTKlJfKcEBc8Vr2N JvTbR6veVMWhBdD0OHCfUpEdVSwuQF2Hq0XwoPQiSVe+Ai2AFE3of0PaYVnfADXnKQ4mjl6MNGmLTjHg Z6VkzjS1MMX3FRDkIg1MHFPaCPCqgIJiKSIlRVXLEa CwC6CysY17AQOMGy2+EFkpwzKuAoyOMnW9ZIKuk1HdGXe2AP1AIUWoKQa7fENvOEJzY1Czj0SrFv50TD TuEtqgLEMxH3vzZrCsL7OsnQbvQYSAKnDatGCjFJ4iDZ4bVIYwKAB0YiJ6ABXMAU5KLVQrUPWpzHIwNW NdBSQYHZ5KSYlsPMU0NZLpygExdCGlXBfbVR1BDOUs bnQgMTQgMCBSDQo+Ta1WPG0vj3NsPMjoVdJvJV7vfk8LXFgVLjLaM2A8zDYiR9K7KYhpSj0ZJMHdXXFq WZXjPTHIAPtpHN8OUA1azeU2BL5FsFLbEMBnLOYazMXrUXx3P58qxZLbRNmkLY6GDOB+Renee+Rj6PGWCj YUPuRUNeGoUuPNOCHtTxA2LbL9YVr4XbC2HuXO32vM mvvfFvKXnrED4CJF8tLHGaXFGMSF9MrHWmzC9zvaCsDUPgWFWAXpUoZ40wmNMbNYKwHPSnZFSlLx0OAV OdW9DowlBtnDuzjgDtJGXrIYEEFD6GSNlmaiFwtWZctHymXL86rXtyTL6GAx5KLuScWI7obp0GgXPeDv 3LFACmOp4BBXVoYRAaPGWhSJG8JPMbLrXbWQvlTIJz UVToZOE9MAGgNGKdHX1GRwPdXKTyMKH2DHpvSCSzUFIbbe3DMSUhVPCdHoV2FTPdIQVqBTLbZEdhUOYf YZChWZJ4LYUjFBYzLI5UVbLuKSQqUPD2NjscOUGdSQVqda5RPWKpIBNeUJl2JyWmVKRqOOMoSRgjJRTw TVFaLZGcJXCzIPFsMV1RWbLbFILbFXSqOIofUKNrCU Sqtb6IWKJsKFRdGtN5SPPtDILdMDQmTOxgIPFbSGK1UlO2AFFqLTJqHC5IJrPqRNQdJPB9VnvoLJZjEQ Eoni5DDHAuTGUzPVQvAXBjOLPrGNXzAYmiMULqLLX1MVB7LJMvMWOhVA1RZbXmGZRsIQY9LbvkPMYoLI Ppae9DOXIiNPCzQhApJOIhFUAqVORnJCojDHLkEUW4 Yfe9MQZlSATcSZ5CWtFxVNhxLOYAXvj3DUuxP4v7SDPhDs7FE4Lym2VtKTZzOTLGCPluYV4wblXaUNFt Jn8NS7tRCgl6EWCmEBLyHWC7TsVlSVXjRgIpFRWuCUDmS8RhR8Y4KB5cMDtfEXNrGRI6GJctVmA0SYYt MXZoXSY4GgFtAIApIWF8HdAvKF5WHz5PEqD1ZQC2gUKtWn6GTdndXz2YTGTFW3XVHa== ID Date Data Source [id number] 05/20/2020 08:02:00 PM EST [facility] ([facility]) Name Value Range Interpretation Code Description Data Lilliana rce(s) Supporting Document(s) Partial Thromboplastin Time Laboratory test result 24.2-38.5 Above upper panic limits [facility] ([facility]) Prothrombin Time 16.4 s 12.5-14.3 [facility] ([facility]) Inr 1.29 [facility] ([place] [facility] THERAPUTIC HUMAN INR VALUES INDICATIONS NORMAL RANGES PROPHYLAXIS/TREATMENT OF: VENOUS THROMBOSIS 2.0-3.0 PULMONARY EMBOLISM 2.0-3.0 PREVENTION OF SYSTEMIC EMBOLISM FROM: TISSUE HEART VALVES 2.0-3.0 ACUTE MYOCARDIAL INFARCTION 2.0-3.0 VALVULAR HEART DISEASE 2.0-3.0 ATRIAL FIBRILLATION 2.0-3.0 MECHANICAL VALVES(HIGH RISK) 2.5-3.5 RECURRENT MYOCARDIAL INFARCTION 2.5-3.5 ID Date Data Source [id number] 05/20/2020 06:01:00 PM EST [facility] ([facility]) Name Value Range Interpretation Code Description Data Lilliana rce(s) Supporting Document(s) Laboratory test finding (navigational concept) 7.475 units 7.350-7.45 0 [facility] ([facility]) Laboratory test finding (navigational concept) 82.0 MMHG 80-105 [facility] ([facility]) Laboratory test finding (navigational concept) 35.2 MMHG 35.0-45.0 [facility] ([facility]) Laboratory test finding (navigational concept) 27.0 mmol/L 23.0-27.0 [facility] ([facility]) Laboratory test finding (navigational concept) 25.9 mmol/L 22.0-26.0 [facility] ([facility]) Laboratory test finding (navigational concept) 97 % 95-98 [facility] ([facility]) Laboratory test finding (navigational concept) 2.0 mmol/L [facility] ([facility]) ID Date Data Source [id number] 05/20/2020 05:48:00 PM EST [facility] ([facility]) Name Value Range Interpretation Code Description Data Lilliana rce(s) Supporting Document(s) CPK Creatine Phosphokinase 145 U/L 26-192 [facility] ([facility]) CK-MB Value Mass 3.6 ng/mL [facility] ([facility]) MB/CK Relative Index 2.48 [facility] ([facility]) <content>DIAGNOSIS CRITERIA</content>
<content>MMB ng/ml Relative Index (RI)</content>
<content>NON-AMI < or = 5 N/A</content>
<content>PIRES ZONE > 5 < or = 4</content>
<content>AMI > 5 > 4</content>
<content></content> Troponin I 1.10 ng/mL [facility] <content>Troponin I Reference Interval f or Siemens Idabel LOCI:</content>
<content></content>
<content>99th Percentile= 0.00-0.045 ng/ml</content>
<content></content>
<content>Risk Stratification:</content>
<content><= 0.10 ng/ml Decreased Risk for Adverse Clinical</content>
<content>Events.</content>
<content>0.10-1.50 ng/ml Increased Risk for Adverse Clinical</content>
<content>Events. Evaluation of additional</content>
<content>criterion and/or repeat testing in 2-6</content>
<content>hours is suggested to rule out myocardial</content>
<content>damage.</content>
<content>>= 1.50 ng/ml Indicative of Myocardial Injury.</content>
<content></content> ID Date Data Source [id number] 05/20/2020 02:34:00 PM EST [facility] ([facility]) Name Value Range Interpretation Code Description Data Lilliana rce(s) Supporting Document(s) Respiratory Panel Laboratory test result [facility] This respiratory PCR panel detects Influ conrado A H1, H3 and 2009 H1 viruses, Influenza B virus, Resp iratory Syncytial Virus, Human metapneumovirus, Parainfluenza virus 1, 2, 3 and 4, Adenovirus, Rhinovirus/Enterovirus, Coronavirus HKU1, NL63, OC43, 229E and SARS-CoV-2 (COVID 19), Bordetella pertussis, Bordetella parapertussis, Mycoplasma pneumoniae and Chlamydia pneumoniae. NEGATIVE by MULTIPLEXED NUCLEIC ACID PCR SARS-CoV-2 (COVID 19) NEGATIVE - SARS-CoV-2 (COVID19) ID Date Data Source [id number] 05/20/2020 02:34:00 PM EST [facility] Name Value Range Interpretation Code Description Data Lilliana rce(s) Supporting Document(s) SARS-CoV-2 (COVID 19) [facility] This lab was ordered by [facility] a nd reported by [facility]. ID Date Data Source [id number] 05/20/2020 01:39:00 PM EST [facility] ([facility]) Name Value Range Interpretation Code Description Data Lilliana rce(s) Supporting Document(s) White Blood Count 14.6 10 4.0-10.0 [facility] ([facility]) Red Blood Count 4.24 10 4.00-5.40 [facility] ([facility]) Hemoglobin 12.1 g/dL 12.0-15.5 [facility] ([facility]) Mean Corpuscular Hemoglobin 28.5 pg 27.0-33.0 [facility] ([facility]) Hematocrit 37.7 % 36.0-47.0 [facility] ([facility]) Mean Corpuscular Volume 88.9 fl 80.0-96.0 [facility] ([facility]) Red Cell Distribution Width 16.6 % 11.5-14.5 [facility] ([facility]) Mean Corpuscular HGB Conc 32.1 g/dL 32.0-36.5 [facility] ([facility]) Platelet Count, Automated 262 10 150-450 [facility] ([facility]) Lymph % 9.2 % 24.0-44.0 [facility] ([facility] [facility]) [place] % 9.2 % 0.0-5.0 [facility] ([facility] [facility]) Neutrophils % 80.5 % 36.0-66.0 [facility] ([facility]) Eos % 0.4 % 0.0-3.0 [facility] ([place] [facility]) Immature Granulocyte % 0.4 % 0-3.0 [facility] ([facility]) Baso % 0.3 % 0.0-1.0 [facility] [facility] Nucleated Red Blood Cell % 0.0 % 0-0 [facility] ([facility]) Lymph # 1.3 10 1.5-5.0 [facility] ([place] [facility] Neutrophils # 11.8 10 1.5-8.5 [facility] ([facility]) Eos # 0.1 10 0.0-0.5 [facility] ([place] [facility] Baso # 0.1 10 0.0-0.2 [facility] ([place] [facility]) [place] # 1.4 10 0.0-0.8 [facility] ([place] [facility]) ID Date Data Source [id number] 05/20/2020 01:39:00 PM EST [facility] ([facility]) Name Value Range Interpretation Code Description Data Lilliana rce(s) Supporting Document(s) Lactate [Mass/volume] in Serum or Plasma 1.3 mmol/L 0.4-2.0 [facility] ([facility]) Y/N query for Sepsis Lactate Rule: Y ID Date Data Source [id number] 05/20/2020 01:39:00 PM EST [facility] ([facility]) Name Value Range Interpretation Code Description Data Lilliana rce(s) Supporting Document(s) CPK Creatine Phosphokinase 171 U/L 26-192 [facility] ([facility]) MB/CK Relative Index 2.46 [facility] ([facility]) <content>DIAGNOSIS CRITERIA</content>
<content>MMB ng/ml Relative Index (RI)</content>
<content>NON-AMI < or = 5 N/A</content>
<content>PIRES ZONE > 5 < or = 4</content>
<content>AMI > 5 > 4</content>
<content></content> CK-MB Value Mass 4.2 ng/mL [facility] ([facility]) Troponin I 0.55 ng/mL [facility] ([facility]) <content>Troponin I Reference Interval f or Siemens Idabel LOCI:</content>
<content></content>
<content>99th Percentile= 0.00-0.045 ng/ml</content>
<content></content>
<content>Risk Stratification:</content>
<content><= 0.10 ng/ml Decreased Risk for Adverse Clinical</content>
<content>Events.</content>
<content>0.10-1.50 ng/ml Increased Risk for Adverse Clinical</content>
<content>Events. Evaluation of additional</content>
<content>criterion and/or repeat testing in 2-6</content>
<content>hours is suggested to rule out myocardial</content>
<content>damage.</content>
<content>>= 1.50 ng/ml Indicative of Myocardial Injury.</content>
<content></content> ID Date Data Source [id number] 05/20/2020 01:39:00 PM EST [facility] ([facility]) Name Value Range Interpretation Code Description Data Lilliana rce(s) Supporting Document(s) Ast/Sgot 34 U/L 7-37 [facility] ([facility]) Alkaline Phosphatase 106 U/L 45-117 [facility] ([facility]) Alt/SGPT 19 U/L 12-78 [facility] ([facility]) Bilirubin,Direct 0.2 mg/dL 0.0-0.2 [facility] ([facility]) Bilirubin,Total 0.9 mg/dL 0.2-1.0 [facility] ([facility]) Albumin/Globulin Ratio 1.0 1.2-2.2 [facility] ([facility]) Albumin 3.6 GM/DL 3.2-5.2 [facility] ([facility]) Total Protein 7.2 GM/DL 6.4-8.2 [facility] ([facility]) ID Date Data Source [id number] 05/20/2020 01:39:00 PM EST [facility] ([facility]) Name Value Range Interpretation Code Description Data Lilliana rce(s) Supporting Document(s) Glucose, Fasting 187 mg/dL 70-100 [facility] ([facility]) Creatinine For GFR 0.91 mg/dL 0.55-1.30 [facility] ([facility]) Blood Urea Nitrogen 16 mg/dL 7-18 [facility] ([facility]) Glomerular Filtration Rate [facility]) <content>Units are mL/min/1.73 m2</content>
<content></content>
<content>Chronic Kidney Disease Staging per NKF:</content>
<content></content>
<content>Stage I & II GFR >=60 Normal to Mildly Decreased</content>
<content>Stage III GFR 30- 59 Moderately Decreased</content>
<content>Stage IV GFR 15-29 Severely Decreased</content>
<content>Stage V GFR <15 Very Little GFR Left</content>
<content>ESRD GFR <15 on ANNEALING OPERATOR</content>
<content></content> Sodium Level 135 meq/L 136-145 [facility] ([facility]) Potassium Serum 4.5 meq/L 3.5-5.1 [facility] ([facility]) Testing was performed on a SLIGHTLY hemo lyzed specimen. Suggest recollection of specimen for more accurate test results. Chloride Level 101 meq/L 98-107 [facility] ([facility]) Carbon Dioxide Level 29 meq/L 21-32 [facility] ([facility]) Calcium Level 9.4 mg/dL 8.8-10.2 [facility] ([facility]) Anion Gap 5 meq/L 8-16 [facility] ([place] [facility]) ID Date Data Source [id number] 05/20/2020 01:39:00 PM EST [facility] ([facility]) Name Value Range Interpretation Code Description Data Lilliana rce(s) Supporting Document(s) Bacteria identified in Blood by Culture Laboratory test result [facility] ([facility]) No growth after 72 hours . All specimens observed for 5 days. Results final at that time. No growth after 48 hours . All specimens observed for 5 days. Results final at that time. No growth after 24 hours . All specimens observed for 5 days. Results final at that time. NO GROWTH AFTER 5 DAYS Natriuretic peptide.B prohormone N-Terminal [Mass/volu me] in Serum or Plasma 1309 pg/mL [facility] ([facility] ) ID Date Data Source [id number] 05/20/2020 12:00:00 AM EST [facility] Name Value Range Interpretation Code Description Data Lilliana rce(s) Supporting Document(s) SARS coronavirus 2 Ag [facility] This lab was ordered by [facility] and reported by [facility]. ID Date Data Source [id number] 05/09/2020 01:10:00 PM EST [facility] Name Value Range Interpretation Code Description Data Lilliana rce(s) Supporting Document(s) SARS coronavirus 2 RNA [facility] This lab was ordered by [facility] and reported by [facility]. ID Date Data Source [id number] 05/06/2020 02:36:00 PM EST [facility] ([facility] Name Value Range Interpretation Code Description Data Lilliana rce(s) Supporting Document(s) Laboratory test finding (navigational concept) 0.07 ng/mL 0.00-0.08 [facility]) ID Date Data Source [id number] 05/06/2020 11:53:00 AM EST [facility] ([facility] Name Value Range Interpretation Code Description Data Lilliana rce(s) Supporting Document(s) Laboratory test finding (navigational concept) 38.0 % 38.0-51.0 [facility] ([facility]) Laboratory test finding (navigational concept) 139 meq/L 136-145 [facility] ([facility]) Laboratory test finding (navigational concept) 4.0 meq/L 3.5-5.1 [facility] ([facility]) Laboratory test finding (navigational concept) 182 mg/dL 70-105 [facility] ([facility]) Laboratory test finding (navigational concept) 33.0 MM/L 23.0-27.0 [facility] ([facility]) Laboratory test finding (navigational concept) 4.7 mg/dL 4.5-5.3 [facility] ([facility]) Laboratory test finding (navigational concept) 100 meq/L 98-109 [facility] ([facility]) Laboratory test finding (navigational concept) 0.8 mg/dL 0.6-1.3 [facility] ([facility]) Laboratory test finding (navigational concept) 16 mg/dL 8-26 [facility] ([facility]) ID Date Data Source [id number] 05/06/2020 11:52:00 AM EST [facility] ([facility] Name Value Range Interpretation Code Description Data Lilliana rce(s) Supporting Document(s) Laboratory test finding (navigational concept) 0.02 ng/mL 0.00-0.08 [facility] ([facility] ID Date Data Source [id number] 05/06/2020 11:47:00 AM EST [facility] ([facility] Name Value Range Interpretation Code Description Data Lilliana rce(s) Supporting Document(s) Lipoprotein lipase [Enzymatic activity/volume] in Serum or Plasm a 70 U/L 73-393 [facility] ([facility]) Natriuretic peptide.B prohormone N-Terminal [Mass/volu me] in Serum or Plasma 598 pg/mL [facility] ([facility] ) Thyrotropin [Units/volume] in Serum or Plasma by Detec tion limit <= 0.05 mIU/L 1.630 uIU/ML 0.358-3.740 [facility] ([facility] ID Date Data Source [id number] 05/06/2020 11:47:00 AM EST [facility] ([facility] Name Value Range Interpretation Code Description Data Lilliana rce(s) Supporting Document(s) Ast/Sgot 20 U/L 7-37 [facility] ([place] [facility]) Alt/SGPT 23 U/L 12-78 [facility] ([place] [facility]) Alkaline Phosphatase 127 U/L 45-117 [facility] Bilirubin,Total 0.4 mg/dL 0.2-1.0 [facility] ([facility]) Albumin 3.8 GM/DL 3.2-5.2 [facility] ([place] [facility]) Bilirubin,Direct 0.1 mg/dL 0.0-0.2 [facility] ([facility]) Total Protein 7.2 GM/DL 6.4-8.2 [facility] ([facility]) Albumin/Globulin Ratio 1.1 1.2-2.2 [facility] ([facility]) ID Date Data Source [id number] 05/06/2020 11:47:00 AM EST [facility] ([facility]) Name Value Range Interpretation Code Description Data Lilliana rce(s) Supporting Document(s) White Blood Count 8.7 10 4.0-10.0 [facility] ([facility]) Red Blood Count 4.40 10 4.00-5.40 [facility] ([facility]) Hemoglobin 12.1 g/dL 12.0-15.5 [facility] Hematocrit 39.0 % 36.0-47.0 [facility] ([facility]) Mean Corpuscular HGB Conc 31.0 g/dL 32.0-36.5 MEDE NT ([facility]) Mean Corpuscular Volume 88.6 fl 80.0-96.0 [facility] ([facility]) Mean Corpuscular Hemoglobin 27.5 pg 27.0-33.0 ME DENT ([facility]) Neutrophils % 69.5 % 36.0-66.0 [facility] ([facility]) Red Cell Distribution Width 15.9 % 11.5-14.5 ME [facility] ([facility]) Platelet Count, Automated 279 10 150-450 MEDE NT ([facility]) [place] % 7.7 % 0.0-5.0 [facility] [facility] [facility]) Lymph % 20.0 % 24.0-44.0 [facility] ([facility]) Eos % 1.6 % 0.0-3.0 [facility] ([facility]) Immature Granulocyte % 0.7 % 0-3.0 [facility] ([facility]) Baso % 0.5 % 0.0-1.0 [facility] ([facility]) Nucleated Red Blood Cell % 0.0 % 0-0 [facility] ([facility]) Neutrophils # 6.1 10 1.5-8.5 [facility] ([facility]) Lymph # 1.8 10 1.5-5.0 [facility] ([facility]) [place] # 0.7 10 0.0-0.8 [facility] ([facility]) Eos # 0.1 10 0.0-0.5 [facility] ([facility]) Baso # 0.0 10 0.0-0.2 [facility] ([facility]) ID Date Data Source [id number] 04/17/2020 01:22:00 PM EDT [facility] ([facility]) Name Value Range Interpretation Code Description Data Lilliana rce(s) Supporting Document(s) Laboratory test finding (navigational concept) Laboratory test result [facility] ([facility]) ID Date Data Source [id number] 03/13/2020 10:56:21 AM EDT [facility] Name Date of Age Gend*PT [id number] Aura Garcia 1950 69 years F ---PT Location Admission Date/Time Visit ID Attending Provider --- --- --- --- EPI ID CSN Admitting Provider [id number] ---03/13/20 Aura Garcia [id number] female 69 yearsAura Garcia was first seen here in 03/08 for abnormal imaging. She had anodular density in the right breast 3:00 position measuring 1.2cm for whichbiopsy was recommended. However, the biopsy was not done as they could only seea hematoma. When I saw her back in October 2017, the hematoma resolved. She wantsto continue to follow up with us. She denies any prior breast surgeries or biopsies. She has no family history ofbreast cancer. She is para 3 the age of of h er first child is 19. She was11 at age of menarche and [age] with menopause. She denies any HRT. She deniesany masses, nipple discharge, dimpling or nipple retractions. Today's bilateral mammogram results are benign.Current Meds:Current Outpatient Medications: albuterol (PROVENTIL HFA;VENTOLIN HFA) 108 (90 BASE) MCG/ACT inhaler, Inhale2 puffs every 4 (four) hours as needed for wheezing, Disp: , Rfl: allopurinol (ZYLOPRIM) 100 MG tablet, Take 100 mg by mouth daily 2 tabs qd,Disp: , Rfl: aspirin EC 325 MG EC tablet, Take 325 mg by mouth daily , Disp: , Rfl: atorvastatin (LIPITOR) 80 MG tablet, Take 80 mg by mouth, Disp: , Rfl: Calcium Carbonate-Vitamin D (CALCIUM-D PO), Take 1 tablet by mouth 2 (two)times a day , Disp: , Rfl: clopidogrel (PLAVIX) 75 MG tablet, Take 75 mg by mouth daily Took 2 tabs on11/20/2017 and then 1 thereafter pre-procedure, Disp: , Rfl: colchicine 0.6 MG tablet, Take 0.6 mg by mouth daily , Disp: , Rfl: digoxin (LANOXIN) 125 MCG tablet, Take 125 mcg by mouth daily, Disp: , Rfl: diltiazem (CARDIZEM LA) 360 MG 24 hr tablet, Take 360 mg by mouth daily ,Disp: , Rfl: fluticasone-salmeterol (ADVAIR HFA) 230-21 MCG/ACT inhaler, Inhale 2 puffsnightly , Disp: , Rfl: gabapentin (NEURONTIN) 600 MG tablet, 3 (three) times a day , Disp: , Rfl: IPRATROPIUM BROMIDE IN, Inhale, Disp: , Rfl: Ipratropium-Albuterol (DUONEB IN), Inhale 0.5 mg as needed 4 times daily prn, Disp: , Rfl: nitroglycerin (NITROSTAT) 0.4 MG SL tablet, Place 0.4 mg under the tongue,Disp: , Rfl: NOVOLOG 100 UNIT/ML injection, U 270 UNITS MAX VIA INSULIN PUMP D UTD, Disp:, Rfl: 3 pantoprazole (PROTONIX) 40 MG tablet, Take 40 mg by mouth daily , Disp: ,Rfl: potassium chloride SA (K-DUR,KLOR-CON) 10 MEQ tablet, Take 10 mEq by mouth 2(two) times a day, Disp: , Rfl: spironolactone (ALDACTONE) 25 MG tablet, spironolactone 25 mg tablet onetablet by mouth once daily, Disp: , Rfl: torsemide (DEMADEX) 100 MG tablet, torsemide 100 mg tablet one tablet bymouth once daily, Disp: , Rfl: venlafaxine (EFFEXOR-XR) 75 MG 24 hr capsule, Take 75 mg by mouth daily ,Disp: , Rfl:Allergies:AllergiesAllergen Reactions Enalapril Swelling Tongue swelling Penicillins coma Sulfa Antibiotics Reaction: RASH Comment: RASHPast Medical History:Diagnosi s Date Asthma Coronary artery disease Diabetes Heart disease Hyperlipidemia Sleep apneaFamily HistoryProblem Relation Age of Onset Lung cancer Father 54 Pancreatic cancer Paternal Grandmother 72 Heart disease Mother Lung disease Mother Aneurysm Sister brainSocial HistorySocioeconomic History Marital status: Spouse name: Not on file Number of children: Not on file Years of education: Not on file Highest education level: Not on fileOccupational History Not on fileSocial Needs Financial resource strain: Not on file Food insecurity: Worry: Not on file Inability: Not on file Transportation needs: Medical: Not on file Non-medical: Not on fileTobacco Use Smoking status: Never Smoker Smokeless tobacco: Never UsedSubstance and Sexual Activity Alcohol use: No Drug use: No Sexual activity: Not on fileLifestyle Physical activity: Days per week: Not on file Minutes per session: Not on file Stress: Not on fileRelationships Social connections: Talks on phone: Not on file Gets together: Not on file Attends cheondoism service: Not on file Active member of club or organization: Not on file Attends meetings of clubs or organizations: Not on file Relationship status: Not on file Intimate partner violence: Fear of current or ex partner: Not on file Emotionally abused: Not on file Physically abused: Not on file Forced sexual activity: Not on fileOther Topics Concern Not on fileSocial History Narrative Not on filePast Surgical History:Procedure Laterality Date CARDIAC CATHETERIZATION N/A 11/23/2017 Procedure: Cardiac catheterization; Surgeon: Sherry Cai MD; Laterality:N/A; CARDIAC CATHETERIZATION N/A 11/23/2017 Procedure: Angioplasty-coronary; Surgeon: Sherry Cai MD; Laterality:N/A; CARDIAC CATHETERIZATION N/A 11/23/2017 Procedure: Ptca; Surgeon: Sherry Cai MD; Laterality: N/A; COLONOSCOPY 2012 HYSTERECTOMY triple bypassReview of SystemsReview of SystemsConstitutional: Negative.HENT: Negative.Eyes: Negative.Respiratory: Negative.Cardiovascular: Negative.Gastrointestinal: Negative.Endocrine: Negative.Genitourinary: Negative.Musculoskeletal: Negative.Skin: Negative.Allergic/Immunologic: Negative.Neurological: Negative.Hematological: Negative.Psychiatric/Behavioral: Negative.There were no vitals filed for this visit.Exam:Const: Appears pleasant. No signs of apparent distress present. Alert andoriented. Patient is a good historian.Head/Face: Atraumatic, normocephalic and no lesions or masses.Eyes: Conjunctivae pink. No icterus of the sclerae bilaterally.ENMT: Oral mucosa: pink and moist with no lesions.Neck: Supple. Palpation reveals no lymphadenopathy, swelling or tenderness.Trachea midline.Resp: Respirations are regular. Lungs are clear bilaterally.CV: Rate is regular. Rhythm is regular. Extremities: No club axel, cyanosis oredema.Breasts: Breast exam was performed while patient was in a supine position and yolanda sitting position. Breasts are medium size and symmetrical. No dimpling of thebreasts bilaterally. Breasts are normal and no dominant mass on both breasts.Bilateral infraclavicular nodes are non-palpable. Nipples: No discharge orinversion of the nipples bilaterally. Axillae: Axillae are normal to palpationbilaterally, but no lymphadenopathy of the axillae.Musculo: Walks with a normal gait for age. Upper Extremities: Full ROMbilaterally. Lower Extremities: Full ROM bilaterally.Skin: No jaundice, lesi on or rash.Neuro: Neuro reveals no focal deficits.Assessment: The patient has a stable bilateral mammogram and a benign breastexam.Plan: The patient will follow up in 1 year for reexamination with a repeatbilateral mammogram. She was instructed to continue self breast exams. In themeantime, patient will call with any problems, questions, or concerns. Name Value Range Interpretation Code Description Data Lilliana rce(s) Supporting Document(s) ID Date Data Source [id number] 03/13/2020 09:55:00 AM EDT [facility] NAY[facility] MAMMOGRAM SCREEN BL W CAD W TOMOSYNTHESISCLINICAL HISTORY: Screening mammogram. Last Clinical Breast Exam: One year ago. Tyrer-Cuzick Model 10-year risk: 2.3% (Average: 3.5%) Tyrer- Cuzick Model lifetime risk: 3.6% (Average: 5.5%).COMPARISON: Priors dating back to 02/13/2014.TECHNIQUE: Digital Mammogram with Breast Tomosynthesis of each breast were obtained with CAD.FINDINGS: There are scattered areas of fibroglandular density.No developing masses or suspicious calcifications are seen. Benign-appearing calcifications are noted.IMPRESSION: No mammographic features of malignancy.A follow up mammogram is recommended in one year as per the [employer].CLASSIFICATION: BI-RADS 2 - BENIGN FINDINGS.ACR Breast Density: B- Scattered fibroglandular densityResultCode: BR 2 BDISCLAIMER: According to The [place] and the [place] [employer], any patient with a lifetime risk assessment greater than 20% or patients with dense breasts (heterogeneously or extremely dense), may benefit from additional screening tests for breast cancer. Further screening tests for patients with dense breasts (heterogeneously or extremely dense) should be based upon the patient's breast cancer risk status. All patients, having their mammogram with [facility], with a lifetime risk assessment greater than 20% or with dense breasts, will be given the opportunity to meet with our certified breast health navigator to discuss their risk and further imaging options.Further screening test includes Ultrasound and MR (Magnetic Resonance) imaging.Dictated by: SILVINO CRANDALL M.D. on 03/13/2020 Transcribed by: deepak on <<TranscriptionDateTime1>>CDS G code: , ,CDS Modifier: , ,cc: Name Value Range Interpretation Code Description Data Lilliana rce(s) Supporting Document(s) ID Date Data Source [id number] 02/16/2020 10:37:[address] [facility] Name Value Range Interpretation Code Description Data [facility] rce(s) Supporting Document(s) Progress Note [facility] PTLAFg1dBcESRxFq45/ISAcxGLZpt1NwLSdaTKy2SDswAPKsK2OdUTZ2cC3pFXV8UArAVoMwMuCpRAG8 lbm [file] AwMjYwNiAwMDAwMCBuDQowMDAwMDAyODAyIDAwMDAw FM5TYvCsSXNmGJB5PRAoIVAbMABvim3RTMTfZCZsCgi0HLLcLVElELXmTPzjLEEgNXF5IWEjVBTiSWLc RK7FQzSuFVQsQFAdYvttWRZkRGVjjs4KWYDiSJCxHTX6LXUvQXWrSUOjOKkyCKLqQUF3KSUrJFAqSJWn OI5FCqVjGAWgKPXiNLumAHArJJSwic9IKLSwSVHkYo M0DGMlOUJbENNaQBptHEMwVCN8RQv4WFLyYVSjWB6ODmQwPOUbJCA3UZQiCPJtAQEfad3PEHKaMARxRU TgWqIkZRTjLFFwTHxrJGYjIWG2NEM5FCLkGAXsEQ4NXsAtEBRgVIx0XVlkWSPyXAWlrb5ShJZrgSllhc 1EZXvTUg0QyZleGOYsIYyhAf6ecJBlFEHuENTZCt7U duSgCQKoJNSNMVdvBQJhJQSuXSAdCBNkYQTyBGKnAcz5Azn4JAOdThWhBUbfUwrcWqU7JFFyORO2SBZe RUKeMHNdZifoDmr5F7UoSHF0Q9UtWDV+SW1kIWu+Ot7Fz4JideN4zpAhJPoiDEeiJH7YKAGHD1YGXy== ID Date Data Source [id number] 02/16/2020 08:40:[address] [facility] Name Value Range Interpretation Code Description Data Lilliana rce(s) Supporting Document(s) Progress Note [facility] UDKRFa9gXgCOPiJr76/IHFxbWROcp9DvGWeuAUd6WBpsPOByF4AmOYR0gS4fYGV6NFzFFnOvReJbIKV2 lbm [file] ICAgICAgICAgICAgICAgICAgICAgICAgICAgICAgIC AgICAgICAgICAgICAgICAgICAgICAgICAgICAgICAgICAgICAgICAgICAgICAgICAgICAgICAgICAgIC AgICAgICANCiAgICAgICAgICAgICAgICAgICAgICAgICAgICAgICAgICAgICAgICAgICAgICAgICAgIC AgICAgICAgICAgICAgICAgICAgICAgICAgICAgICAg ICAgICAgICAgICAgICAgICANCiAgICAgICAgICAgICAgICAgICAgICAgICAgICAgICAgICAgICAgICAg ICAgICAgICAgICAgICAgICAgICAgICAgICAgICAgICAgICAgICAgICAgICAgICAgICAgICAgICAgICAN CiAgICAgICAgICAgICAgICAgICAgICAgICAgICAgIC AgICAgICAgICAgICAgICAgICAgICAgICAgICAgICAgICAgICAgICAgICAgICAgICAgICAgICAgICAgIC AgICAgICAgICANCiAgICAgICAgICAgICAgICAgICAgICAgICAgICAgICAgICAgICAgICAgICAgICAgIC AgICAgICAgICAgICAgICAgICAgICAgICAgICAgICAg ICAgICAgICAgICAgICAgICAgICANCiAgICAgICAgICAgICAgICAgICAgICAgICAgICAgICAgICAgICAg ICAgICAgICAgICAgICAgICAgICAgICAgICAgICAgICAgICAgICAgICAgICAgICAgICAgICAgICAgICAg ICANCiAgICAgICAgICAgICAgICAgICAgICAgICAgIC AgICAgICAgICAgICAgICAgICAgICAgICAgICAgICAgICAgICAgICAgICAgICAgICAgICAgICAgICAgIC AgICAgICAgICAgICANCiAgICAgICAgICAgICAgICAgICAgICAgICAgICAgICAgICAgICAgICAgICAgIC AgICAgICAgICAgICAgICAgICAgICAgICAgICAgICAg ICAgICAgICAgICAgICAgICAgICAgICANCiAgICAgICAgICAgICAgICAgICAgICAgICAgICAgICAgICAg ICAgICAgICAgICAgICAgICAgICAgICAgICAgICAgICAgICAgICAgICAgICAgICAgICAgICAgICAgICAg ICAgICANCiAgICAgICAgICAgICAgICAgICAgICAgIC AgICAgICAgICAgICAgICAgICAgICAgICAgICAgICAgICAgICAgICAgICAgICAgICAgICAgICAgICAgIC AgICAgICAgICAgICAgICANCjw/uEXdX5cfcACewwI2P1lxQn3PPg9TGJ4oi9MgBFZiDSgvwxFcGyyJNl SpKADrOfqQUah8MJzcKR4YrMIoN7OjL8IdYIkoWN6R FTZaVIZucAWtOKNwCIDlIzX4SFOaUQcaRO9HbMUeAWoeKIKqXKLdLJ7SDIUkQ823mvSkET1WJr0EGuLy HH6kqo7LJUzcPCXhYodWCdj3RRcdKO7SrJWnyLBoVNSjFFGUDyZcX5roz2LfYwXcJPBCSJleDY1Cv0Xo dCAxDQo+Yy9MNT9dx5OgVFzjVYCiCV6oud3BRZlNUs YfU9TklPzbKHIib5enCQRsHN4kvACsUHI5BEOsjfSzTwVQZKVlvaagVb8rWSOaSS1tMK5cOCSnBIFoGs QlXTNUKA2HETZrHRNpdMIkQMVnAJDYTO7GVIreHEU3BIAgerVweLMqOQfuND1OUXDesaVdCSadCGHBXV o+Nw1SOT8mt9RhHXzzLDLzAX3sbh3KAApRKcTqV9K9 nVWgW1N0RWxwLr5RJIKpFHZkEBsmYHENNEmmEF5SVB1bdkC6QT2MrCUiECHbOHBygWHnJVo1J94svVXu GOxpDK6RVSK+Renee+Sw7HUJQaRNCmBMEhGvWsNPNJFaOpY0SeK0POf9WjN3FiON59mZipxrJbEZsnUH9D XO5yLEYlKVDIHS1RdETfbA6hzxKmSNRwMOVUIuSwG0 3juRDdSIDaZXW4OGMiLi1DDHTbI0DsksAukQwroaXtOQHfJBPTPV8NJDnnvtDziCYhfQewOJ04pDizYX 3QJa5RPfQoNC2xeh4YpBPfAf9IPFXgHa1LKCOoLSQiNEJaSAV1JFPrYoJuZOopVJIsBBRoYQS9UDZkZD QqSX4CNyVwCAXpBDh7MJYuQKZuFSJmrf0ZISAjYARk LSH3DaRnMYAwWFRlDCbiTWHgSRSqGEB2SZYgYOOmWO7JJqPvNNKdPDX3KaLyJWEvCBMidg7GKPXaLZTa Ivv2PQLgOVQwPNVfLEzhPVZgDVJoNNP7XIAuGKTbZX9YLjOrQVYqATBjNvQcOPIiLYPawa1KYXDvCTRk FICvHHNqJYAtHQJeXEaePEYjQUQ3LoU1MODxYLTpGW 7XJaBoIMEgAVO2ZrYxOYOzVIJwji5MESNtTNRwVSZ7EbBuIYKzFLHlZIhpUGQdELO6TKIuLUGxRZWkGP 2IZqTsKQMoGVhqPuboZDAnJHDbpy9EFUCmCOFwBrMzGkGyHPUkIARkECrqOZRqBJO7Jam5BZTlETYkNN 6EZlWiWXJrGAf8XtNwSCVrJIVspf1QOAUgZHFiDAVr WiEsQPEzBMFoZJpqJRUtXKN4YgQmDDKaEBKqNQ2FRsDnXMAgUHs3LgTtQUWhVBOwws5GLRRpNLUrIXx8 ECMwPMCtRSTyNPy2bxVnpSFwQOd7UQ3EM8EwlfGzDdBWHt8Rb420CMBrTOAuZc8CN4coAu9vSBSdTHOB Wh3VBNx5KvhjTqNyJALxZNA3DJKjCHU5KER3GjH5Oi BjKgScC0O+FZzyN1UxFqA3J2P4UPR5FGZoUaSwORZ0HPR6CMRlDTO3NW6sSOZSEi3+DQpzdGFydHhyZW TNIfFwQbOwWLaaDIXBIp9R ID Date Data Source [id number] 02/12/2020 08:11:[address] [facility] Name Value Range Interpretation Code Description Data Lilliana rce(s) Supporting Document(s) Progress Note [facility] CMLHJe5lPsDUNjQg47/RLMlkKERjn7GrJYsiIJr1IKcxQFRjQ2HiGHL0qE4xPYS5XGjJRcDgPwPhUINa lbm [file] LOS9kBTpQf2JBEk1ByTORtXmEA4JHTg= ID Date Data Source [id number] 02/12/2020 08:09:26 PM EDT [facility] Name Value Range Interpretation Code Description Data Lilliana rce(s) Supporting Document(s) Progress Note [facility] MKCYLf0jStRXKoVb38/IXVwkWYXem7GaQGroXEf3YEgfYBPjZ0MgKXU9hA7nMKX4CMiMOhHuZdNlVQPc lbm [file] bmR4jfCnEUxxDMw9JT6BDZOFY4AHSj== ID Date Data Source [id number] 02/03/2020 12:55:10 PM EDT [facility] Name Value Range Interpretation Code Description Data Lilliana rce(s) Supporting Document(s) Progress Note [facility] CLDQJk2rUhUPQbIn57/WDWuhQNOqj6ZsMVpqGIb4RBefWIUnH9ViRVE2sC5xITN1BKoUReFiDjAoAFD3 lbm [file] RfmucYjfRjln09f2W5oirEgBq//Eg5aiEiTtV [file] ID Date Data Source [id number] 01/09/2020 12:00:00 AM EDT [facility] Patient Name: CHANDRA GARCIA [facility] Date of : 1950 [facility] Date of Exam: 01/09/2020JEMIMA Jameson [id number]#: Fax: [id number] EXAM: MRI KNEE RIGHT WITHOUT CONTRASTCLINICAL INFORMATION: History of patellar fracture.No plain films to review. Prior right knee MRI 08/16/2003 reviewed.3T multiplanar MRI imaging of the right knee was obtained using varioussequences.The anterior and posterior horns of the lateral meniscus are within normallimits. There is marked truncation and Grade III signal change seen in theposterior horn of the medial meniscus. Grade III signal change is alsoseen within a truncated anterior horn. The anterior and posterior cruciateligaments are intact. The quadriceps and patellar tendons are intact. Themedial and lateral collateral ligaments are intact. The medial and lateralpatellar retinacula are intact. There is tricompartmental cartilaginousthinning and irregularity. The marrow signal is within normal limits.There is a tiny Bazan's cyst. In the prepatellar bursa, there is a 6.4 x1.3 x 3.8 cm sized mixed signal complex structure. There is no evidence ofa patellar osseous or chondral fracture.IMPRESSION:1. There is evidence of a bucket handle tear of the medial meniscus whichis likely chronic but needs to be correlated clinically.2. There is a large complex structure in the prepatellar bursa. Exactetiology uncertain, however, it likely represents chronic possibly subacutechanges with proteinaceous debris and old hemorrhage. There is no bloomingartifact so the exact age of this cannot be determined. Small amounts offree fluid are also likely within the prepatellar bursa.3. There is no evidence of a patellar fracture, osseous or otherwise.4. Tricompartmental chondromalacia.5. Other findings as described above.Accredited by the [place] [employer] in MR.ZE Espino/Manjit fritz for referring AURA GARCIA to our office. Electronically Signed - KASIA HERNANDEZ DO 12/21 16:31 Name Value Range Interpretation Code Description Data Lilliana rce(s) Supporting Document(s) ID Date Data Source [id number] 12/05/2019 12:00:00 AM EDT [facility] ([facility]) Name Value Range Interpretation Code Description Data Lilliana rce(s) Supporting Document(s) ID Date Data Source [id number] 12/05/2019 12:00:00 AM EDT [facility] ([facility]) Name Value Range Interpretation Code Description Data Lilliana rce(s) Supporting Document(s) ID Date Data Source [id number] 12/05/2019 12:00:00 AM EDT [facility] Name Value Range Interpretation Code Description Data Lilliana rce(s) Supporting Document(s) SARS-CoV-2 [facility] This lab was ordered by [facility] and reported by [email or web address]. ID Date Data Source [id number] 12/05/2019 12:00:00 AM EDT [facility] ([facility]) Name Value Range Interpretation Code Description Data Lilliana rce(s) Supporting Document(s) ID Date Data Source [id number] 11/11/2019 02:19:[address] [facility] Name Value Range Interpretation Code Description Data Lilliana rce(s) Supporting Document(s) Progress Note [facility] QDPTXw0aYkAHLuVf55/CGGmyOQOmk3SiODjoNHp6LHjcFRRuC6FzEVU9bS6yOVG8UYaQEtOaKzTrHVEn lbm [file] ICAgICAgICAgICAgICAgICAgICAgICAgICAgICAgICAgICAgICAgICAgICAgICAgICAgICAgICAgICAg ICAgICAgICAgICAgICAgICAgICAgICAgICAgICAgIC AgICAgICAgDQogICAgICAgICAgICAgICAgICAgICAgICAgICAgICAgICAgICAgICAgICAgICAgICAgIC AgICAgICAgICAgICAgICAgICAgICAgICAgICAgICAgICAgICAgICAgICAgICAgICAgDQogICAgICAgIC AgICAgICAgICAgICAgICAgICAgICAgICAgICAgICAg ICAgICAgICAgICAgICAgICAgICAgICAgICAgICAgICAgICAgICAgICAgICAgICAgICAgICAgICAgICAg DQogICAgICAgICAgICAgICAgICAgICAgICAgICAgICAgICAgICAgICAgICAgICAgICAgICAgICAgICAg ICAgICAgICAgICAgICAgICAgICAgICAgICAgICAgIC AgICAgICAgICAgDQogICAgICAgICAgICAgICAgICAgICAgICAgICAgICAgICAgICAgICAgICAgICAgIC AgICAgICAgICAgICAgICAgICAgICAgICAgICAgICAgICAgICAgICAgICAgICAgICAgICAgDQogICAgIC AgICAgICAgICAgICAgICAgICAgICAgICAgICAgICAg ICAgICAgICAgICAgICAgICAgICAgICAgICAgICAgICAgICAgICAgICAgICAgICAgICAgICAgICAgICAg ICAgDQogICAgICAgICAgICAgICAgICAgICAgICAgICAgICAgICAgICAgICAgICAgICAgICAgICAgICAg ICAgICAgICAgICAgICAgICAgICAgICAgICAgICAgIC AgICAgICAgICAgICAgDQogICAgICAgICAgICAgICAgICAgICAgICAgICAgICAgICAgICAgICAgICAgIC AgICAgICAgICAgICAgICAgICAgICAgICAgICAgICAgICAgICAgICAgICAgICAgICAgICAgICAgDQogIC AgICAgICAgICAgICAgICAgICAgICAgICAgICAgICAg ICAgICAgICAgICAgICAgICAgICAgICAgICAgICAgICAgICAgICAgICAgICAgICAgICAgICAgICAgICAg ICAgICAgDQogICAgICAgICAgICAgICAgICAgICAgICAgICAgICAgICAgICAgICAgICAgICAgICAgICAg ICAgICAgICAgICAgICAgICAgICAgICAgICAgICAgIC KeONTvWEVvFWGlPRPrPWEdMAg2C9nhBHQfRKTvWX5dHIh4Tw7+TUqPZaRzNRR8pkXxkL6QBG6dm2FvPH zgNAIdf3JsHBe6BD0EMQTcHVyuPL1IOPsedw9GCOCwMIIafXMUz3niWuVdSBB4QSGqIdhdDL9GJBFjN7 lkcyBbIDUgMCBSIDcgMCBSIDkgMCBSIDExIDAgUiBd QTwdDC5Up8YhmEG0BNd+Zw2AWO8yq0FiHAd2TgXbTG8gln2DQHoIDvSzC5PptmI2JQEvQAFyJt5AEOMg RWBwmWB1QhAmUZHEBuJhQ6PtxJ85GESKIx4+VStnuoUqXuoEJdBlLSApj5GbIYh7UU1KPSArEVw2rALn UNThT0Kcw8AuBb95QTHoYnyxX7U9mBlbKB7lXYLHQ4 GlaJZjBHJQZbXunHC9XiG0NcQzSnYxZSG4PDKpLB6dICrjSW2TCOG2FNzjFRChGNAvM9mZEuMdJAGrBf IvmDaaTS3VDqBbA3BibzHlpKM9FjBvRUQLHu7+QHdfccXuDnhITqL5VOZqr8CsSNq9DO0LYBLjNHfmHR 1ZOLZfeQ6sKYuaBO8DYyN6OQEpAHQEAyOtH42vwIMb SAu6Z9IbBhKqZUUsJylyJWEoVLfqIkNmYKZgLaGjUEgiFJ2+ID4+QSdtBQ5WCCbetkQmNKAcZh8QFXJx DRNuGJ7xORNaBULfN4A5nKxxVEQLSfKkW6cdppgpWV7zYWZpQ366uYxewjXwJBLzAOWuBf5AVFKzZTA4 MBJjrACcXMKvBLZABRilIT1KjWJoUYY1uY7hSIzmWJ VfSALcI0vEYtCbmLxmLA47hUyjhdKfqUVgGLq+Dp2WCW4tw8TqUZp8fzLgQEsxHXQ4YLmjXSLoXMWkCK VpUGN4JOT9QXCCTcAeQKKoZMWuASrfNHZmZSXspz9JPPKlMKSsOIhrFsWfMXBqWRCtSTrwABGrBKDbGP TwAKHbNWRoCC3PYsFmUOAyWPRwJXinQGJsRSGiys1F ELMnGSSpVjOjNoIoYOReBOCgZWmkUGYiRYFqKxA3KECcBRNfLM3SJkTxOGTtCRirYyDtQCKyTYNgza7M BAZmMVYeQAM9UABuIIFsUDSlYZvpQUYlATCfFDY0OIGjOUUsWJ8RIcKjTQGbDYEvXeotAPBtWWQesc3J MDAwMDAxMzMyNyAwMDAwMCBuDQowMDAwMDEzNTMzID TeQHZjEB2IIgRmGKUaARH0XWDfFDUtVOVwei5QDTEjCPXgBUS5JVXsUAPdNVBxWGodALIzLUB6XEimUK ZiQPHvGH3HKpRpVCSdMLB3AeScFFCgXGPkhc4HKEQmOOGtHfAnAUDwBVAlPHYxYBqdJOJgFLD3DpEhYC UeMLWuTD5NVsIrVIQpOgf2XfnpOLQmFSWoby3SSPVu WXTuXfu3SsCtWPUbICHtWAclVEBlQCL8YUIiAPDyZORxTA6UIlOjLYPiHwyzJFCrTYPxJYOhwj9NCWAp ZPBiZRA1CTOaVRLgCEXnGEjvRKFpTHU6GRAoVYScEIZvXH2UYyDwBZTiGgx2UOXtBGAqUKAdyv8UJYNa EEQzETe0GUPjBGEbEECaUIoaWWUvRYO5ZBK7KVTiEV KhBO8TQdEcZHGbKqE4DbxhQPWgYDXssz9LNNXfKGOiVVO8VLWvVXXiTVNwQZoyMTHrAFJ7SkKeASYaJT LqJG4GBiOzQJAjUdP4XZbfIPPePDNnfr0JSWMuPKVfCXH9PIDfWAPbMGNjAZfmIQIcXJT3JZR8NAUqDQ CvEV9JVmMlSZKiXvIiRzTtDUJtPNIria2JHJYrTHCw FgKjBENfWBHtIANqBZcgTEMxOBC7JRwiKVXgFFSbWO3KBeJoBNVcIcviApXiVZFnTZRnhz8TTMHzXIKe NBXwUXBrGTMiZWPsSBqaKXPaZGA0XLB3BVUzDPNiYO0HMdLmLFRwWrj2FJMxDCRkZAIlye6YPFVmEZTf RUQ8CXXuXQQlBQEmRZbbBIDfHEKjQaP9ZMMyUBXpBT 4BYlWaDAXdFGK6TDeiYBVaNDCfqf6TTEIkFJI1WDx3RbPdFHLpIHGxAMf5amKvnHDsTMx1GD8RB6Nfbq UmGWXAAt4Si111MVP9YKLoOn7HC6mhTn6tDOXqVSOKGm7WYLk7NxO0YOCfVCAbJXxyFbOkNiSlA0WyOW qoCeP1CzL9InW+JXyaBhoyMBM6ENX2IwW4SOStA7F9 DlH7GZGvWiI1JGotVg5gLGUIYl5+XTkdbKOroTzgRHXXXsFaFOc9LItaSDRECe9P ID Date Data Source [id number] 11/08/2019 08:11:00 AM EDT [facility] ([facility]) Name Value Range Interpretation Code Description Data Lilliana rce(s) Supporting Document(s) Urine Creatinine 26.6 mg/dL 30.0-125.0 [facility] ([facility]) Microalbumin Urine 75.7 mg/L 1.3-20.0 [facility] ([facility]) Microalb/Creat Ratio 284.6 ug/mg 0.0-30.0 [facility] ([facility]) ID Date Data Source [id number] 11/08/2019 08:11:00 AM EDT [facility] ([facility]) Name Value Range Interpretation Code Description Data Lilliana rce(s) Supporting Document(s) Thyrotropin [Units/volume] in Serum or Plasma by Detec tion limit <= 0.05 mIU/L 3.20 uIU/mL 0.36-3.74 [facility] ([facility] ) ID Date Data Source [id number] 11/08/2019 08:11:00 AM EDT [facility] ([facility]) Name Value Range Interpretation Code Description Data Lilliana rce(s) Supporting Document(s) Triglyceride [Mass/volume] in Serum or Plasma 114 mg/dL 30-150 [facility] ([facility]) Cholesterol [Mass/volume] in Serum or Plasma 140 mg/dL 131-200 [facility] ([facility]) Cholesterol in LDL [Mass/volume] in Serum or Plasma by calcu lation 54 CALC 50-159 [facility] ([facility]) Cholesterol in HDL [Mass/volume] in Serum or Plasma 63 mg/dL 35-60 [facility] ([facility]) ID Date Data Source [id number] 11/08/2019 08:11:00 AM EDT [facility] ([facility]) Name Value Range Interpretation Code Description Data Lilliana rce(s) Supporting Document(s) Glucose [Mass/volume] in Serum or Plasma 98 mg/dL 74-99 [facility] ([facility]) 100-125 mg/dL PRE-DIABETES/FASTING >126 mg/dL DIABETES/FASTING Urea nitrogen [Mass/volume] in Serum or Plasma 20 mg/dL 7-18 [facility] ([facility]) Creatinine 0.8 mg/dL 0.6-1.3 [facility] Sodium [Moles/volume] in Serum or Plasma 143 meq/L 136-145 [facility] ([facility]) Potassium [Moles/volume] in Serum or Plasma 4.6 meq/L 3.5-5.1 [facility] ([facility]) Carbon dioxide, total [Moles/volume] in Serum or Plasma 31 meq/L 21 -32 [facility] ([facility]) Chloride [Moles/volume] in Serum or Plasma 104 meq/L 98-107 [facility] ([facility]) Calcium [Mass/volume] in Serum or Plasma 9.6 mg/dL 8.5-10.1 [facility] ([facility]) Alkaline phosphatase isoenzyme [Units/volume] in Serum or Pl asma 107 mg/dL 46-116 [facility] ([facility]) Total Bilirubin 0.5 mg/dL 0.2-1.0 [facility] Albumin [Mass/volume] in Serum or Plasma 3.9 g/dL 3.4-5.0 [facility] Aspartate aminotransferase [Enzymatic activity/volume] in Serum or Plasma 17 U/L 15-37 [facility] ([facility] ) Alanine aminotransferase [Enzymatic activity/volume] in Seru m or Plasma 25 U/L 12-78 [facility]) A/G Ratio 1.22 CALC 1.00-1.90 [facility] Glomerular filtration rate/1.73 sq M pre dicted among non-blacks [Volume Rate/Area] in Serum or Plasma by Creatinine-based formula (MDRD) Laboratory test result [facility] Proteinase 3 Ab [Units/volume] in Serum 7.1 g/dL 6.4-8.2 [facility]) Glomerular filtration rate/1.73 sq M pre dicted among blacks [Volume Rate/Area] in Serum or Plasma by Creatinine-based formula (MDRD) Laboratory test result [facility]) <content>CHRONIC KIDNEY DISEASE STAGING PER NKF</content>
<content></content>
<content>STAGE I & II GFR >= 60 NORMAL TO MILDLY DECREASED</content>
<content>STAGE III GFR 30-59 MODERATELY DECREASED</content>
<content>STAGE IV GFR 15-29 SEVERELY DECREASED</content>
<content>STAGE V GFR <15 VERY LITTLE GFR LEFT</content>
<content>ESRD GFR <15 ON ANNEALING OPERATOR</content>
<content></content> ID Date Data Source [id number] 11/08/2019 08:11:00 AM EDT [facility] ([facility]) Name Value Range Interpretation Code Description Data Lilliana rce(s) Supporting Document(s) Hemoglobin A1c/Hemoglobin.total in Blood 7.9 g/dL 4.8-5.6 [facility] ([facility]) Lab Result Notes: Pre-Diabetes 5.7 - 6.4 % Diabetes = or > 6.5% Glucose mean value [Mass/volume] in Blood Estimated fr om glycated hemoglobin 180 mg/dL 60-110 [facility] ID Date Data Source [id number] 11/08/2019 08:11:00 AM EDT [facility] Name Value Range Interpretation Code Description Data Lilliana rce(s) Supporting Document(s) Erythrocytes [#/volume] in Blood by Automated count 4.38 x10*6/UL 4.2 0-6.30 [facility] Leukocytes [#/volume] in Blood by Automated count 10.2 x10*3/UL 4.1-1 0.9 [facility] NOTE: RESULT VERIFIED. Hematocrit [Volume Fraction] of Blood by Automated count 37.8 % 3 7.0-51.0 [facility] Hemoglobin [Mass/volume] in Blood 12.7 g/dL 12.0-18.0 [facility] MCHC 33.6 g/dL 31.0-38.0 [facility] ([facility]) MCV 86.3 fL 80.0-97.0 [facility] ([facility]) MCH 29.0 pg 26.0-32.0 [facility] ([facility]) Platelets [#/volume] in Blood by Automated count 282 x10*3/UL 140-440 [facility] MPV 8.0 FL 7.8-11.0 [facility] ([facility]) Erythrocyte distribution width [Ratio] by Automated count 14.6 % 11.6-13.7 [facility] Mid % 6.0 % 1.7-9.3 [facility] ([facility]) Lymph % 28.1 % 10.0-58.5 [facility] ([facility]) Mid # 0.7 x10*3/UL 0.1-0.6 [facility] Lymph # 2.8 x10*3/UL 0.6-4.1 [facility] Neut % 65.9 % 37.0-92.0 [facility] Neut # 6.7 x10*3/UL 2.0-7.8 [facility] ([facility]) ID Date Data Source [id number] 11/08/2019 08:11:00 AM EDT [facility] ([facility]) Name Value Range Interpretation Code Description Data Lilliana rce(s) Supporting Document(s) Hemoglobin A1c/Hemoglobin.total in Blood Laboratory test result [facility] ([facility]) ID Date Data Source [id number] 08/17/2019 01:15:31 PM [facility] Name Value Range Interpretation Code Description Data Lilliana rce(s) Supporting Document(s) Progress Note [facility] LBCZBm6mKhNMWaXx22/KVYsaHMYnr2CrKOxbNPl3HUkhBRRuM0RhRIZ4tR5uFJE7ACtBOhXfOzNsGiZ0 lbm [file] ICAgICAgICAgICAgICAgICAgICAgICAgICAgICAgIC AgICAgICAgICAgICAgICAgICAgICAgICANCiAgICAgICAgICAgICAgICAgICAgICAgICAgICAgICAgIC AgICAgICAgICAgICAgICAgICAgICAgICAgICAgICAgICAgICAgICAgICAgICAgICAgICAgICAgICAgIC AgICAgICANCiAgICAgICAgICAgICAgICAgICAgICAg ICAgICAgICAgICAgICAgICAgICAgICAgICAgICAgICAgICAgICAgICAgICAgICAgICAgICAgICAgICAg ICAgICAgICAgICAgICAgICANCiAgICAgICAgICAgICAgICAgICAgICAgICAgICAgICAgICAgICAgICAg ICAgICAgICAgICAgICAgICAgICAgICAgICAgICAgIC AgICAgICAgICAgICAgICAgICAgICAgICAgICANCiAgICAgICAgICAgICAgICAgICAgICAgICAgICAgIC AgICAgICAgICAgICAgICAgICAgICAgICAgICAgICAgICAgICAgICAgICAgICAgICAgICAgICAgICAgIC AgICAgICAgICANCiAgICAgICAgICAgICAgICAgICAg ICAgICAgICAgICAgICAgICAgICAgICAgICAgICAgICAgICAgICAgICAgICAgICAgICAgICAgICAgICAg ICAgICAgICAgICAgICAgICAgICANCiAgICAgICAgICAgICAgICAgICAgICAgICAgICAgICAgICAgICAg ICAgICAgICAgICAgICAgICAgICAgICAgICAgICAgIC AgICAgICAgICAgICAgICAgICAgICAgICAgICAgICANCiAgICAgICAgICAgICAgICAgICAgICAgICAgIC AgICAgICAgICAgICAgICAgICAgICAgICAgICAgICAgICAgICAgICAgICAgICAgICAgICAgICAgICAgIC AgICAgICAgICAgICANCiAgICAgICAgICAgICAgICAg ICAgICAgICAgICAgICAgICAgICAgICAgICAgICAgICAgICAgICAgICAgICAgICAgICAgICAgICAgICAg ICAgICAgICAgICAgICAgICAgICAgICANCiAgICAgICAgICAgICAgICAgICAgICAgICAgICAgICAgICAg ICAgICAgICAgICAgICAgICAgICAgICAgICAgICAgIC AgICAgICAgICAgICAgICAgICAgICAgICAgICAgICAgICANCjw/zNVdR1afdXUachP4G7jtIa2RBe2OUB 4jx7EcBHQvWHhkrlIgFscBKxMeLTIbHfyPMso7QNtsPC0XcNQaV7JfD2YmWVelNI4RKTYdPBThyZWiET LvTBZwCeS2GAOqWObcQP4TcRLuNBhfTMPmKTCwOD9H RVSeH860ioEbCO8VIt7BWvLhNN3gvx3NYNhnJFTgEzjLOzx1MIldYY8EoQCvxRMoJMNcQGKKAyNwQ1xp n1RaUyMmYXJAOFmwKS8Oy4BwzEZdSBd+Tm4NJN8xd3QcMOupMOTdCL6itq7TFXrSKaDjC7NtoXbcOSRw v7epJXIzUS3lvLHpXKO5XVhkbLinESXrYZ5wYovKna ijqyckDe3uXBXsBq8jKM7vOKZrBMRmQiAgFALAPU8ZEBMzNIXnfLSuWARuULTEEF8RENtvTBU9VKXnik SqwPQvUJbzXG0GRXPvirUxNUqjKQOGHTq+Fd9FPX1fq6OtDQrlISQoPY8pcl4NLFyAElRfS5M7qNAjL3 Z2BSxaHa2IZPWnCDQgBWnoBCGBJMjtHJ4TOU7lyfN7 CO6MbHSgZUGeFQDdlEYlULl3I32mjMEpGPytCS4KLFI+Renee+Ib0NPLFhMMAyZFIfPnOpMCEKQcJmD5Sh D8OBh9IlJ2VyDS71aOmhgqYzBVfbKV9RDB5tNXVmUVOLQZ6NtELcpH3cpjGrVIVnPBHMTxUtT29jrEJe TTShAOJ9LMTwDv4AZKSlY4ComzRhtSdscqBxYFInJX KBYI0GYTxatuBwhZBkcUdzST64mGwdLZ9GId3KOqItBI4hlf5NuGMjXg6ARAYpPt8OUJTfOCLsUQWwJI W7LSPjCaDnELsnKAZbVYNvLMK2TTLsRZOjHI2SKzPiNMRoZSu0ZKBzZLWkXNAtor5YPWXjWUXzZYIlQA QbJMMjMMUvYIvtOIZrJCXeDTC1SFWtWKHtLQ4KYqZc YXBjMRF8HcvmHWWgHPXwnc6CTDNtQLHpVvkxEgLnCRSoBAZxCUniVQQrLUFgGOcmEMSlXUXwNG6VCcJw OYVoWIAjBYgoFNMzKUMjjq9CGQRlSWWyZDY8MGBaEBDcFNMrYOmnBTJrGIV1LiL1WWDkBJStZB2VUnHd SEWoURS6LvvoOVQnUALftt3SEDDwNGIdQZEdTRQxMJ ChCHYoXWznIKJzDML1VVotQUYxKJGiXV4QKiQsRYYsHPahIHUtJHMpHLApwi9MFFXxLEHuJwP8KXHhPQ UwMILiVOuvTCXtRHM8VuS9MIDkNIEtTX7LLqQnUHBgBIt9KHGlCGAmANUewi1ZXFGvODNeVWA5YMWmYV IhQLCmFEzxGQXmHVK0YoI1SDUeJCLtOP4BBiBzYECo GUa2KKNyMYIgZRJfvm0DMOUzICPeFWs5RgYeZTQtZCKdYFh5mnQnjCIbYXf9AI2SX3XrjnIaNiTOUy2B a854RVOuOBYdZt1DU4eaAv9dSAOxPUPKTp6WNFi7TOVkBkQ3MaNkHgL8JxDiFDXqHClzWnQqPOPnKStz NjQ+BCz5OoRlPDjkKxPpSxP7BRR2ZkJsYdQvTvFjMF E8HQK3FG3aIOTBCb6+IZljlDMhkAomQPKWLuUlNXm2IHqxJLRMKe3L ID Date Data Source [id number] 08/05/2019 04:55:00 PM EST [facility] ([facility]) Name Value Range Interpretation Code Description Data Lilliana rce(s) Supporting Document(s) Creatinine [Mass/volume] in Urine 46.0 mg/dL [facility] ([facility]) Microalbumin [Mass/volume] in Urine 18.1 mg/L [facility] ([facility]) Albumin/Creatinine [Mass Ratio] in Urine 39.3 ug/mgcreat [facility] ([facility]) ID Date Data Source [id number] 08/05/2019 07:39:[address] [facility] Name Value Range Interpretation Code Description Data Lilliana rce(s) Supporting Document(s) Microalbumin [Mass/volume] in Urine 18.1 mg/L [facility] Creatinine [Mass/volume] in Urine 46.0 mg/dl [facility] Albumin/Creatinine [Mass Ratio] in Urine 39.3 ug/mg creat <20.0 H [facility] ID Date Data Source [id number] 08/05/2019 01:01:59 PM [facility] Name Value Range Interpretation Code Description Data Lilliana rce(s) Supporting Document(s) Progress Note [facility] GRSIVb8vDgGLXoIj05/KNItpPYBfo2SiOPdhXHv7XHxoRFSjY3KeLPG5oO0uXSE9GEpKGaBjNbPwXhX5 lbm [file] AgICAgICAgICAgICAgICAgICAgICAgICAgICAgICAgICAgICAgICAgICAgICAgICAgICAgICAgICAgIC AgICAgICAgICAgICAgICAgICAgICAgICAgICAgICAgICAgDQogICAgICAgICAgICAgICAgICAgICAgIC AgICAgICAgICAgICAgICAgICAgICAgICAgICAgICAg ICAgICAgICAgICAgICAgICAgICAgICAgICAgICAgICAgICAgICAgICAgICAgDQogICAgICAgICAgICAg ICAgICAgICAgICAgICAgICAgICAgICAgICAgICAgICAgICAgICAgICAgICAgICAgICAgICAgICAgICAg ICAgICAgICAgICAgICAgICAgICAgICAgICAgDQogIC AgICAgICAgICAgICAgICAgICAgICAgICAgICAgICAgICAgICAgICAgICAgICAgICAgICAgICAgICAgIC AgICAgICAgICAgICAgICAgICAgICAgICAgICAgICAgICAgICAgDQogICAgICAgICAgICAgICAgICAgIC AgICAgICAgICAgICAgICAgICAgICAgICAgICAgICAg ICAgICAgICAgICAgICAgICAgICAgICAgICAgICAgICAgICAgICAgICAgICAgICAgDQogICAgICAgICAg ICAgICAgICAgICAgICAgICAgICAgICAgICAgICAgICAgICAgICAgICAgICAgICAgICAgICAgICAgICAg ICAgICAgICAgICAgICAgICAgICAgICAgICAgICAgDQ ogICAgICAgICAgICAgICAgICAgICAgICAgICAgICAgICAgICAgICAgICAgICAgICAgICAgICAgICAgIC AgICAgICAgICAgICAgICAgICAgICAgICAgICAgICAgICAgICAgICAgDQogICAgICAgICAgICAgICAgIC AgICAgICAgICAgICAgICAgICAgICAgICAgICAgICAg ICAgICAgICAgICAgICAgICAgICAgICAgICAgICAgICAgICAgICAgICAgICAgICAgICAgDQogICAgICAg ICAgICAgICAgICAgICAgICAgICAgICAgICAgICAgICAgICAgICAgICAgICAgICAgICAgICAgICAgICAg ICAgICAgICAgICAgICAgICAgICAgICAgICAgICAgIC AgDQogICAgICAgICAgICAgICAgICAgICAgICAgICAgICAgICAgICAgICAgICAgICAgICAgICAgICAgIC ThYYZcCEDnLOAgRHNcZMQzXAMmDJXkQEFwRUMvDLHjMYOjEKJhVAVcSZEeNZp9O5dtCTCkNKEjQK3aLD d3Jz8+HEpJRaGrUZE4imMwaS7ANV3lk3IyXQroHJKi h3LmMYa2DS0VXXDlXQpwCO0KHTxyvi4VURLqSDTazOWOd8diTjYwNTY9BZPpPldpDP9KYXAuN4ryaaKc CTKcMKNJUMenDDUIWBdcNPPDOGFkLLWcVcKiUmUjZDEsAKVrUSJDPFV0UYQeTdZbKTKoOFCtQkObCKWZ NGWcBGDlMdQyLGdeBN4Xj2OuoGVrIX9OPq9TQbPrCV 6iri5HXZXiWSWlNzjKCge9UIpeNP6BxRNcpXK3CXTgCLYNQqQlY1ytd4CqSNDaQPYEQVypRB3Gb6XcjS AxDQo+Mk3IFO6nw6BdQHd9HJXwDS0doh4CPCaIIwRmN0XjfRbvXSGax9dmIUFqND3bgPQbOBH1IPbvbr 6qNuIiNVBrZFQec5fjKzskYLRdLQBsKc2hTQ0qEATk CJCjAfQzRNEFQW3MFLYqCMGysQBeNMZmMRUJVK4YDZavMQF7HZBiqzRpwYVvQAjzVH7YORYljhKkXDTa MCBSDQo+Az5NPI5rf4EoIZs4MxGfKB2pmh9ZLRiXKaSuJ6N9qXXtH8S6GXaoDl0ZFMJkWWKpWsmwKTJG SVjiRV8YKF9vwjO1DV0IrPIqULBhNLJxxPMgDZc2L4 7ucUNpYTfzFD8YABP+Renee+Cj4WISChLRXnFXSwFfOeJKVGXdFnE2VvO1TLm9AxM6WmKS99nFdkatJsPD ebJE9SQK2vATLxLLGSYE3PrXJqrK6cwfX9EMNgQWNZHhPaZ82gqFSsMDHpUOP5QWIhSt6DNVDlI0Llfu KtsLvwgyZpCPIyWDROSS7KNJtaqsOzjLHfkMheRH94 xMsrWC2QBi7VWwRcSR6gfr8RrEBlPd0LYJS7Xs5ANSFxHWVgFNLoNZP5DYNmMlLtEZznIZZrLKAvEZV4 WNKcKVYcMU0XImHzXJCxREP3WxHeAGFcNVRzua1BLBLiDLM0FrL9VBQtMTJjMZGaKWjkVEOwMBWvOJG4 GFIgHVHwBS5WDjKhJOEwPXDsBlNlCQObONCtot1DAU EqOQFcHhGeHMEsBGIuQNTsRYfjSEBoKSL8OUJyUMIrSYZiIK1RKuGwKLSbVXXuBwztGVHsILZamc8LDV FoMUBmMBR8JRDvHNNeAVPaYBsyCUFgPVQ7OIC5TQCzZCBxYE6IWwLqWBVtDQAmSJNjXKEsXAUjhd5KEN UrOQFqWyUzOKTgDLWvYNExQGjuBSRqVLF6BCV4LHYt KKHuZX4ANmWsNAUcNDQ0JEKdFWSfFGFajv0BNWPaAHTrXJV3CQIiGYTjPQDgTIwuLLKaIVR2SRAiDDXk OPMbDF5EDhGmBWAcGsGyDZdjVWFeEKBcht3CAAZzFCXcVFN1DRYpGHSrIOOtIDxvLITbFVE4RER2YWRd IBRgMS7TRaAhKYVfCxIhAmSfTNFeMVMkwv4XEGFtLE AkRlOtNbXgDWHnCYKvSZhuJABgZRH9AOS2BBGaFXMkWX6PZdSzZOOaKmsqQbYfEZYkOSZfrl4FJRUxIO DfCUNxTTJgIPByEXJvPIfmHNOvKEV3KTe7DYLhUPCeKD4LEvMkMEXbKsbbBSLoMOHqRVGtjp3APTCnIQ BrPOM3DDQzEQInDXLmVPceHBQbXYLsDCA5FGJqWWZp TF8TKlQnKVWbIvS2KRJjGANwYLCouo2PESHnTLJoAFezWCWeJLNbXBOuYVnxWAEcYVHkWdI1RHTrCXBj HI2FSmUiYBWlQSB8UJMxNSGyQGOsbr8FSGOoFTY4Pej8VcXxWXLpEPOzPQhzTQPnEIWvMMBlMGZnOWPh GI7LMtAhENDyEFYxIUpwCFVsZQCxoc5IWZAcDJG6KW TePjYuUAYuASUyMYbxKZRwXLU0ICRxHABkRRHnTC1UTeSoGCTiCTA2GBsrTIRoIXWepi8OOTBeMFZ7SA ZrVJLbKIEvJDHyEJxlAZHgRDB5FHK9KKEmKIAqDG5JPsNqJWDcLLK7RFPnTVSmQKOvgm8MUHHhLZY7Wp yuSPNwHBCiYZZcJNw2vdJoyBXwAJm5CD4UC4LfsbDt PSLEGk4Bi709LWPqNNLlDk9QG2qyVk9xNYZmJMOKVv4WBEq9KCIsEkA1RPQrEvs4HCFmTASxORm3DaAz FVT1AXsvAul+YHp9QnZiBZy9BIWcDVn9UIFpYrVsMGqqXmQ6ZposFKGxWs5qTIJVEj7+DQpzdGFydHhy PQLIKcK1IEvfESawCLLSRh8T ID Date Data Source [id number] 08/05/2019 11:02:00 AM EST [facility] ([facility]) Name Value Range Interpretation Code Description Data Lilliana rce(s) Supporting Document(s) Glucose [Mass/volume] in Serum or Plasma 144 mg/dL 70-140 [facility] ID Date Data Source [id number] 08/05/2019 11:35:56 AM [facility] Name Value Range Interpretation Code Description Data Lilliana rce(s) Supporting Document(s) Glucose [Mass/volume] in Capillary blood by Glucometer 144 mg/dL 70- 140 H [facility] ID Date Data Source [id number] 08/05/2019 10:51:00 AM [facility] ([facility]) Name Value Range Interpretation Code Description Data Lilliana rce(s) Supporting Document(s) Glucose mean value [Mass/volume] in Blood Estimated fr om glycated hemoglobin 171 mg/dL [facility] Hemoglobin A1c/Hemoglobin.total in Blood 7.6 % 4.0-6.0 [facility] ID Date Data Source [id number] 08/05/2019 11:10:35 AM EST [facility] Name Value Range Interpretation Code Description Data Lilliana rce(s) Supporting Document(s) Hemoglobin A1c/Hemoglobin.total in Blood 7.6 % 4.0-6.0 H [facility] Glucose mean value [Mass/volume] in Blood Estimated fr om glycated hemoglobin 171 mg/dL <126 H [facility] Procedure Social History Code Duration Value Status Description Data Source(s ) Smoking 07/12/2020 12:00:00 AM EST Patient has never smoked co mpleted Patient has never smoked [facility] ([facility] Alcohol intake 06/29/2020 12:00:00 AM EST No completed [facility] Smoking 06/29/2020 12:00:00 AM EST Never smoker completed Never s [facility] Smoking 05/20/2020 12:00:00 AM EST Patient has never smoked co mpleted Patient has never smoked [facility] ([facility], [facility]) Smoking 02/09/2020 12:00:00 AM EDT Patient has never smoked co mpleted Patient has never smoked [facility] ([facility]) Alcohol intake 02/03/2020 12:00:00 AM EDT Current non-d pita of alcohol (finding) completed Current non-drinker of alcohol (finding) [facility] Tobacco use and exposure 02/03/2020 12:00:00 AM EDT Never used co mpleted Never used [facility] Smoking 02/03/2020 12:00:00 AM EDT Never smoker completed Never s [facility] Alcohol intake 08/05/2019 12:00:00 AM EST Current non-d pita of alcohol (finding) completed Current non-drinker of alcohol (finding) [facility] Smoking 08/05/2019 12:00:00 AM EST Never smoker completed Never s [facility] Vital Signs ID Date Data Source [id number] Name Value Range Interpretation Code Description Data Source(s) Body mass index (BMI) [Ratio] 39.2 kg/m2 39.2 k g/m2 [facility] ([facility]) Body weight 194.00 [lb_av] 194.00 [lb_av] MED[facility] T ([facility]) Body height 59 [in_i] 59 [in_i] [facility] ([facility]) 4'11" Heart rate 76 /min 76 /min [facility] ([facility]) Diastolic blood pressure 78 mm[Hg] 78 mm[Hg] [facility] ([facility]) Systolic blood pressure 128 mm[Hg] 128 mm[Hg] M [facility] ([facility]) Body surface area Derived from formula 1.81 m2 1.81 m2 [facility] ([facility] Oxygen saturation in Arterial blood by Pulse oximetry 97 % 97 % [facility] ([facility] Body mass index (BMI) [Ratio] 38.6 kg/m2 38.6 k g/m2 [facility] ([facility] Body height 59 [in_i] 59 [in_i] [facility] ([facility] " Body weight 191.00 [lb_av] 191.00 [lb_av] [facility] T ([facility] Heart rate 72 /min 72 /min [facility] ([facility] Diastolic blood pressure 60 mm[Hg] 60 mm[Hg] [facility] ([facility] Systolic blood pressure 110 mm[Hg] 110 mm[Hg] M EDENT ([facility]) Oxygen saturation in Arterial blood by Pulse oximetry 93 % 93 % [facility] Respiratory rate 18 /min 18 /min [facility] Body temperature 36.33 Jammie 36.33 Jammie [facility] Heart rate 71 /min 71 /min [facility] Diastolic blood pressure 70 mm[Hg] 70 mm[Hg] [facility] Systolic blood pressure 125 mm[Hg] 125 mm[Hg] [facility] Body mass index (BMI) [Ratio] 41.36 kg/m2 41.36 kg/m2 [facility] Body weight 86.7 kg 86.7 kg [facility] Body height 144.8 cm 144.8 cm [facility] Body surface area Derived from formula 1.80 m2 1.80 m2 [facility] ([facility] Oxygen saturation in Arterial blood by Pulse oximetry 95 % 95 % [facility] ([facility] Body mass index (BMI) [Ratio] 38.2 kg/m2 38.2 k g/m2 [facility] ([facility] Body height 59 [in_i] 59 [in_i] [facility] ([facility] 4'11" Body weight 189.00 [lb_av] 189.00 [lb_av] MED[facility] T ([facility] Heart rate 60 /min 60 /min [facility] ([facility] Diastolic blood pressure 60 mm[Hg] 60 mm[Hg] [facility] ([facility] Systolic blood pressure 118 mm[Hg] 118 mm[Hg] M EDENT ([facility]) Oxygen saturation in Arterial blood by Pulse oximetry 92 % 92 % [facility] ([facility], [facility]) Respiratory rate 28 /min 28 /min [facility] ( [facility], [facility]) Heart rate 86 /min 86 /min [facility] ([facility], [facility]) Diastolic blood pressure 80 mm[Hg] 80 mm[Hg] [facility] ([facility], [facility]) Systolic blood pressure 132 mm[Hg] 132 mm[Hg] [facility]) Body weight 192.00 [lb_av] 192.00 [lb_av] [facility] T ([facility], [facility]) Body temperature 98.3 [degF] 98.3 [degF] [facility] ([facility], [facility]) Oxygen saturation in Arterial blood by Pulse oximetry 93 % 93 % [facility] ([facility], [facility]) Heart rate 84 /min 84 /min [facility] ([facility], [facility]) Diastolic blood pressure 69 mm[Hg] 69 mm[Hg] [facility] ([facility], [facility]) Systolic blood pressure 116 mm[Hg] 116 mm[Hg] [facility]) Body mass index (BMI) [Ratio] 38.2 kg/m2 38.2 k g/m2 [facility] ([facility]) Oxygen saturation in Arterial blood by Pulse oximetry 98 % 98 % [facility] ([facility]) Body weight 189.00 [lb_av] 189.00 [lb_av] [facility] T ([facility]) Body height 59 [in_i] 59 [in_i] [facility] ([facility]) 4'11" Heart rate 88 /min 88 /min [facility] ([facility]) Diastolic blood pressure 70 mm[Hg] 70 mm[Hg] [facility] ([facility]) Systolic blood pressure 130 mm[Hg] 130 mm[Hg] M EDENT ([facility]) Body temperature 97.7 [degF] 97.7 [degF] [facility] ([facility]) Body height 59 [in_i] 59 [in_i] TABITHA ([facility]) Body surface area Derived from formula 1.82 m2 1.82 m2 [facility] ([facility] Oxygen saturation in Arterial blood by Pulse oximetry 94 % 94 % [facility] ([facility]) Body mass index (BMI) [Ratio] 39.2 kg/m2 39.2 k g/m2 [facility] ([facility]) Body height 59 [in_i] 59 [in_i] [facility] ([facility] 4'11" Body weight 194.00 [lb_av] 194.00 [lb_av] MEDEN T ([facility]) Heart rate 77 /min 77 /min [facility] ([facility] Diastolic blood pressure 60 mm[Hg] 60 mm[Hg] [facility] ([facility]) Systolic blood pressure 122 mm[Hg] 122 mm[Hg] M EDENT ([facility]) Body surface area 1.82 m2 1.82 m2 [facility] ([facility]) Body weight 88.452 kg 88.452 kg [facility] ([facility], ) Body mass index (BMI) [Ratio] 39.4 kg/m2 39.4 k g/m2 [facility] ([facility], ) Body weight 195.00 [lb_av] 195.00 [lb_av] MEDEN T ([facility], ) Body height 59 [in_i] 59 [in_i] [facility] ([facility], ) 4'11" Body temperature 96.8 [degF] 96.8 [degF] [facility] ([facility], ) Oxygen saturation in Arterial blood by Pulse oximetry 96 % 96 % [facility] ([facility], ) Room Air Heart rate 80 /min 80 /min [facility] ([facility], ) Diastolic blood pressure 70 mm[Hg] 70 mm[Hg] [facility] ([facility]) Systolic blood pressure 130 mm[Hg] 130 mm[Hg] [facility] Body mass index (BMI) [Ratio] 38.8 kg/m2 38.8 k g/m2 [facility] Oxygen saturation in Arterial blood by Pulse oximetry 97 % 97 % [facility] ([facility]) Body weight 192.00 [lb_av] 192.00 [lb_av] MEDEN T ([facility]) Body height 59 [in_i] 59 [in_i] [facility] ([facility]) 4'11" Heart rate 95 /min 95 /min [facility] ([facility]) Diastolic blood pressure 60 mm[Hg] 60 mm[Hg] [facility] ([facility]) Systolic blood pressure 120 mm[Hg] 120 mm[Hg] [facility] ([facility]) Body surface area Derived from formula 1.84 m2 1.84 m2 [facility] Body mass index (BMI) [Ratio] 40.0 kg/m2 40.0 k g/m2 [facility] Body height 59 [in_i] 59 [in_i] [facility] 4'11" Body weight 198.00 [lb_av] 198.00 [lb_av] [facility] ([facility]) Diastolic blood pressure 50 mm[Hg] 50 mm[Hg] [facility] Systolic blood pressure 132 mm[Hg] 132 mm[Hg] [facility] Body surface area 1.84 m2 1.84 m2 [facility] Body mass index (BMI) [Ratio] 39.0 kg/m2 39.0 k g/m2 [facility] ([facility], [facility]) Body height 59 [in_i] 59 [in_i] [facility] ([facility], [facility]) 4'11" Body weight 193.00 [lb_av] 193.00 [lb_av] [facility] ([facility], [facility]) Body temperature 98.3 [degF] 98.3 [degF] [facility] ([facility], [facility]) Oxygen saturation in Arterial blood by Pulse oximetry 98 % 98 % [facility] ([facility], [facility]) Respiratory rate 16 /min 16 /min [facility] ( [facility], [facility]) Heart rate 86 /min 86 /min [facility] ([facility], [facility]) Diastolic blood pressure 82 mm[Hg] 82 mm[Hg] [facility] ([facility], [facility]) Systolic blood pressure 149 mm[Hg] 149 mm[Hg] M [facility]ENT ([facility]) Body weight 87.545 kg 87.545 kg [facility]) Body mass index (BMI) [Ratio] 39.0 kg/m2 39.0 k g/m2 [facility] ([facility]) Body weight 193.00 [lb_av] 193.00 [lb_av] [facility] ([facility]) Body height 59 [in_i] 59 [in_i] [facility] ([facility]) 4'11" Oxygen saturation in Arterial blood by Pulse oximetry 96 % 96 % [facility] ([facility]) Room Air Heart rate 80 /min 80 /min [facility] ([facility]) Diastolic blood pressure 70 mm[Hg] 70 mm[Hg] [facility] ([facility]) Systolic blood pressure 126 mm[Hg] 126 mm[Hg] M EDENT ([facility]) Body mass index (BMI) [Ratio] 38.4 kg/m2 38.4 k g/m2 [facility] ([facility]) Body weight 188.38 [lb_av] 188.38 [lb_av] [facility] ([facility]) Body height 58.75 [in_i] 58.75 [in_i] [facility] ([facility]) 4'10.75" Body temperature 98.7 [degF] 98.7 [degF] [facility] ([facility]) ID Date Data Source [id number] 05/20/2020 08:25:40 PM [facility] Name Value Range Interpretation Code Description Data Source(s) TRANSFER FROM [facility] ID Date Data Source [id number] 02/03/2020 12:55:10 PM [facility] Name Value Range Interpretation Code Description Data Source(s) WEIGHT RECORDED 190 lb 190 lb [facility] ID Date Data Source [id number] 08/17/2019 01:15:31 PM [facility] Name Value Range Interpretation Code Description Data Source(s) WEIGHT RECORDED 190.6 lb 190.6 lb [facility] Body height Measured 58.86 in 58.86 in [facility] Patient Treatment Plan of Care Planned Activity Planned Date Details Description Data Source (s) Bumetanide 1 MG Oral Tablet 06/24/2020 12:00:00 AM [facility] carvedilol 3.125 MG Oral Tablet 06/24/2020 12:00:00 AM [facility] Insulin Lispro 100 UNT/ML Injectable Solution 05/31/2020 12:00:00 A M [facility] Levothyroxine Sodium 0.025 MG Oral Tablet 05/11/2020 12:00:00 AM [facility] Insulin Lispro 100 UNT/ML Injectable Solution 02/29/2020 12:00:00 A M [facility] Insulin Syringe 31G X 5/16" 1 ML 02/01/2020 12:00:00 AM [facility] Levothyroxine Sodium 0.025 MG Oral Tablet 08/05/2019 12:00:00 AM [facility] Nystatin [id number] UNT/ML Oral Suspension 07/18/2019 12:00:00 AM [facility] gabapentin 600 MG Oral Tablet 06/29/2019 12:00:00 AM [facility] tizanidine 4 MG Oral Tablet 06/16/2019 12:00:00 AM [facility] Glucose Blood In Vitro Strip (CONTOUR NEXT TEST) 05/31/2019 12:00:0 0 AM [facility] Insulin Lispro 100 UNT/ML Injectable Solution 03/30/2019 12:00:00 A M [facility] Levothyroxine Sodium 0.025 MG Oral Tablet 02/07/2019 12:00:00 AM [facility] Insulin, Aspart, Human 100 UNT/ML Injectable Solution 01/27/2019 12:00:00 AM [facility] Insulin, Aspart, Human 100 UNT/ML Injectable Solution 11/08/2018 12:00:00 AM [facility] Insulin Pen Needle (NOVOFINE) 30G X 8 MM [facility] 02/18/2016 12:00:00 A M [facility] torsemide 100 MG Oral Tablet [facility] Digoxin 0.125 MG Oral Tablet [facility]
[2020-08-14] MEDS ORDERED: DEXTROSE 50% 50 ML SYRINGE As Ordered ONE (16:04)
[2020-08-14] MEDS ORDERED: DEXTROSE 50% 50 ML SYRINGE IV ONE (16:15)
[2020-08-14] MEDS ORDERED: D5W/0.45% SODIUM CHLORIDE 1,000 ML IV SCH (16:15)
[2020-08-14] MEDS ORDERED: MIDAZOLAM INJ 2MG/2ML VIAL (J2250 PER 1MG) As Ordered ONE (16:47)
[2020-08-14] MEDS ORDERED: LIDOCAINE 2% 100MG/5ML SDV (FOR ANES.) As Ordered ONE (16:47)
[2020-08-14] MEDS ORDERED: propofoL 500 MG/50 ML VIAL As Ordered ONE (16:47)
[2020-08-14] MEDS ORDERED: ONDANSETRON 4MG/2ML VIAL As Ordered ONE (16:47)
[2020-08-14] MEDS ORDERED: fentaNYL 100 MCG/2 ML INJECTION (J3010) As Ordered ONE (16:47)
[2020-08-14] MEDS ORDERED: ROPIvacaine 0.5% 30ML INJECTION (J2795 PER 1MG) As Ordered ONE (17:11)
[2020-08-14] MEDS ORDERED: CHLOROPROCAINE PRES. FREE 2% 20ML VIAL As Ordered ONE (17:15)
[2020-08-14] MEDS ORDERED: CHLOROPROCAINE PRES. FREE 3% 20ML VIAL As Ordered ONE (17:16)
[2020-08-14] MEDS ORDERED: LIDOCAINE 2% JELLY 6 ML SYRINGE As Ordered ONE (18:15)
[2020-08-14] MEDS ORDERED: LR 1,000 ML IV SCH (19:00)
[2020-08-14] MEDS ORDERED: fentaNYL 100 MCG/2 ML INJECTION (J3010) IV PRN (19:00)
[2020-08-14] MEDS ORDERED: ONDANSETRON 4MG/2ML VIAL IV PRN (19:00)
[2020-08-14] MEDS ORDERED: NORCO, ANEXSIA 5/325MG TABLET (HYDROcodone/ACETAMINOPHEN) PO PRN ×2 (19:00)
[2020-08-14] MEDS ORDERED: MORPHINE 2 MG/ML 1ML VIAL (J2270) IV PRN (19:00)
[2020-08-14 21:05] VITALS: BP 149/70
--- NOTE | 2020-08-15 09:41 | RO ---
OPERATIVE NOTE DATE OF OPERATION: 08/14/2020 PREOPERATIVE DIAGNOSIS: Right knee unstable medial meniscus tear with some degenerative arthritis. 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 PROCEDURE: Right knee partial medial meniscectomy. SURGEON: eDb Sahu MD [employer]ANT: ANESTHESIA: Spinal anesthetic. COMPLICATIONS: None. ESTIMATED BLOOD LOSS: None. SPECIMENS: None. FINDINGS: She had an unstable extensively degeneratively torn medial meniscus with a radial tear that was unstable and flipping in and out of the medial gutter. 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 The lateral meniscus had some free edge fraying but was not clinically torn and the rest of the articular cartilage was grade 1 and grade 2 chondromalacia. DESCRIPTION OF PROCEDURE: Antibiotics were given intravenously preoperatively. A successful spinal anesthetic was induced, and tourniquet placed in the right upper thigh. It was not inflated during the surgery. Right lower extremity was then carefully prepped and draped in the usual sterile fashion. After appropriate time-out, insufflation portal was established superior medially. The scope was introduced anterolaterally. A working portal placed anteromedially and we introduced the arthroscope in the floor of the joint with the findings as noted as described above. I addressed the medial meniscus tear by first using a small curved to the right basket punch to the anteromedial portal and then a shaver and then I switched the visualization portal from lateral to medial so I could instrument from the lateral portal and get more direct approach to the torn medial meniscus. I used the probe as well and eventually was able to tease out an unstable radial tear that was flipped down onto the medial gutter. The neck flipped out into the joint and I was able to excise that with the shaver. Photographs were taken after the meniscectomy was performed. Mild chondroplasty of the chondromalacia of the medial femoral condyle was performed. I explored the lateral compartment in a figure 4 position by switching the scope back to the anterolateral portal and there was no arthroscopic treatable pathology in the lateral compartment. At this point I concluded the procedure by copiously irrigating out the knee joint, instilled bupivacaine, covered the wounds with Adaptic and a dry sterile bulky dressing. She was then transferred to the recovery room in stable condition. There were no intraoperative complications [facility]
== END 2020-08-14 21:10 | disposition home or self-care (01) ==
LOC: M SDC 13:45
PROVIDERS: ATTEND Orthopaedic Surgery
DX: M23.203 Derangement of unspecified medial meniscus due to old tear or injury, right knee (principal); M94.261 Chondromalacia, right knee; I10 Essential (primary) hypertension; I25.2 Old myocardial infarction; I25.10 Atherosclerotic heart disease of native coronary artery without angina pectoris; Z95.1 Presence of aortocoronary bypass graft; E78.00 Pure hypercholesterolemia, unspecified; E11.42 Type 2 diabetes mellitus with diabetic polyneuropathy; Z79.4 Long term (current) use of insulin; E55.9 Vitamin D deficiency, unspecified; J45.20 Mild intermittent asthma, uncomplicated; M81.0 Age-related osteoporosis without current pathological fracture; E03.9 Hypothyroidism, unspecified; G47.33 Obstructive sleep apnea (adult) (pediatric); I35.0 Nonrheumatic aortic (valve) stenosis; K44.9 Diaphragmatic hernia without obstruction or gangrene; K21.9 Gastro-esophageal reflux disease without esophagitis; Z88.0 Allergy status to penicillin; Z88.2 Allergy status to sulfonamides; Z79.82 Long term (current) use of aspirin; Z79.899 Other long term (current) drug therapy
CPT/HCPCS: 29881; J2250; J2400; J2405; J2795; J3010

== ENCOUNTER → 2021-01-21 | Outpatient (REF) | payer MEDICARE ==
[~2021-01-21] MED LIST changes: -CLINDAMYCIN 600 MG in IV 1 EA IV ONE; -LR 1,000 ML IV ONE
[2021-01-21 14:43] LABS: CHOLESTEROL RISK RATIO 3.358 (<5)
== END ==
LOC: M LABDRWAD 12:50
PROVIDERS: ATTEND Internal Medicine Cardiovascular Disease
DX: I25.810 Atherosclerosis of coronary artery bypass graft(s) without angina pectoris (principal); Z95.1 Presence of aortocoronary bypass graft; E78.2 Mixed hyperlipidemia

== ENCOUNTER → 2021-10-16 | Outpatient (CLI) | payer MEDICARE ==
[~2021-10-16] MED LIST changes: +POTA-149 PO; -POTA10TA16 PO; +TIZA10TA PO; -TIZA4TAB4 PO
[2021-10-16 14:07] LABS: ALBUMIN 3.8 GM/DL (3.2-5.2); ALT/SGPT 20 U/L (12-78); BILIRUBIN,TOTAL 0.4 MG/DL (0.2-1.0); BLOOD UREA NITROGEN 24 MG/DL (7-18); CALCIUM LEVEL 9.7 MG/DL (8.8-10.2); CARBON DIOXIDE LEVEL 31 MEQ/L (21-32); CHLORIDE LEVEL 103 MEQ/L (98-107); CREATININE FOR GFR 0.89 MG/DL (0.55-1.30); GLOMERULAR FILTRATION RATE > 60.0 (>39); GLUCOSE, FASTING 202 MG/DL (70-100); POTASSIUM SERUM 4.1 MEQ/L (3.5-5.1); SODIUM LEVEL 140 MEQ/L (136-145); TOTAL 25(OH) VITAMIN D 27.9 NG/ML (30.0-100.0); TOTAL PROTEIN 7.2 GM/DL (6.4-8.2)
== END ==
LOC: M ADAMS 08:51
PROVIDERS: ATTEND Internal Medicine Endocrinology, Diabetes & Metabolism
DX: E11.65 Type 2 diabetes mellitus with hyperglycemia (principal); Z79.4 Long term (current) use of insulin

== ENCOUNTER → 2022-02-12 | Outpatient (CLI) | payer MEDICARE ==
[2022-02-12 14:39] LABS: CHOLESTEROL RISK RATIO 2.704 (<5)
== END ==
LOC: M ADAMS 09:57
PROVIDERS: ATTEND Internal Medicine Cardiovascular Disease
DX: E78.2 Mixed hyperlipidemia (principal); I10 Essential (primary) hypertension

== ENCOUNTER → 2022-04-24 | Outpatient (CLI) | payer MEDICARE ==
[2022-04-24 11:19] LABS: HEMATOCRIT 37.9 % (36.0-47.0); HEMOGLOBIN 12.4 g/dl (12.0-15.5); MEAN CORPUSCULAR HEMOGLOBIN 29.9 pg (27.0-33.0); MEAN CORPUSCULAR HGB CONC 32.7 g/dl (32.0-36.5); MEAN CORPUSCULAR VOLUME 91.3 fl (80.0-96.0); PLATELET COUNT, AUTOMATED 262 10^3/uL (150-450); RED BLOOD COUNT 4.15 10^6/uL (4.00-5.40); WHITE BLOOD COUNT 8.3 10^3/uL (4.0-10.0)
[2022-04-24 12:07] LABS: BLOOD UREA NITROGEN 17 MG/DL (7-18); CALCIUM LEVEL 9.1 MG/DL (8.8-10.2); CARBON DIOXIDE LEVEL 33 MEQ/L (21-32); CHLORIDE LEVEL 101 MEQ/L (98-107); CREATININE FOR GFR 0.84 MG/DL (0.55-1.30); GLOMERULAR FILTRATION RATE > 60.0 (>39); GLUCOSE, FASTING 227 MG/DL (70-100); NT-PRO BNP 585 PG/ML (<125); POTASSIUM SERUM 3.9 MEQ/L (3.5-5.1); SODIUM LEVEL 138 MEQ/L (136-145)
== END ==
LOC: M LAB 10:35
PROVIDERS: ATTEND Internal Medicine Cardiovascular Disease
DX: R06.02 Shortness of breath (principal)

== ENCOUNTER → 2022-04-30 | Outpatient (CLI) | payer MEDICARE | LOC: M RAD 11:14 | PROVIDERS: ATTEND Internal Medicine Cardiovascular Disease | DX: R06.02 Shortness of breath (principal); I50.9 Heart failure, unspecified ==

== ENCOUNTER → 2022-11-19 | Outpatient (CLI) | payer MEDICARE ==
[~2022-11-19] MED LIST changes: -ENAL-36 PO; +ENAL1TAB50 PO
== END ==
LOC: M RAD 10:32
PROVIDERS: ATTEND Nurse Practitioner Family
DX: M54.16 Radiculopathy, lumbar region (principal)

== ENCOUNTER 2023-01-23 23:02 | Emergency (ER) | payer MEDICARE ==
[~2023-01-23] VITALS: Ht 149.9 cm; Wt 92.2 kg
[2023-01-23] MEDS ORDERED: NS 500 ML IV ONE (23:25)
[2023-01-24 00:36] LABS: CK-MB VALUE MASS 1.8 NG/ML (<3.6); CPK CREATINE PHOSPHOKINASE 88 U/L (34-145); MB/CK RELATIVE INDEX 2.04 (< OR =4)
[2023-01-24 00:43] LABS: BASO # 0.1 10^3/uL (0.0-0.2); BASO % 0.5 % (0.0-1.0); EOS # 0.3 10^3/uL (0.0-0.5); EOS % 2.5 % (0.0-3.0); HEMATOCRIT 34.5 % (36.0-47.0); HEMOGLOBIN 11.6 g/dl (12.0-15.5); LYMPH # 2.7 10^3/uL (1.5-5.0); LYMPH % 26.2 % (24.0-44.0); MEAN CORPUSCULAR HEMOGLOBIN 29.9 pg (27.0-33.0); MEAN CORPUSCULAR HGB CONC 33.6 g/dl (32.0-36.5); MEAN CORPUSCULAR VOLUME 88.9 fl (80.0-96.0); MONO # 1.1 10^3/uL (0.0-0.8); MONO % 10.2 % (2.0-8.0); NEUTROPHILS # 6.1 10^3/uL (1.5-8.5); NEUTROPHILS % 59.4 % (36.0-66.0); PLATELET COUNT, AUTOMATED 235 10^3/uL (150-450); RED BLOOD COUNT 3.88 10^6/uL (4.00-5.40); WHITE BLOOD COUNT 10.3 10^3/uL (4.0-10.0)
[2023-01-24 01:01] LABS: BLOOD UREA NITROGEN 25 MG/DL (9-23); CALCIUM LEVEL 8.7 MG/DL (8.3-10.6); CARBON DIOXIDE LEVEL 25 MMOL/L (20-31); CHLORIDE LEVEL 102 MMOL/L (98-107); CREATININE FOR GFR 0.92 MG/DL (0.55-1.30); GLOMERULAR FILTRATION RATE > 60.0 (>39); GLUCOSE, FASTING 88 MG/DL (74-106); MAGNESIUM LEVEL 1.8 MG/DL (1.8-2.4); POTASSIUM SERUM 4.1 MMOL/L (3.5-5.1); SODIUM LEVEL 138 MMOL/L (136-145)
[2023-01-24 01:06] VITALS: TEMP 98.8
[2023-01-24] MEDS ORDERED: ISOVUE-370 76% 100ML VIAL As Ordered ONE (02:08)
[2023-01-24 03:45] VITALS: BP 132/70; O2SAT 90
== END 2023-01-24 04:54 | disposition home or self-care (01) ==
LOC: M ED 23:02
DX: R00.1 Bradycardia, unspecified (principal); I44.0 Atrioventricular block, first degree; I25.2 Old myocardial infarction; E11.9 Type 2 diabetes mellitus without complications; I10 Essential (primary) hypertension; E78.5 Hyperlipidemia, unspecified; E03.9 Hypothyroidism, unspecified; K21.9 Gastro-esophageal reflux disease without esophagitis; Z88.0 Allergy status to penicillin; Z88.2 Allergy status to sulfonamides; Z86.79 Personal history of other diseases of the circulatory system; Z79.52 Long term (current) use of systemic steroids; Z79.02 Long term (current) use of antithrombotics/antiplatelets; Z79.82 Long term (current) use of aspirin; Z79.4 Long term (current) use of insulin; Z79.899 Other long term (current) drug therapy
CPT/HCPCS: 36415; 71045; 71275; 80048; 82550; 82553; 83735; 84484; 85025; 87486; 87581; 87633; 87798; 93005; 99284; Q9967

== ENCOUNTER → 2023-02-19 | Outpatient (CLI) | payer MEDICARE ==
[2023-02-19 16:00] LABS: HEMATOCRIT 36.3 % (36.0-47.0); MEAN CORPUSCULAR HEMOGLOBIN 29.5 pg (27.0-33.0); MEAN CORPUSCULAR HGB CONC 33.1 g/dl (32.0-36.5); MEAN CORPUSCULAR VOLUME 89.2 fl (80.0-96.0); PLATELET COUNT, AUTOMATED 229 10^3/uL (150-450); RED BLOOD COUNT 4.07 10^6/uL (4.00-5.40); WHITE BLOOD COUNT 8.3 10^3/uL (4.0-10.0)
[2023-02-19 16:35] LABS: BLOOD UREA NITROGEN 18 MG/DL (9-23); CARBON DIOXIDE LEVEL 29 MMOL/L (20-31); CHLORIDE LEVEL 102 MMOL/L (98-107); CREATININE FOR GFR 0.74 MG/DL (0.55-1.30); GLOMERULAR FILTRATION RATE > 60.0 (>39); GLUCOSE, FASTING 171 MG/DL (74-106); SODIUM LEVEL 140 MMOL/L (136-145)
== END ==
LOC: M RAD 14:57
PROVIDERS: ATTEND Physician Assistant
DX: R06.02 Shortness of breath (principal); I27.20 Pulmonary hypertension, unspecified

== ENCOUNTER → 2023-04-17 | Outpatient (REF) | payer MEDICARE | LOC: M LAB REF 12:22 | PROVIDERS: ATTEND Internal Medicine | DX: N18.9 Chronic kidney disease, unspecified (principal) ==

== ENCOUNTER 2023-05-21 14:33 | Inpatient (IN) | payer MEDICARE ==
[~2023-05-21] VITALS: Ht 157.5 cm; Wt 89.4 kg
[2023-05-21] MEDS ORDERED: CLOP75TA2 (15:13)
[2023-05-21 15:17] LABS: VENOUS PH 7.457 UNITS (7.330-7.430)
[2023-05-21 15:18] LABS: VENOUS BASE EXCESS 3.2 (-2.0-2.0); VENOUS HCO3 27.2 MMOL/L (23.0-27.0); VENOUS O2 SATURATION 90.2 % (60.0-80.0); VENOUS PARTIAL PRESSURE CO2 39.4 mmHg (38.0-50.0); VENOUS PARTIAL PRESSURE O2 57.5 mmHg (30.0-50.0); VENOUS STANDARD HCO3 27.1 MMOL/L; VENOUS TOTAL CO2 28.4 MMOL/L (24.0-28.0)
[2023-05-21 15:26] LABS: BASO % 0.2 % (0.0-1.0); EOS % 0.1 % (0.0-3.0); HEMATOCRIT 39.2 % (36.0-47.0); HEMOGLOBIN 12.9 g/dl (12.0-15.5); LYMPH # 0.5 10^3/uL (1.5-5.0); LYMPH % 3.8 % (24.0-44.0); MEAN CORPUSCULAR HEMOGLOBIN 29.1 pg (27.0-33.0); MEAN CORPUSCULAR HGB CONC 32.9 g/dl (32.0-36.5); MEAN CORPUSCULAR VOLUME 88.5 fl (80.0-96.0); MONO # 0.6 10^3/uL (0.0-0.8); MONO % 4.8 % (2.0-8.0); NEUTROPHILS # 11.2 10^3/uL (1.5-8.5); NEUTROPHILS % 90.5 % (36.0-66.0); PLATELET COUNT, AUTOMATED 229 10^3/uL (150-450); RED BLOOD COUNT 4.43 10^6/uL (4.00-5.40); WHITE BLOOD COUNT 12.4 10^3/uL (4.0-10.0)
[2023-05-21 15:29] LABS: ETHYL ALCOHOL (ETHANOL) < 0.003 % (0.000-0.010); SALICYLATE LEVEL < 3.0 MG/DL (<30)
[2023-05-21 15:30] LABS: ALBUMIN 3.5 G/DL (3.2-5.2); ALKALINE PHOSPHATASE 261 U/L (46-116); ALT/SGPT 289 U/L (7.0-40); AST/SGOT 165 U/L (<34); BILIRUBIN,DIRECT 2.4 MG/DL (<0.4); BILIRUBIN,TOTAL 3.5 MG/DL (0.3-1.2); BLOOD UREA NITROGEN 23 MG/DL (9-23); CALCIUM LEVEL 9.1 MG/DL (8.3-10.6); CARBON DIOXIDE LEVEL 28 MMOL/L (20-31); CHLORIDE LEVEL 104 MMOL/L (98-107); CREATININE FOR GFR 0.53 MG/DL (0.55-1.30); GLOMERULAR FILTRATION RATE > 60.0 (>39); GLUCOSE, FASTING 205 MG/DL (74-106); POTASSIUM SERUM 3.6 MMOL/L (3.5-5.1); SODIUM LEVEL 140 MMOL/L (136-145); TOTAL PROTEIN 7.1 G/DL (5.7-8.2)
[2023-05-21 15:33] LABS: THYROID STIMULATING HORMONE 0.881 uIU/ML (0.55-4.78)
[2023-05-21 15:39] LABS: ABG BASE EXCESS 3.1 (-2.0-2.0); ABG HCO3 25.9 MMOL/L (22.0-26.0); ABG PARTIAL PRESSURE CO2 33.6 mmHg (35.0-45.0); ABG PARTIAL PRESSURE O2 60.7 mmHg (75.0-100.0); ABG STANDARD HCO3 27.1 MMOL/L. (22.0-26.0); ABG TOTAL CO2 26.9 MMOL/L (23.0-31.0); ABG pH (ARTERIAL) 7.504 UNITS (7.350-7.450)
[2023-05-21 15:55] LABS: OSMOLALITY SERUM 300 MOSM/KG (280-301)
[2023-05-21] MEDS ORDERED: LevoFLOXacin IV 750 MG in IV 1 EA IV ONE (16:30)
[2023-05-21] MEDS ORDERED: ISOVUE-370 76% 100ML VIAL As Ordered ONE (16:32)
[2023-05-21] MEDS ORDERED: GLUCAGON INJ 1MG VIAL SC PRN (20:00)
[2023-05-21] MEDS ORDERED: GLUCOSE 4GM CHEW TABLET PO PRN (20:00)
[2023-05-21] MEDS ORDERED: DEXTROSE 50% 50ML SYRINGE IV PRN (20:00)
[2023-05-21] MEDS ORDERED: SCOPOLAMINE 1MG TRANSDERMAL PATCH TOP PRN (20:45)
[2023-05-21] MEDS ORDERED: PROMETHAZINE 25MG/ML 1ML VIAL IV PRN (20:50)
[2023-05-21] MEDS ORDERED: ALBU8.5H INH (21:34)
[2023-05-21] MEDS ORDERED: HYDR-3910 PO (21:34)
[2023-05-21] MEDS ORDERED: KETO2CR TOP (21:34)
[2023-05-21] MEDS ORDERED: ALLO100T PO (21:34)
[2023-05-21] MEDS ORDERED: VITA100066 PO (21:34)
[2023-05-21] MEDS ORDERED: CLOP75TA99 PO (21:34)
[2023-05-21] MEDS ORDERED: VENL150C43 PO (21:34)
[2023-05-21] MEDS ORDERED: IPRA0.00 INH (21:34)
[2023-05-21] MEDS ORDERED: LEVO25TA5 PO (21:34)
[2023-05-21] MEDS ORDERED: ICOS1CAP PO (21:34)
[2023-05-21] MEDS ORDERED: MED HIST COMMENT (21:37)
[2023-05-21] MEDS ORDERED: HOME MED LIST COMPLETE! XX SCH (21:40)
[2023-05-21] MEDS: metroNIDAZOLE 500 MG in IV 1 EA IV SCH (21:58)
[2023-05-21 22:19] LABS: AMPHETAMINES LEVEL URINE NEGATIVE (NEGATIVE); BARBITURATES URINE NEGATIVE (NEGATIVE); BENZODIAZEPINES URINE NEGATIVE (NEGATIVE); CANNABINOIDS URINE NEGATIVE (NEGATIVE); COCAINE METABOLITE URINE NEGATIVE (NEGATIVE); METHADONE URINE NEGATIVE (NEGATIVE); OPIATES URINE NEGATIVE (NEGATIVE); PHENCYCLIDINE URINE NEGATIVE (NEGATIVE)
[2023-05-21] MEDS: AZTREONAM 2 GM in D5W MINI-BAG PLUS 50 ML IV SCH (23:58)
[2023-05-22] MEDS ORDERED: ALBUTEROL 90 MCG/ACT 8GM HFA INHALER INH PRN (05:25)
[2023-05-22] MEDS: metroNIDAZOLE 500 MG in IV 1 EA IV SCH ×3 (05:34→21:11)
[2023-05-22] MEDS: INSULIN LISPRO (NovoLOG) PER UNIT SC SCH ×4 (05:51→18:20)
[2023-05-22] MEDS: LEVOTHYROXINE 25MCG TABLET (0.025MG) PO SCH ×2 (06:33→06:40)
[2023-05-22] MEDS: AZTREONAM 2 GM in D5W MINI-BAG PLUS 50 ML IV SCH ×3 (06:34→22:53)
[2023-05-22] MEDS: ADVAIR HFA 230/21MCG INHALER INH SCH ×2 (07:05→19:59)
[2023-05-22] MEDS: **hydrALAZINE HCL** 25 MG TAB PO SCH ×2 (07:40→21:10)
[2023-05-22] MEDS ORDERED: LABETALOL 100MG/20ML VIAL IV STA (07:59)
[2023-05-22] MEDS ORDERED: KETOROLAC 30 MG/ML 1ML VIAL IV ONE (08:00)
[2023-05-22] MEDS ORDERED: LEVOTHYROXINE 25MCG TABLET (0.025MG) PO SCH (09:00)
[2023-05-22 09:11] LABS: BASO % 0.1 % (0.0-1.0); EOS % 0.1 % (0.0-3.0); HEMATOCRIT 39.3 % (36.0-47.0); HEMOGLOBIN 12.7 g/dl (12.0-15.5); LYMPH # 0.5 10^3/uL (1.5-5.0); LYMPH % 6.4 % (24.0-44.0); MEAN CORPUSCULAR HEMOGLOBIN 29.2 pg (27.0-33.0); MEAN CORPUSCULAR HGB CONC 32.3 g/dl (32.0-36.5); MEAN CORPUSCULAR VOLUME 90.3 fl (80.0-96.0); MONO # 0.5 10^3/uL (0.0-0.8); NEUTROPHILS % 87.1 % (36.0-66.0); PLATELET COUNT, AUTOMATED 201 10^3/uL (150-450); RED BLOOD COUNT 4.35 10^6/uL (4.00-5.40)
[2023-05-22 09:43] LABS: ALBUMIN 2.9 G/DL (3.2-5.2); ALKALINE PHOSPHATASE 220 U/L (46-116); ALT/SGPT 219 U/L (7.0-40); AST/SGOT 123 U/L (<34); BILIRUBIN,TOTAL 1.9 MG/DL (0.3-1.2); BLOOD UREA NITROGEN 22 MG/DL (9-23); CALCIUM LEVEL 8.5 MG/DL (8.3-10.6); CARBON DIOXIDE LEVEL 25 MMOL/L (20-31); CHLORIDE LEVEL 109 MMOL/L (98-107); GLOMERULAR FILTRATION RATE > 60.0 (>39); GLUCOSE, FASTING 212 MG/DL (74-106); POTASSIUM SERUM 3.9 MMOL/L (3.5-5.1); SODIUM LEVEL 145 MMOL/L (136-145); TOTAL PROTEIN 6.4 G/DL (5.7-8.2)
[2023-05-22 11:07] LABS: PROCALCITONIN 2.02 ng/ml
[2023-05-22] MEDS: allopurinoL 100 MG TAB PO SCH ×2 (11:08→21:10)
[2023-05-22] MEDS: PANTOPRAZOLE 40MG TAB (PROTONIX) PO SCH (11:09)
[2023-05-22] MEDS: dilTIAZem **CD** 180MG CAP PO SCH (11:09)
[2023-05-22] MEDS ORDERED: HYDROmorphone 4MG TABLET PO PRN (11:10)
[2023-05-22] MEDS: SPIRONOLACTONE 25 MG TAB PO SCH (11:10)
[2023-05-22] MEDS: CLOPIDOGREL 75 MG TAB PO SCH (11:10)
[2023-05-22] MEDS: CARVedilol 3.125 MG TAB PO SCH ×2 (11:10→21:11)
[2023-05-22] MEDS: GABAPENTIN 300 MG CAP PO SCH ×3 (11:10→21:10)
[2023-05-22] MEDS ORDERED: MORPHINE 2 MG/ML 1ML VIAL IV PRN (11:10)
[2023-05-22] MEDS ORDERED: IPRATROPIUM 0.5MG/ALBUTEROL 2.5MG INH SOL UD 3ML (DUONEB) INH PRN (11:35)
[2023-05-22 12:07] LABS: LIPASE 18 U/L (12-53)
[2023-05-22] MEDS: VENLAFAXINE **XR** 75MG CAPSULE PO SCH (13:21)
[2023-05-22] MEDS: D5W/0.45% SODIUM CHLORIDE 1,000 ML IV SCH ×2 (13:40→22:03)
[2023-05-22 14:45] LABS: INR 1.33; PROTHROMBIN TIME 16.1 SECONDS (12.5-14.5)
[2023-05-22 19:46] VITALS: BP 159/77; TEMP 97.7; O2SAT 97
[2023-05-22 21:00] VITALS: O2SAT 95
[2023-05-22] MEDS ORDERED: ATORVASTATIN 20 MG TAB PO SCH (21:00)
[2023-05-22] MEDS: ASPIRIN 81MG ENTERIC TABLET PO SCH (21:10)
[2023-05-22 22:00] VITALS: O2SAT 96
[2023-05-22 23:00] VITALS: O2SAT 99
[2023-05-22 23:28] VITALS: BP 94/55; TEMP 97.5; O2SAT 99
[2023-05-23] VITALS (18 sets, daily range): BP systolic 96–131; BP diastolic 55–68; TEMP 96.6–98.1; O2SAT 92–100
[2023-05-23] MEDS: metroNIDAZOLE 500 MG in IV 1 EA IV SCH ×3 (05:18→21:04)
[2023-05-23] MEDS: AZTREONAM 2 GM in D5W MINI-BAG PLUS 50 ML IV SCH ×3 (06:27→22:43)
[2023-05-23] MEDS ORDERED: LEVOTHYROXINE 25MCG TABLET (0.025MG) PO STA (06:35)
[2023-05-23] MEDS: INSULIN LISPRO (NovoLOG) PER UNIT SC SCH ×4 (06:45→17:42)
[2023-05-23 07:59] LABS: HEMATOCRIT 36.2 % (36.0-47.0); HEMOGLOBIN 11.5 g/dl (12.0-15.5); MEAN CORPUSCULAR HEMOGLOBIN 28.6 pg (27.0-33.0); MEAN CORPUSCULAR HGB CONC 31.8 g/dl (32.0-36.5); PLATELET COUNT, AUTOMATED 170 10^3/uL (150-450); RED BLOOD COUNT 4.02 10^6/uL (4.00-5.40); WHITE BLOOD COUNT 5.7 10^3/uL (4.0-10.0)
[2023-05-23 08:19] LABS: ALBUMIN 2.4 G/DL (3.2-5.2); ALKALINE PHOSPHATASE 168 U/L (46-116); ALT/SGPT 128 U/L (7.0-40); AST/SGOT 48 U/L (<34); BILIRUBIN,TOTAL 1.1 MG/DL (0.3-1.2); BLOOD UREA NITROGEN 28 MG/DL (9-23); CALCIUM LEVEL 7.5 MG/DL (8.3-10.6); CARBON DIOXIDE LEVEL 22 MMOL/L (20-31); CHLORIDE LEVEL 100 MMOL/L (98-107); CREATININE FOR GFR 0.65 MG/DL (0.55-1.30); GLOMERULAR FILTRATION RATE > 60.0 (>39); GLUCOSE, FASTING 369 MG/DL (74-106); SODIUM LEVEL 133 MMOL/L (136-145); TOTAL PROTEIN 5.1 G/DL (5.7-8.2)
[2023-05-23] MEDS: ADVAIR HFA 230/21MCG INHALER INH SCH ×2 (08:22→19:32)
[2023-05-23] MEDS: dilTIAZem **CD** 180MG CAP PO SCH (09:00)
[2023-05-23] MEDS: **hydrALAZINE HCL** 25 MG TAB PO SCH ×2 (09:00→21:03)
[2023-05-23] MEDS: allopurinoL 100 MG TAB PO SCH ×2 (09:02→21:02)
[2023-05-23] MEDS: CLOPIDOGREL 75 MG TAB PO SCH (09:03)
[2023-05-23] MEDS: PANTOPRAZOLE 40MG TAB (PROTONIX) PO SCH (09:03)
[2023-05-23] MEDS: VENLAFAXINE **XR** 75MG CAPSULE PO SCH (09:03)
[2023-05-23] MEDS: CARVedilol 3.125 MG TAB PO SCH ×2 (09:05→21:03)
[2023-05-23] MEDS: SPIRONOLACTONE 25 MG TAB PO SCH (09:05)
[2023-05-23] MEDS: GABAPENTIN 300 MG CAP PO SCH ×3 (09:06→21:02)
[2023-05-23] MEDS: ENOXAPARIN 40MG/0.4ML SYRINGE (J1650 PER 10MG) SC SCH (14:46)
[2023-05-23] MEDS ORDERED: INSULIN LISPRO (NovoLOG) PER UNIT SC ONE (18:00)
[2023-05-23] MEDS ORDERED: INSULIN LISPRO (NovoLOG) PER UNIT SC SCH (21:00)
[2023-05-23] MEDS ORDERED: LEVEMIR (INSULIN DETEMIR) 1 UNITS/0.01ML SC SCH (21:00)
[2023-05-23] MEDS: ASPIRIN 81MG ENTERIC TABLET PO SCH (21:02)
[2023-05-23] MEDS: LEVEMIR (INSULIN DETEMIR) 1 UNITS/0.01ML SC SCH (21:21)
[2023-05-24] VITALS (12 sets, daily range): BP systolic 115–157; BP diastolic 56–74; TEMP 96.8–98.4; O2SAT 93–98
[2023-05-24] MEDS: ACETAMINOPHEN TAB 650MG DOSE (2X325MG) PO PRN ×3 (00:39→21:38)
[2023-05-24] MEDS: metroNIDAZOLE 500 MG in IV 1 EA IV SCH ×3 (05:15→21:03)
[2023-05-24] MEDS: LEVOTHYROXINE 25MCG TABLET (0.025MG) PO SCH (06:09)
[2023-05-24] MEDS: AZTREONAM 2 GM in D5W MINI-BAG PLUS 50 ML IV SCH (06:47)
[2023-05-24 06:54] LABS: ALBUMIN 2.4 G/DL (3.2-5.2); ALKALINE PHOSPHATASE 165 U/L (46-116); ALT/SGPT 101 U/L (7.0-40); AST/SGOT 28 U/L (<34); BILIRUBIN,TOTAL 0.8 MG/DL (0.3-1.2); BLOOD UREA NITROGEN 23 MG/DL (9-23); CALCIUM LEVEL 7.6 MG/DL (8.3-10.6); CARBON DIOXIDE LEVEL 25 MMOL/L (20-31); CHLORIDE LEVEL 102 MMOL/L (98-107); CREATININE FOR GFR 0.64 MG/DL (0.55-1.30); GLOMERULAR FILTRATION RATE > 60.0 (>39); GLUCOSE, FASTING 280 MG/DL (74-106); POTASSIUM SERUM 3.8 MMOL/L (3.5-5.1); SODIUM LEVEL 135 MMOL/L (136-145); TOTAL PROTEIN 5.3 G/DL (5.7-8.2)
[2023-05-24 06:56] LABS: HEMOGLOBIN A1c 9.6 % (4.0-6.0)
[2023-05-24] MEDS: ADVAIR HFA 230/21MCG INHALER INH SCH ×2 (07:57→20:28)
[2023-05-24] MEDS: INSULIN LISPRO (NovoLOG) PER UNIT SC SCH (08:25)
[2023-05-24] MEDS: ENOXAPARIN 40MG/0.4ML SYRINGE (J1650 PER 10MG) SC SCH (08:25)
[2023-05-24] MEDS: allopurinoL 100 MG TAB PO SCH ×2 (08:26→20:59)
[2023-05-24] MEDS: CLOPIDOGREL 75 MG TAB PO SCH (08:26)
[2023-05-24] MEDS: VENLAFAXINE **XR** 75MG CAPSULE PO SCH (08:27)
[2023-05-24] MEDS: PANTOPRAZOLE 40MG TAB (PROTONIX) PO SCH (08:27)
[2023-05-24] MEDS: GABAPENTIN 300 MG CAP PO SCH ×3 (08:27→21:00)
[2023-05-24] MEDS: dilTIAZem **CD** 180MG CAP PO SCH (08:27)
[2023-05-24] MEDS: **hydrALAZINE HCL** 25 MG TAB PO SCH ×2 (08:28→20:59)
[2023-05-24] MEDS: CARVedilol 3.125 MG TAB PO SCH ×2 (08:28→20:59)
[2023-05-24] MEDS: SPIRONOLACTONE 25 MG TAB PO SCH (08:30)
[2023-05-24] MEDS ORDERED: LEVEMIR (INSULIN DETEMIR) 1 UNITS/0.01ML SC SCH (09:00)
[2023-05-24] MEDS: cefTRIAXone SOD 2 GM in D5W MINI-BAG PLUS 50 ML IV SCH (15:36)
[2023-05-24] MEDS: ASPIRIN 81MG ENTERIC TABLET PO SCH (21:00)
[2023-05-24] MEDS: LEVEMIR (INSULIN DETEMIR) 1 UNITS/0.01ML SC SCH (21:19)
[2023-05-25] VITALS (7 sets, daily range): BP systolic 122–155; BP diastolic 58–82; TEMP 96.5–96.9; O2SAT 92–97
[2023-05-25] MEDS: metroNIDAZOLE 500 MG in IV 1 EA IV SCH (04:15)
[2023-05-25] MEDS: LEVOTHYROXINE 25MCG TABLET (0.025MG) PO SCH (05:26)
[2023-05-25 08:16] LABS: ALBUMIN 2.7 G/DL (3.2-5.2); ALKALINE PHOSPHATASE 165 U/L (46-116); ALT/SGPT 91 U/L (7.0-40); AST/SGOT 37 U/L (<34); BILIRUBIN,TOTAL 0.6 MG/DL (0.3-1.2); BLOOD UREA NITROGEN 18 MG/DL (9-23); CALCIUM LEVEL 8.4 MG/DL (8.3-10.6); CARBON DIOXIDE LEVEL 23 MMOL/L (20-31); CHLORIDE LEVEL 106 MMOL/L (98-107); CREATININE FOR GFR 0.53 MG/DL (0.55-1.30); GLOMERULAR FILTRATION RATE > 60.0 (>39); GLUCOSE, FASTING 83 MG/DL (74-106); POTASSIUM SERUM 3.6 MMOL/L (3.5-5.1); SODIUM LEVEL 139 MMOL/L (136-145); TOTAL PROTEIN 5.8 G/DL (5.7-8.2)
[2023-05-25] MEDS: allopurinoL 100 MG TAB PO SCH (08:50)
[2023-05-25] MEDS: VENLAFAXINE **XR** 75MG CAPSULE PO SCH (08:51)
[2023-05-25] MEDS: CLOPIDOGREL 75 MG TAB PO SCH (08:51)
[2023-05-25] MEDS: CARVedilol 3.125 MG TAB PO SCH (08:51)
[2023-05-25] MEDS: GABAPENTIN 300 MG CAP PO SCH (08:52)
[2023-05-25] MEDS: dilTIAZem **CD** 180MG CAP PO SCH (08:52)
[2023-05-25] MEDS: PANTOPRAZOLE 40MG TAB (PROTONIX) PO SCH (08:52)
[2023-05-25] MEDS: **hydrALAZINE HCL** 25 MG TAB PO SCH (08:52)
[2023-05-25] MEDS: SPIRONOLACTONE 25 MG TAB PO SCH (08:52)
[2023-05-25] MEDS: ENOXAPARIN 40MG/0.4ML SYRINGE (J1650 PER 10MG) SC SCH (08:53)
[2023-05-25] MEDS: ADVAIR HFA 230/21MCG INHALER INH SCH (09:09)
[2023-05-25] MEDS ORDERED: CEFD1CAP9 PO (12:35)
[2023-05-25] MEDS ORDERED: METR-265 PO ×2 (12:35→12:49)
[2023-05-25] MEDS ORDERED: metroNIDAZOLE (FLAGYL) 500MG TABLET PO SCH (14:00)
[2023-05-25] MEDS: cefTRIAXone SOD 2 GM in D5W MINI-BAG PLUS 50 ML IV SCH (14:01)
== END 2023-05-25 16:18 | disposition home or self-care (01) | DRG 871 ==
LOC: EDBD 14:33 → M ED 14:33 → M ED INP 23:03 → ENRESERV 05-22 14:46 → M PCU 05-22 17:12
PROVIDERS: ADMIT Internal Medicine; ATTEND Internal Medicine
DX: A41.51 Sepsis due to Escherichia coli [E. coli] (principal); G93.41 Metabolic encephalopathy; I50.30 Unspecified diastolic (congestive) heart failure; K83.09 Other cholangitis; R17 Unspecified jaundice; K21.9 Gastro-esophageal reflux disease without esophagitis; I16.0 Hypertensive urgency; E03.9 Hypothyroidism, unspecified; B96.29 Other Escherichia coli [E. coli] as the cause of diseases classified elsewhere; J45.909 Unspecified asthma, uncomplicated; F39 Unspecified mood [affective] disorder; E11.51 Type 2 diabetes mellitus with diabetic peripheral angiopathy without gangrene; I25.10 Atherosclerotic heart disease of native coronary artery without angina pectoris; G47.33 Obstructive sleep apnea (adult) (pediatric); Z86.73 Personal history of transient ischemic attack (TIA), and cerebral infarction without residual deficits; M10.9 Gout, unspecified; Z95.2 Presence of prosthetic heart valve; Z95.1 Presence of aortocoronary bypass graft; R94.31 Abnormal electrocardiogram [ECG] [EKG]; Z88.0 Allergy status to penicillin; Z88.2 Allergy status to sulfonamides; Z79.899 Other long term (current) drug therapy; Z79.82 Long term (current) use of aspirin; I11.0 Hypertensive heart disease with heart failure; Z79.4 Long term (current) use of insulin; H16.229 Keratoconjunctivitis sicca, not specified as Sjogren's, unspecified eye; K57.90 Diverticulosis of intestine, part unspecified, without perforation or abscess without bleeding

== ENCOUNTER → 2023-06-10 | Outpatient (REF) | payer MEDICARE ==
[~2023-06-10] MED LIST changes: +ALBU8.5H INH; +ALLO100T PO; +CEFD1CAP9 PO; +CLOP75TA2; +CLOP75TA99 PO; +ICOS1CAP PO; +IPRA0.00 INH; +KETO2CR TOP; +MED HIST COMMENT; +METR-265 PO; +VENL150C43 PO; +VITA100066 PO
[2023-06-10 13:44] LABS: BASO % 0.3 % (0.0-1.0); EOS % 0.1 % (0.0-3.0); HEMOGLOBIN 11.2 g/dl (12.0-15.5); LYMPH # 1.2 10^3/uL (1.5-5.0); LYMPH % 15.4 % (24.0-44.0); MEAN CORPUSCULAR HEMOGLOBIN 28.4 pg (27.0-33.0); MEAN CORPUSCULAR VOLUME 88.8 fl (80.0-96.0); MONO # 0.6 10^3/uL (0.0-0.8); MONO % 7.3 % (2.0-8.0); NEUTROPHILS # 5.9 10^3/uL (1.5-8.5); NEUTROPHILS % 76.4 % (36.0-66.0); PLATELET COUNT, AUTOMATED 299 10^3/uL (150-450); RED BLOOD COUNT 3.94 10^6/uL (4.00-5.40); WHITE BLOOD COUNT 7.8 10^3/uL (4.0-10.0)
[2023-06-10 14:05] LABS: ALBUMIN 3.2 G/DL (3.2-5.2); ALKALINE PHOSPHATASE 135 U/L (46-116); ALT/SGPT 29 U/L (7.0-40); AST/SGOT 23 U/L (<34); BILIRUBIN,TOTAL 0.7 MG/DL (0.3-1.2); BLOOD UREA NITROGEN 21 MG/DL (9-23); CALCIUM LEVEL 9.6 MG/DL (8.3-10.6); CARBON DIOXIDE LEVEL 27 MMOL/L (20-31); CHLORIDE LEVEL 104 MMOL/L (98-107); CREATININE FOR GFR 0.63 MG/DL (0.55-1.30); GLOMERULAR FILTRATION RATE > 60.0 (>39); GLUCOSE, FASTING 266 MG/DL (74-106); POTASSIUM SERUM 4.3 MMOL/L (3.5-5.1); SODIUM LEVEL 138 MMOL/L (136-145); TOTAL PROTEIN 6.7 G/DL (5.7-8.2)
== END ==
LOC: M LABDRWAD 12:39
PROVIDERS: ATTEND Internal Medicine
DX: R10.13 Epigastric pain (principal)

== ENCOUNTER → 2023-06-17 | Outpatient (REF) | payer MEDICARE ==
[2023-06-17 17:47] LABS: PERCENT SATURATION 18.9 % (13.2-45.0)
[2023-06-17 17:48] LABS: FERRITIN 40.5 NG/ML (7.3-270.7)
== END ==
LOC: M LAB REF 16:35
PROVIDERS: ATTEND Internal Medicine
DX: D50.9 Iron deficiency anemia, unspecified (principal)

== ENCOUNTER → 2023-06-26 | Outpatient (REF) | payer MEDICARE | LOC: M LAB REF 10:05 | PROVIDERS: ATTEND Physician Assistant | DX: J06.9 Acute upper respiratory infection, unspecified (principal) ==

== ENCOUNTER 2023-06-30 17:29 | Emergency (ER) | payer MEDICARE ==
[~2023-06-30] VITALS: Ht 149.9 cm; Wt 86.4 kg
[2023-06-30 17:41] VITALS: TEMP 100.2
[2023-06-30 18:00] VITALS: BP 148/73
[2023-06-30 18:07] LABS: BASO % 0.4 % (0.0-1.0); EOS # 0.2 10^3/uL (0.0-0.5); EOS % 1.9 % (0.0-3.0); HEMOGLOBIN 11.6 g/dl (12.0-15.5); LYMPH # 1.4 10^3/uL (1.5-5.0); LYMPH % 17.3 % (24.0-44.0); MEAN CORPUSCULAR HEMOGLOBIN 28.3 pg (27.0-33.0); MEAN CORPUSCULAR HGB CONC 32.2 g/dl (32.0-36.5); MEAN CORPUSCULAR VOLUME 87.8 fl (80.0-96.0); MONO # 0.5 10^3/uL (0.0-0.8); MONO % 5.8 % (2.0-8.0); NEUTROPHILS % 74.2 % (36.0-66.0); PLATELET COUNT, AUTOMATED 200 10^3/uL (150-450); WHITE BLOOD COUNT 8.1 10^3/uL (4.0-10.0)
[2023-06-30 18:36] LABS: LIPASE 20 U/L (12-53)
[2023-06-30 18:37] LABS: CPK CREATINE PHOSPHOKINASE 83 U/L (34-145)
[2023-06-30 18:38] LABS: ALKALINE PHOSPHATASE 93 U/L (46-116); ALT/SGPT 17 U/L (7.0-40); AST/SGOT 15 U/L (<34); BILIRUBIN,DIRECT 0.3 MG/DL (<0.4); BILIRUBIN,TOTAL 0.7 MG/DL (0.3-1.2); BLOOD UREA NITROGEN 16 MG/DL (9-23); CALCIUM LEVEL 8.7 MG/DL (8.3-10.6); CARBON DIOXIDE LEVEL 31 MMOL/L (20-31); CHLORIDE LEVEL 100 MMOL/L (98-107); CK-MB VALUE MASS 1.2 NG/ML (<3.6); CREATININE FOR GFR 0.66 MG/DL (0.55-1.30); GLOMERULAR FILTRATION RATE > 60.0 (>39); GLUCOSE, FASTING 221 MG/DL (74-106); MB/CK RELATIVE INDEX 1.44 (< OR =4); POTASSIUM SERUM 4.1 MMOL/L (3.5-5.1); SODIUM LEVEL 136 MMOL/L (136-145)
[2023-06-30 19:31] LABS: CK-MB VALUE MASS 1.5 NG/ML (<3.6)
[2023-06-30] MEDS ORDERED: DEXTROSE 50% 50ML SYRINGE IV STA ×2 (19:37→21:27)
[2023-06-30] MEDS ORDERED: DEXTROSE 50% 50ML SYRINGE As Ordered ONE (19:38)
[2023-06-30 20:39] VITALS: O2SAT 92
== END 2023-06-30 21:56 | disposition home or self-care (01) ==
LOC: M ED 17:29
DX: R07.9 Chest pain, unspecified (principal); I44.0 Atrioventricular block, first degree; I44.4 Left anterior fascicular block; E11.9 Type 2 diabetes mellitus without complications; E78.5 Hyperlipidemia, unspecified; Z86.79 Personal history of other diseases of the circulatory system; Z88.0 Allergy status to penicillin; Z88.2 Allergy status to sulfonamides; Z79.52 Long term (current) use of systemic steroids; Z79.82 Long term (current) use of aspirin; Z79.1 Long term (current) use of non-steroidal anti-inflammatories (NSAID); Z79.899 Other long term (current) drug therapy

== ENCOUNTER → 2023-07-14 | Outpatient (CLI) | payer MEDICARE | LOC: M WHC 08:16 | PROVIDERS: ATTEND Internal Medicine | DX: R10.11 Right upper quadrant pain (principal) ==

== ENCOUNTER → 2023-09-07 | Outpatient (REF) | payer MEDICARE ==
[~2023-09-07] MED LIST changes: -ASPI-161 PO; +ASPI-615 PO; -HYDR-3910 PO; -HYDR25TA PO; +HYDR25TA87 PO; +HYDR25TA88 PO
[2023-09-07 13:32] LABS: CHOLESTEROL RISK RATIO 2.83 (<5); HDL CHOLESTEROL 45.5 MG/DL (>40); LDL CHOLESTEROL 56.9 MG/DL (<100); NON-HDL-C 83.5 MG/DL
== END ==
LOC: M LABDRWAD 12:40
PROVIDERS: ATTEND Internal Medicine Cardiovascular Disease
DX: E78.2 Mixed hyperlipidemia (principal)

== ENCOUNTER 2023-10-14 11:00 | Day surgery (SDC) | payer MEDICARE ==
[~2023-10-14] VITALS: Ht 149.9 cm; Wt 86.2 kg
[~2023-10-14 11:00] MED LIST changes: +BP med PO
[2023-10-14] MEDS: NS 1,000 ML IV ONE (11:17)
[2023-10-14] MEDS ORDERED: D5W/0.45% SODIUM CHLORIDE 1,000 ML IV SCH (11:30)
[2023-10-14] MEDS ORDERED: ONDANSETRON 4MG 2ML VIAL As Ordered ONE (11:44)
[2023-10-14] MEDS ORDERED: LIDOCAINE 2% 100MG/5ML SDV (FOR ANES.) As Ordered ONE (11:44)
[2023-10-14] MEDS ORDERED: fentaNYL 100 MCG/2 ML INJECTION As Ordered ONE (11:44)
[2023-10-14] MEDS ORDERED: propofoL 200 MG/20 ML VIAL As Ordered ONE (11:44)
[2023-10-14 12:31] VITALS: TEMP 97.5
[2023-10-14 12:57] VITALS: BP 135/72; O2SAT 95
== END 2023-10-14 12:58 | disposition home or self-care (01) ==
LOC: M OPP 11:00
PROVIDERS: ATTEND Internal Medicine Gastroenterology
DX: K64.0 First degree hemorrhoids (principal); K57.30 Diverticulosis of large intestine without perforation or abscess without bleeding; D50.9 Iron deficiency anemia, unspecified; K31.7 Polyp of stomach and duodenum; K31.89 Other diseases of stomach and duodenum; K22.89 Other specified disease of esophagus; I20.9 Angina pectoris, unspecified; E11.9 Type 2 diabetes mellitus without complications; G47.30 Sleep apnea, unspecified; Z99.89 Dependence on other enabling machines and devices; E03.9 Hypothyroidism, unspecified; Z95.0 Presence of cardiac pacemaker; Z86.74 Personal history of sudden cardiac arrest; Z79.02 Long term (current) use of antithrombotics/antiplatelets; Z79.2 Long term (current) use of antibiotics; Z79.52 Long term (current) use of systemic steroids; Z79.890 Hormone replacement therapy; Z79.899 Other long term (current) drug therapy; Z88.0 Allergy status to penicillin; Z88.2 Allergy status to sulfonamides
CPT/HCPCS: 43239; 45378; 88305; J2405; J3010

== ENCOUNTER → 2023-12-03 | Outpatient (REF) | payer MEDICARE ==
[~2023-12-03] MED LIST changes: -DILT1CAP46 PO; +DILT360C22 PO
[2023-12-03 19:35] LABS: PERCENT SATURATION 15.3 % (13.2-45.0)
[2023-12-03 19:41] LABS: FERRITIN 34.5 NG/ML (7.3-270.7)
== END ==
LOC: M LAB REF 17:06
PROVIDERS: ATTEND Nurse Practitioner Family
DX: K74.69 Other cirrhosis of liver (principal)

== ENCOUNTER → 2024-03-04 | Outpatient (REF) | payer MEDICARE ==
[~2024-03-04] MED LIST changes: +GABA-1490 PO; -GABA600T4 PO
[2024-03-04 14:15] LABS: HEMOGLOBIN 12.9 g/dl (12.0-15.5); MEAN CORPUSCULAR HEMOGLOBIN 28.9 pg (27.0-33.0); MEAN CORPUSCULAR HGB CONC 32.3 g/dl (32.0-36.5); MEAN CORPUSCULAR VOLUME 89.5 fl (80.0-96.0); PLATELET COUNT, AUTOMATED 237 10^3/uL (150-450); RED BLOOD COUNT 4.47 10^6/uL (4.00-5.40); WHITE BLOOD COUNT 6.9 10^3/uL (4.0-10.0)
[2024-03-04 14:45] LABS: ALBUMIN 3.9 G/DL (3.2-5.2); ALKALINE PHOSPHATASE 121 U/L (46-116); ALT/SGPT 20 U/L (7.0-40); AST/SGOT 18 U/L (<34); BILIRUBIN,TOTAL 0.7 MG/DL (0.3-1.2); BLOOD UREA NITROGEN 16 MG/DL (9-23); CALCIUM LEVEL 9.6 MG/DL (8.3-10.6); CARBON DIOXIDE LEVEL 31 MMOL/L (20-31); CHLORIDE LEVEL 106 MMOL/L (98-107); CREATININE FOR GFR 0.81 MG/DL (0.55-1.30); GLOMERULAR FILTRATION RATE > 60.0 (>39); GLUCOSE, FASTING 166 MG/DL (74-106); POTASSIUM SERUM 3.9 MMOL/L (3.5-5.1); SODIUM LEVEL 139 MMOL/L (136-145); TOTAL PROTEIN 7.1 G/DL (5.7-8.2)
== END ==
LOC: M LABDRWAD 13:25
PROVIDERS: ATTEND Physician Assistant
DX: R06.02 Shortness of breath (principal)

== ENCOUNTER → 2024-03-21 | Outpatient (CLI) | payer MEDICARE ==
[~2024-03-21] MED LIST changes: +GABA-1172 PO; -GABA-282 PO
== END ==
LOC: M RAD 14:20
PROVIDERS: ATTEND Internal Medicine Cardiovascular Disease
DX: R06.02 Shortness of breath (principal)

== ENCOUNTER → 2024-04-15 | Outpatient (CLI) | payer MEDICARE | LOC: M RAD 13:45 | PROVIDERS: ATTEND Internal Medicine Cardiovascular Disease | DX: R42 Dizziness and giddiness (principal); I65.23 Occlusion and stenosis of bilateral carotid arteries ==

== ENCOUNTER → 2024-05-09 | Outpatient (CLI) | payer MEDICARE ==
[~2024-05-09] MED LIST changes: +ATOR-398 PO; -LIPI80TA PO
== END ==
LOC: M WUC 11:15
PROVIDERS: ATTEND Internal Medicine
DX: I11.0 Hypertensive heart disease with heart failure (principal); I50.32 Chronic diastolic (congestive) heart failure; R06.02 Shortness of breath

== ENCOUNTER → 2024-05-30 | Outpatient (REF) | payer MEDICARE | LOC: M LAB REF 12:00 | PROVIDERS: ATTEND Internal Medicine | DX: I50.33 Acute on chronic diastolic (congestive) heart failure (principal); K74.69 Other cirrhosis of liver; I11.0 Hypertensive heart disease with heart failure ==

== ENCOUNTER → 2024-06-20 | Outpatient (REF) | payer MEDICARE ==
[2024-06-20 13:17] LABS: HEMOGLOBIN 13.8 g/dl (12.0-15.5); MEAN CORPUSCULAR HEMOGLOBIN 29.4 pg (27.0-33.0); MEAN CORPUSCULAR HGB CONC 32.1 g/dl (32.0-36.5); MEAN CORPUSCULAR VOLUME 91.5 fl (80.0-96.0); PLATELET COUNT, AUTOMATED 253 10^3/uL (150-450); WHITE BLOOD COUNT 8.6 10^3/uL (4.0-10.0)
[2024-06-20 13:48] LABS: BLOOD UREA NITROGEN 21 MG/DL (9-23); CALCIUM LEVEL 9.6 MG/DL (8.3-10.6); CARBON DIOXIDE LEVEL 32 MMOL/L (20-31); CHLORIDE LEVEL 101 MMOL/L (98-107); CREATININE FOR GFR 0.73 MG/DL (0.55-1.30); GLOMERULAR FILTRATION RATE > 60.0 (>39); GLUCOSE, FASTING 115 MG/DL (74-106); POTASSIUM SERUM 4.2 MMOL/L (3.5-5.1); SODIUM LEVEL 141 MMOL/L (136-145)
== END ==
LOC: M LABDRWAD 12:17
PROVIDERS: ATTEND Physician Assistant
DX: I34.0 Nonrheumatic mitral (valve) insufficiency (principal); R06.02 Shortness of breath

== ENCOUNTER → 2024-08-03 | Outpatient (CLI) | payer MEDICARE ==
[2024-08-03 12:14] LABS: BASO % 0.5 % (0.0-1.0); EOS # 0.3 10^3/uL (0.0-0.5); EOS % 4.2 % (0.0-3.0); HEMATOCRIT 41.2 % (36.0-47.0); HEMOGLOBIN 13.6 g/dl (12.0-15.5); LYMPH # 1.9 10^3/uL (1.5-5.0); LYMPH % 25.5 % (24.0-44.0); MEAN CORPUSCULAR VOLUME 90.9 fl (80.0-96.0); MONO # 0.6 10^3/uL (0.0-0.8); MONO % 7.9 % (2.0-8.0); NEUTROPHILS # 4.5 10^3/uL (1.5-8.5); NEUTROPHILS % 60.8 % (36.0-66.0); PLATELET COUNT, AUTOMATED 242 10^3/uL (150-450); RED BLOOD COUNT 4.53 10^6/uL (4.00-5.40); WHITE BLOOD COUNT 7.4 10^3/uL (4.0-10.0)
[2024-08-03 13:00] LABS: BLOOD UREA NITROGEN 22 MG/DL (9-23); CALCIUM LEVEL 9.2 MG/DL (8.3-10.6); CARBON DIOXIDE LEVEL 32 MMOL/L (20-31); CHLORIDE LEVEL 101 MMOL/L (98-107); CREATININE FOR GFR 0.75 MG/DL (0.55-1.30); GLOMERULAR FILTRATION RATE > 60.0 (>39); GLUCOSE, FASTING 169 MG/DL (74-106); POTASSIUM SERUM 3.8 MMOL/L (3.5-5.1); SODIUM LEVEL 141 MMOL/L (136-145)
== END ==
LOC: M LAB 11:39
PROVIDERS: ATTEND Internal Medicine Cardiovascular Disease
DX: I65.23 Occlusion and stenosis of bilateral carotid arteries (principal)

== ENCOUNTER → 2024-08-08 | Outpatient (CLI) | payer MEDICARE ==
[~2024-08-08] MED LIST changes: +ISOVUE-370 76% 100ML VIAL As Ordered ONE
== END ==
LOC: M RAD 13:50
PROVIDERS: ATTEND Internal Medicine Cardiovascular Disease
DX: I65.23 Occlusion and stenosis of bilateral carotid arteries (principal)
CPT/HCPCS: 70498; Q9967

== ENCOUNTER → 2024-08-30 | Outpatient (CLI) | payer MEDICARE ==
[~2024-08-30] MED LIST changes: -ISOVUE-370 76% 100ML VIAL As Ordered ONE
== END ==
LOC: M WHC 07:51
PROVIDERS: ATTEND Internal Medicine
DX: K74.00 Hepatic fibrosis, unspecified (principal)

== ENCOUNTER → 2024-09-20 | Outpatient (CLI) | payer MEDICARE ==
[2024-09-20 14:28] LABS: HEMATOCRIT 41.3 % (36.0-47.0); HEMOGLOBIN 13.4 g/dl (12.0-15.5); MEAN CORPUSCULAR HEMOGLOBIN 30.7 pg (27.0-33.0); MEAN CORPUSCULAR HGB CONC 32.4 g/dl (32.0-36.5); MEAN CORPUSCULAR VOLUME 94.7 fl (80.0-96.0); PLATELET COUNT, AUTOMATED 242 10^3/uL (150-450); RED BLOOD COUNT 4.36 10^6/uL (4.00-5.40); WHITE BLOOD COUNT 8.5 10^3/uL (4.0-10.0)
[2024-09-20 14:36] LABS: ALBUMIN 3.8 G/DL (3.2-5.2); ALKALINE PHOSPHATASE 112 U/L (35-104); ALT/SGPT 25 U/L (7.0-40); AST/SGOT 21 U/L (<34); BILIRUBIN,TOTAL 0.5 MG/DL (0.3-1.2); BLOOD UREA NITROGEN 22 MG/DL (9-23); CALCIUM LEVEL 9.4 MG/DL (8.3-10.6); CARBON DIOXIDE LEVEL 31 MMOL/L (20-31); CHLORIDE LEVEL 101 MMOL/L (98-107); CREATININE FOR GFR 0.82 MG/DL (0.55-1.30); GLOMERULAR FILTRATION RATE > 60.0 (>39); GLUCOSE, FASTING 87 MG/DL (74-106); POTASSIUM SERUM 4.1 MMOL/L (3.5-5.1); SODIUM LEVEL 140 MMOL/L (136-145)
[2024-09-20 14:38] LABS: TOTAL 25(OH) VITAMIN D 33.3 NG/ML (20.0-100.0)
== END ==
LOC: M ADAMS 08:04
PROVIDERS: ATTEND Internal Medicine
DX: E03.9 Hypothyroidism, unspecified (principal); E11.65 Type 2 diabetes mellitus with hyperglycemia; Z79.899 Other long term (current) drug therapy

== ENCOUNTER → 2024-10-06 | Outpatient (CLI) | payer MEDICARE ==
[2024-10-06 12:56] LABS: CALCIUM LEVEL 9.4 MG/DL (8.3-10.6); CREATININE FOR GFR 0.93 MG/DL (0.55-1.30); GLOMERULAR FILTRATION RATE 64.1 (>39); MAGNESIUM LEVEL 2.2 MG/DL (1.8-2.4); POTASSIUM SERUM 4.4 MMOL/L (3.5-5.1)
== END ==
LOC: M LAB 11:17
PROVIDERS: ATTEND Physician Assistant
DX: I42.9 Cardiomyopathy, unspecified (principal)

== ENCOUNTER → 2025-03-17 | Outpatient (REF) | payer MEDICARE | LOC: M LAB REF 14:23 | DX: L03.116 Cellulitis of left lower limb (principal) ==

== ENCOUNTER → 2025-03-22 | Outpatient (CLI) | payer MEDICARE | LOC: M PLAIMG 13:49 | PROVIDERS: ATTEND Internal Medicine Pulmonary Disease | DX: J45.50 Severe persistent asthma, uncomplicated (principal); I51.7 Cardiomegaly; R91.8 Other nonspecific abnormal finding of lung field ==

== ENCOUNTER 2025-03-24 16:14 | Emergency (ER) | payer MEDICARE ==
[~2025-03-24] VITALS: Ht 149.9 cm; Wt 92.8 kg
[2025-03-24 18:45] VITALS: BP 124/58; TEMP 97.6; O2SAT 94
== END 2025-03-24 18:50 | disposition home or self-care (01) ==
LOC: M ED 16:14
DX: R22.42 Localized swelling, mass and lump, left lower limb (principal); I87.2 Venous insufficiency (chronic) (peripheral); R06.02 Shortness of breath; I50.32 Chronic diastolic (congestive) heart failure; E11.9 Type 2 diabetes mellitus without complications; I10 Essential (primary) hypertension; E78.5 Hyperlipidemia, unspecified; K21.9 Gastro-esophageal reflux disease without esophagitis; I25.2 Old myocardial infarction; Z86.79 Personal history of other diseases of the circulatory system; Z88.0 Allergy status to penicillin; Z88.2 Allergy status to sulfonamides; Z79.52 Long term (current) use of systemic steroids; Z79.4 Long term (current) use of insulin; Z79.899 Other long term (current) drug therapy

== ENCOUNTER → 2025-03-24 | Outpatient (REF) | payer MEDICARE | LOC: M LAB REF 12:32 | DX: I87.2 Venous insufficiency (chronic) (peripheral) (principal); R06.02 Shortness of breath; I50.32 Chronic diastolic (congestive) heart failure ==

== ENCOUNTER → 2025-06-13 | Outpatient (REF) | payer MEDICARE | LOC: M LAB REF 12:01 | PROVIDERS: ATTEND Internal Medicine | DX: I50.23 Acute on chronic systolic (congestive) heart failure (principal) ==